=== PATIENT | male | born 1945 | race Caucasian/White ===

== ENCOUNTER 2018-06-19 08:24 | Day surgery (SDC) | payer OTHER ==
[2018-06-18 12:36] VITALS: BMI 27.3
[2018-06-19] MEDS ORDERED: PROPOFOL 200 MG/20 ML VIAL ONE (11:25)
--- NOTE | 2018-06-19 12:00 | OP ---
DATE OF PROCEDURE: 06/19/2018 SURGEON: Maxim Treadwell M.D. PROCEDURE: Esophagogastroduodenoscopy with biopsy and colonoscopy diagnostic. PREPROCEDURE DIAGNOSES: 1. Mild anemia, hemoglobin of 13.2 on 05/17/2018. Baseline hemoglobin between 15 and 16 last year. MCV normal at 93. Iron 99, TIBC 324, saturation 31%, ferritin 51. Comprehensive metabolic profile was normal except for sodium 134. In the office, he had Hemoccult positive stool, but no overt blood . 2. Prior history of reflux for which he is on omeprazole. 3. B12 549. Folate 12. POSTOPERATIVE DIAGNOSES: 1. Esophagogastroduodenoscopy notable for slightly irregular squamocolumnar junction, biopsy taken t o rule out Urrutia's, otherwise, normal esophagogastroduodenoscopy. 2. Diverticulosis coli with no stigmata of bleeding. 3. Small internal hemorrhoids. 4. No polyps. RECOMMENDATIONS: 1. Repeat colonoscopy in 10 years. 2. Follow up in the office in 1 month for repeat hemoglobin. If hemoglobin drops further, we need t o evaluate his small bowel. ANESTHESIA: TIVA. PROCEDURE IN DETAIL: After the patient was informed of the risks, benefits, possible complications o f endoscopy including perforation, bleeding, reactions to medication, aspiration, informed consent wa s obtained. The patient was brought to the endoscopy suite where he was sedated in a gradual fashion . Once he was comfortable, a bite block was placed in incisural orifice. The endoscope was advanced through the esophagus, stomach and the second and third portion of duodenum and slowly removed. The re was good visualization of the mucosa. There were no masses, lesions or arteriovenous malformation s identified in the stomach. There was mild irregular squamocolumnar junction with no overt abnormal mucosa, ulcers or erosions. Biopsies taken to rule out short segment Urrutia's. The duodenum was n ormal to the third portion. There was no stigmata of bleeding. There was no scalloping of duodenal folds. Retroflexed views in the stomach were normal. The scope was removed. The patient tolerated the procedure well with no complications.. The patient was turned in the room. A rectal exam was performed which was normal. The endoscope was advanced through the anal canal, through the colon to the ileum. The ileum was normal. The scope w as slowly brought back through the colon. There was good visualization of the mucosa. Withdrawal ti me was about 10 minutes. There was diverticulosis coli scattered throughout the colon. No stigmata of bleeding. There were no AVMs, polyps, or masses seen. Retroflexed view showed small internal hem orrhoids which were nonbleeding. The scope was removed. The patient tolerated the procedure well wi th no complications.
== END 2018-06-19 11:38 | disposition home or self-care (01) ==
LOC: SDC 08:24
PROVIDERS: ATTEND Internal Medicine Gastroenterology
PROC: 0DJD8ZZ Inspection of Lower Intestinal Tract, Via Natural or Artificial Opening Endoscopic (ICD-10-PCS; principal; 2018-06-19)
PROC: 0DB48ZX Excision of Esophagogastric Junction, Via Natural or Artificial Opening Endoscopic, Diagnostic (ICD-10-PCS; principal; 2018-06-19)
DX: D64.9 Anemia, unspecified (principal); K57.30 Diverticulosis of large intestine without perforation or abscess without bleeding; K64.8 Other hemorrhoids; K22.8 Other specified diseases of esophagus; I25.10 Atherosclerotic heart disease of native coronary artery without angina pectoris; I10 Essential (primary) hypertension; E78.00 Pure hypercholesterolemia, unspecified; F17.210 Nicotine dependence, cigarettes, uncomplicated; Z79.82 Long term (current) use of aspirin; Z79.899 Other long term (current) drug therapy; Z95.5 Presence of coronary angioplasty implant and graft
CPT/HCPCS: 88305; 88312; 88313; J2704

== ENCOUNTER 2018-06-28 08:49 | Inpatient (IN) | payer OTHER, MEDICARE ==
[2018-06-28 09:26] LABS: #Basophils 0.1 thou/uL (0.0-0.2); #Eosinphils 0.4 thou/uL (0.0-0.7); #Lymphocytes 2.3 thou/uL (1.20-3.40); #Monocytes 0.7 thou/uL (0.11-0.59); %Basophils 0.9 % (0.0-1.0); %Eosinophils 3.6 % (0.0-10.0); %Lymphocytes 22.2 % (21.0-51.0); %Monocytes 6.6 % (0.0-10.0); %Neutrophils 66.6 % (42.0-75.0); Hemoglobin 8.5 g/dL (14.0-18.0); Mean Corpuscular Hemoglobin 31.1 pg (27.0-31.0); Mean Corpuscular Volume 94.3 fL (78.0-98.0); Mean Platelet Volume 5.9 fL (7.4-10.4); Platelet Count 418 thou/uL (130-400); RBC Distribution Width 12.4 % (11.5-14.5); Red Blood Cell (RBC) Count 2.74 mill/uL (4.70-6.10); White Blood Cell (WBC) Count 10.5 thou/uL (4.8-10.8)
[2018-06-28 09:49] LABS: ALT (SGPT) 10 U/L (8-55); AST (SGOT) 21 U/L (5-34); Albumin 4.1 g/dL (3.4-4.8); Alkaline Phosphatase 52 U/L (40-150); Anion Gap 14 mmol/L (10-20); BUN (Urea Nitrogen) 12 mg/dL (8.4-25.7); Bilirubin, Total 0.4 mg/dL (0.2-1.2); Calc. Creatinine Clearance 0 mL/min (70-130); Calcium 9.4 mg/dL (7.8-10.44); Carbon Dioxide 22 mmol/L (23-31); Chloride 104 mmol/L (98-107); Estimated GFR-MDRD Greater than 90; Glucose 93 mg/dL (83-110); Potassium 4.2 mmol/L (3.5-5.1); Protein, Total 7.1 g/dL (5.8-8.1); Sodium 136 mmol/L (136-145)
[2018-06-28 09:50] LABS: CKMB 1.6 ng/mL (0-6.6); Troponin I 0.226 ng/mL (< 0.028)
[2018-06-28 09:57] LABS: PTT 29.7 SEC (22.9-36.1)
[2018-06-28 09:58] LABS: INR-International Normal Ratio 0.9; Prothrombin Time 12.1 SEC (12.0-14.7)
[2018-06-28 10:09] LABS: Iron 69 ug/dL (65-175); Iron Binding Capacity, Total 369 mcg/dL (261-462)
[2018-06-28] MEDS ORDERED: Pantoprazole 40 MG VIAL ONE (10:19)
--- NOTE | 2018-06-28 10:57 | CT ---
CT ABDOMEN AND PELVIS WITH IV CONTRAST: Date: 06/28/18 HISTORY: Abdominal pain. FINDINGS: Comparison made with exam of 01/01/04. There is a 5.0 mm peripheral nodule in the right lower lobe. No calcified gallstones are seen. The li tina, spleen, pancreas, right adrenal gland, and left kidney are normal. There is an 8.0 mm low densit y in the right renal cortex, likely cyst. There is an indeterminate 15.0 mm left adrenal nodule. This is new since the last exam. There is a 5.5 cm mass associated with a loop of small bowel in the lower mid abdomen at L3 and L4 le victor m. No associated abnormal bowel dilatation is seen. This is not amenable to percutaneous biopsy. A normal appearing appendix is seen. There is colonic diverticulosis without evidence of diverticulitis . Fecal material is present in the colon and rectum. There are vascular calcifications without evidence of aneurysmal dilatation of the abdominal aorta. N o free air, free fluid, or retroperitoneal lymphadenopathy is seen. There is mild prostatic enlargeme nt. Degenerative changes are present in the spine. The right lower lobe lung node, left adrenal nodule, and the abdominal mass are new since the previou s study. IMPRESSION: 1. 5.0 mm right lower lobe lung nodule. 2. 15.0 mm indeterminate left adrenal nodule. 3. 5.5 cm abdominal mass associated with small bowel loops. No evidence of high grade small bowel ob struction. Surgical consultation is recommended. 4. Colonic diverticulosis. POS: [facility]
[2018-06-28] MEDS ORDERED: Aspirin 81 mg Enteric Coated Tablet ONE (11:17)
--- NOTE | 2018-06-28 12:28 | PDOC.FPRHP ---
- History of Present Illness Chief Complaint: dizziness History of Present Illness: This is a 73yo M with pmh of CAD s/p 2stents 10 years ago presenting for 3 week history of lightheadedness and generalized weakness that have been worsening. Pt saw Dr. Graham weeks ago and was informed he was anemic. He then had upper and lower GI scope done by Dr. Zurita which was reportedly normal. Pt also complains of mild intermittent substernal chest pain that is achy in quality with no radiation. Pain is not exertional. Pt reports he has noticed resolution of pain if he stretches his back and chest out. Also complains of worsening mild exertional SOB. Of note pt reports he sees Dr. Chris for his CAD. Reports that most recent stress test was about 12months ago and normal, most recent echo 6 months ago with EF 65%. ED Course: ASA, protonix, 1L NS - Allergies/Adverse Reactions Allergies Allergy/AdvReac Type Severity Reaction Status Date / Time No Known Allergies Allergy Unverified 06/18/18 12:32 - Home Medications Medication Instructions Recorded Confirmed Type Amlodipine Besylate [amLODIPine 10 mg PO DAILY 06/18/18 06/28/18 History Besylate] Aspirin [Adult Aspirin] 81 mg PO DAILY 06/18/18 06/28/18 History Atorvastatin Calcium [Lipitor] 20 mg PO HS 06/18/18 06/28/18 History Doxazosin Mesylate [Cardura] 4 mg PO HS 06/18/18 06/28/18 History Losartan Potassium [Cozaar] 100 mg PO QPM 06/18/18 06/28/18 History Metoprolol Tartrate 50 mg PO HS 06/18/18 06/28/18 History Omeprazole Magnesium [Prilosec] 20 mg PO DAILY 06/18/18 06/28/18 History Triamterene/Hydrochlorothiazid 1 tablet PO DAILY 06/18/18 06/28/18 History [Triamterene-Hctz 37.5-25 mg Tb] Vitamin B Complex 1 each PO DAILY 06/18/18 06/28/18 History - History PMHx: CAD ([place] 10 years ago s/p 2 stents), HTN, BPH PSHx: Cardiac stents, jawbone graft surgery FHx: CAD, CVA, no hx of cancer Social: 50 pack year smoking hx, 3-4 standardized EtOH drinks /night, denies drugs - Review of Systems General: reports: fatigue. denies: fever/chills Eyes: denies: eye pain, vision changes ENT: denies: nasal congestion, rhinorrhea Respiratory: reports: exercise intolerance. denies: cough, congestion Cardiovascular: reports: chest pain (per hpi). denies: palpitation Gastrointestinal: reports: other (black stools over last month). denies: nausea , vomiting, constipation Skin: denies: rashes, lesions Musculoskeletal: denies: stiffness, swelling Neurological: denies: syncope, seizure Psychological: denies: anxiety, depression - Vital signs BP: [138/71] HR: [77] RR: [18] Tmax: [98.6] Pox: [99]% on [ra] Wt: [81kg] - Physical Exam Constitutional: NAD, awake, alert and oriented HEENT: EOMI, conjunctiva clear, grossly normal vision, grossly normal hearing, MMM Neck: trachea midline, no JVD Chest: no-tender to palpation Heart: RRR, normal S1/S2, other (grade 2/6 holosystolic murmur loudest at pulmonary valve) Lungs: CTAB, no respiratory distress Abdomen: soft, bowel sounds present, other (mild ttp of bilateral abdominal quadrants) Musculoskeletal: normal structure, normal tone Neurological: no focal deficit, normal sensation Skin: no rash/lesions, good turgor Heme/Lymphatic: no unusual bruising or bleeding, no purpura Psychiatric: normal mood and affect, good judgment and insight FMR H&P: Results - Labs Result Diagrams: 06/28/18 Unknown 06/28/18 Unknown Lab results: WBC 10.5 thou/uL (4.8-10.8) 06/28/18 Unknown Hgb 8.5 g/dL (14.0-18.0) L 06/28/18 Unknown Hct 25.9 % (42.0-52.0) L 06/28/18 Unknown MCV 94.3 fL (78.0-98.0) 06/28/18 Unknown Plt Count 418 thou/uL (130-400) H 06/28/18 Unknown Neutrophils % 66.6 % (42.0-75.0) 06/28/18 Unknown Sodium 136 mmol/L (136-145) 06/28/18 Unknown Potassium 4.2 mmol/L (3.5-5.1) 06/28/18 Unknown Chloride 104 mmol/L (98-107) 06/28/18 Unknown Carbon Dioxide 22 mmol/L (23-31) L 06/28/18 Unknown BUN 12 mg/dL (8.4-25.7) 06/28/18 Unknown Creatinine 0.77 mg/dL (0.6-1.3) 06/28/18 Unknown Glucose 93 mg/dL (83-110) 06/28/18 Unknown Calcium 9.4 mg/dL (7.8-10.44) 06/28/18 Unknown Total Bilirubin 0.4 mg/dL (0.2-1.2) 06/28/18 Unknown AST 21 U/L (5-34) 06/28/18 Unknown ALT 10 U/L (8-55) 06/28/18 Unknown Alkaline Phosphatase 52 U/L (40-150) 06/28/18 Unknown CK-MB (CK-2) 1.6 ng/mL (0-6.6) 06/28/18 Unknown Serum Total Protein 7.1 g/dL (5.8-8.1) 06/28/18 Unknown Albumin 4.1 g/dL (3.4-4.8) 06/28/18 Unknown FMR H&P: A/P - Problem List (1) Symptomatic anemia Current Visit: Yes Status: Acute Code(s): D64.9 - ANEMIA, UNSPECIFIED (2) Abdominal mass Current Visit: Yes Status: Acute Code(s): R19.00 - INTRA-ABD AND PELVIC SWELLING, MASS AND LUMP, UNSP SITE (3) Elevated troponin Current Visit: Yes Status: Acute Code(s): R74.8 - ABNORMAL LEVELS OF OTHER SERUM ENZYMES (4) CAD (coronary artery disease) Current Visit: Yes Status: Acute Code(s): I25.10 - ATHSCL HEART DISEASE OF [place] CORONARY ARTERY W/O ANG PCTRS (5) HTN (hypertension) Current Visit: Yes Status: Acute Code(s): I10 - ESSENTIAL (PRIMARY) HYPERTENSION - Plan Symptomatic Fe Deficiency Anemia 2/2 GI Bleed: A- Hgb went from 13->8.5 from 05/17. Symptomatic of fatigue, dizziness, melena, and intermittent SOB. upper and lower scopes were negative recently. P- will give 1 unit of blood - trend H/H q6h - admit to tele 5.5cm Abdominal Mass associated with small bowel A- likely cause of GI bleed. Pt has had sensation of post meal abdominal fullness but does not complain of constipation. Pt has 50 pack year smoking history and therefore at risk for cancer. P- consult General Surgery, requests Dr. Erickson - consult cardiology for surgical clearance - NPO, meds with sips of water Indeterminate Troponins A- Trop 0.226 likely caused by demand ischemia. Pt does complain of substernal CP over last month but is not symptomatic currently. Pain is not typical. EKG normal. P- trend trops - monitor symptoms CAD s/p stent x2 - consult Dr. John for surgical clearance - continue home ASA and statin HTN - home medications - prn IV Labetalol for SBP >180 Tobacco Abuse - advise cessation - patch nicotine EtOH use A- Pt reports 3-4 standardized drinks nightly. Unlikely to withdraw from EtOH at that amount. P- ASE protocol for precautions VTE Ppx: lovenox Code Status: Full Dispo: Will likely be here for 2-4 days and require surgical intervention on Sunday. FMR H&P: Upper Level - Pertinent history Patient is a 73yo M with PMH CAD s/p stentx2 (2007), HTN, BPH, and recent GI bleed presents to ED with pre-syncopal event while walking into work. He reports increasing dizziness and lightheaded spells over the past 2 weeks. He also endorses a long hx of melenous stools. He is established with Dr. Treadwell and underwent EGD and colonoscopy 1 week ago with negative findings. He was scheduled to get H/H drawn this week. Last H/H, he reports was 13.5 on Sunday. He denies current chest pain but endorses occasional chest pain that is not related to exertion that is described as tightness. He also endorses worsening exertional dyspnea over the last 2 months. No hx of lung disease. Established with Dr. John for cardiology. Last stress test 1 year ago- reportedly normal, last echo 6 months ago- also reportedly normal. ROS: Denies unintentional weight loss, n/v/c/d, hematochezia. Endorses abd pain and bloating as well as those mentioned above. FHx: Unremarkable for malignancy. Remarkable for HTN, CVA, and CAD. Social: tobacco use 1ppd for 4o yrs, daily etoh, 3-4beers and 1 shot of liquor, no hx of withdrawal, last drink yesterday evening - Pertinent findings VS: BP 138/71, P 77, R 18, O2 99%RA, T 98.6, Wt 81kg PE: General: Well-appearing, NAD Heart: RRR, no murmurs, pulses 2+ bilaterally Lungs: CTAB Abd: soft, nondistended, epigastric tenderness, no rebound or guarding LE: no edema Psych: AOx4 Labs: Hgb- 8.5 PT/PTT/INR- 12.1/29.7/0.9 Fe- 69 Ferritin- 21.3 Trop- 0.22 CTabd- 5.5cm obstructing abdominal mass - Plan Date/Time: 06/28/18 1211 I, Vi Foss, have evaluated this patient and agree with findings/plan as outlined by manager internet retails sales resident. Pertinent changes/additions are listed here. Symptomatic Fe Deficiency Anemia 2/2 GI Bleed: - trend H/H q6h - consider 1 unit of blood - admit to tele Obstructing 5.5cm Abdominal Mass - likely cause of GI bleed - consult General Surgery, requests Dr. Erickson - NPO, meds with sips of water Indeterminate Troponins - trend - normal EKG CAD s/p stent x2 - consult Dr. John for surgical clearance - continue home ASA and statin HTN - continue home medications - will have prn IV meds available Tobacco Abuse - advise cessation VTE Ppx: Lovenox Code Status: Full IVF: NS @ 100 Dispo: Will likely be here for 2-4 days and require surgical intervention. Attending Addendum - Attending Addendum Date/Time: 06/28/18 [id number] I personally evaluated the patient and discussed the management with Dr. Mcgregor. I agree with and repeated the History, Examination, Assessment and Plan documented above with any addition or exceptions noted below. CP free currently. Cards recommends TTE and stress. Surgery pending. Transfuse 1 unit PRBCs. Lovenox for dvt ppx.
[2018-06-28 13:22] LABS: Troponin I 0.169 ng/mL (< 0.028)
[2018-06-28] MEDS ORDERED: Acetaminophen 325 MG TAB PO PRN ×2 (15:02→15:22)
[2018-06-28] MEDS ORDERED: Sodium Chloride 0.9% 1,000 ML IV SCH (15:02)
[2018-06-28] MEDS ORDERED: Ondansetron PF 4 MG/2 ML Vial IVP PRN (15:02)
[2018-06-28] MEDS ORDERED: Ondansetron ODT 4 MG TAB SL PRN (15:02)
[2018-06-28] MEDS ORDERED: Labetalol HCl 100 MG/20 ML VIAL SLOW IVP PRN (15:22)
[2018-06-28] MEDS: Nicotine 14 MG PATCH TD SCH (15:59)
[2018-06-28] MEDS ORDERED: Iopamidol 370 76% 100 ML VIAL ONE (16:39)
[2018-06-28 16:46] LABS: Troponin I 0.167 ng/mL (< 0.028)
[2018-06-28] MEDS: Doxazosin Mesylate 4 MG TAB PO SCH (20:13)
[2018-06-28] MEDS: Atorvastatin Calcium 20 MG TAB PO SCH (20:14)
[2018-06-28] MEDS: Metoprolol Tartrate 50 MG TAB PO SCH (20:14)
--- NOTE | 2018-06-28 23:16 | CON ---
DATE OF CONSULT: 06/28/18 HISTORY OF PRESENT ILLNESS: The patient is a very pleasant 73-year-old gentleman who presents for evaluation of near syncope and chest discomfort. The patient has a previous history of coronary artery disease. In 2006, he presented with a myocardial infarction. The patient subsequently underwent an emergent cardiac catheterization. He was found to have normal left ventricular ejection fraction of 65%. The left anterior descending had a 90% mid lesion. There was diffuse disease in the LAD. The left circumflex artery had a 60% mid lesion. The right coronary artery was free of significant disease. The patient subsequently underwent PTCA and stent placement into the mid LAD. The patient subsequently has done very well. He has been free of chest discomfort. He underwent a stress test in 2014 where there was no evidence of ischemia. The patient was in his usual state of health until a few days ago he started feeling weak, lightheaded and dizzy. He noted having dark stool. He subsequently developed midsternal chest discomfort. He states this radiated up into his jaw. This lasted several minutes. He also reports having recurrent midsternal chest that did not radiated. The patient was noted to be severely anemic and admitted for further evaluation. The patient denies any present chest discomfort. PAST MEDICAL HISTORY: 1. Coronary artery disease. 2. Hypertension. 3. Dyslipidemia. 4. History of myocardial infarction. 5. Benign prostatic hypertrophy. PAST SURGICAL HISTORY: None. SOCIAL HISTORY: Long history of tobacco abuse. ALLERGIES: No known drug allergies. FAMILY HISTORY: Strong family history of coronary artery disease. MEDICATION: Triamterene/hydrochlorothiazide 37.5/25 daily, metoprolol 50 daily, losartan 100 daily, Cardura 4 daily, Lipitor 40 at bedtime, aspirin 81 daily, Norvasc 10 daily. REVIEW OF SYSTEMS: Noticeable for his bright red blood per rectum. REASON FOR ADMISSION: Weakness and dizziness. PHYSICAL EXAMINATION: GENERAL: A pale gentleman in no acute distress. VITAL SIGNS: Blood pressure 145/66. NECK: No jugular venous distention. LUNGS: Clear to auscultation. HEART: Regular rate and rhythm, normal S1, S2 with a II/ systolic murmur. ABDOMEN: Nondistended. EXTREMITIES: Showed no edema. VASCULAR: Radial pulses 2+. LABORATORY DATA: White blood count 10.5, hemoglobin 8.5, hematocrit 25.9, platelets 418. Sodium is 136, potassium 4.2, chloride 104, bicarbonate 22, BUN 12, creatinine 0.77, glucose was 102. Troponin was 0.226. EKG revealed normal sinus rhythm with sinus arrhythmia. IMPRESSION: 1. Near syncope secondary to a GI hemorrhage. 2. Chest pain suggestive of angina. 3. History of percutaneous transluminal coronary angioplasty and stent placed to the LAD with diffuse coronary artery disease. 4. Tobacco abuse. 5. Benign prostatic hypertrophy. 6. Abdominal mass. This gentleman presents with a GI hemorrhage. He was found to have an abdominal mass which needs to undergo surgery. The patient had chest discomfort very suggestive of angina associated with severe anemia. Because of his symptoms and his persistent use of tobacco,I would recommend that he undergo stress testing to make sure there is not evidence of severe ischemia prior to undergoing colon resection. Further recommendations will follow. MTDD
[2018-06-29 00:13] LABS: Hemoglobin 7.3 g/dL (14.0-18.0)
--- NOTE | 2018-06-29 06:07 | PDOC.FM ---
- Subjective Subjective: Pt feels well this morning with no changes in fatigue or weakness. reports decent sleep overnight. no acute changes, no complaints at this time No cp no palpitations, no sob no cough, no fevers/chills - Objective MAR Reviewed: Yes Vital Signs & Weight: Vital Signs (12 hours) Temp Pulse Pulse Resp BP Pulse Ox 06/29/18 04:00 98.0 F 68 18 119/58 L 93 L 06/29/18 02:17 98.3 F 68 18 121/54 L 06/29/18 00:09 92 L 06/29/18 00:00 98.4 F 67 16 91/50 L 92 L 06/28/18 19:45 98.3 F 74 68 18 121/58 L 94 L Weight Weight 81.601 kg Most Recent Monitor Data Heart Rate from ECG 70 I&O: 06/27/18 06/28/18 06/29/18 06:59 06:59 06:59 Intake Total 450 Balance 450 Result Diagrams: 06/29/18 00:01 06/28/18 Unknown <Asif Mcgregor - Last Filed: 06/29/18 07:36> - Objective Vital Signs & Weight: Vital Signs (12 hours) Temp Pulse Pulse Resp BP Pulse Ox 06/29/18 11:17 98.1 F 63 14 130/65 97 06/29/18 09:07 80 06/29/18 09:04 97.8 F 76 16 137/63 97 06/29/18 08:00 98.2 F 80 14 144/65 H 97 06/29/18 06:21 98.1 F 70 18 145/62 H 94 L 06/29/18 04:00 98.0 F 68 18 119/58 L 93 L 06/29/18 02:17 98.3 F 68 18 121/54 L 06/29/18 00:09 92 L 06/29/18 00:00 98.4 F 67 16 91/50 L 92 L Weight Weight 81.647 kg Most Recent Monitor Data Heart Rate from ECG 70 I&O: 06/28/18 06/29/18 06/30/18 06:59 06:59 06:59 Intake Total 1540 350 Output Total 925 Balance 615 350 Result Diagrams: 06/29/18 09:38 06/29/18 09:38 <Librado Shultz - Last Filed: 06/29/18 11:54> Phys Exam - Physical Examination Constitutional: NAD HEENT: moist MMs, sclera anicteric Neck: supple, full ROM Respiratory: no wheezing, clear to auscultation bilateral Cardiovascular: RRR grade 2/6 holosystolic murmur over pulm valve Gastrointestinal: soft, non-tender Musculoskeletal: no edema, pulses present Neurological: normal sensation, moves all 4 limbs Psychiatric: normal affect, A&O x 3 Skin: no rash, normal turgor <Asif Mcgregor - Last Filed: 06/29/18 07:36> Dx/Plan (1) Symptomatic anemia Code(s): D64.9 - ANEMIA, UNSPECIFIED Status: Acute (2) Abdominal mass Code(s): R19.00 - INTRA-ABD AND PELVIC SWELLING, MASS AND LUMP, UNSP SITE Status: Acute (3) Elevated troponin Code(s): R74.8 - ABNORMAL LEVELS OF OTHER SERUM ENZYMES Status: Acute (4) CAD (coronary artery disease) Code(s): I25.10 - ATHSCL HEART DISEASE OF [place] CORONARY ARTERY W/O ANG PCTRS Status: Acute (5) HTN (hypertension) Code(s): I10 - ESSENTIAL (PRIMARY) HYPERTENSION Status: Acute - Plan Plan: Symptomatic Fe Deficiency Anemia 2/2 GI Bleed: A- Hgb went from 13->8.5 from 05/17, 7.3 last night after 1 u PRBC. Pt is finishing up last for 2 more units this AM. P- H/H after transfusion of 3rd u PRBC - trend H/H q6h 5.5cm Abdominal Mass associated with small bowel A- likely cause of GI bleed. Pt has had sensation of post meal abdominal fullness but does not complain of constipation. Pt has 50 pack year smoking history and therefore at risk for cancer. consulted General Surgery, requests Dr. Erickson and cardiology for surgical clearance P-NPO after midnight Sunday night, meds with sips of water -planning surgery Sunday Indeterminate Troponins A- Trop 0.226->0.169->0.167 likely caused by demand ischemia. Pt does complain of substernal CP over last month but is not symptomatic currently. Pain is not typical. EKG normal. P- monitor symptoms CAD s/p stent x2 - consulted Dr. John for surgical clearance - continue home ASA and statin HTN - home medications - prn IV Labetalol for SBP >180 Tobacco Abuse - advise cessation - patch nicotine EtOH use A- Pt reports 3-4 standardized drinks nightly. Unlikely to withdraw from EtOH at that amount. P- ASE protocol for precautions VTE Ppx: lovenox Code Status: Full Dispo: 2-4 days and require surgical intervention on Sunday. <Asif Mcgregor - Last Filed: 06/29/18 07:36> (1) Symptomatic anemia Code(s): D64.9 - ANEMIA, UNSPECIFIED Status: Acute (2) Abdominal mass Code(s): R19.00 - INTRA-ABD AND PELVIC SWELLING, MASS AND LUMP, UNSP SITE Status: Acute (3) Elevated troponin Code(s): R74.8 - ABNORMAL LEVELS OF OTHER SERUM ENZYMES Status: Acute (4) CAD (coronary artery disease) Code(s): I25.10 - ATHSCL HEART DISEASE OF [place] CORONARY ARTERY W/O ANG PCTRS Status: Acute (5) HTN (hypertension) Code(s): I10 - ESSENTIAL (PRIMARY) HYPERTENSION Status: Acute <Librado Shultz - Last Filed: 06/29/18 11:54> Attending Addendum - Attending Addendum Date/Time: 06/29/18 1154 I personally evaluated the patient and discussed the management with Dr. Mcgregor and team. I agree with and repeated the History, Examination, Assessment and Plan documented above with any addition or exceptions noted below. Cath vs Stress per cards. Had some cp overnight, which they are aware of. Appropriate rise after transfusion. Pending TTE. <Librado Shultz - Last Filed: 06/29/18 11:54>
[2018-06-29 06:18] VITALS: BMI 26.6
[2018-06-29] MEDS ORDERED: Enoxaparin Sodium 40 MG/0.4 ML SYRINGE SC SCH (09:00)
[2018-06-29] MEDS ORDERED: Aspirin 81 mg Enteric Coated Tablet PO SCH (09:00)
[2018-06-29] MEDS: Triamterene/Hydrochlorothiazide 37.5 mg/25 mg Tablet PO SCH (09:06)
[2018-06-29] MEDS: Stress 600 With Zinc 1 TAB PO SCH (09:06)
[2018-06-29] MEDS: Amlodipine 10 MG TAB PO SCH (09:07)
[2018-06-29 10:14] LABS: #Eosinphils 0.3 thou/uL (0.0-0.7); #Lymphocytes 1.8 thou/uL (1.20-3.40); #Monocytes 0.6 thou/uL (0.11-0.59); #Neutrophils 6.3 thou/uL (1.40-6.50); %Basophils 0.5 % (0.0-1.0); %Eosinophils 3.7 % (0.0-10.0); %Lymphocytes 19.5 % (21.0-51.0); %Neutrophils 69.4 % (42.0-75.0); Hemoglobin 10.1 g/dL (14.0-18.0); Mean Corpuscular HGB CONC 32.3 g/dL (32.0-36.0); Mean Corpuscular Hemoglobin 30.1 pg (27.0-31.0); Mean Corpuscular Volume 93.2 fL (78.0-98.0); Mean Platelet Volume 6.2 fL (7.4-10.4); Platelet Count 311 thou/uL (130-400); Red Blood Cell (RBC) Count 3.34 mill/uL (4.70-6.10); White Blood Cell (WBC) Count 9.1 thou/uL (4.8-10.8)
[2018-06-29 10:32] LABS: Anion Gap 9 mmol/L (10-20); BUN (Urea Nitrogen) 12 mg/dL (8.4-25.7); Calc. Creatinine Clearance 107 mL/min (70-130); Calcium 8.6 mg/dL (7.8-10.44); Carbon Dioxide 24 mmol/L (23-31); Chloride 107 mmol/L (98-107); Estimated GFR-MDRD Greater than 90; Glucose 103 mg/dL (83-110); Potassium 4.2 mmol/L (3.5-5.1); Sodium 136 mmol/L (136-145)
[2018-06-29 14:32] LABS: Hemoglobin 10.1 g/dL (14.0-18.0)
[2018-06-29] MEDS: Nicotine 14 MG PATCH TD SCH (15:35)
[2018-06-29 18:14] LABS: Hemoglobin 10.4 g/dL (14.0-18.0)
[2018-06-29] MEDS: Metoprolol Tartrate 50 MG TAB PO SCH (21:04)
[2018-06-29] MEDS: Doxazosin Mesylate 4 MG TAB PO SCH (21:05)
[2018-06-29] MEDS: Atorvastatin Calcium 20 MG TAB PO SCH (21:05)
[2018-06-29] MEDS: Losartan 25 MG TAB PO SCH (21:05)
[2018-06-30 00:23] LABS: Hemoglobin 9.6 g/dL (14.0-18.0)
[2018-06-30 05:20] LABS: Hemoglobin 9.4 g/dL (14.0-18.0)
--- NOTE | 2018-06-30 06:31 | PDOC.FM ---
- Subjective Subjective: Pt feeling well this AM. Reports continued but stable epigastric discomfort. Only complaint at this time is hunger. Pt feels ready for stress test. no cp no palpitations, no sob no cough, no fever no chills - Objective MAR Reviewed: Yes Vital Signs & Weight: Vital Signs (12 hours) Temp Pulse Resp BP Pulse Ox 06/30/18 03:46 98.1 F 62 17 119/59 L 95 06/29/18 20:00 98.5 F 73 14 114/55 L 98 Weight Weight 81.647 kg Most Recent Monitor Data Heart Rate from ECG 70 I&O: 06/28/18 06/29/18 06/30/18 06:59 06:59 06:59 Intake Total 1540 1070 Output Total 925 600 Balance 615 470 Result Diagrams: 06/30/18 04:29 06/29/18 09:38 <Asif Mcgregor - Last Filed: 06/30/18 07:34> - Objective Vital Signs & Weight: Vital Signs (12 hours) Temp Pulse Resp BP Pulse Ox 06/30/18 11:10 98.4 F 67 16 162/73 H 95 06/30/18 07:10 97.8 F 61 18 139/62 95 06/30/18 03:46 98.1 F 62 17 119/59 L 95 Weight Weight 81.647 kg Most Recent Monitor Data Heart Rate from ECG 70 I&O: 06/29/18 06/30/18 07/01/18 06:59 06:59 06:59 Intake Total 1540 1370 Output Total 925 1600 Balance 615 -230 Result Diagrams: 06/30/18 11:22 06/29/18 09:38 <Librado Shultz - Last Filed: 06/30/18 13:07> Phys Exam - Physical Examination Constitutional: NAD HEENT: moist MMs, sclera anicteric Neck: no JVD, full ROM Respiratory: no wheezing, clear to auscultation bilateral Cardiovascular: RRR, no significant murmur Gastrointestinal: soft mild bilateral UQ ttp Musculoskeletal: no edema, pulses present Neurological: normal sensation, moves all 4 limbs Psychiatric: normal affect, A&O x 3 Skin: no rash, normal turgor <Asif Mcgregor - Last Filed: 06/30/18 07:34> Dx/Plan (1) Symptomatic anemia Code(s): D64.9 - ANEMIA, UNSPECIFIED Status: Acute (2) Abdominal mass Code(s): R19.00 - INTRA-ABD AND PELVIC SWELLING, MASS AND LUMP, UNSP SITE Status: Acute (3) Elevated troponin Code(s): R74.8 - ABNORMAL LEVELS OF OTHER SERUM ENZYMES Status: Acute (4) CAD (coronary artery disease) Code(s): I25.10 - ATHSCL HEART DISEASE OF [place] CORONARY ARTERY W/O ANG PCTRS Status: Acute (5) HTN (hypertension) Code(s): I10 - ESSENTIAL (PRIMARY) HYPERTENSION Status: Acute - Plan Plan: Symptomatic Fe Deficiency Anemia 2/2 GI Bleed: A- Hgb went from 13->8.5 from 05/17, pt is not s/p 3u PRBCs and Hgb is 9.4. down from 10.4 yesterday. P- trend H/H q6h 5.5cm Abdominal Mass associated with small bowel A- likely cause of GI bleed. Pt has had sensation of post meal abdominal fullness but does not complain of constipation. Pt has 50 pack year smoking history and therefore at risk for cancer. consulted General Surgery, requests Dr. Erickson and cardiology for surgical clearance P-NPO after midnight Sunday night, meds with sips of water -planning surgery Sunday Indeterminate Troponins A- Trop 0.226->0.169->0.167 likely caused by demand ischemia. Pt does complain of substernal CP over last month but is not symptomatic currently. Pain is not typical. EKG normal. P- monitor symptoms CAD s/p stent x2 - consulted Dr. John for surgical clearance - continue home ASA and statin - Echo yesterday shows diastolic disfunction and EF 55-60% -possible stress test today HTN - home medications - prn IV Labetalol for SBP >180 Tobacco Abuse - advise cessation - patch nicotine EtOH use A- Pt reports 3-4 standardized drinks nightly. Unlikely to withdraw from EtOH at that amount. P- ASE protocol for precautions VTE Ppx: lovenox Code Status: Full Dispo: Possibly home Sunday pending recovery from surgical intervention on Sunday. <Asif Mcgregor - Last Filed: 06/30/18 07:34> (1) Symptomatic anemia Code(s): D64.9 - ANEMIA, UNSPECIFIED Status: Acute (2) Abdominal mass Code(s): R19.00 - INTRA-ABD AND PELVIC SWELLING, MASS AND LUMP, UNSP SITE Status: Acute (3) Elevated troponin Code(s): R74.8 - ABNORMAL LEVELS OF OTHER SERUM ENZYMES Status: Acute (4) CAD (coronary artery disease) Code(s): I25.10 - ATHSCL HEART DISEASE OF [place] CORONARY ARTERY W/O ANG PCTRS Status: Acute (5) HTN (hypertension) Code(s): I10 - ESSENTIAL (PRIMARY) HYPERTENSION Status: Acute <Librado Shultz - Last Filed: 06/30/18 13:07> Attending Addendum - Attending Addendum Date/Time: 06/30/18 1306 I personally evaluated the patient and discussed the management with Dr. Mcgregor. I agree with and repeated the History, Examination, Assessment and Plan documented above with any addition or exceptions noted below. D/c serial hgb. Repeat labs in AM. Stress test today. Echo results reviewed. <Librado Shultz - Last Filed: 06/30/18 13:07>
[2018-06-30] MEDS ORDERED: ADENOSINE 60 MG/20 ML VIAL ONE (10:26)
[2018-06-30 11:45] LABS: Hemoglobin 10.4 g/dL (14.0-18.0)
[2018-06-30] MEDS: Stress 600 With Zinc 1 TAB PO SCH (15:05)
[2018-06-30] MEDS: Triamterene/Hydrochlorothiazide 37.5 mg/25 mg Tablet PO SCH (15:05)
[2018-06-30] MEDS: Amlodipine 10 MG TAB PO SCH (15:05)
[2018-06-30] MEDS: Nicotine 14 MG PATCH TD SCH (15:05)
--- NOTE | 2018-06-30 15:53 | NM ---
NUCLEAR MEDICINE CARDIAC STRESS TEST WITH EJECTION FRACTION: HISTORY: Angina, [place], cardiac clearance. COMPARISON: None. FINDINGS: Stress and rest performed after the intravenous administration of 28 and 9.1 mCi technetium-99m sesta mibi, respectively. Adequate left ventricular uptake of radiotracer. Normal wall motion. No scar or ischemia. Calculated ejection fraction is 72%. IMPRESSION: Normal exam. POS: [facility]
[2018-06-30] MEDS: Ferrous Sulfate 325 MG TAB PO SCH (17:03)
[2018-06-30] MEDS ORDERED: Metoprolol Tartrate 5 MG/5 ML VIAL ONE (18:48)
[2018-06-30] MEDS ORDERED: Diltiazem HCl 125 MG, Admixture Fee 1 EACH in Sodium Chloride 0.9% 100 ML IVPB PRN (18:48)
[2018-06-30] MEDS ORDERED: Metoprolol Tartrate 5 MG/5 ML VIAL IVP SCH (19:00)
[2018-06-30] MEDS: Losartan 25 MG TAB PO SCH (20:14)
[2018-06-30] MEDS: Metoprolol Tartrate 50 MG TAB PO SCH (20:15)
[2018-06-30] MEDS: Atorvastatin Calcium 20 MG TAB PO SCH (20:15)
[2018-06-30] MEDS: Doxazosin Mesylate 4 MG TAB PO SCH (20:15)
--- NOTE | 2018-06-30 21:35 | PDOC.EVN ---
Event Note - Event Note Event Note: Paged by nurse as patient was in atrial flutter as seen on tele, rate 160s. Caused by patient getting agitated about type of food he was served for dinner. As patient calmed down, his heart rate decreased into 140s. Patient asymptomatic. Cardiology was also paged, given 5mg metoprolol which decreased rate to 110s. Has standing orders for diltiazem if rate >120.
[2018-07-01 05:34] LABS: #Basophils 0.1 thou/uL (0.0-0.2); #Eosinphils 0.4 thou/uL (0.0-0.7); #Lymphocytes 2.2 thou/uL (1.20-3.40); #Monocytes 0.7 thou/uL (0.11-0.59); #Neutrophils 5.9 thou/uL (1.40-6.50); %Basophils 0.7 % (0.0-1.0); %Eosinophils 4.5 % (0.0-10.0); %Lymphocytes 24.1 % (21.0-51.0); %Monocytes 7.2 % (0.0-10.0); %Neutrophils 63.6 % (42.0-75.0); Mean Corpuscular HGB CONC 32.9 g/dL (32.0-36.0); Mean Corpuscular Hemoglobin 30.6 pg (27.0-31.0); Mean Corpuscular Volume 92.8 fL (78.0-98.0); Mean Platelet Volume 6.1 fL (7.4-10.4); Platelet Count 346 thou/uL (130-400); RBC Distribution Width 14.2 % (11.5-14.5); Red Blood Cell (RBC) Count 3.26 mill/uL (4.70-6.10); White Blood Cell (WBC) Count 9.3 thou/uL (4.8-10.8)
[2018-07-01 06:02] LABS: ALT (SGPT) 10 U/L (8-55); AST (SGOT) 15 U/L (5-34); Albumin 3.3 g/dL (3.4-4.8); Alkaline Phosphatase 47 U/L (40-150); Anion Gap 11 mmol/L (10-20); BUN (Urea Nitrogen) 14 mg/dL (8.4-25.7); Bilirubin, Total 0.5 mg/dL (0.2-1.2); Calc. Creatinine Clearance 104 mL/min (70-130); Calcium 8.8 mg/dL (7.8-10.44); Carbon Dioxide 23 mmol/L (23-31); Chloride 105 mmol/L (98-107); Estimated GFR-MDRD Greater than 90; Globulin 2.3 g/dL (2.4-3.5); Glucose 100 mg/dL (83-110); Potassium 4.1 mmol/L (3.5-5.1); Protein, Total 5.6 g/dL (5.8-8.1); Sodium 135 mmol/L (136-145)
--- NOTE | 2018-07-01 06:24 | PDOC.FM ---
- Subjective Subjective: Pt had episode of a-flutter last night (see event note), reports feeling well this AM. Had one black BM last night. Has continued mild intermittent abdominal discomfort. No other complaints at this time. no fever/chills, no cp no palpitations, no sob no cough - Objective MAR Reviewed: Yes Vital Signs & Weight: Vital Signs (12 hours) Temp Pulse Resp BP Pulse Ox 07/01/18 04:00 97.9 F 88 18 117/73 94 L 06/30/18 20:10 98.8 F 105 H 18 105/62 96 06/30/18 18:24 145 H 18 176/89 H Weight Weight 81.647 kg Most Recent Monitor Data Heart Rate from ECG 70 I&O: 06/29/18 06/30/18 07/01/18 06:59 06:59 06:59 Intake Total 1540 1370 480 Output Total 925 1600 1200 Balance 615 -788 -835 Result Diagrams: 07/01/18 04:39 07/01/18 04:39 <Asif Mcgregor - Last Filed: 07/01/18 08:18> - Objective Vital Signs & Weight: Vital Signs (12 hours) Temp Pulse Resp BP Pulse Ox 07/01/18 08:00 98.1 F 106 H 18 101/56 L 99 07/01/18 04:00 97.9 F 88 18 117/73 94 L Weight Weight 77.337 kg Most Recent Monitor Data Heart Rate from ECG 70 I&O: 06/30/18 07/01/18 07/02/18 06:59 06:59 06:59 Intake Total 1370 780 Output Total 1600 1950 Balance -230 -1170 Result Diagrams: 07/01/18 04:39 07/01/18 04:39 <Gracie Gomez - Last Filed: 07/01/18 15:47> Phys Exam - Physical Examination Constitutional: NAD HEENT: moist MMs, sclera anicteric Neck: supple, full ROM Respiratory: no wheezing, clear to auscultation bilateral Cardiovascular: no significant murmur irregular rhythm, regular rate Gastrointestinal: soft, positive bowel sounds mild TTP in bilat UQs Musculoskeletal: no edema, pulses present Neurological: normal sensation, moves all 4 limbs Psychiatric: normal affect, A&O x 3 <Asif Mcgregor - Last Filed: 07/01/18 08:18> Dx/Plan (1) Symptomatic anemia Code(s): D64.9 - ANEMIA, UNSPECIFIED Status: Acute (2) Abdominal mass Code(s): R19.00 - INTRA-ABD AND PELVIC SWELLING, MASS AND LUMP, UNSP SITE Status: Acute (3) Elevated troponin Code(s): R74.8 - ABNORMAL LEVELS OF OTHER SERUM ENZYMES Status: Acute (4) CAD (coronary artery disease) Code(s): I25.10 - ATHSCL HEART DISEASE OF [place] CORONARY ARTERY W/O ANG PCTRS Status: Acute (5) HTN (hypertension) Code(s): I10 - ESSENTIAL (PRIMARY) HYPERTENSION Status: Acute - Plan Plan: Symptomatic Fe Deficiency Anemia 2/2 GI Bleed: A- Hgb went from 13->8.5 from 05/17, pt is not s/p 3u PRBCs and Hgb is 10 today. P- continue iron supplementation - plan for possible resection of mass today. 5.5cm Abdominal Mass associated with small bowel A- likely cause of GI bleed. Pt has had sensation of post meal abdominal fullness but does not complain of constipation. Pt has 50 pack year smoking history and therefore at risk for cancer. consulted General Surgery, requests Dr. Erickson and cardiology for surgical clearance P-NPO after midnight Sunday night, meds with sips of water -planning surgery today pending cardiac clearance -f/u surg recs Atrial fibrillation A- Pt had episode of a-flutter last night with rates in 170's, resolved with 5mg metoprolol. Pt still in a-fib but rate is in 80s and 90s p- continue monitoring on tele -f/u card recs -prn diltiazem for rate control Indeterminate Troponins A- Trop 0.226->0.169->0.167 likely caused by demand ischemia. Pt does complain of substernal CP over last month but is not symptomatic currently. Pain is not typical. EKG normal. P- monitor symptoms CAD s/p stent x2 - consulted Dr. John for surgical clearance - continue home ASA and statin - Echo shows diastolic disfunction and EF 55-60% - stress test was normal showing EF 72% HTN - home medications - prn IV Labetalol for SBP >180 Tobacco Abuse - advise cessation - patch nicotine EtOH use A- Pt reports 3-4 standardized drinks nightly. Unlikely to withdraw from EtOH at that amount. P- ASE protocol for precautions VTE Ppx: SCDs Code Status: Full Dispo: Possibly home Sunday pending recovery from surgical intervention today <Asif Mcgregor - Last Filed: 07/01/18 08:18> Attending Addendum - Attending Addendum Date/Time: 07/01/18 5254 I personally evaluated the patient and discussed the management with Dr. Mcgregor. I agree with the History, Examination, Assessment and Plan documented above with any addition or exceptions noted below. The patient went into atrial flutter overnight. He is currently in a.fib. He was given a beta-fela overnight. Cardiology has now started amiodarone and will be talking with surgery to see if he can still have an operation today. <Gracie Gomez - Last Filed: 07/01/18 15:47>
[2018-07-01] MEDS: Ferrous Sulfate 325 MG TAB PO SCH ×2 (08:48→17:12)
[2018-07-01] MEDS: Triamterene/Hydrochlorothiazide 37.5 mg/25 mg Tablet PO SCH (08:49)
[2018-07-01] MEDS: Amlodipine 10 MG TAB PO SCH (08:49)
[2018-07-01] MEDS: Stress 600 With Zinc 1 TAB PO SCH (08:49)
[2018-07-01] MEDS ORDERED: Amiodarone In Dextrose 200 ML IVPB SCH (09:30)
[2018-07-01] MEDS ORDERED: Amiodarone HCl 150 MG, Admixture Fee 1 EACH in Dextrose 5% in Water 100 ML IVPB SCH (10:15)
[2018-07-01] MEDS ORDERED: Amiodarone HCl 450 MG, Admixture Fee 1 EACH in Dextrose 5% in Water 250 ML IVPB SCH (10:15)
--- NOTE | 2018-07-01 10:28 | CON ---
DATE OF CONSULTATION: 07/01/2018 CHIEF COMPLAINT: Small bowel mass. HISTORY OF PRESENT ILLNESS: This is a 73-year-old male with a history of coronary artery disease who sees Dr. John who presents with a history of weakness, dizziness that has been progressive over the last month and found to be anemic. Dr. Treadwell performed upper and lower endoscopy on him on with no source of bleeding found. He had an outpatient CT scan performed, which shows what l ooks like a small bowel tumor. He was admitted to the hospital for atypical chest pain. He has had normal chemical stress test over the weekend. Yesterday afternoon, he developed some atrial flutter that turned into atrial fibrillation. He is now rate controlled. No chest pain. He denies abdomina l pain, weight loss, anorexia with this. Mostly, his main complaint has been weakness related to his anemia. Never had abdominal surgery before. There is no family history of any GI malignancy. Marcos es nausea or vomiting. PAST MEDICAL HISTORY: Includes hypertension, coronary artery disease, BPH. PAST SURGICAL HISTORY: Cardiac stents. MEDICINES: See list. ALLERGIES: No known drug allergies. SOCIAL HISTORY: Former smoker, daily alcohol, no other drugs. REVIEW OF SYSTEMS: Ten system review of systems otherwise negative unless described above. PHYSICAL EXAMINATION: VITAL SIGNS: Blood pressure is 117/73, pulse 88, respirations 18. He is afebrile. HEENT: Sclerae are anicteric. Oropharynx clear. NECK: No lymphadenopathy. CHEST: Clear. HEART: Regular rate. ABDOMEN: Soft, nontender, nondistended. No masses or hernias. EXTREMITIES: No ischemia or edema to extremities. LABORATORY AND X-RAY FINDINGS: White blood cell count is 9, hemoglobin 10, platelet count is 346,000 . Sodium 135, potassium 4.1, creatinine 0.74. Liver function tests normal. CT scan of the abdomen and pelvis on 06/28/2018 reveals 5 mm right lower lung nodule, 15 mm indeterminate left adrenal nodul e, 5.5 cm abdominal mass, colon diverticulosis. ASSESSMENT: Small bowel tumor. PLAN: Discussed with Dr. John. He thinks he is stable for surgery today. Plan laparoscopic sm all bowel resection. Risks, benefits and alternatives discussed. He gives consent. We will do this today.
[2018-07-01] MEDS: Sodium Chloride 0.9% 1,000 ML IV SCH (10:50)
[2018-07-01 11:49] LABS: ALT (SGPT) 10 U/L (8-55); AST (SGOT) 14 U/L (5-34); Albumin 3.5 g/dL (3.4-4.8); Alkaline Phosphatase 49 U/L (40-150); Bilirubin, Direct 0.3 mg/dL (0.1-0.3); Bilirubin, Total 0.5 mg/dL (0.2-1.2); Protein, Total 5.9 g/dL (5.8-8.1)
[2018-07-01] MEDS ORDERED: Midazolam HCl 2 mg/2 ml Vial ONE (12:27)
[2018-07-01] MEDS ORDERED: Fentanyl 100 MCG/2 ML VIAL ONE ×4 (12:27→16:27)
[2018-07-01] MEDS ORDERED: Dexamethasone 4 mg/ml Vial ONE (12:28)
[2018-07-01] MEDS ORDERED: Lidocaine 1% (PF) 30 ML VIAL ONE (12:32)
--- NOTE | 2018-07-01 13:57 | PDOC.CTH ---
Cardiology Progress Note - Subjective No comaplints. Pt converted to aflutter last PM and now in afib - Objective Vital Signs Temp Pulse Resp BP Pulse Ox 07/01/18 08:00 98.1 F 106 H 18 101/56 L 99 07/01/18 04:00 97.9 F 88 18 117/73 94 L Weight 170 lb 8 oz 06/30/18 07/01/18 07/02/18 06:59 06:59 06:59 Intake Total 1370 780 Output Total 1600 1950 Balance -230 -1170 - Physical Examination General/Neuro: alert & oriented x3, NAD Neck: no JVD present Lungs: unlabored respirations Heart: PMI normal, other: (irr) Abdomen: no HSM, NT/ND, soft Extremities: + femoral B - Labs Result Diagrams: 07/01/18 04:39 07/01/18 04:39 Troponin/CKMB CK-MB (CK-2) 1.6 ng/mL (0-6.6) 06/28/18 Unknown Troponin I 0.226 ng/mL (< 0.028) H 06/28/18 Unknown - Assessment/Plan CAD afib abdominal mass Tob abuse Recommend adding amiodaorne IV and see if pt converts Pt in need of surgery this pm. Bourg to be low risk. Recent stress test neg for ischemia Can add IV CCB if needed in the periop period
[2018-07-01] MEDS ORDERED: cefOXitin 2 GM in Sodium Chloride 0.9% 100 ML IVPB ONE (14:00)
[2018-07-01] MEDS ORDERED: Bupivacaine HCl 0.5%/Epinephrine 1:200,000/PF 30 ml Vial ONE (14:19)
[2018-07-01] MEDS ORDERED: Promethazine HCl 25 MG/ML VIAL SLOW IVP PRN (14:56)
[2018-07-01] MEDS ORDERED: Promethazine HCl 25 MG/ML VIAL IM PRN (14:56)
[2018-07-01] MEDS ORDERED: Ondansetron HCl/PF 4 MG/2 ML Vial IVP PRN (14:56)
[2018-07-01] MEDS ORDERED: PHENYLEPHRINE-NS 100 MCG/ML 10 ML SYRINGE ONE (15:20)
[2018-07-01] MEDS ORDERED: Ondansetron PF 4 MG/2 ML Vial ONE (15:20)
[2018-07-01] MEDS ORDERED: Ketorolac Tromethamine 30 MG/ML VIAL ONE (15:20)
[2018-07-01] MEDS ORDERED: PROPOFOL 200 MG/20 ML VIAL ONE (15:20)
[2018-07-01] MEDS ORDERED: Lidocaine 1% PF 5 ML VIAL ONE (15:20)
[2018-07-01] MEDS ORDERED: ePHEDrine/0.9% NaCl/PF SYRINGE 50 mg/10 ml ONE (15:20)
[2018-07-01] MEDS ORDERED: Glycopyrrolate 0.2 MG/ML 5 ML SYRINGE ONE (15:20)
[2018-07-01] MEDS ORDERED: Promethazine HCl 25 MG/ML VIAL ONE (15:47)
[2018-07-01] MEDS ORDERED: traMADol HCl 50 MG TAB PO PRN (16:31)
[2018-07-01] MEDS ORDERED: Fentanyl 100 MCG/2 ML VIAL SLOW IVP PRN (16:31)
[2018-07-01] MEDS: Nicotine 14 MG PATCH TD SCH (17:12)
[2018-07-01] MEDS: Fentanyl 100 MCG/2 ML VIAL SLOW IVP PRN (18:28)
--- NOTE | 2018-07-01 19:44 | OP ---
DATE OF SERVICE: 07/01/2018 PREOPERATIVE DIAGNOSIS: Small bowel tumor. POSTOPERATIVE DIAGNOSIS: Small bowel tumor. PROCEDURE: Small bowel resection with anastomosis. SURGEON: Cheo Erickson M.D. ANESTHESIA: General. ESTIMATED BLOOD LOSS: Minimal. COMPLICATIONS: None. SPECIMEN: Small bowel. TECHNIQUE: The patient was taken to the operating room and placed supine on the table. After genera l anesthetic was obtained, a Tejada was placed. The abdomen was shaved, prepped, and draped in a ster ile fashion. Curved incision was made below the umbilicus. Cautery was used to dissect down to and score the fascia. Abdominal cavity was entered bluntly using a Sara clamp. A [address] d after pneumoperitoneum was obtained. Suprapubic 5 mm port was placed as well. There was an obviou s small bowel tumor in the mid to proximal small intestine that was stuck to the retroperitoneum, so all ports were removed. Midline incision was made. The Young wound protector was placed. The smal l bowel tumor peeled off the retroperitoneum and the central area. BALWINDER-75 stapler was fired across t he small intestine proximal and distal to the area. The mesentery was taken down low using Sara cla mps and silk ties. Specimen was sent to path for final diagnosis. The enterotomy was made on the an timesenteric surface of each end and a iole-il-omvy anastomosis was performed using BALWINDER-75 stapler. Common enterotomy was closed using two layers of Vicryl suture. Crotch stitch was placed using silk as well as the mesenteric defect was closed using silk. There was no bleeding in the retroperitoneum where it was peeled away. All instrument counts, needle counts, lap counts were correct. The abdom en was irrigated using sterile solution. Midline fascia was closed using #1 PDS. The subcutaneous t issues were irrigated. The skin was closed using 3-0 Vicryl, 4-0 Monocryl, and Dermabond. The patie nt was en route to recovery in stable condition. All instrument counts, needle counts, lap counts ar e correct.
[2018-07-01] MEDS: Doxazosin Mesylate 4 MG TAB PO SCH (20:13)
[2018-07-01] MEDS: Losartan 25 MG TAB PO SCH (20:13)
[2018-07-01] MEDS: Metoprolol Tartrate 50 MG TAB PO SCH (20:14)
[2018-07-01] MEDS: Atorvastatin Calcium 20 MG TAB PO SCH (20:14)
[2018-07-01] MEDS: traMADol HCl 50 MG TAB PO PRN (22:36)
[2018-07-02] MEDS: Sodium Chloride 0.9% 1,000 ML IV SCH ×3 (05:56→18:30)
[2018-07-02] MEDS: traMADol HCl 50 MG TAB PO PRN ×2 (05:57→14:18)
[2018-07-02 06:14] LABS: #Monocytes 0.9 thou/uL (0.11-0.59); #Neutrophils 13.8 thou/uL (1.40-6.50); %Basophils 0.1 % (0.0-1.0); %Eosinophils 0.2 % (0.0-10.0); %Lymphocytes 6.1 % (21.0-51.0); %Monocytes 5.6 % (0.0-10.0); Hemoglobin 9.4 g/dL (14.0-18.0); Mean Corpuscular HGB CONC 32.2 g/dL (32.0-36.0); Mean Corpuscular Hemoglobin 30.4 pg (27.0-31.0); Mean Corpuscular Volume 94.6 fL (78.0-98.0); Platelet Count 354 thou/uL (130-400); RBC Distribution Width 14.7 % (11.5-14.5); Red Blood Cell (RBC) Count 3.07 mill/uL (4.70-6.10); White Blood Cell (WBC) Count 15.7 thou/uL (4.8-10.8)
[2018-07-02 06:41] LABS: Anion Gap 10 mmol/L (10-20); BUN (Urea Nitrogen) 17 mg/dL (8.4-25.7); Calc. Creatinine Clearance 94 mL/min (70-130); Calcium 8.6 mg/dL (7.8-10.44); Carbon Dioxide 23 mmol/L (23-31); Chloride 104 mmol/L (98-107); Estimated GFR-MDRD Greater than 90; Glucose 134 mg/dL (83-110); Potassium 4.4 mmol/L (3.5-5.1); Sodium 133 mmol/L (136-145)
--- NOTE | 2018-07-02 06:47 | PDOC.FM ---
- Subjective Subjective: Pt reports progressive recovery from surgery and that he has had excellent pain control with tramadol and has been ambulating up and down the halls with very little difficulty. Pt has no complaints at this time no fever/chills, no cp no palpitations, no sob no cough, no nausea/vomiting - Objective MAR Reviewed: Yes Vital Signs & Weight: Vital Signs (12 hours) Temp Pulse Resp BP Pulse Ox 07/02/18 04:00 97.8 F 77 18 106/59 L 94 L 07/01/18 20:10 96.1 F L 64 18 103/53 L 100 Weight Weight 77.252 kg Most Recent Monitor Data Heart Rate from ECG 70 I&O: 06/30/18 07/01/18 07/02/18 06:59 06:59 06:59 Intake Total 1576 918 8730 Output Total 1600 1950 1800 Balance -230 -1170 2049 Result Diagrams: 07/02/18 05:22 07/02/18 05:22 <Asif Mcgregor - Last Filed: 07/02/18 08:18> - Objective Vital Signs & Weight: Vital Signs (12 hours) Temp Pulse Resp BP Pulse Ox 07/02/18 15:50 98.2 F 66 18 101/55 L 94 L 07/02/18 12:00 97.8 F 58 L 18 105/55 L 95 07/02/18 08:00 97.7 F 61 18 98/49 L 98 Weight Weight 77.252 kg Most Recent Monitor Data Heart Rate from ECG 70 I&O: 07/01/18 07/02/18 07/03/18 06:59 06:59 06:59 Intake Total 780 3850 Output Total 1950 1800 Balance -[id number] Result Diagrams: 07/02/18 05:22 07/02/18 05:22 <Gracie Gomez - Last Filed: 07/02/18 18:46> Phys Exam - Physical Examination Constitutional: NAD HEENT: moist MMs, sclera anicteric Neck: no JVD, full ROM Respiratory: no wheezing, clear to auscultation bilateral Cardiovascular: RRR, no significant murmur Gastrointestinal: soft, positive bowel sounds incision clean,dry,intact Musculoskeletal: no edema, pulses present Neurological: normal sensation, moves all 4 limbs Psychiatric: normal affect, A&O x 3 Skin: no rash, normal turgor <Asif Mcgregor - Last Filed: 07/02/18 08:18> Dx/Plan (1) Symptomatic anemia Code(s): D64.9 - ANEMIA, UNSPECIFIED Status: Acute (2) Abdominal mass Code(s): R19.00 - INTRA-ABD AND PELVIC SWELLING, MASS AND LUMP, UNSP SITE Status: Acute (3) Elevated troponin Code(s): R74.8 - ABNORMAL LEVELS OF OTHER SERUM ENZYMES Status: Acute (4) CAD (coronary artery disease) Code(s): I25.10 - ATHSCL HEART DISEASE OF [place] CORONARY ARTERY W/O ANG PCTRS Status: Acute (5) HTN (hypertension) Code(s): I10 - ESSENTIAL (PRIMARY) HYPERTENSION Status: Acute - Plan Plan: Symptomatic Fe Deficiency Anemia 2/2 GI Bleed: A- Hgb went from 13->8.5 from 05/17, pt is not s/p 3u PRBCs and pt is now s/p open abdominal surgery day 1. Hgb is 9.4 today. P- continue iron supplementation - continue daily monitoring of h/h 5.5cm Abdominal Mass associated with small bowel A- pt is s/p resection day 1. Pt has 50 pack year smoking history and therefore at risk for cancer. P-f/u with pathology report -f/u surg recs on post op course and diet advancement Atrial fibrillation A- Pt had episode of a-flutter two nights ago with rates in 170's, resolved with 5mg metoprolol. Pt still in a-fib but rate is in 80s and 90s. pt now in Sinus rhythm p- continue monitoring on tele -f/u card recs -prn diltiazem for rate control Indeterminate Troponins A- Trop 0.226->0.169->0.167 likely caused by demand ischemia. Pt does complain of substernal CP over last month but is not symptomatic currently. Pain is not typical. EKG normal. P- monitor symptoms CAD s/p stent x2 - consulted Dr. John for surgical clearance - continue home ASA and statin - Echo shows diastolic disfunction and EF 55-60% - stress test was normal showing EF 72% HTN - home medications - prn IV Labetalol for SBP >180 Tobacco Abuse - advise cessation - patch nicotine EtOH use A- Pt reports 3-4 standardized drinks nightly. Unlikely to withdraw from EtOH at that amount. P- ASE protocol for precautions VTE Ppx: SCDs Code Status: Full <Asif Mcgregor - Last Filed: 07/02/18 08:18> Attending Addendum - Attending Addendum Date/Time: 07/02/18 1841 I personally evaluated the patient and discussed the management with Dr. Mcgregor. I agree with the History, Examination, Assessment and Plan documented above with any addition or exceptions noted below. Pt is pod 1 s/p small bowel resection. Pathology is pending. Pt has been up walking around and notes pain is controlled. He is back in sinus rhythm today. <Gracie Gomez - Last Filed: 07/02/18 18:46>
--- NOTE | 2018-07-02 08:48 | EKG ---
Test Reason : Blood Pressure : / mmHG Vent. Rate : 147 BPM Atrial Rate : 138 BPM P-R Int : 000 ms QRS Dur : 080 ms QT Int : 256 ms P-R-T Axes : 000 011 001 degrees QTc Int : 400 ms Atrial fibrillation with rapid ventricular response Nonspecific ST abnormality Abnormal ECG When compared with ECG of 09-APR-2007 07:25, Atrial fibrillation has replaced Sinus rhythm Vent. rate has increased BY [address] no longer elevated in Inferior leads ST now depressed in Anterior leads Nonspecific T wave abnormality now evident in Inferior leads T wave inversion no longer evident in Anterior leads Confirmed by DR. Chirag LEE ([id number]) on 07/02/2018 8:47:47 AM Referred By: LAURA Confirmed By:DR. Chirag LEE
[2018-07-02] MEDS: HYDROcodone/Acetaminophen 7.5/325 mg Tablet PO PRN ×2 (10:01→16:58)
[2018-07-02] MEDS: Stress 600 With Zinc 1 TAB PO SCH (10:01)
[2018-07-02] MEDS: Triamterene/Hydrochlorothiazide 37.5 mg/25 mg Tablet PO SCH (10:01)
[2018-07-02] MEDS: Ferrous Sulfate 325 MG TAB PO SCH ×2 (10:02→16:56)
[2018-07-02] MEDS: Amlodipine 10 MG TAB PO SCH (10:02)
[2018-07-02] MEDS: Nicotine 14 MG PATCH TD SCH (14:18)
--- NOTE | 2018-07-02 15:23 | PDOC.CTH ---
Cardiology Progress Note - Subjective Doing well post op. In SR - Objective Vital Signs Temp Pulse Resp BP Pulse Ox 07/02/18 12:00 97.8 F 58 L 18 105/55 L 95 07/02/18 08:00 97.7 F 61 18 98/49 L 98 07/02/18 04:00 97.8 F 77 18 106/59 L 94 L Weight 170 lb 5 oz 07/01/18 07/02/18 07/03/18 06:59 06:59 06:59 Intake Total 780 3850 Output Total 1950 1800 Balance -1170 0 - Physical Examination General/Neuro: NAD Neck: no JVD present Lungs: CTA, unlabored respirations Heart: PMI normal, RRR Abdomen: NT/ND, soft Extremities: + femoral B - Labs Result Diagrams: 07/02/18 05:22 07/02/18 05:22 Troponin/CKMB CK-MB (CK-2) 1.6 ng/mL (0-6.6) 06/28/18 Unknown Troponin I 0.226 ng/mL (< 0.028) H 06/28/18 Unknown - Assessment/Plan CAD afib tobacco abuse No current symptoms pt did well after surgery Stop smoking Recommend BB, ASA Will order 3 week event as op
[2018-07-02] MEDS: Fentanyl 100 MCG/2 ML VIAL SLOW IVP PRN (16:58)
[2018-07-02] MEDS: Doxazosin Mesylate 4 MG TAB PO SCH (21:17)
[2018-07-02] MEDS: Metoprolol Tartrate 50 MG TAB PO SCH (21:18)
[2018-07-02] MEDS: Losartan 25 MG TAB PO SCH (21:18)
[2018-07-02] MEDS: Atorvastatin Calcium 20 MG TAB PO SCH (21:18)
[2018-07-03] MEDS: Sodium Chloride 0.9% 1,000 ML IV SCH ×2 (06:26→16:30)
--- NOTE | 2018-07-03 06:42 | PDOC.FM ---
- Subjective Subjective: Pt reports feeling well this AM. Still ambulating well with excellent pain controll on PO meds. No BM or flatus as of now though pt tolerates PO intake well. No fever/chills, no sob no cough, no cp no palpitations - Objective MAR Reviewed: Yes Vital Signs & Weight: Vital Signs (12 hours) Temp Pulse Resp BP BP Pulse Ox 07/03/18 04:00 97.9 F 64 18 100/49 L 94 L 07/02/18 21:15 98.0 F 75 16 125/58 L 98 Weight Weight 77.252 kg Most Recent Monitor Data Heart Rate from ECG 70 I&O: 07/01/18 07/02/18 07/03/18 06:59 06:59 06:59 Intake Total 780 3850 3425 Output Total 1950 1800 Balance -1170 2049 3425 Result Diagrams: 07/03/18 07:04 07/02/18 05:22 <Asif Mcgregor - Last Filed: 07/03/18 08:40> - Objective Vital Signs & Weight: Vital Signs (12 hours) Temp Pulse Resp BP BP Pulse Ox 07/03/18 11:10 97.7 F 71 16 120/56 L 96 07/03/18 08:00 96 07/03/18 07:40 97.8 F 66 17 124/61 96 07/03/18 04:00 97.9 F 64 18 100/49 L 94 L Weight Weight 77.394 kg Most Recent Monitor Data Heart Rate from ECG 70 I&O: 07/02/18 07/03/18 07/04/18 06:59 06:59 06:59 Intake Total 3850 5010 Output Total 1800 1875 Balance 0 3135 Result Diagrams: 07/03/18 07:04 07/02/18 05:22 <Gracie Gomez - Last Filed: 07/03/18 11:50> Phys Exam - Physical Examination Constitutional: NAD HEENT: moist MMs, sclera anicteric Neck: no JVD, full ROM Respiratory: no wheezing, clear to auscultation bilateral Cardiovascular: RRR, no significant murmur Gastrointestinal: soft, positive bowel sounds Musculoskeletal: no edema, pulses present Neurological: normal sensation, moves all 4 limbs Psychiatric: normal affect, A&O x 3 Skin: no rash, normal turgor <Asif Mcgregor - Last Filed: 07/03/18 08:40> Dx/Plan (1) Symptomatic anemia Code(s): D64.9 - ANEMIA, UNSPECIFIED Status: Acute (2) Abdominal mass Code(s): R19.00 - INTRA-ABD AND PELVIC SWELLING, MASS AND LUMP, UNSP SITE Status: Acute (3) Elevated troponin Code(s): R74.8 - ABNORMAL LEVELS OF OTHER SERUM ENZYMES Status: Acute (4) CAD (coronary artery disease) Code(s): I25.10 - ATHSCL HEART DISEASE OF [place] CORONARY ARTERY W/O ANG PCTRS Status: Acute (5) HTN (hypertension) Code(s): I10 - ESSENTIAL (PRIMARY) HYPERTENSION Status: Acute - Plan Plan: Symptomatic Fe Deficiency Anemia 2/2 GI Bleed: A- Hgb went from 13->8.5 from 05/17, pt is not s/p 3u PRBCs and pt is now s/p open abdominal surgery day 1. Hgb is 8.3 today. P- continue iron supplementation - continue daily monitoring of h/h 5.5cm Abdominal Mass associated with small bowel A- pt is s/p resection day 2. Pt has 50 pack year smoking history and therefore at risk for cancer. P-f/u with pathology report -f/u surg recs for dispo Atrial fibrillation A- Pt had episode of a-flutter 3 nights ago with rates in 170's, resolved with 5mg metoprolol. pt now in Sinus rhythm p- continue monitoring on tele -f/u card recs -prn diltiazem for rate control Indeterminate Troponins A- Trop 0.226->0.169->0.167 likely caused by demand ischemia. Pt does complain of substernal CP over last month but is not symptomatic currently. Pain is not typical. EKG normal. P- monitor symptoms CAD s/p stent x2 - consulted Dr. John for surgical clearance - continue home ASA and statin - Echo shows diastolic disfunction and EF 55-60% - stress test was normal showing EF 72% HTN - home medications - prn IV Labetalol for SBP >180 Tobacco Abuse - advise cessation - patch nicotine EtOH use A- Pt reports 3-4 standardized drinks nightly. Unlikely to withdraw from EtOH at that amount. P- ASE protocol for precautions VTE Ppx: SCDs Code Status: Full <Asif Mcgregor - Last Filed: 07/03/18 08:40> Attending Addendum - Attending Addendum Date/Time: 07/03/18 1686 I personally evaluated the patient and discussed the management with Dr. Mcgregor. I agree with the History, Examination, Assessment and Plan documented above with any addition or exceptions noted below. Pt has a little more abdominal pain today stating "I think I overdid it yesterday." Will repeat h/h. Path still pending. <Gracie Gomez - Last Filed: 07/03/18 11:50>
[2018-07-03 07:20] LABS: Hemoglobin 8.3 g/dL (14.0-18.0)
[2018-07-03] MEDS: Ferrous Sulfate 325 MG TAB PO SCH ×2 (08:24→16:30)
[2018-07-03] MEDS: Triamterene/Hydrochlorothiazide 37.5 mg/25 mg Tablet PO SCH (08:24)
[2018-07-03] MEDS: Stress 600 With Zinc 1 TAB PO SCH (08:24)
[2018-07-03] MEDS: Amlodipine 10 MG TAB PO SCH (08:24)
[2018-07-03] MEDS: traMADol HCl 50 MG TAB PO PRN (09:45)
[2018-07-03] MEDS: HYDROcodone/Acetaminophen 7.5/325 mg Tablet PO PRN (11:21)
[2018-07-03 13:19] LABS: Hemoglobin 8.4 g/dL (14.0-18.0)
[2018-07-03 15:38] VITALS: BP 114/56; TEMP 98.1
[2018-07-03] MEDS: Nicotine 14 MG PATCH TD SCH (16:29)
--- NOTE | 2018-07-03 17:21 | PDOC.CTH ---
Cardiology Progress Note - Subjective Doing well. No complaints - Objective Vital Signs Temp Pulse Resp BP BP Pulse Ox 07/03/18 15:10 98.1 F 68 16 114/56 L 97 07/03/18 11:10 97.7 F 71 16 120/56 L 96 07/03/18 08:00 96 07/03/18 07:40 97.8 F 66 17 124/61 96 Weight 170 lb 10 oz 07/02/18 07/03/18 07/04/18 06:59 06:59 06:59 Intake Total 3850 5010 1250 Output Total 1800 1875 1450 Balance 2050 3135 -200 - Physical Examination General/Neuro: alert & oriented x3, NAD Neck: carotid US brisk, no JVD present Lungs: CTA, unlabored respirations Heart: RRR Abdomen: NT/ND, soft Extremities: + femoral B - Telemetry Telemetry Rhythm: SR - Labs Result Diagrams: 07/03/18 13:07 07/02/18 05:22 Troponin/CKMB CK-MB (CK-2) 1.6 ng/mL (0-6.6) 06/28/18 Unknown Troponin I 0.226 ng/mL (< 0.028) H 06/28/18 Unknown - Assessment/Plan afib CAD Doing well. In SR Recommend three week out pt event recorder ok to dc
--- NOTE | 2018-07-04 03:13 | DIS-2 ---
DATE OF ADMISSION: 06/28/2018 DATE OF DISCHARGE: 07/03/2018 RESIDENT: Asif Mcgregor M.D. ADMITTING ATTENDING: Librado Shultz M.D. DISCHARGE ATTENDING: Gracie Gomez M.D. CONSULTATIONS: Surgery, Dr. Erickson. PROCEDURES: 1. On 06/28/2018, abdomen and pelvis CT. Impression: A 5 mm right lower lobe lung nodule, 15 mm in determinate left adrenal nodule, 5.5 cm abdominal mass associated with small bowel loops. No evidenc e of high grade small-bowel obstruction. Surgical consultation is recommended. Colonic diverticulos is. 2. On 06/30/2018, stress test nuclear medicine. Impression: Normal exam, calculated ejection fract ion of 72%. 3. On 06/29/2018, echocardiogram report. Ejection fraction is visually estimated at 55%-60%, mildly dilated left atrium. Left ventricular size is normal. Impaired relaxation compatible with diastoli c dysfunction, mild mitral regurgitation is present. Mild tricuspid regurgitation. 4. On 07/01/2018, small bowel resection with anastomosis. PRIMARY DIAGNOSIS: Symptomatic anemia secondary to small bowel mass. SECONDARY DIAGNOSES: Atrial fibrillation, coronary artery disease, hypertension, tobacco abuse. DISCHARGE MEDICATIONS: 1. Omeprazole magnesium 20 mg p.o. daily. 2. Triamterene and hydrochlorothiazide 37.5-25 mg 1 tablet p.o. daily. 3. Atorvastatin calcium 20 mg p.o. at bedtime. 4. Aspirin 81 mg p.o. daily. 5. Amlodipine 10 mg p.o. daily. 6. Losartan potassium 100 mg p.o. q.p.m. 7. Doxazosin mesylate 4 mg p.o. at bedtime. 8. Vitamin B complex 1 each p.o. daily. 9. Metoprolol succinate 50 mg p.o. daily. DISCONTINUED MEDICATIONS: None. HISTORY OF PRESENT ILLNESS AND HOSPITAL COURSE: This is a 73-year-old male with history of coronary artery disease who presented to the ED with symptoms of weakness and dizziness. The patient was foun d to be anemic on presentation and had abdominal CT done which showed a small bowel mass. The patien t was admitted with surgery consultation for resection of mass and the patient received 1 unit of pac ked red blood cells. The patient's hemoglobin dropped further after 1 unit, so 2 more units were tra nsfused which improved the patient's hemoglobin as well as patient's symptoms of fatigue, exertional shortness of breath and intermittent chest pain. Cardiology was also consulted for surgical melisa e who performed a stress test and echocardiogram which were negative for surgery. The patient had on e episode of atrial flutter which was aborted with metoprolol and the patient stayed in sinus rhythm after that. Cardiology's recommendations on sign off for beta fela use and the patient resumed ho in metoprolol. The patient had small bowel mass resection during hospital stay and recovered well wi th an uncomplicated postop course. The patient was ambulating with good pain toleration the day afte r surgery and tolerated p.o. intake 2 days after surgery when the patient was deemed safe for dischar ge. He was discharged home with plans for followup with PCP and Dr. Erickson. DISPOSITION: Stable. DISCHARGE INSTRUCTIONS: 1. Location: Home. 2. Diet: Soup diet for 2 more days and casserole diet for 3 days, then diet as tolerated. 3. Activity: Activity as tolerated. 4. Followup: Dr. Carroll Graham in [address] Cheo Erickson in 14 days.
--- NOTE | 2018-07-05 15:26 | EKG ---
Test Reason : CHEST PAIN Blood Pressure : / mmHG Vent. Rate : 077 BPM Atrial Rate : 077 BPM P-R Int : 168 ms QRS Dur : 088 ms QT Int : 378 ms P-R-T Axes : 029 -06 013 degrees QTc Int : 427 ms Normal sinus rhythm with sinus arrhythmia Normal ECG Confirmed by VALERIA WRIGHT, ARIEL Cueva ([id number]), news video editor MERCED MICHEL ([id number]) on 07/05/2018 3:25:55 PM Referred By: NKECHI SHAW Confirmed By:ARIEL SHAW MD
== END 2018-07-03 17:06 | disposition home or self-care (01) | DRG 330 ==
LOC: ERS 08:49 → ERHOLD 11:20 → 2NO 15:20
PROVIDERS: ADMIT Emergency Medicine; ATTEND Emergency Medicine
PROC: 30233N1 Transfusion of Nonautologous Red Blood Cells into Peripheral Vein, Percutaneous Approach (ICD-10-PCS; 2018-06-28)
PROC: 0DBB0ZZ Excision of Ileum, Open Approach (ICD-10-PCS; principal; 2018-07-01)
PROC: 0WJG4ZZ Inspection of Peritoneal Cavity, Percutaneous Endoscopic Approach (ICD-10-PCS; 2018-07-01)
DX: D49.0 Neoplasm of unspecified behavior of digestive system (principal); I48.92 Unspecified atrial flutter; D50.0 Iron deficiency anemia secondary to blood loss (chronic); Z53.31 Laparoscopic surgical procedure converted to open procedure; I25.10 Atherosclerotic heart disease of native coronary artery without angina pectoris; K57.30 Diverticulosis of large intestine without perforation or abscess without bleeding; R74.8 Abnormal levels of other serum enzymes; I10 Essential (primary) hypertension; I48.91 Unspecified atrial fibrillation; Z95.5 Presence of coronary angioplasty implant and graft; I25.2 Old myocardial infarction; F17.210 Nicotine dependence, cigarettes, uncomplicated; N40.0 Benign prostatic hyperplasia without lower urinary tract symptoms; Z79.82 Long term (current) use of aspirin
CPT/HCPCS: 36415; 36416; 36430; 74177; 78452; 80048; 80053; 82553; 82728; 83540; 83550; 83735; 84443; 84484; 85014; 85018; 85025; 85610; 85730; 86850; 86900; 86901; 88309; 88313; 88341; 88342; 88360; 93005; 93010; 93017; 93306; 96361; 96374; A9500; C9113; J0153; J0282; J0670; J0694; J1100; J1885; J2001; J2250; J2405; J2550; J2704; J3010; J7050; J7070; P9016

== ENCOUNTER 2018-07-12 14:02 | Inpatient (IN) | payer OTHER, MEDICARE ==
[~2018-07-12 14:02] MED LIST: ISOVUE-370 76%-LOCM 1 ML ONE
[2018-07-12] MEDS ORDERED: Morphine 2 MG/ML SYRINGE ONE ×2 (14:34→17:12)
[2018-07-12 14:50] LABS: Hemoglobin 11.3 g/dL (14.0-18.0); Mean Corpuscular HGB CONC 33.1 g/dL (32.0-36.0); Mean Corpuscular Hemoglobin 29.4 pg (27.0-31.0); Mean Corpuscular Volume 88.8 fL (78.0-98.0); Mean Platelet Volume 6.2 fL (7.4-10.4); Platelet Count 551 thou/uL (130-400); RBC Distribution Width 14.8 % (11.5-14.5); Red Blood Cell (RBC) Count 3.83 mill/uL (4.70-6.10); White Blood Cell (WBC) Count 20.1 thou/uL (4.8-10.8)
[2018-07-12 15:09] LABS: ALT (SGPT) 16 U/L (8-55); AST (SGOT) 18 U/L (5-34); Albumin 4.1 g/dL (3.4-4.8); Alkaline Phosphatase 81 U/L (40-150); Anion Gap 15 mmol/L (10-20); BUN (Urea Nitrogen) 11 mg/dL (8.4-25.7); Bilirubin, Total 0.5 mg/dL (0.2-1.2); Calc. Creatinine Clearance 0 mL/min (70-130); Carbon Dioxide 24 mmol/L (23-31); Chloride 98 mmol/L (98-107); Estimated GFR-MDRD 83; Globulin 3.3 g/dL (2.4-3.5); Glucose 123 mg/dL (83-110); Potassium 3.9 mmol/L (3.5-5.1); Protein, Total 7.4 g/dL (5.8-8.1); Sodium 133 mmol/L (136-145)
[2018-07-12 15:10] LABS: Anisocytosis SLIGHT = 6-15 cells (100X) (0-5/hpf); Band 2 % (5-11); Lymphocytes 5 % (21-51); MDiff Complete? YES; Monocytes 2 % (0-10); Neutrophil 91 % (42-75); PLT Morphology Comment Appears Increased
[2018-07-12] MEDS ORDERED: Sodium Chloride 0.9% 100 ML ONE (15:54)
[2018-07-12] MEDS ORDERED: Piperacillin/Tazobactam 4.5 GM VIAL ONE (15:54)
[2018-07-12 16:04] LABS: CK (CPK) 16 U/L (30-200); Lipase 47 U/L (8-78)
[2018-07-12 16:18] LABS: Bilirubin Negative (Negative); Blood, Urine Negative (Negative); Clarity CLEAR (Clear); Glucose, Urine (Dipstick) Negative (Negative); Leukocyte Negative (Negative); Nitrite Negative (Negative); Protein, Urine (Dipstick) Negative (Neg-Trace); Specific Gravity, Urine 1.009 (1.002-1.036); Urobilinogen 0.2 mg/dL (0.2-1.0)
[2018-07-12] MEDS ORDERED: metroNIDAZOLE 500 MG in Premix Bag 1 BAG IVPB SCH (16:30)
[2018-07-12] MEDS ORDERED: Lidocaine 1% w/Epinephrine 1:100K 20 ML VIAL ONE (16:44)
--- NOTE | 2018-07-12 16:46 | CT ---
CT ABDOMEN AND PELVIS WITH IV CONTRAST: HISTORY: A 73-year-old male with a history of pain and swelling of the abdomen for two days, status post tumor removed from small intestine 1-1/2 weeks ago, by Dr. Erickson. COMPARISON: 06/28/2018 FINDINGS: Small, stable, 0.5 cm in diameter pleural-based nodule in the right lower lobe, probable small hiatal hernia. Small, stable left adrenal nodule. The liver, gallbladder, pancreas, and spleen are unrema rkable. No renal hydronephrosis, renal calculi, or obstruction. Small, circumscribed, low attenu ation density in the right kidney, statistically a small cyst. Evidence for postop changes involving the left mid small bowel, without evidence for obstruction. There is some focal thickening involvin g the anterior abdominal wall, along the midline, several centimeters above the level of the umbilicu s, with some surrounding more diffuse anterior abdominal wall fat stranding. This more focal area in volves the junction of the right and left rectus muscles, in the midline, and measures approximately 4 cm in diameter and certainly could represent a small hematoma or seroma or other postoperative proc ess. There is no evidence of air within it, to suggest an abscess. Normal appearing appendix. Ther e is some minimal free fluid in the right colonic gutter. Scattered diverticulosis without acute div erticulitis. IMPRESSION: 1. Approximately 4 cm diameter probable post surgical hematoma involving the anterior abdominal wall , above the level of the umbilicus, with some scattered more diffuse bilateral subcutaneous fat stran ding. 2. No evidence for gas within this area of abnormal soft tissue density. 3. Postoperative changes involving the small bowel, consistent with anastomotic. 4. Trace free fluid in the right colonic gutter and adjacent to the appendix, with an otherwise norm al appearing appendix. 5. Other findings as above. POS: [facility]
--- NOTE | 2018-07-12 17:32 | HP ---
CHIEF COMPLAINT: Wound infection. HISTORY OF PRESENT ILLNESS: This is a 73-year-old male who is almost 2 weeks status post small bowel resection for tumor. 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 He is set to see Dr. Bryant, the oncologist, soon. He presents with increasing abdominal pain, swelling, redness just above his umbilicus. He had fevers and chills. PAST MEDICAL HISTORY: See previous H&P. PAST SURGICAL HISTORY: As above. MEDICINES TAKEN DAILY: Statin, Cardura, Cozaar, Toprol, Prilosec, triamterene. ALLERGIES: No known drug allergies. SOCIAL HISTORY: No smoking, alcohol. He is . REVIEW OF SYSTEMS: Otherwise negative. PHYSICAL EXAMINATION: VITAL SIGNS: Blood pressure 114/80. His pulse is 105. He is afebrile now. CHEST: Clear. HEART: Regular rate and rhythm. ABDOMEN: Soft. There is redness and swelling above his umbilicus and the previous incision. EXTREMITIES: No ischemia or edema to extremities. LABORATORY AND X-RAY FINDINGS: White blood cell count is 20, creatinine 0.9. CT scan shows fluid co llection in the wound. ASSESSMENT: Wound infection. PLAN: We will open up the wound and drain it at the bedside. Risks, benefits, alternatives discusse d. PROCEDURE: The midline incision is prepped and draped in a sterile fashion. Local anesthetic infilt rated into the upper half. The wound was opened to reveal gross purulence. The wound was irrigated and packed using wet-to-dry saline-soaked gauze. Sterile dressings were placed. The patient tolerat ed the procedure well. The patient will be admitted for observation for antibiotics.
[2018-07-12] MEDS ORDERED: Acetaminophen 325 MG TAB PO PRN (18:27)
[2018-07-12] MEDS ORDERED: HYDROcodone/Acetaminophen 10/325 mg Tablet PO PRN (18:27)
[2018-07-12] MEDS ORDERED: Ondansetron PF 4 MG/2 ML Vial IVP PRN (18:27)
[2018-07-12] MEDS ORDERED: Morphine 4 MG/ML VIAL SLOW IVP PRN (18:27)
[2018-07-12] MEDS ORDERED: Morphine 2 MG/ML SYRINGE SLOW IVP PRN (18:27)
[2018-07-12] MEDS ORDERED: hydrALAZINE 20 MG/ML VIAL SLOW IVP PRN (18:27)
[2018-07-12] MEDS ORDERED: Dextrose 50% Abboject 50 ML SYRINGE SLOW IVP PRN (18:27)
[2018-07-12] MEDS ORDERED: Dextrose 5% in Water 1,000 ML IV PRN (18:27)
[2018-07-12] MEDS ORDERED: Promethazine HCl 25 MG/ML VIAL IM PRN (18:27)
[2018-07-12] MEDS: Sodium Chloride 0.9% 1,000 ML IV SCH (18:39)
[2018-07-12] MEDS: Famotidine 20 MG TAB PO SCH (20:42)
[2018-07-12] MEDS: Losartan 25 MG TAB PO SCH (20:42)
[2018-07-12] MEDS: traMADol HCl 50 MG TAB PO PRN (20:49)
[2018-07-12] MEDS: Famotidine/PF 20 mg/2ml Vial SLOW IVP SCH (21:45)
[2018-07-12] MEDS: Piperacillin/Tazobactam 3.375 GM in Sodium Chloride 0.9% 100 ML IVPB SCH (22:15)
[2018-07-13 00:14] VITALS: BMI 25.0
[2018-07-13] MEDS: Sodium Chloride 0.9% 1,000 ML IV SCH ×2 (04:17→15:44)
[2018-07-13] MEDS: Piperacillin/Tazobactam 3.375 GM in Sodium Chloride 0.9% 100 ML IVPB SCH ×4 (04:17→22:01)
[2018-07-13 06:20] LABS: Anion Gap 10 mmol/L (10-20); BUN (Urea Nitrogen) 7 mg/dL (8.4-25.7); Calc. Creatinine Clearance 97 mL/min (70-130); Calcium 8.5 mg/dL (7.8-10.44); Carbon Dioxide 24 mmol/L (23-31); Chloride 106 mmol/L (98-107); Estimated GFR-MDRD Greater than 90; Glucose 94 mg/dL (83-110); Potassium 3.7 mmol/L (3.5-5.1); Sodium 136 mmol/L (136-145)
[2018-07-13 06:26] LABS: #Basophils 0.1 thou/uL (0.0-0.2); #Eosinphils 0.3 thou/uL (0.0-0.7); #Lymphocytes 2.1 thou/uL (1.20-3.40); %Basophils 0.5 % (0.0-1.0); %Eosinophils 2.3 % (0.0-10.0); %Lymphocytes 15.4 % (21.0-51.0); %Monocytes 7.7 % (0.0-10.0); %Neutrophils 74.1 % (42.0-75.0); Hemoglobin 8.3 g/dL (14.0-18.0); Mean Corpuscular HGB CONC 32.9 g/dL (32.0-36.0); Mean Corpuscular Hemoglobin 29.3 pg (27.0-31.0); Mean Platelet Volume 6.3 fL (7.4-10.4); Platelet Count 436 thou/uL (130-400); RBC Distribution Width 14.6 % (11.5-14.5); Red Blood Cell (RBC) Count 2.83 mill/uL (4.70-6.10); White Blood Cell (WBC) Count 13.5 thou/uL (4.8-10.8)
[2018-07-13] MEDS: Triamterene/Hydrochlorothiazide 37.5 mg/25 mg Tablet PO SCH (08:21)
[2018-07-13] MEDS: Famotidine 20 MG TAB PO SCH ×2 (08:21→20:07)
[2018-07-13] MEDS: Famotidine/PF 20 mg/2ml Vial SLOW IVP SCH ×2 (08:28→20:08)
--- NOTE | 2018-07-13 09:35 | PRG ---
DATE OF SERVICE: 07/13/2018 SUBJECTIVE: Mr. Melgar is doing better this morning. No more chills. Pain is controlled. His abdom en is soft. He has tenderness around the open wound. LABORATORY DATA: White cell count is down to 13, creatinine 0.75. ASSESSMENT: Admission for wound infection. PLAN: Continue antibiotics. Continue wound care.
[2018-07-13] MEDS: Losartan 25 MG TAB PO SCH (20:07)
[2018-07-13] MEDS: traMADol HCl 50 MG TAB PO PRN (22:01)
[2018-07-14] MEDS: Piperacillin/Tazobactam 3.375 GM in Sodium Chloride 0.9% 100 ML IVPB SCH ×2 (03:14→09:36)
[2018-07-14] MEDS: Sodium Chloride 0.9% 1,000 ML IV SCH ×2 (03:14→11:48)
[2018-07-14 07:29] VITALS: BP 135/74; TEMP 98
[2018-07-14] MEDS: Famotidine 20 MG TAB PO SCH (08:41)
[2018-07-14] MEDS: Triamterene/Hydrochlorothiazide 37.5 mg/25 mg Tablet PO SCH (08:41)
[2018-07-14] MEDS: Famotidine/PF 20 mg/2ml Vial SLOW IVP SCH (08:42)
--- NOTE | 2018-07-14 10:49 | DIS ---
DATE OF ADMISSION: 07/12/2018 DATE OF DISCHARGE: 07/14/2018 ADMITTING DIAGNOSIS: Wound infection. DISCHARGE DIAGNOSIS: Wound infection. PROCEDURES: Wound exploration, drainage at the bedside by Dr. Erickson without complication. HOSPITAL COURSE: On hospital day number 2, the patient is doing well. He is afebrile. His dressing s are changed and less painful. There is no ongoing purulence. He is afebrile. Vital signs are sta ble. The erythema around the wound is improved. ASSESSMENT: Wound infection, status post small bowel resection for tumor. PLAN: Wet-to-dry dressing changes. Follow up with me on .
== END 2018-07-14 11:45 | disposition home or self-care (01) | DRG 857 ==
LOC: ERS 14:02 → SURG A 17:13 → OBSVTOIN 17:13
PROVIDERS: ADMIT Surgery; ATTEND Surgery
PROC: 0WJF0ZZ Inspection of Abdominal Wall, Open Approach (ICD-10-PCS; principal; 2018-07-12)
DX: T81.49XA Infection following a procedure, other surgical site, initial encounter (principal); C17.9 Malignant neoplasm of small intestine, unspecified
CPT/HCPCS: 36415; 74177; 80048; 80053; 81003; 82550; 83605; 83690; 85025; 87040; J2001; J2270; J2543; J3370; J7050

== ENCOUNTER 2018-07-19 09:48 | Outpatient (CLI) | payer OTHER ==
--- NOTE | 2018-07-19 14:44 | CT ---
CT CHEST WITH CONTRAST: INDICATIONS: Small bowel adenocarcinoma. Exam performed for staging. TECHNIQUE: Multiple axial tomograms obtained through the chest with IV enhancement. FINDINGS: There are chronic lung parenchymal changes. There is mild stranding and some scattered areas of grou nd glass opacity, which suggest chronic change. Ground glass opacity along the pleural surface of th e posterior lungs appears chronic. Mild interstitial prominence peripherally appears chronic. There is a 6 mm nodule along the minor fissure, right mid lung. There is a 6 mm pleural-based nodule, peripheral right lower lobe. There is a 4 mm nodule, mid left upper lobe. The mediastinum shows nonspecific lymph nodes. There are paratracheal and carinal lymph nodes measur ing up to 1 cm. AP window and hilar lymph nodes measure up to 1 cm. The thoracic aorta shows mild atherosclerotic change without aneurysmal dilatation or dissection. Th e pulmonary arteries are opacified with no evidence of proximal pulmonary embolus. The thyroid is mildly enlarged, and there are numerous low density nodules seen throughout both lobes of the thyroid. The largest is located in the right lobe, measuring up to 1.6 cm. Nonspecific axillary lymph nodes. The liver, spleen, and pancreas appear unremarkable on images through the upper abdomen. The osseous structures are unremarkable. The thoracic vertebrae maintain height and alignment with m oderate degenerative changes. IMPRESSION: 1. There are chronic lung parenchymal changes, as described. There are a few scattered small nodule s described above, which are nonspecific and are probably related to chronic parenchymal change. Sug gest follow-up noncontrast chest CT in six months to confirm stability. 2. Enlarged multinodular thyroid gland. 3. Nonspecific mediastinal and hilar lymph nodes. POS: [facility]
[2018-07-19] MEDS ORDERED: ISOVUE-370 76%-LOCM 1 ML ONE (16:15)
== END 2018-07-19 09:49 | disposition home or self-care (01) ==
LOC: BICCT 09:48
PROVIDERS: ATTEND Internal Medicine Hematology & Oncology
DX: C17.9 Malignant neoplasm of small intestine, unspecified (principal); E78.5 Hyperlipidemia, unspecified; E04.2 Nontoxic multinodular goiter
CPT/HCPCS: 71260

== ENCOUNTER 2018-07-26 09:29 | Outpatient (CLI) | payer OTHER ==
--- NOTE | 2018-07-26 14:00 | PET ---
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 Pulmonary nodules. Evaluate for metastasis. Evalua te primary lesion. COMPARISON: None. CORRELATION: Chest CT dated 07/19/18, abdomen/pelvis CT dated 07/12/18. TECHNIQUE: PET scanning with CT attenuation correction is performed from the base of the brain to the proximal t highs following the intravenous administration of 10.3 mCi F18-FDG. FINDINGS: HEAD/NECK: No abnormal FDG localization. CHEST: No abnormal FDG avidity involving the previously described nonspecific mediastinal and hilar lymph no eunice. There is no FDG avidity involving the nodules described in the chest CT from 07/19/18. ABDOMEN/PELVIS: Increased FDG avidity involving a retroperitoneal lymph node just beyond the aortic bifurcation, at t he level of the left common iliac artery with a maximum SUV of 3.9. There is a second hypermetabolic lymph node, retroperitoneal location, adjacent to the left common iliac artery with a maximum SUV of 2.7. FDG avidity involving two separate diverticula in the sigmoid colon may represent focal area of diver ticulitis. Maximum SUV is between 4.6 and 9.6. There is FDG avidity involving the previously noted postoperative seroma. When compared to the previo us CT, the seroma has decreased in size. Currently, the FDG avidity is 5.8 and is felt to represent p ostoperative change. There is no abnormal FDG avidity at the level of the small bowel anastomosis. OSSEOUS STRUCTURES: No abnormal FDG avidity. IMPRESSION: 1. No abnormal FDG avidity involving the mediastinal lymph nodes or lung parenchymal nodules. 2. There is retroperitoneal FDG avidity associated with nonenlarged left lymph nodes at the level of the left common iliac artery. 3. Hypermetabolic sigmoid colon diverticuli without obvious inflammation. POS: [facility]
== END 2018-07-26 09:30 | disposition home or self-care (01) ==
LOC: PET 09:29
PROVIDERS: ATTEND Internal Medicine Hematology & Oncology
DX: C17.1 Malignant neoplasm of jejunum (principal); R91.8 Other nonspecific abnormal finding of lung field; K57.30 Diverticulosis of large intestine without perforation or abscess without bleeding
CPT/HCPCS: 78815; A9552

== ENCOUNTER 2018-07-29 12:45 | Day surgery (SDC) | payer OTHER ==
[2018-07-26 12:53] VITALS: BMI 24.9
[2018-07-29] MEDS ORDERED: CEFAZOLIN 2 GM/50 ML BAG ONE (13:58)
[2018-07-29] MEDS ORDERED: Lidocaine 2% PF 5 ML VIAL ONE (15:01)
[2018-07-29] MEDS ORDERED: Bupivacaine/Epinephrine 0.25% 30 ML VIAL ONE (15:01)
[2018-07-29] MEDS ORDERED: Propofol 1,000 MG/100 ML VIAL IV ONE (15:07)
[2018-07-29] MEDS ORDERED: Fentanyl 100 MCG/2 ML VIAL ONE (15:07)
--- NOTE | 2018-07-29 17:51 | RAD ---
FRONTAL RADIOGRAPH CHEST: Date: 07-29-18 Comparison: None. History: Mediport placement. FINDINGS: There is a CT injectable right sided port-a-cath, distal tip overlying the region of the expected loc ation of the cavoatrial junction. There is mild interstitial prominence. There is no pneumothorax, pl eural fluid, lobar consolidation, or alveolar edema. Coronary arterial calcification and/or stent mat erial noted. IMPRESSION: Right sided CT injectable port-a-cath with no evidence for pneumothorax. POS: [facility]
[2018-07-29] MEDS ORDERED: Lidocaine 1% PF 5 ML VIAL ONE (22:07)
[2018-07-29] MEDS ORDERED: PROPOFOL 200 MG/20 ML VIAL ONE (22:07)
[2018-07-29] MEDS ORDERED: PHENYLEPHRINE-NS 100 MCG/ML 10 ML SYRINGE ONE (22:07)
--- NOTE | 2018-07-31 08:19 | OP ---
DATE OF PROCEDURE: 07/29/2018 PREOPERATIVE DIAGNOSIS: Small-bowel adenocarcinoma. POSTOPERATIVE DIAGNOSIS: Small-bowel adenocarcinoma. PROCEDURE PERFORMED: Tunneled sphincterotomy with subcutaneous port (MediPort). ANESTHESIA: General. ESTIMATED BLOOD LOSS: Minimal. COMPLICATIONS: None. SPECIMEN: None. FINDINGS: Tip of the catheter is at the atriocaval junction. DESCRIPTION OF PROCEDURE: The patient was taken to the operating room and laid supine on the operating room table. After sedation was obtained, bilateral neck and chest were shaved, prepped and draped in a sterile fashion. Local anesthetic was infiltrated over the right internal jugular vein. Internal jugular vein was cannulated using a 22-gauge finder needle followed by a Seldinger needle. Wire was passed into the superior vena cava under fluoro guidance. A small luis was made at the wire entrance site. A separate 4-cm incision was made in the right upper chest. Subcutaneous pocket was made below the lower incision. Tubing for the MediPort tunnel from the inferior to the superior incision. sheath was placed over the wire into the superior vena cava under fluoro guidance. The dilator and wire were removed. The end of the catheter sewed into the sheath and the sheath was peeled away. The tip of the catheters at the atriocaval junction MediPort tubing was cut to fit the MediPort at the lower incision connected to the MediPort. The MediPort was sewn to the chest wall in the subcutaneous pocket using Prolene. The MediPort flushes and draws blood without difficulty, it was flushed with a heparin flush. The wounds were all irrigated and closed in 3-0 Vicryl, 4-0 Monocryl and Dermabond. The patient was then returned to Recovery in stable condition. All instrument counts, needle counts and lap counts were correct. Job ID: [id number]
== END 2018-07-29 17:50 | disposition home or self-care (01) ==
LOC: SDC 12:45
PROVIDERS: ATTEND Surgery
PROC: 0JH63WZ Insertion of Totally Implantable Vascular Access Device into Chest Subcutaneous Tissue and Fascia, Percutaneous Approach (ICD-10-PCS; principal; 2018-07-29)
DX: C17.9 Malignant neoplasm of small intestine, unspecified (principal); I25.10 Atherosclerotic heart disease of native coronary artery without angina pectoris; I10 Essential (primary) hypertension; Z79.82 Long term (current) use of aspirin; Z79.899 Other long term (current) drug therapy; Z95.5 Presence of coronary angioplasty implant and graft
CPT/HCPCS: 71045; C1788; J1642; J2001; J2704; J3010

== ENCOUNTER 2019-02-05 19:34 | Inpatient (IN) | payer OTHER ==
[2019-02-05] MEDS ORDERED: Ondansetron PF 4 MG/2 ML Vial ONE (21:39)
[2019-02-05] MEDS ORDERED: Morphine 4 MG/ML VIAL ONE (21:39)
[2019-02-06 09:37] LABS: Bacteria/HPF None Seen HPF (None Seen); Bilirubin Negative (Negative); Blood, Urine Negative (Negative); Clarity TURBID (Clear); Glucose, Urine (Dipstick) Negative (Negative); Hyaline Casts/LPF 0-3 HYALINE CAST LPF (0-3 Hyaline); Leukocyte Trace (Negative); Nitrite Negative (Negative); Pathc Cast-AUWi Flag 0.54 (0-2.49); Protein, Urine (Dipstick) Negative (Neg-Trace); RBC/HPF 0-3 HPF (0-3); Specific Gravity, Urine 1.019 (1.002-1.036); Squamous Epithelial 0-3 HPF (0-3); WBC/HPF 0-3 HPF (0-3)
[2019-02-06] MEDS ORDERED: Ondansetron PF 4 MG/2 ML Vial IVP PRN (09:53)
[2019-02-06] MEDS ORDERED: Morphine 4 MG/ML VIAL IV PRN (09:54)
[2019-02-06] MEDS ORDERED: Enoxaparin Sodium 40 MG/0.4 ML SYRINGE SC SCH (10:00)
[2019-02-06 10:20] LABS: RBC Distribution Width 15.7 % (11.5-14.5)
--- NOTE | 2019-02-06 10:35 | HP ---
CHIEF COMPLAINT: Abdominal pain, nausea, vomiting, diarrhea. HISTORY OF PRESENT ILLNESS: Mr. Melgar is a 73-year-old male with history of colonic adenocarcinoma status post resection several months ago, who came in for abdominal pain, nausea, vomiting, diarrhea and decreased p.o. intake. This happened about 2 days ago and has progressively worsened. He has also thrown up multiple times as well. Denies hematemesis or hematochezia. Thinks he may have eaten bad leftovers. Denies any fevers, however. The patient is also on chemotherapy. He follows with Dr. Bryant to receive chemotherapy every 2 weeks with the next one due this week. He has a history pertinent for colonic adenocarcinoma last fall which he had a resection with Dr. Erickson. A week after, he experienced an abscess which he had drained. Since then, he has not had any further surgical complications. He endorses multiple bouts of diarrhea, loose watery. The abdominal pain is epigastric. Denies a history of excessive alcohol use. ED HOSPITAL COURSE: He was found to have a white count and underwent CT scanning which did show small bowel obstruction versus ileus. There was possible concern for ischemia. Dr. Velazquez was consulted and he recommended NG tube with low intermittent suction, starting fluids. PAST SURGICAL HISTORY: Jejunal loop small bowel obstruction of colonic adenocarcinoma in June 2018, with complication, development of abscess. PAST MEDICAL HISTORY: Chronic hypertension, coronary artery disease, history of colonic adenocarcinoma, on chemotherapy. FAMILY HISTORY: No family history of colon cancer, otherwise unremarkable. SOCIAL HISTORY: Five cigarettes a day for several years, half a glass of wine every day, denies drug use. ALLERGIES: NO KNOWN FOOD OR DRUG ALLERGIES. REVIEW OF SYSTEMS: Pertinent for abdominal pain, nausea, vomiting, diarrhea, decreased p.o. intake. Denies fevers. Endorses fatigue, weakness. Denies chest pain, no short of breath. Review of systems otherwise negative. PHYSICAL EXAMINATION: VITAL SIGNS: Stable, otherwise within normal limits. GENERAL: Not in acute distress. HEENT: Dry mucosal membranes. Head, normocephalic, atraumatic. Pupils are equal, round, and reactive to light and accommodation. Extraocular movements intact. NECK: Full range of motion. Trachea midline. CHEST: Regular rate and rhythm. No murmurs. RESPIRATORY: Clear to auscultation in breathing. ABDOMEN: Mildly distended, epigastric tenderness to palpation. No guarding, no rebound. Normoactive bowel sounds. LOWER EXTREMITIES: Pulses are present, unremarkable otherwise. SKIN: Decreased skin turgor, increased capillary refill of greater than 2 seconds. LABORATORY DATA: Show WBC 17, bicarb 33, lactic acid 2.13. EKG, normal sinus rhythm, possible LVH. CT abdomen and pelvis: Computer system is down still, report is pending, but per ER MD, the patient showed small bowel obstruction versus possible ileus with some potential ischemia of the colon. ASSESSMENT AND PLAN: 1. Small bowel obstruction versus possible ileus: Dr. Erickson consulted from ED , recommended conservative management. Continue NG tube with low intermittent suction. Management of pain with morphine and Zofran for nausea. Strict n.p.o. until reassessed in the morning. We will continue maintenance IV fluids. Consider possible viral gastroenteritis in light of diarrhea. No acute abdomen. The patient is stable at this time. Awaiting general surgery consult further recs much appreciated. 2. Chronic hypertension. Hold p.o. medications for now. We will add IV antihypertensives to cover. After that, can resume home medications of amlodipine and metoprolol. 3. Hyperlipidemia. To resume home statin once n.p.o. 4. Coronary artery disease. Can resume home statin and aspirin once no longer n.p.o. 5. PCP, Dr. Graham. 6. Deep venous thrombosis prophylaxis, Lovenox. 7. Gastrointestinal prophylaxis, pantoprazole. 8. Disposition, greater than 2 midnights. Job ID: [id number] [facility]
--- NOTE | 2019-02-06 11:18 | CON ---
DATE OF CONSULTATION: REASON FOR CONSULTATION: Small-bowel adenocarcinoma. HISTORY OF PRESENT ILLNESS: Mr. Melgar is a pleasant 73-year-old gentleman, who is undergoing treatment with FOLFOX chemotherapy for small-bowel adenocarcinoma of the jejunum. He was due for his last cycle #12 this week that came in on Sunday with complaints of nausea, vomiting, and diarrhea. He had emesis x10 and diarrhea. He took Imodium and the diarrhea stopped. He was given IV hydration, Zofran, and steroids. His chemo was postponed. Last night, his abdominal pain became significantly worse, so he presented to the emergency room for evaluation. CT scan showed small bowel thickening and free fluid in the abdomen is concerning for ileus versus bowel ischemia. NG tube was placed. The patient was given morphine, Zofran, and IV fluids and has felt better. He states that he has had a bowel movement this morning. Pain is controlled with medication. PAST MEDICAL HISTORY: 1. 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 2. Hypertension. 3. History of [place]. 4. Atrial fibrillation and flutter. 5. Coronary artery disease. 6. Dyslipidemia. 7. DJD. 8. BPH. PAST SURGICAL HISTORY: 1. EGD with biopsy. 2. Segmental resection. ALLERGIES: NO KNOWN DRUG ALLERGIES. HOME MEDICATIONS: 1. Amlodipine 10 mg daily. 2. Aspirin 81 mg daily. 3. Atorvastatin 20 mg daily. 4. Doxazosin daily. 5. Metoprolol 50 daily. 6. Triamterene/hydrochlorothiazide daily. FAMILY HISTORY: Noncontributory. SOCIAL HISTORY: , lives with his spouse. Current everyday smoker with a [id number] history of smoking. No alcohol or illicit drug use. REVIEW OF SYSTEMS: Positive for nausea, vomiting, constipation, and abdominal pain. Otherwise, 10-point review of systems is negative. PHYSICAL EXAMINATION: VITAL SIGNS: Temperature 98.1, pulse 67, respiratory rate 16, blood pressure is 140/80, and he is 98% on room air. GENERAL: Well-developed, well-nourished male, in no acute distress. HEENT: Normocephalic and atraumatic. Pupils are equal and reactive to light. He has an NG tube in his naris. NECK: Supple. CV: Regular rate and rhythm. LUNGS: Clear anterior. ABDOMEN: Mildly tender to palpation and soft. EXTREMITIES: No clubbing, cyanosis, or edema. SKIN: No rash. HEMATOLOGIC: No petechiae or purpura. NEUROLOGIC: Nonfocal. PSYCHIATRIC: He is alert and oriented. PERTINENT LABORATORY DATA AND X-RAYS: Current WBCs are 17.7, hemoglobin 12.2, hematocrit 36.1, platelet count is 105, 86% neutrophils, 6% lymphocytes. Sodium is 135, potassium 3.6, chloride 94, CO2 is 33, BUN is 16, creatinine 0.82, and lactic acid is 2.13. ASSESSMENT: 1. Ileus versus obstruction. 2. Small-bowel adenocarcinoma of the jejunum. DISCUSSION: The patient's chemo has been held until he recovers from his current illness. His NG tube output is small and he is feeling better. He states he has been passing gas and had a bowel movement this morning. General Surgery has been consulted for further recommendations. His pain is controlled. We will follow along with his hospital course. Job ID: [id number]
[2019-02-06] MEDS: Piperacillin/Tazobactam 3.375 GM in Sodium Chloride 0.9% 100 ML IVPB SCH ×3 (11:35→22:34)
[2019-02-06 11:43] LABS: Hemoglobin 12.3 g/dL (14.0-18.0); Red Blood Cell (RBC) Count 3.23 mill/uL (4.70-6.10); White Blood Cell (WBC) Count 17.5 thou/uL (4.8-10.8)
[2019-02-06 11:44] LABS: Mean Corpuscular HGB CONC 33.1 g/dL (32.0-36.0); Platelet Count 107 thou/uL (130-400)
[2019-02-06] MEDS: Sodium Chloride 0.9% 1,000 ML IV SCH ×3 (11:44→20:57)
[2019-02-06 11:45] LABS: Mean Platelet Volume 8.1 fL (7.4-10.4)
[2019-02-06 11:54] LABS: #Lymphocytes 1.4 thou/uL (1.20-3.40); #Monocytes 1.1 thou/uL (0.11-0.59); #Neutrophils 10.1 thou/uL (1.40-6.50); %Basophils 0.2 % (0.0-1.0); %Eosinophils 0.4 % (0.0-10.0); %Lymphocytes 11.4 % (21.0-51.0); %Monocytes 8.5 % (0.0-10.0); %Neutrophils 79.6 % (42.0-75.0); Hemoglobin 11.2 g/dL (14.0-18.0); Mean Corpuscular HGB CONC 33.8 g/dL (32.0-36.0); Mean Corpuscular Hemoglobin 38.3 pg (27.0-31.0); Mean Platelet Volume 7.3 fL (7.4-10.4); Platelet Count 101 thou/uL (130-400); RBC Distribution Width 15.7 % (11.5-14.5); Red Blood Cell (RBC) Count 2.91 mill/uL (4.70-6.10); White Blood Cell (WBC) Count 12.7 thou/uL (4.8-10.8)
[2019-02-06 11:59] VITALS: BMI 22.9
[2019-02-06 12:05] LABS: ALT (SGPT) 31 U/L (8-55); AST (SGOT) 20 U/L (5-34); Alkaline Phosphatase 117 U/L (40-150); Anion Gap 11 mmol/L (10-20); BUN (Urea Nitrogen) 15 mg/dL (8.4-25.7); Bilirubin, Total 0.7 mg/dL (0.2-1.2); Calc. Creatinine Clearance 100 mL/min (70-130); Calcium 8.5 mg/dL (7.8-10.44); Carbon Dioxide 29 mmol/L (23-31); Chloride 101 mmol/L (98-107); Estimated GFR-MDRD Greater than 90; Globulin 2.7 g/dL (2.4-3.5); Glucose 94 mg/dL (83-110); Potassium 3.6 mmol/L (3.5-5.1); Protein, Total 5.7 g/dL (5.8-8.1); Sodium 137 mmol/L (136-145)
[2019-02-06 12:29] LABS: Band 29 % (5-11); Lymphocytes 12 % (21-51); Monocytes 6 % (0-10); Neutrophil 53 % (42-75)
[2019-02-06 12:30] LABS: Bite Cells SLIGHT = 2-5 cells (100X) (0-1/hpf); Macrocytosis MODERATE=16-30 cells (100X) (0-5/hpf); Platelet Morphology Comment Appears Decreased; Polychromasia SLIGHT = 2-3 cells (100X) (0-2/hpf)
[2019-02-06 12:31] LABS: MDiff Complete? YES
--- NOTE | 2019-02-06 13:00 | CT ---
CT ABDOMEN AND PELVIS WITH CONTRAST: HISTORY: Nausea, vomiting, diarrhea, and abdominal pain. COMPARISON: CT abdomen and pelvis from 07/12/2018. FINDINGS: There is some scarring in the lung bases. There is a 5 mm right perifissural nodule in the right min or fissure. Heart size is enlarged. The peritoneum along the right suprahepatic space. There is abnormal small bowel dilatation, to the level of the distal ileum, for which were are multip le strictures, which have some hyperenhancement. There is a suture in the proximal small bowel. Abnormal free fluid in the pelvis. No free intraperitoneal gas. Multiple loops of abnormally thickened and enhancing loops of distal small bowel. No dilated loops of colon. The liver and spleen are unremarkable. The celiac trunk and superior mes enteric arteries are patent. The aortic contour is nonaneurysmal. No hydronephrosis. No acute osseous abnormality. IMPRESSION: 1. Mechanical small bowel obstruction, which may be sequela of strictures in the distal ileum and mi d ileum with abnormal mucosal and submucosal hyperenhancement. Findings can be seen with inflammator y bowel disease, such as Crohn's. 2. Abnormal perihepatic edema with parietal peritoneal hyperenhancement, suggesting peritonitis, whi ch may be sequela of vascular compromise from small bowel obstruction. Urgent surgical consultation is advised. POS: CET
[2019-02-06 13:15] LABS: Band 16 % (5-11); Lymphocytes 13 % (21-51); MDiff Complete? YES; Macrocytosis MODERATE=16-30 cells (100X) (0-5/hpf); Monocytes 5 % (0-10); Neutrophil 65 % (42-75); Platelet Morphology Comment Appears Decreased; Reactive Lymphocytes 1 % (0-10)
--- NOTE | 2019-02-06 13:33 | RAD ---
ABDOMEN ONE VIEW: 02/06/19 HISTORY: Ileus. COMPARISON: CT abdomen and pelvis prior day. FINDINGS: Continue to be mildly distended loops of small bowel in the abdomen. Loops measure up to 4.4 cm in si ze. Evaluation for free air is limited. Enteric tube tip projects over the gastric fundus. There is c ontrast within the urinary bladder. IMPRESSION: Continued small bowel dilatation suggesting small bowel obstruction versus ileus. POS: CET
[2019-02-06 14:49] LABS: ALT (SGPT) 44 U/L (8-55); AST (SGOT) 31 U/L (5-34); Albumin 4.1 g/dL (3.4-4.8); Alkaline Phosphatase 177 U/L (40-150); Anion Gap 19 mmol/L (10-20); BUN (Urea Nitrogen) 17 mg/dL (8.4-25.7); Bilirubin, Total 0.9 mg/dL (0.2-1.2); Calc. Creatinine Clearance 76 mL/min (70-130); Carbon Dioxide 28 mmol/L (23-31); Chloride 93 mmol/L (98-107); Estimated GFR-MDRD 89; Globulin 3.4 g/dL (2.4-3.5); Glucose 140 mg/dL (83-110); Potassium 3.8 mmol/L (3.5-5.1); Sodium 136 mmol/L (136-145)
[2019-02-06 14:52] LABS: Calcium 10.2 mg/dL (7.8-10.44); Protein, Total 7.5 g/dL (5.8-8.1)
[2019-02-06 15:20] LABS: Lactic Acid 1.8 mmol/L (0.5-2.2)
--- NOTE | 2019-02-06 16:15 | PDOC.EVN ---
Addendum - Attending - Attending Attestation Date/Time: 02/06/19 [id number] I personally evaluated the patient and discussed the management with Dr. Otero see specific resident Hx And PE under separate document I agree with the History, Examination, Assessment and Plan documented with additions or exceptions noted below. Pleasant 73 yo gentlemen with history of small bowel jejunum adenocarcinoma s/p resection on chemotherapy per Brisa et al. Patient to presenting to ER with N/ V/D progressive last several days and abdominal CT finding concerning for SBO verse ileus verse IBD. Patient with NGT and improved symptoms General Surgery consulted as well as Oncology. Will continue bowel rest and rehydration monitor electrolyes and expectatant management. Patient c/o loose stool no fever, chills , or blood per rectum endorsed by patient. Appreciate recommendation of General surgery and Oncology
--- NOTE | 2019-02-06 17:27 | CON ---
DATE OF CONSULTATION: 02/06/2019 REASON FOR CONSULTATION: Possible bowel obstruction. HISTORY OF PRESENT ILLNESS: The patient is a 73-year-old male, who is known to myself socially from work contact. Leonides has a history of invasive adenocarcinoma of his small bowel that was resected by Dr. Erickson through a laparotomy in June 2018. He apparently had T1 N0 disease, but only one lymph node was harvested. He has a MediPort in place and has been receiving chemotherapy for this. He has been feeling bad for the past couple of days. Yesterday, he felt particularly bad with progressive problems with vomiting, nausea, and abdominal pain. He had been treated the day before with antinausea medication and IV fluid without significant improvement. He presented to the emergency room last night. CT scan was obtained, which was felt to potentially be consistent with either the small bowel obstruction or ileus. A nasogastric tube was placed, and the patient tells me that he felt better immediately after placing the NG tube. I am uncertain how much output there was from this after it was placed. He tells me that he had a large explosive bowel movement last night and had another large bowel movement earlier today. He notes that his abdomen is entirely without discomfort currently. It is also noted by his nurse that his nasogastric output for the past 6 to 8 hours has been negligible. My examination of his CT scan reveals a significant amount of air and stool within the colon that is clearly not typical of a small bowel obstruction, and I was therefore concerned that this represented some form of ileus, potentially related to his chemotherapy. PAST MEDICAL HISTORY: 1. Hypertension. 2. Coronary artery disease. 3. Adenocarcinoma of the small bowel, currently on chemotherapy. PAST SURGICAL HISTORY: 1. Laparotomy with segmental small bowel resection in June 2018. 2. MediPort placement. CURRENT MEDICATIONS: 1. Metoprolol. 2. Amlodipine. 3. Doxazosin. 4. Triamterene/hydrochlorothiazide. ALLERGIES: NO KNOWN DRUG ALLERGIES. PERSONAL AND SOCIAL HISTORY: He is . His is present at bedside, and she is a nurse here at [employer]. He smokes about 5 cigarettes per day and has a long smoking history. He drinks alcohol occasionally. 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 REVIEW OF SYSTEMS: Otherwise unremarkable. FAMILY HISTORY: Noncontributory. PHYSICAL EXAMINATION: VITAL SIGNS: Current temperature is 97.8. Pulse is 60. His blood pressure is 106/58. GENERAL: He is a well-developed, well-nourished, pleasant white male, resting in bed, in no acute distress. He is alert and oriented x3 and pleasant. He appears fatigued. HEAD, EYES, EARS, NOSE, AND THROAT: Unremarkable. Nasogastric tube is in place. NECK: Supple without mass or tenderness. LUNGS: Clear to auscultation anteriorly bilaterally. CARDIAC: Regular rate and rhythm without murmur. ABDOMEN: Soft, nontender, and nondistended. There is no dominant palpable mass or abnormality. Bowel sounds are present and normoactive throughout. RECTAL: Deferred. EXTREMITIES: Unremarkable. LABORATORY DATA: His white blood cell count at the time of admission last night was 17.5. Today, it is 12.7. Hemoglobin today is 11.2, platelet count is 101. Chemistry profile reveals normal electrolytes, BUN and creatinine, glucose, and liver function tests. His albumin was 4.1 when he presented last night, and after hydration, it has dropped down to 3.0. His lactate level is normal. ASSESSMENT: The patient had nausea, vomiting, abnormal CT scan, who is currently on chemotherapy for small-bowel adenocarcinoma. His symptoms have improved/resolved with nasogastric tube placement. I suspect that this was an ileus or perhaps an enteritis related to his chemotherapy. He is doing well with IV fluids and gastric decompression. I would recommend continuation of nasogastric tube, although he may begin with ice chips and sips of water at this time. I encourage ambulation. I will obtain a Gastrografin small-bowel follow-through in the morning. If this passes through and reveals no evidence of obstruction, then I would likely plan on removal of the nasogastric tube and advancing his diet. The patient understands that there is a chance that there is some obstructive phenomena and he could still require surgery. Job ID: [id number]
[2019-02-06] MEDS ORDERED: Morphine 4 MG/ML VIAL SLOW IVP PRN (19:32)
[2019-02-06] MEDS ORDERED: Famotidine/PF 20 mg/2ml Vial SLOW IVP SCH (21:00)
[2019-02-07] MEDS: Sodium Chloride 0.9% 1,000 ML IV SCH (05:42)
[2019-02-07] MEDS: Piperacillin/Tazobactam 3.375 GM in Sodium Chloride 0.9% 100 ML IVPB SCH (05:42)
--- NOTE | 2019-02-07 06:50 | PDOC.FM ---
- Subjective Subjective: NAEO. Patient resting in bed. Patient states his BM have slowed down since yesterday. He feels better overall. Patient states Dr. Velazquez discussed with him the plan for the small bowel follow through today. - Objective MAR Reviewed: Yes Vital Signs & Weight: Vital Signs (12 hours) Temp Pulse Resp BP Pulse Ox 02/07/19 04:18 98.2 F 80 18 119/63 96 02/07/19 00:02 98.2 F 88 18 112/62 97 02/06/19 20:22 98.0 F 74 18 102/53 L 98 Weight Weight 68.492 kg Result Diagrams: 02/07/19 07:06 02/07/19 07:06 Phys Exam - Physical Examination Constitutional: NAD HEENT: PERRLA, moist MMs NG tube in place Neck: supple, full ROM Respiratory: clear to auscultation bilateral Cardiovascular: RRR Gastrointestinal: soft, non-tender, no distention, positive bowel sounds Musculoskeletal: pulses present Neurological: non-focal, moves all 4 limbs Psychiatric: normal affect, A&O x 3 Skin: no rash Dx/Plan (1) Adenocarcinoma of small bowel Code(s): C17.9 - MALIGNANT NEOPLASM OF SMALL INTESTINE, UNSPECIFIED Status: Acute (2) Ileus Code(s): K56.7 - ILEUS, UNSPECIFIED Status: Acute (3) Hyperlipidemia Code(s): E78.5 - HYPERLIPIDEMIA, UNSPECIFIED Status: Acute (4) CAD (coronary artery disease) Code(s): I25.10 - ATHSCL HEART DISEASE OF [place] CORONARY ARTERY W/O ANG PCTRS Status: Acute (5) HTN (hypertension) Code(s): I10 - ESSENTIAL (PRIMARY) HYPERTENSION Status: Acute - Plan Plan: Abdominal pain 2/2 Ileus vs SBO Patient w/ NVD, decrease PO intake. CT an Xray showing possible SOB vs ileus. - Dr. Velazquez consulted from the ED. NG tube placed. Patient's symptoms have resolved for the most part. Could be ileus vs enteritis due to chemo. Plan is to do a small bowel follow through this AM. Will f/u after. Appreciate Dr. Lentz's recs. - morphine for pain; zofran for nausea - Continue mIVF - procal 0.32 -> 0.19. WBC downtrending and afebrile. Can dc zosyn. HTN - continue home meds - IV PRN HLD - home meds CAD - home meds DVT ppx: lovenox GI ppx: pantoprazole Dispo: pending small bowel follow through/clinical course Addendum - Attending - Attending Attestation Date/Time: 02/08/19 1342 I personally evaluated the patient and discussed the management with I agree with the History, Examination, Assessment and Plan documented above with any addition or exceptions noted below.
[2019-02-07 07:31] LABS: #Eosinphils 0.1 thou/uL (0.0-0.7); #Lymphocytes 2.1 thou/uL (1.20-3.40); #Monocytes 0.9 thou/uL (0.11-0.59); %Basophils 0.1 % (0.0-1.0); %Lymphocytes 17.2 % (21.0-51.0); %Monocytes 7.4 % (0.0-10.0); %Neutrophils 74.4 % (42.0-75.0); Hemoglobin 10.1 g/dL (14.0-18.0); Mean Corpuscular Hemoglobin 37.7 pg (27.0-31.0); Mean Platelet Volume 7.5 fL (7.4-10.4); Platelet Count 111 thou/uL (130-400); RBC Distribution Width 15.5 % (11.5-14.5); Red Blood Cell (RBC) Count 2.68 mill/uL (4.70-6.10); White Blood Cell (WBC) Count 12.1 thou/uL (4.8-10.8)
[2019-02-07 07:53] LABS: Anion Gap 9 mmol/L (10-20); BUN (Urea Nitrogen) 13 mg/dL (8.4-25.7); Calc. Creatinine Clearance 103 mL/min (70-130); Calcium 8.3 mg/dL (7.8-10.44); Carbon Dioxide 25 mmol/L (23-31); Chloride 108 mmol/L (98-107); Estimated GFR-MDRD Greater than 90; Glucose 84 mg/dL (83-110); Potassium 3.3 mmol/L (3.5-5.1); Sodium 139 mmol/L (136-145)
[2019-02-07] MEDS ORDERED: Enoxaparin Sodium 40 MG/0.4 ML SYRINGE SC SCH (09:00)
[2019-02-07] MEDS ORDERED: Potassium Chloride 20 MEQ TAB PO SCH (09:15)
--- NOTE | 2019-02-07 11:57 | RAD ---
Exam: Gastrografin small bowel. HISTORY: Small bowel dilatation. Previous intra-abdominal surgery. Eval for obstruction. COMPARISON: 1. View abdomen 02/06/2019 FINDINGS: Initial beef specialist radiograph demonstrates a prominent air-filled loops of small bowel. There is still air in the colon. Suture material is noted in the left upper quadrant. Gastrografin opacifies multiple normal caliber small bowel loops. Contrast is noted in the colon on t he one hour 30 minute image. IMPRESSION: No evidence of high grade obstruction.
[2019-02-07 16:03] VITALS: BP 158/72; TEMP 97.6
--- NOTE | 2019-02-08 17:11 | EKG ---
Test Reason : Blood Pressure : / mmHG Vent. Rate : 092 BPM Atrial Rate : 092 BPM P-R Int : 148 ms QRS Dur : 076 ms QT Int : 360 ms P-R-T Axes : 035 -17 030 degrees QTc Int : 445 ms Normal sinus rhythm Minimal voltage criteria for LVH, may be normal variant Leftward axis Abnormal ECG Confirmed by BLADE GUADALUPE DO ([id number]), fashion editor HARJEET WEEKS ([id number]) on 02/08/2019 5:10:59 PM Referred By: Confirmed By:BLADE GUADALUPE DO
== END 2019-02-07 17:03 | disposition home or self-care (01) | DRG 375 ==
LOC: ERS 19:34 → SURG A 02-06 02:52
PROVIDERS: ADMIT Family Medicine; ATTEND Family Medicine
DX: C17.1 Malignant neoplasm of jejunum (principal); K56.7 Ileus, unspecified; K56.609 Unspecified intestinal obstruction, unspecified as to partial versus complete obstruction; I10 Essential (primary) hypertension; I25.10 Atherosclerotic heart disease of native coronary artery without angina pectoris; F17.210 Nicotine dependence, cigarettes, uncomplicated; E78.5 Hyperlipidemia, unspecified; I48.91 Unspecified atrial fibrillation; N40.0 Benign prostatic hyperplasia without lower urinary tract symptoms; Z85.038 Personal history of other malignant neoplasm of large intestine; Z92.21 Personal history of antineoplastic chemotherapy; I25.2 Old myocardial infarction; Z79.82 Long term (current) use of aspirin
CPT/HCPCS: 36415; 74018; 74177; 74250; 80048; 80053; 81003; 81015; 83605; 84145; 85025; 93005; J1642; J1650; J2270; J2405; J2543; J3490; S0028

== ENCOUNTER 2019-02-13 16:00 | Inpatient (IN) | payer OTHER, MEDICARE ==
[~2019-02-13 16:00] MED LIST changes: +Lidocaine 1% PF 5 ML VIAL ONE; +PHENYLEPHRINE-NS 100 MCG/ML 10 ML SYRINGE ONE; +PROPOFOL 200 MG/20 ML VIAL ONE; +Piperacillin/Tazobactam 3.375 GM VIAL ONE; +Rocuronium Bromide 10 MG/ML (10ML VIAL) ONE; +Succinylcholine Chloride 20 MG/ML 10 ml SYRINGE FS ONE; +ePHEDrine 50 MG/ML VIAL ONE
[2019-02-13] MEDS ORDERED: Morphine 4 MG/ML VIAL ONE ×3 (16:36→20:07)
[2019-02-13] MEDS ORDERED: Ondansetron PF 4 MG/2 ML Vial ONE ×2 (16:36→16:40)
[2019-02-13 17:06] LABS: #Lymphocytes 0.7 thou/uL (1.20-3.40); #Monocytes 0.4 thou/uL (0.11-0.59); #Neutrophils 14.6 thou/uL (1.40-6.50); %Basophils 0.2 % (0.0-1.0); %Eosinophils 0.2 % (0.0-10.0); %Lymphocytes 4.6 % (21.0-51.0); %Monocytes 2.5 % (0.0-10.0); %Neutrophils 92.5 % (42.0-75.0); Hemoglobin 10.9 g/dL (14.0-18.0); Mean Platelet Volume 6.6 fL (7.4-10.4); Platelet Count 154 thou/uL (130-400); RBC Distribution Width 14.7 % (11.5-14.5); Red Blood Cell (RBC) Count 2.87 mill/uL (4.70-6.10); White Blood Cell (WBC) Count 15.8 thou/uL (4.8-10.8)
[2019-02-13 17:30] LABS: ALT (SGPT) 30 U/L (8-55); AST (SGOT) 25 U/L (5-34); Albumin 3.1 g/dL (3.4-4.8); Alkaline Phosphatase 119 U/L (40-150); Anion Gap 12 mmol/L (10-20); BUN (Urea Nitrogen) 14 mg/dL (8.4-25.7); Bilirubin, Total 0.9 mg/dL (0.2-1.2); Calc. Creatinine Clearance 0 mL/min (70-130); Calcium 8.8 mg/dL (7.8-10.44); Carbon Dioxide 24 mmol/L (23-31); Chloride 99 mmol/L (98-107); Estimated GFR-MDRD Greater than 90; Globulin 2.8 g/dL (2.4-3.5); Glucose 142 mg/dL (83-110); Lipase 78 U/L (8-78); Potassium 4.1 mmol/L (3.5-5.1); Protein, Total 5.9 g/dL (5.8-8.1); Sodium 131 mmol/L (136-145)
--- NOTE | 2019-02-13 19:25 | CT ---
CT abdomen and pelvis with IV contrast HISTORY: Abdominal pain. Nausea, vomiting. Prior surgery. COMPARISON: 02/05/2019. FINDINGS: Mild atelectasis at the lung bases. Free fluid within the upper abdomen has increased sligh tly since the prior study. Subtle enhancement of the peritoneum is again demonstrated. Within the central abdomen just anterior to the aortic bifurcation, a lobulated collection of fluid w ith partial peripheral enhancement but no internal gas now measures 4.3 cm length x 6.6 cm width x 3.4 cm depth. Internal Hounsfield units of 47. Small amount of adjacent stranding. In retrospect, a s maller similar pocket was present on the previous study, although there has definitely been enlargement. In the right lower quadrant, anterior to the right iliac vessels, a lobular, predominantly oval and s lightly irregular hyperdense collection now measures up to 9.3 cm length x 8.9 cm depth x 3.6 cm width, again larger than on the previous study. Internal Hounsfield unit measurements of 57. An oval heterogeneous mass-like density that likely represents complex fluid immediately right of the upper rectum is 4.6 cm greatest diameter. Prominent calcification throughout the arterial structures. Degenerative changes lumbar spine. IMPRESSION: Multiple hyperdense fluid collections within the lower abdomen and pelvis as detailed above, concerni ng for accumulation of blood or contrast material from prior small bowel exam. No internal gas is present, although these could easily represent developing abscesses. Also slight interval increase in free fluid within the abdomen. Findings were called to Dr. Burk in the emergency department at 1917 hours. Code CR. Transcribed Date/Time: 02/13/2019 7:32 PM
[2019-02-13] MEDS ORDERED: Piperacillin/Tazobactam 4.5 GM VIAL ONE (19:41)
[2019-02-13] MEDS ORDERED: Fentanyl 250 MCG/5 ML VIAL ONE (20:19)
[2019-02-13] MEDS ORDERED: Midazolam HCl 2 mg/2 ml Vial ONE ×2 (20:19→22:12)
[2019-02-13 21:22] LABS: Lactic Acid 1.5 mmol/L (0.5-2.2)
[2019-02-13 21:54] LABS: Hemoglobin 8.3 g/dL (14.0-18.0); Mean Corpuscular HGB CONC 34.6 g/dL (32.0-36.0); Mean Corpuscular Hemoglobin 38.7 pg (27.0-31.0); Mean Platelet Volume 6.9 fL (7.4-10.4); Platelet Count 138 thou/uL (130-400); RBC Distribution Width 14.9 % (11.5-14.5); Red Blood Cell (RBC) Count 2.14 mill/uL (4.70-6.10); White Blood Cell (WBC) Count 12.1 thou/uL (4.8-10.8)
[2019-02-13] MEDS ORDERED: Sodium Chloride 0.9% 10 ML ONE (22:10)
[2019-02-13] MEDS ORDERED: Ventilator Sedation Protocol 1 EACH FS SCH (22:49)
[2019-02-13] MEDS ORDERED: Promethazine HCl 25 MG/ML VIAL IM PRN (22:49)
[2019-02-13] MEDS ORDERED: Dextrose 50% Abboject 50 ML SYRINGE SLOW IVP PRN (22:49)
[2019-02-13] MEDS ORDERED: hydrALAZINE 20 MG/ML VIAL SLOW IVP PRN (22:49)
[2019-02-13] MEDS ORDERED: Ondansetron PF 4 MG/2 ML Vial IVP PRN (22:49)
[2019-02-13] MEDS ORDERED: Dextrose 5% in Water 1,000 ML IV PRN (22:49)
[2019-02-13] MEDS ORDERED: DISCONTINUE PREVIOUS NARCOTIC PAIN MEDICATIONS AND BENZODIAZEPINES FS SCH (22:51)
[2019-02-13] MEDS ORDERED: Propofol 1,000 MG/100 ML VIAL IV PRN (22:51)
[2019-02-13] MEDS ORDERED: fentaNYL Citrate/PF 2,000 MCG in Sodium Chloride 0.9% 60 ML IV SCH (22:51)
[2019-02-13] MEDS ORDERED: Propofol BOLUS 1,000 MG/100 ML VIAL IV PRN (22:51)
[2019-02-13] MEDS ORDERED: Fentanyl BOLUS 250 ML IVPB PRN (22:51)
[2019-02-13] MEDS ORDERED: Lorazepam 2 MG/ML VIAL SLOW IVP PRN (22:51)
[2019-02-13] MEDS ORDERED: Morphine 2 MG/ML SYRINGE SLOW IVP PRN (22:51)
[2019-02-13 22:56] LABS: Actual Bicarbonate (HCO3a) 21.3 mEq/L (22-28); Base Excess (BEa) -3.8 mEq/L (-2.0 to +3.0); CO2 Tension 38.6 mmHg (35.0-45.0); Calcium, Ionized 1.17 mmol/L (1.12-1.30); Carboxyhemoglobin (COHb) 2.1 gm% (0.0-3.0); Hemoglobin (Hb) 8.3 g/dL (14.0-18.0); O2 Tension (PaO2) 116.6 mmHg (> 70.0); Potassium - ABG Lab 3.81 mmol/L (3.70-5.30); pH, Arterial 7.36 (7.35-7.45)
[2019-02-13 23:00] LABS: Puncture Site RBA
--- NOTE | 2019-02-13 23:07 | RAD ---
Chest one view HISTORY: Central line placement. Chest pain. COMPARISON: 07/29/2018. FINDINGS: Cardiac silhouette is magnified by projection. Pulmonary vasculature is upper limits of nor mal and accentuated by shallow inspiration. Mediastinum is midline. Nasogastric tube descends to the stomach. Tip of an endotracheal catheter overlies the thoracic inlet. Tip of a left internal jugu lar central venous catheter overlies the superior vena cava. Right internal jugular Mediport is in place. Opacity at the left base has the appearance of atelectasis and a small amount of left pleural fluid. No evidence of pneumothorax IMPRESSION: Internal jugular catheter and other lines and tubes are in good radiographic position. Mild pulmonary vascular congestion. Left basilar atelectasis and small amount left pleural fluid.
[2019-02-13] MEDS: Sodium Chloride 0.9% 1,000 ML IV SCH (23:15)
--- NOTE | 2019-02-14 02:07 | HP ---
CHIEF COMPLAINT: Peritonitis. HISTORY OF PRESENT ILLNESS: This is a 73-year-old male with a history of small bowel adenocarcinoma who is status post resection with negative margins by me. He had a positive radial margin because it was a perforated tumor. He has been undergoing chemotherapy and had quite a lot of difficulty with chronic pain, weight loss, nausea, vomiting, and diarrhea. He now presents after being here last week for partial small bowel obstruction that resolved without surgery. At that time, he had CT scan which showed evidence of mesenteric edema and ischemia in the right lower quadrant. However, his pain resolved as his infectious count normalized and he had a normal small-bowel follow-through and went home. He says immediately once he got home, know he started having more pain. The pain is described as diffuse, 8/10, dull to sharp at times. It is colicky, not associated with fevers. He has had some chills. He took his last chemotherapy today. PAST MEDICAL HISTORY: Includes hypertension, coronary artery disease, small bowel jejunal adenocarcinoma. PAST SURGICAL HISTORY: Small bowel resection and postoperative wound infection. Medicines taken daily ALLERGIES: NO KNOWN DRUG ALLERGIES. MEDICATIONS: See list. SOCIAL HISTORY: He does smoke a little. Occasional alcohol. No other drugs. REVIEW OF SYSTEMS: Otherwise negative except as described above. PHYSICAL EXAMINATION: VITAL SIGNS: Pulse is 100, blood pressure is 90/65. He is afebrile. HEENT: Sclerae anicteric. Oropharynx clear. NECK: No lymphadenopathy. CHEST: Clear. HEART: Increased rate, regular rhythm without murmur. ABDOMEN: Soft with diffuse peritoneal signs and he is rigid. Well-healed midline incision. LABORATORY DATA: White blood cell count is 15, hemoglobin 10, platelet count is 154. He has a normal differential. Sodium 131, potassium 4.1 creatinine 0.71. Urine is clear. ASSESSMENT: Peritonitis. I suspect ischemic small intestine with perforation. PLAN: Exploratory laparotomy, abdominal washout. Risks, benefits, and alternatives were discussed. He gives consent. We will do this tonight. Job ID: [id number]
--- NOTE | 2019-02-14 02:36 | OP ---
DATE OF PROCEDURE: 02/13/2019 PREOPERATIVE DIAGNOSIS: Peritonitis. POSTOPERATIVE DIAGNOSES: Hemoperitoneum, metastatic small bowel adenocarcinoma bleeding. PROCEDURES PERFORMED: Exploratory laparotomy with abdominal washout, biopsy of retroperitoneal recurrent mass, control of tumor bleeding. ANESTHESIA: General. ESTIMATED BLOOD LOSS: There was approximately 700 to 1000 mL of old blood in the abdomen from bleeding. No significant new bleeding. No evidence of perforation or injury, or perforation of the small bowel or colon. BRIEF HISTORY: The patient is a 73-year-old male, who I previously performed a small bowel resection for a perforated small bowel adenocarcinoma. He has been undergoing chemotherapy. He was admitted last week with a small-bowel obstruction and had some free fluid in his belly then, but he resolved and his labs were normal when he was discharged with normal small-bowel follow-through, presents today after his last chemotherapy with significant abdominal pain, hypotension, and tachycardia. DESCRIPTION OF PROCEDURE: The patient was taken to the operating room and laid supine on the operating room table. After general anesthetic was obtained, a Tejada was placed. The abdomen was shaved, prepped, and draped in a sterile fashion. A midline incision was made and the abdominal cavity was entered carefully without injury. The patient had significant gross hemoperitoneum. All four quadrants of the abdomen were packed with laps. Bookwalter retractor was placed. The packs were removed in the left abdomen 1st revealing no bleeding in the left abdomen, splenic area, removed in the right upper quadrant to reveal no evidence of liver injury or tumor. In the right lower quadrant, the small intestine was very stuck to a tumor in the retroperitoneum, peeling this pack, there was some old blood seen approximately 750 mL to a L of old blood was removed from the abdomen. A small amount of persistent bleeding at the tumor was controlled just with gentle direct pressure with a lap. The small bowel was run from ligament of Treitz to ileocecal valve without obvious perforation or obstruction. A few intraabdominal adhesions were taken down. There was also a retroperitoneal tumor mass in the mesentery of the rectosigmoid junction. However, there was no obvious involvement of the rectosigmoid colon wall. There was no foul smell or purulence in the abdomen. No stool in the abdomen either. Some of this perforated tumor burden was sent to [facility] for final diagnosis to confirm that it is in fact recurrent metastatic disease. This tumor was unresectable. Princess and a bleeding starch were placed in the area where the tumor had ruptured and was bleeding. There was no ongoing bleeding. All instrument counts, needle counts, and lap counts were correct. PDS was used to close the fascial defect from the top and the bottom and tied in the middle. Subcutaneous tissues were irrigated using sterile solution and closed using skin karmen. The patient was sent to the ICU. He is going to remain intubated tonight, but he is hemodynamically stable. Job ID: [id number]
--- NOTE | 2019-02-14 04:31 | OP ---
DATE OF PROCEDURE: 02/13/2019 PREOPERATIVE DIAGNOSES: Hemodynamic instability and hypovolemic shock and small intestine adenocarcinoma. POSTOPERATIVE DIAGNOSES: Hemodynamic instability and hypovolemic shock and small intestine adenocarcinoma. PROCEDURE PERFORMED: Central line. ANESTHESIA: General. ESTIMATED BLOOD LOSS: Minimal. COMPLICATIONS: None. TECHNIQUE: The left neck was prepped and draped in a sterile fashion. Local anesthetic was infiltrated over the left internal jugular vein. Internal jugular vein was cannulated using a 22-gauge finder needle, followed by a Seldinger needle. Wire was passed without any tension. A small luis was made at the wire entrance site. The wire was used as a guide to dilate the internal jugular vein. Triple-lumen catheter was threaded at 16 cm, sewn to the neck with the enclosed soak and adaptor. All ports were flushed and willa blood without difficulties. Each was flushed with a saline solution. Antimicrobial disc and sterile dressings were placed. The patient was sent to Recovery in stable condition. All instrument counts, needle counts, and lap counts were correct. Job ID: [id number]
[2019-02-14 05:36] LABS: Hemoglobin 11.1 g/dL (14.0-18.0); Mean Corpuscular HGB CONC 33.5 g/dL (32.0-36.0); Mean Corpuscular Hemoglobin 34.8 pg (27.0-31.0); Mean Platelet Volume 7.1 fL (7.4-10.4); Platelet Count 139 thou/uL (130-400); RBC Distribution Width 18.3 % (11.5-14.5); Red Blood Cell (RBC) Count 3.18 mill/uL (4.70-6.10); White Blood Cell (WBC) Count 17.3 thou/uL (4.8-10.8)
[2019-02-14 05:41] LABS: #Lymphocytes 0.8 thou/uL (1.20-3.40); #Monocytes 0.3 thou/uL (0.11-0.59); #Neutrophils 16.3 thou/uL (1.40-6.50); %Basophils 0.1 % (0.0-1.0); %Eosinophils 0.2 % (0.0-10.0); %Lymphocytes 4.4 % (21.0-51.0); %Monocytes 1.7 % (0.0-10.0); %Neutrophils 93.8 % (42.0-75.0)
[2019-02-14 05:49] LABS: ALT (SGPT) 24 U/L (8-55); AST (SGOT) 22 U/L (5-34); Albumin 2.4 g/dL (3.4-4.8); Alkaline Phosphatase 86 U/L (40-150); Anion Gap 11 mmol/L (10-20); BUN (Urea Nitrogen) 15 mg/dL (8.4-25.7); Bilirubin, Total 0.8 mg/dL (0.2-1.2); Calc. Creatinine Clearance 86 mL/min (70-130); Carbon Dioxide 22 mmol/L (23-31); Chloride 106 mmol/L (98-107); Estimated GFR-MDRD Greater than 90; Globulin 2.2 g/dL (2.4-3.5); Glucose 148 mg/dL (83-110); Potassium 4.6 mmol/L (3.5-5.1); Protein, Total 4.6 g/dL (5.8-8.1); Sodium 134 mmol/L (136-145)
[2019-02-14] MEDS: Sodium Chloride 0.9% 1,000 ML IV SCH ×3 (06:36→18:04)
[2019-02-14 06:53] LABS: Base Excess (BEa) -5.3 mEq/L (-2.0 to +3.0); Calcium, Ionized 1.15 mmol/L (1.12-1.30); Carboxyhemoglobin (COHb) 1.5 gm% (0.0-3.0); Hemoglobin (Hb) 11.7 g/dL (14.0-18.0); O2 Tension (PaO2) 75.8 mmHg (> 70.0); Potassium - ABG Lab 4.21 mmol/L (3.70-5.30); pH, Arterial 7.38 (7.35-7.45)
[2019-02-14 07:03] LABS: Puncture Site LRA
[2019-02-14] MEDS: Famotidine/PF 20 mg/2ml Vial SLOW IVP SCH ×2 (08:55→21:48)
[2019-02-14] MEDS ORDERED: Prevnar 13-Val Conj/PF 0.5 ML SYRINGE IM ONE (09:00)
[2019-02-14 20:10] LABS: Base Excess (BEa) -4.6 mEq/L (-2.0 to +3.0); CO2 Tension 35.1 mmHg (35.0-45.0); Calcium, Ionized 1.15 mmol/L (1.12-1.30); Carboxyhemoglobin (COHb) 0.8 gm% (0.0-3.0); Hemoglobin (Hb) 10.9 g/dL (14.0-18.0); O2 Tension (PaO2) 64.6 mmHg (> 70.0); Potassium - ABG Lab 4.57 mmol/L (3.70-5.30); pH, Arterial 7.37 (7.35-7.45)
[2019-02-14 20:11] LABS: ALV-art Gradient 105.425 (0-20); Puncture Site RBR
[2019-02-14] MEDS: Morphine 2 MG/ML SYRINGE SLOW IVP PRN (21:48)
[2019-02-15] MEDS: Acetaminophen 1,000 MG in Premix Bag 1 BAG IVPB SCH ×4 (00:12→17:12)
[2019-02-15] MEDS: Sodium Chloride 0.9% 1,000 ML IV SCH ×4 (00:31→22:15)
[2019-02-15] MEDS: Morphine 2 MG/ML SYRINGE SLOW IVP PRN ×3 (02:52→22:07)
[2019-02-15] MEDS: Famotidine/PF 20 mg/2ml Vial SLOW IVP SCH ×2 (08:50→21:01)
[2019-02-15 08:52] LABS: #Monocytes 0.1 thou/uL (0.11-0.59); %Eosinophils 0.1 % (0.0-10.0); %Monocytes 1.1 % (0.0-10.0); %Neutrophils 90.7 % (42.0-75.0); Hemoglobin 9.4 g/dL (14.0-18.0); Mean Corpuscular HGB CONC 33.9 g/dL (32.0-36.0); Mean Corpuscular Hemoglobin 35.1 pg (27.0-31.0); Mean Platelet Volume 7.2 fL (7.4-10.4); Platelet Count 122 thou/uL (130-400); RBC Distribution Width 17.8 % (11.5-14.5); Red Blood Cell (RBC) Count 2.67 mill/uL (4.70-6.10); White Blood Cell (WBC) Count 12.2 thou/uL (4.8-10.8)
[2019-02-15 09:12] LABS: Anion Gap 9 mmol/L (10-20); BUN (Urea Nitrogen) 21 mg/dL (8.4-25.7); Calc. Creatinine Clearance 87 mL/min (70-130); Calcium 8.1 mg/dL (7.8-10.44); Carbon Dioxide 20 mmol/L (23-31); Chloride 111 mmol/L (98-107); Estimated GFR-MDRD Greater than 90; Glucose 131 mg/dL (83-110); Magnesium 1.3 mg/dL (1.6-2.6); Phosphorus 3.1 mg/dL (2.3-4.7); Potassium 4.2 mmol/L (3.5-5.1); Sodium 136 mmol/L (136-145)
[2019-02-15] MEDS ORDERED: Digoxin 0.5 MG/2 ML AMP ONE (09:24)
[2019-02-15] MEDS ORDERED: Digoxin 0.5 MG/2 ML AMP SLOW IVP SCH (09:30)
[2019-02-15] MEDS ORDERED: Magnesium Sulfate 4 GM in Sodium Chloride 0.9% 250 ML 250 ML IVPB SCH (10:30)
[2019-02-15] MEDS ORDERED: Amiodarone 150 MG in Dextrose 5% in Water 100 ML IVPB SCH (12:30)
[2019-02-15] MEDS ORDERED: Sodium Chloride 0.9% 500 ML IV SCH ×2 (12:30→13:45)
[2019-02-15] MEDS ORDERED: Amiodarone 450 MG in Dextrose 5% in Water 250 ML IVPB SCH (12:30)
[2019-02-15] MEDS ORDERED: Amiodarone 150 MG, Admixture Fee 1 EACH in Dextrose 5% in Water 100 ML IVPB SCH (13:45)
[2019-02-15] MEDS ORDERED: Metoprolol Tartrate 25 MG TAB PO SCH (14:00)
[2019-02-15] MEDS: Levalbuterol HCl 0.63 MG/3 ML NEB NEB SCH ×2 (14:23→21:51)
--- NOTE | 2019-02-15 14:37 | RAD ---
CHEST 1 VIEW: Date: 02/15/19 COMPARISON: 02/13/19. HISTORY: Congestive heart failure. FINDINGS: Stable right-sided MediPort catheter and left-sided central venous catheter. Interval removal of endo tracheal and nasogastric tube. There is cardiomegaly and pulmonary vascular prominence. Patchy inters titial opacities may represent a component of edema or infiltrate. There is no pneumothorax or osseou s abnormalities. There is air underneath the left and right hemidiaphragm, compatible with pneumoperitoneum. IMPRESSION: 1. Cardiomegaly. Pulmonary vascular prominence. Interstitial opacities which may be due to edema sup erimposed upon chronic change. 2. Pneumoperitoneum. Results of study discussed with Truong Lawson on 02/15/19 at 1409 hours. CODE CR. POS: FERNANDO
[2019-02-15 14:51] LABS: CKMB 0.4 ng/mL (0-6.6); Troponin I Less than 0.010 ng/mL (< 0.028)
--- NOTE | 2019-02-15 16:16 | CON ---
DATE OF CONSULTATION: 02/15/2019 REASON FOR CONSULTATION: Atrial fibrillation with RVR. PRIMARY COMMUTER TRAIN OPERATOR: Cosme John MD HISTORY OF PRESENT ILLNESS: Mr. Melgar is a very pleasant 73-year-old white gentleman, who comes to the hospital for abdominal pain. He has a history of colon adenocarcinoma, status post resection several months ago and started having abdominal pain, nausea, vomiting, diarrhea, decreased p.o. intake. He was found to have bowel obstruction, so he underwent an exploratory laparotomy with abdominal washout, biopsy of the retroperitoneum and control of the bleeding of the tumor. He is postoperative day two and he went into atrial fibrillation with RVR. He does have a history of paroxysmal atrial fibrillation, sees Dr. John for this. He is only on aspirin for stroke prophylaxis. He also has a history of coronary artery disease with diffuse LAD disease. Left circumflex has 90% mid lesion. Left circumflex had a 60% mid lesion. This is on 2006, had stent placed to the mid LAD. He has done very well since. Currently, he is chest pain free. PAST MEDICAL HISTORY: 1. Coronary artery disease, status post stent to the LAD in 2006. 2. Hypertension. 3. Hyperlipidemia. 4. BPH. 5. Colon adenocarcinoma. SURGICAL HISTORY: 1. Colon adenocarcinoma resection. 2. Exploratory laparotomy as above. SOCIAL HISTORY: Positive for tobacco use. No alcohol or drugs. OUTPATIENT MEDICATIONS: 1. Atorvastatin 10 mg at bedtime. 2. Aspirin 81. 3. Amlodipine 10. 4. [place]-3 fish oil. 5. Doxazosin. 6. Prochlorperazine. 7. Zofran p.r.n. 8. Omeprazole. 9. Metoprolol succinate 50 mg q.p.m. 10. Vitamin B. 11. CoQ-10. 12. Triamterene/hydrochlorothiazide 37.5/25 a day. ALLERGIES: NO KNOWN DRUG ALLERGIES. SOCIAL HISTORY: Noncontributory. REVIEW OF SYSTEMS: A 12-point review of systems was done and was all negative unless stated in the history of present illness. PHYSICAL EXAMINATION: VITAL SIGNS: Temperature 98.4, pulse 73, respiratory rate 14, saturating 98% on room air, and blood pressure 97/49, heart rate went up to 148 while in atrial fibrillation with RVR. GENERAL: Awake, alert, and oriented x3. No distress. HEENT: Normocephalic, atraumatic. NECK: Supple. LUNGS: Clear. CARDIOVASCULAR: S1 and S2. No S3 or S4. No murmurs. ABDOMEN: Little bit bloated but tender to palpation. No rebound or guarding with positive bowel sounds. EXTREMITIES: Trace edema. SKIN: Warm and dry. LABORATORY DATA: Laboratory work was reviewed. CBC was reviewed. Chemistry was reviewed. Potassium is normal. BUN of 21, creatinine 0.69. Troponin is negative x1. BNP was 98. Albumin of 2.4. ASSESSMENT AND PLAN: 1. Atrial fibrillation with rapid ventricular response, paroxysmal in nature. Agree with amiodarone drip. Currently, he is going in and out of atrial fibrillation and back into sinus. When he goes into atrial fibrillation, he is actually rate controlled in the 70s to 80s. Continue current regimen for now. 2. No anticoagulation or antiplatelets given his recent abdominal bleeding and tumor bleeding, which was very difficult to do. Thank you for letting me to participate in the care of your patient. We will follow. Job ID: [id number]
--- NOTE | 2019-02-15 19:54 | PRG ---
DATE OF SERVICE: 02/15/2019 SUBJECTIVE: Mr. Melgar is a 73-year-old man, who is postoperative day #2 status post exploratory laparotomy, evacuation of hemoperitoneum, and biopsy of retroperitoneal soft tissue mass. The patient was successfully extubated yesterday, postoperative day #1. Today, he is awake and alert, reporting adequate pain control. Previous nasogastric tube was removed after it was found with scant output. Shortly after removal of the nasogastric tube, the patient went into acute atrial fibrillation with rapid ventricular response. He denies any chest pain, dyspnea, or syncope. OBJECTIVE: VITAL SIGNS: This morning included blood pressure 120/68. Pulse, which was initially 105 was in the 160s and irregular. Respiratory rate is 19. Temperature 98.1 degrees Fahrenheit. Oxygen saturation 96% on 2 L by nasal cannula oxygen. HEENT: Reveals normocephalic and atraumatic. Pupils are equal, round, and reactive to light and accommodation. NECK: He has no jugular venous distention noted. HEART: Reveals irregular rate and irregular rhythm. LUNGS: Clear to auscultation bilaterally. Breathing, regular and nonlabored. ABDOMEN: Soft and nondistended. Incision is intact, clean, and dry. EXTREMITIES: Reveal 2+ radial and pedal pulses bilaterally. No ankle edema is present. NEUROLOGIC: Reveals no focal deficits present. GENITOURINARY: Urinary output has been adequate for this patient's weight and age. LABORATORY FINDINGS: Today include a CBC with 12,200 white blood cells, hemoglobin and hematocrit 9.4 and 27.6 respectively, platelet count 122,000. Metabolic profile; sodium is 136, potassium is 4.2, chloride is 111, bicarb is 20, BUN is 21, creatinine is 0.69, glucose 131, magnesium 1.3, and phosphorus is 3.1. Troponin I was less than 0.01. I have personally reviewed a chest x-ray today, which reveals a slight cardiomegaly with increasing perihilar vascular marking. No pneumothorax or pleural effusion is present. IMPRESSIONS: 1. Postoperative day #2 status post exploratory laparotomy. 2. Stable acute blood loss anemia. 3. Acute onset atrial fibrillation with rapid ventricular response. 4. Acute hypomagnesemia. PLAN: 1. Correct abnormal electrolytes. 2. We will resume home medications including the beta-fela. 3. Initiate amiodarone by continuous infusion per protocol and anticipate conversion to sinus rhythm. 4. Once hemodynamically stable, we will initiate physical and occupational therapy. Above findings and plan were discussed with the patient, who indicates understanding of the information given. I have answered his questions. Job ID: [id number]
[2019-02-15] MEDS: Amiodarone 450 MG, Admixture Fee 1 EACH in Dextrose 5% in Water 250 ML IVPB SCH (21:01)
[2019-02-16] MEDS: Morphine 2 MG/ML SYRINGE SLOW IVP PRN ×2 (01:58→07:42)
[2019-02-16 05:22] LABS: #Eosinphils 0.1 thou/uL (0.0-0.7); #Lymphocytes 1.4 thou/uL (1.20-3.40); #Monocytes 0.1 thou/uL (0.11-0.59); #Neutrophils 7.5 thou/uL (1.40-6.50); %Lymphocytes 15.4 % (21.0-51.0); %Monocytes 0.8 % (0.0-10.0); %Neutrophils 82.7 % (42.0-75.0); Hemoglobin 7.5 g/dL (14.0-18.0); Mean Corpuscular HGB CONC 34.5 g/dL (32.0-36.0); Mean Corpuscular Hemoglobin 35.9 pg (27.0-31.0); Mean Platelet Volume 7.1 fL (7.4-10.4); Platelet Count 77 thou/uL (130-400); RBC Distribution Width 17.5 % (11.5-14.5); Red Blood Cell (RBC) Count 2.09 mill/uL (4.70-6.10)
[2019-02-16 05:46] LABS: Anion Gap 8 mmol/L (10-20); BUN (Urea Nitrogen) 13 mg/dL (8.4-25.7); Calc. Creatinine Clearance 119 mL/min (70-130); Calcium 7.7 mg/dL (7.8-10.44); Carbon Dioxide 22 mmol/L (23-31); Chloride 110 mmol/L (98-107); Estimated GFR-MDRD Greater than 90; Glucose 96 mg/dL (83-110); Magnesium 1.8 mg/dL (1.6-2.6); Phosphorus 1.7 mg/dL (2.3-4.7); Potassium 3.4 mmol/L (3.5-5.1); Sodium 137 mmol/L (136-145)
[2019-02-16] MEDS: Levalbuterol HCl 0.63 MG/3 ML NEB NEB SCH ×3 (07:03→21:43)
[2019-02-16] MEDS ORDERED: diphenhydrAMINE 50 MG/ML VIAL IVP PRN (09:23)
[2019-02-16] MEDS ORDERED: HYDROmorphone 10 mg/100 ml CADD IVPB PRN (09:23)
[2019-02-16] MEDS ORDERED: Promethazine HCl 25 MG/ML VIAL IM PRN (09:23)
[2019-02-16] MEDS ORDERED: diphenhydrAMINE 25 MG CAP PO PRN (09:23)
[2019-02-16] MEDS ORDERED: diphenhydrAMINE 50 MG/ML VIAL IM PRN (09:23)
[2019-02-16] MEDS ORDERED: Naloxone HCl 0.4 mg/ml Vial IV PRN (09:23)
[2019-02-16] MEDS ORDERED: Communication Order-Pharmacy FS SCH (09:30)
[2019-02-16] MEDS ORDERED: Furosemide 40 MG/4 ML VIAL SLOW IVP SCH (09:30)
[2019-02-16] MEDS ORDERED: Magnesium Sulfate 2 GM in Sodium Chloride 0.9% 250 ML 250 ML IVPB SCH (09:30)
[2019-02-16] MEDS ORDERED: Potassium Phosphate 30 MMOL in Sodium Chloride 0.9% 250 ML 250 ML IVPB SCH (09:30)
[2019-02-16 09:35] LABS: #Eosinphils 0.1 thou/uL (0.0-0.7); #Lymphocytes 1.3 thou/uL (1.20-3.40); #Monocytes 0.1 thou/uL (0.11-0.59); #Neutrophils 7.6 thou/uL (1.40-6.50); %Basophils 0.2 % (0.0-1.0); %Eosinophils 1.1 % (0.0-10.0); %Lymphocytes 13.9 % (21.0-51.0); %Monocytes 0.8 % (0.0-10.0); Hemoglobin 8.1 g/dL (14.0-18.0); Mean Corpuscular HGB CONC 34.2 g/dL (32.0-36.0); Mean Corpuscular Hemoglobin 35.4 pg (27.0-31.0); Mean Platelet Volume 6.9 fL (7.4-10.4); Platelet Count 75 thou/uL (130-400); RBC Distribution Width 17.3 % (11.5-14.5); Red Blood Cell (RBC) Count 2.29 mill/uL (4.70-6.10)
[2019-02-16] MEDS: Enoxaparin Sodium 40 MG/0.4 ML SYRINGE SC SCH (09:41)
[2019-02-16] MEDS: Famotidine/PF 20 mg/2ml Vial SLOW IVP SCH ×2 (09:46→21:00)
[2019-02-16] MEDS: Sodium Chloride 0.9% 1,000 ML IV SCH ×2 (09:47→17:12)
[2019-02-16] MEDS: Amiodarone 450 MG, Admixture Fee 1 EACH in Dextrose 5% in Water 250 ML IVPB SCH (11:29)
--- NOTE | 2019-02-16 12:17 | PDOC.CTH ---
Cardiology Progress Note - Subjective Doing better. Holding sinus on amiodarone drip. - Objective Vital Signs Temp Pulse Pulse Resp BP Pulse Ox 02/16/19 11:00 97.8 F 02/16/19 10:48 97.6 F 83 20 127/62 97 02/16/19 10:15 97.8 F 82 24 H 115/54 L 96 02/16/19 07:05 100 02/16/19 07:03 82 19 99 02/16/19 06:56 97.9 F 02/16/19 03:00 98 F Admit Weight 137 lb Weight 139 lb 6 oz 02/15/19 02/16/19 02/17/19 06:59 06:59 06:59 Intake Total 3169.3 4072 0 Output Total 857 1345 275 Balance 2312.3 2727 -275 - Physical Examination General/Neuro: alert & oriented x3, NAD Neck: no JVD present Lungs: CTA, unlabored respirations Heart: RRR Abdomen: NT/ND Extremities: other: (no edema) - Telemetry Telemetry Rhythm: NSR - Labs Result Diagrams: 02/16/19 09:14 02/16/19 05:00 Troponin/CKMB CK-MB (CK-2) 0.4 ng/mL (0-6.6) 02/15/19 14:02 Troponin I Less than 0.010 ng/mL (< 0.028) 02/15/19 14:02 - Assessment/Plan 1. Paroxysmal afib. 2. Acute blood loss anemia. 3. s/p surgical hemostasis of bleeding tumor. 4. Adenocarcinoma of the colon. PLAN: - Continue IV amiodarone - No anticoagulation due to anemia and recent tumor bleeding. - Getting blood transfusion today. - Replace K.
[2019-02-16] MEDS: Furosemide 20 MG/2 ML VIAL SLOW IVP SCH (17:13)
--- NOTE | 2019-02-16 20:23 | PRG ---
DATE OF SERVICE: 02/16/2019 SUBJECTIVE: Mr. Melgar is a 73-year-old man, who is postoperative day #3 status post exploratory laparotomy, abdominal washout, biopsy of retroperitoneum, and controlling of intraabdominal hemorrhage. When I saw the patient this morning, he was complaining of more abdominal pain and abdominal distention. Urinary output was quite low overnight. The patient was bladder scanned this morning for no urine. Tejada catheter was inserted at the time and there was less than 5 mL of urine in the bladder. OBJECTIVE: VITAL SIGNS: Blood pressure, however, was 1134/64, pulse 90, respiratory rate 26, temperature was 97.9 degrees Fahrenheit, and oxygen saturation was 95% on 2 L by nasal cannula oxygen. HEENT: Reveals bilateral scleral edema present. NECK: He had no jugular venous distention noted. HEART: Reveals regular rate and rhythm. No murmurs or gallops auscultated. LUNGS: However, revealed bibasilar rhonchi, though breathing was tachypneic, but unlabored. ABDOMEN: Soft and distended. Bowel sounds were hypoactive. EXTREMITIES: Reveal 2+ radial and pedal pulses bilaterally. NEUROLOGIC: Reveals no focal deficits present. LABORATORY FINDINGS: This morning included a CBC with 9000 white blood cells, hemoglobin and hematocrit were 7.5 and 21.7 respectively. Platelet count was 77,000. Metabolic profile; sodium 137, potassium 3.4, chloride is 110, bicarb is 22, BUN 13, creatinine 0.50, glucose 96, magnesium 1.8, and phosphorus is 1.7. IMPRESSION: 1. Postoperative day #3 status post exploratory laparotomy, abdominal washout, biopsy of retroperitoneal soft tissue mass. 2. Acute blood loss anemia. 3. Acute congestive heart failure. 4. Acute hypokalemia. 5. Acute hypomagnesemia. 6. Acute hypophosphatemia. PLAN: 1. We will optimize the patient's pain control using GLOBAL CLIMATE CHANGE RESEARCHER. 2. Correct abnormal electrolytes. 3. The patient will be transfused with 1 unit of packed red blood cells, following which we will initiate gentle diuresis to treat the acute CHF exacerbation. 4. Once hemodynamically stable, we will initiate physical and occupational therapy. Above findings and plan discussed with the patient who indicates understanding of the information given. I have answered his questions. Job ID: [id number]
[2019-02-16] MEDS: Tamsulosin HCl 0.4 MG CAP PO SCH (21:00)
[2019-02-16] MEDS: Doxazosin Mesylate 4 MG TAB PO SCH (21:00)
[2019-02-17] MEDS: Furosemide 20 MG/2 ML VIAL SLOW IVP SCH ×4 (00:58→15:30)
[2019-02-17] MEDS: Amiodarone 450 MG, Admixture Fee 1 EACH in Dextrose 5% in Water 250 ML IVPB SCH ×2 (01:47→15:39)
[2019-02-17 06:00] LABS: #Eosinphils 0.1 thou/uL (0.0-0.7); #Lymphocytes 1.4 thou/uL (1.20-3.40); #Monocytes 0.1 thou/uL (0.11-0.59); #Neutrophils 5.2 thou/uL (1.40-6.50); %Basophils 0.7 % (0.0-1.0); %Eosinophils 1.2 % (0.0-10.0); %Lymphocytes 20.2 % (21.0-51.0); %Monocytes 1.6 % (0.0-10.0); %Neutrophils 76.4 % (42.0-75.0); Hemoglobin 9.5 g/dL (14.0-18.0); Mean Corpuscular HGB CONC 34.2 g/dL (32.0-36.0); Mean Corpuscular Hemoglobin 34.1 pg (27.0-31.0); Mean Corpuscular Volume 99.6 fL (78.0-98.0); Mean Platelet Volume 7.4 fL (7.4-10.4); Platelet Count 71 thou/uL (130-400); RBC Distribution Width 17.7 % (11.5-14.5); Red Blood Cell (RBC) Count 2.79 mill/uL (4.70-6.10); White Blood Cell (WBC) Count 6.9 thou/uL (4.8-10.8)
[2019-02-17 06:19] LABS: Anion Gap 8 mmol/L (10-20); BUN (Urea Nitrogen) 11 mg/dL (8.4-25.7); Calc. Creatinine Clearance 103 mL/min (70-130); Calcium 8.2 mg/dL (7.8-10.44); Carbon Dioxide 28 mmol/L (23-31); Chloride 106 mmol/L (98-107); Estimated GFR-MDRD Greater than 90; Glucose 103 mg/dL (83-110); Magnesium 1.5 mg/dL (1.6-2.6); Phosphorus 2.5 mg/dL (2.3-4.7); Potassium 3.1 mmol/L (3.5-5.1); Sodium 139 mmol/L (136-145)
[2019-02-17] MEDS ORDERED: Magnesium 2 GM/50 ML 3 GM in Premix Bag 1 BAG IVPB SCH (07:30)
[2019-02-17] MEDS ORDERED: Potassium Phosphate 30 MMOL in Sodium Chloride 0.9% 500 ML IVPB SCH (07:30)
[2019-02-17] MEDS ORDERED: Potassium Phosphate 30 MMOL, Magnesium Sulfate 3 GM in Sodium Chloride 0.9% 500 ML IVPB SCH (07:45)
[2019-02-17] MEDS: Levalbuterol HCl 0.63 MG/3 ML NEB NEB SCH ×2 (07:56→15:19)
[2019-02-17] MEDS: Famotidine/PF 20 mg/2ml Vial SLOW IVP SCH ×2 (08:39→20:58)
[2019-02-17] MEDS: Enoxaparin Sodium 40 MG/0.4 ML SYRINGE SC SCH (08:40)
[2019-02-17 11:08] LABS: Cardiac Risk 2.2 (Less than 4.5)
--- NOTE | 2019-02-17 12:23 | RAD ---
KUB: Date: 02/17/19 INDICATION: History of laparotomy and abdominal pain. COMPARISON: CT abdomen and pelvis dated 02/13/19. FINDINGS: There has been interval placement of a gastric catheter with a tip coiled in the region of the fundus . There are laparotomy surgical skin karmen overlying the midline. Bowel gas pattern is nonspecific. No acute osseous abnormality is evident. There is suspicion for small right pleural effusion. IMPRESSION: 1. NG tube tip seen within the region of the gastric fundus. 2. Suspicion for small right pleural effusion, which may have developed since the comparison chest r adiograph dated 02/15/19. POS: CET
[2019-02-17] MEDS: Sodium Chloride 0.9% 1,000 ML IV SCH (13:21)
[2019-02-17] MEDS: Multivitamins, Adult 10 ML, Multitrace-5 5 ML, Fat Emulsion 250 ML in D15W-AA 5% with L... IV SCH (14:16)
[2019-02-17] MEDS ORDERED: Sodium Chloride 0.9% 1,000 ML IV SCH (15:00)
[2019-02-17] MEDS ORDERED: Levalbuterol HCl 0.63 MG/3 ML NEB NEB PRN (15:25)
--- NOTE | 2019-02-17 18:03 | PDOC.CTH ---
Cardiology Progress Note - Subjective No current complaints. CV status stable. In SR - Objective Vital Signs Temp Pulse Pulse Pulse Resp BP BP 02/17/19 15:00 97.9 F 81 77 115/62 120/81 02/17/19 11:00 97.7 F 02/17/19 10:04 95 103 H 122/70 147/77 H 02/17/19 08:00 02/17/19 07:56 78 19 02/17/19 07:53 Pulse Ox Pulse Ox Pulse Ox 02/17/19 15:00 02/17/19 11:00 02/17/19 10:04 94 L 96 02/17/19 08:00 99 02/17/19 07:56 99 02/17/19 07:53 93 L Admit Weight 137 lb Weight 139 lb 3.2 oz 02/16/19 02/17/19 02/18/19 06:59 06:59 06:59 Intake Total 4072 2062 1699 Output Total 1345 4910 2605 Balance 1891 -0087 -966 - Physical Examination General/Neuro: NAD Neck: carotid US brisk, no JVD present Lungs: unlabored respirations Heart: RRR Abdomen: other: (decrease BS) Extremities: + femoral B - Labs Result Diagrams: 02/17/19 04:56 02/17/19 04:56 Troponin/CKMB CK-MB (CK-2) 0.4 ng/mL (0-6.6) 02/15/19 14:02 Troponin I Less than 0.010 ng/mL (< 0.028) 02/15/19 14:02 - Assessment/Plan PAF Anemia Recent perforated tumor s/p resection CAD s/p stent Maintaining SR Continue IV amiodarone for now Not taking po Anticipating TPN CV status o/w stable
[2019-02-17] MEDS: HYDROmorphone 10 mg/100 ml CADD IVPB PRN (20:57)
[2019-02-17] MEDS: Tamsulosin HCl 0.4 MG CAP PO SCH (20:58)
[2019-02-17] MEDS: Doxazosin Mesylate 4 MG TAB PO SCH (20:58)
[2019-02-18] MEDS: Piperacillin/Tazobactam 3.375 GM in Sodium Chloride 0.9% 100 ML IVPB SCH ×4 (00:24→16:54)
[2019-02-18] MEDS: Furosemide 20 MG/2 ML VIAL SLOW IVP SCH (00:24)
--- NOTE | 2019-02-18 02:43 | PRG ---
DATE OF SERVICE: 02/17/2019 This is Truong Lawson PA-C dictating a report for Derek Munson DO. SUBJECTIVE: The patient is a 73-year-old man who remains in the critical care unit. He is postop day 4 status post exploratory laparotomy, abdominal washout, biopsy of retroperitoneal nodes and controlling of intraabdominal hemorrhage. The patient overnight states that he started feeling more bloated and nauseated and did not feel that he was passing gas. States his pain is approximately anywhere between 4 and 7. OBJECTIVE: VITAL SIGNS: Temperature 97.8, heart rate 78, blood pressure 122/63, respirations 19, oxygen saturation 99% on room air. GENERAL: The patient is resting in a chair beside the bed. He does not appear to be in any distress, but does appear to be uncomfortable. Again questioning, he states that he feels bloated and distended in his abdomen. Otherwise, the patient is awake, alert. HEENT: Unremarkable. LUNGS: Some scattered rhonchi. HEART: Regular rate and rhythm. ABDOMEN: Soft, minimally tender primarily along his incision site, but does appear to be somewhat distended this morning. EXTREMITIES: Neurovascularly intact x4. LABORATORY FINDINGS: White blood cell count 6.9, hemoglobin 9.5, hematocrit 27.8, platelets 71. Sodium 139, potassium 3.1, chloride 106, CO2 of 28, BUN 11, creatinine 0.58, glucose 103, phosphorus 2.5, magnesium 1.5. ASSESSMENT AND PLAN: 1. Status post exploratory laparotomy, abdominal washout, biopsy of retroperitoneal nodes. This is postop day #4. 2. Acute blood loss anemia, improved. 3. Acute congestive heart failure, improved. 4. Atrial fibrillation with rapid ventricular response, resolved. 5. Hypomagnesemia. 6. Hypokalemia. PLAN: Plan will be to continue supportive care. The patient will continue pain control with the HOT DIP PLATING SUPERVISOR. We will adjust his electrolytes and also start the patient on TPN. The patient will also have a nasogastric tube placed to low intermittent wall suction and we will continue to follow him closely. The evaluation and examination were done with Dr. Munson this morning during rounds. Job ID: [id number]
[2019-02-18 04:31] LABS: #Eosinphils 0.1 thou/uL (0.0-0.7); #Lymphocytes 1.6 thou/uL (1.20-3.40); #Monocytes 0.1 thou/uL (0.11-0.59); %Basophils 0.2 % (0.0-1.0); %Eosinophils 1.4 % (0.0-10.0); %Lymphocytes 23.3 % (21.0-51.0); %Monocytes 1.4 % (0.0-10.0); %Neutrophils 73.8 % (42.0-75.0); Hemoglobin 8.5 g/dL (14.0-18.0); Mean Corpuscular HGB CONC 34.8 g/dL (32.0-36.0); Mean Corpuscular Hemoglobin 34.8 pg (27.0-31.0); Mean Platelet Volume 7.8 fL (7.4-10.4); Platelet Count 61 thou/uL (130-400); RBC Distribution Width 17.5 % (11.5-14.5); Red Blood Cell (RBC) Count 2.44 mill/uL (4.70-6.10); White Blood Cell (WBC) Count 6.8 thou/uL (4.8-10.8)
[2019-02-18 04:47] LABS: Anion Gap 9 mmol/L (10-20); BUN (Urea Nitrogen) 16 mg/dL (8.4-25.7); Calc. Creatinine Clearance 99 mL/min (70-130); Calcium 7.6 mg/dL (7.8-10.44); Carbon Dioxide 30 mmol/L (23-31); Chloride 103 mmol/L (98-107); Estimated GFR-MDRD Greater than 90; Glucose 127 mg/dL (83-110); Magnesium 1.7 mg/dL (1.6-2.6); Phosphorus 2.6 mg/dL (2.3-4.7); Sodium 139 mmol/L (136-145)
[2019-02-18 04:53] LABS: Potassium 2.9 mmol/L (3.5-5.1)
[2019-02-18] MEDS ORDERED: Potassium Chloride 40 MEQ in Premix Bag 1 BAG IVPB SCH (05:45)
[2019-02-18] MEDS: Famotidine/PF 20 mg/2ml Vial SLOW IVP SCH ×2 (07:58→21:20)
[2019-02-18] MEDS: Enoxaparin Sodium 40 MG/0.4 ML SYRINGE SC SCH (07:58)
[2019-02-18] MEDS: Amiodarone 450 MG, Admixture Fee 1 EACH in Dextrose 5% in Water 250 ML IVPB SCH ×2 (08:18→21:10)
--- NOTE | 2019-02-18 08:39 | PDOC.CTH ---
Cardiology Progress Note - Subjective No new changes. Still not taking po - Objective Vital Signs Temp 02/18/19 07:00 97.8 F 02/18/19 04:00 98.0 F 02/18/19 00:00 98.0 F Admit Weight 137 lb Weight 154 lb 5.177 oz 02/17/19 02/18/19 02/19/19 06:59 06:59 06:59 Intake Total 1832 3619.3 52 Output Total 4910 4617 35 Balance -2848 -997.7 17 - Physical Examination General/Neuro: NAD Neck: carotid US brisk, no JVD present Lungs: CTA, unlabored respirations Heart: PMI normal, RRR Abdomen: NT/ND, soft Extremities: + femoral B - Labs Result Diagrams: 02/18/19 08:51 02/18/19 03:40 Troponin/CKMB CK-MB (CK-2) 0.4 ng/mL (0-6.6) 02/15/19 14:02 Troponin I Less than 0.010 ng/mL (< 0.028) 02/15/19 14:02 - Assessment/Plan PAF Anemia Recent perforated tumor s/p resection CAD s/p stent Rate controlled on IV amiodarone Low dose lovenox for now No po intake, TPN started Supplement KCL
[2019-02-18 09:04] LABS: #Eosinphils 0.2 thou/uL (0.0-0.7); #Lymphocytes 1.8 thou/uL (1.20-3.40); #Monocytes 0.2 thou/uL (0.11-0.59); #Neutrophils 5.8 thou/uL (1.40-6.50); %Basophils 0.2 % (0.0-1.0); %Eosinophils 2.4 % (0.0-10.0); %Lymphocytes 22.3 % (21.0-51.0); %Monocytes 2.2 % (0.0-10.0); %Neutrophils 72.9 % (42.0-75.0); Hemoglobin 8.9 g/dL (14.0-18.0); Mean Corpuscular HGB CONC 33.6 g/dL (32.0-36.0); Mean Corpuscular Hemoglobin 33.4 pg (27.0-31.0); Mean Corpuscular Volume 99.4 fL (78.0-98.0); Mean Platelet Volume 7.2 fL (7.4-10.4); Platelet Count 53 thou/uL (130-400); RBC Distribution Width 17.2 % (11.5-14.5); Red Blood Cell (RBC) Count 2.65 mill/uL (4.70-6.10)
[2019-02-18] MEDS: Multivitamins, Adult 10 ML, Multitrace-5 5 ML, Fat Emulsion 250 ML in D15W-AA 5% with L... IV SCH (14:45)
--- NOTE | 2019-02-18 18:10 | PRG ---
DATE OF SERVICE: 02/18/2019 SUBJECTIVE: Mr. Melgar is a 73-year-old man, who is postoperative day #2, status post exploratory laparotomy and evacuation of intraabdominal hematoma and control of hemorrhage. He had developed postoperative acute CHF exacerbation, which is now improving. Urinary output is adequate. The nasogastric tube was replaced yesterday due to adynamic ileus. Over 1.3 L of bilious effluent was returned over the last 24 hours. Today, the patient feels better. He is still not passing any flatus or having any bowel movement. OBJECTIVE: VITAL SIGNS: This morning include blood pressure 115/58, pulse 74 and regular, respiratory rate is 25, temperature 97.7 degrees Fahrenheit, and oxygen saturation 96% on 3 L by nasal cannula oxygen. HEENT: Reveals pupils are equal, round, reactive to light and accommodation. He has no jugular venous distention noted. HEART: Reveals regular rate and rhythm. No murmurs or gallops auscultated. LUNGS: Clear to auscultation bilaterally. Breathing, regular and nonlabored. ABDOMEN: Soft. Less distended compared to yesterday. Incision is intact, clean, and dry. He has no peritoneal signs on examination. Bowel sounds are hypoactive. EXTREMITIES: Reveal 2+ radial and pedal pulses bilaterally. No ankle edema is present. NEUROLOGIC: Reveals no focal deficits present. LABORATORY FINDINGS: Today include a CBC with 8000 white blood cells, hemoglobin and hematocrit are 8.9 and 26.4 respectively. Platelet count is 53,000. Metabolic profile; sodium 139, potassium is 2.9, chloride is 103, bicarb is 30, BUN 16, creatinine 0.60, glucose 127, magnesium 1.7 phosphorus 2.6. IMPRESSIONS: 1. Postop day #5, status post exploratory laparotomy. 2. Resolving acute congestive heart failure exacerbation. 3. Stable adynamic ileus. 4. Acute hypokalemia. 5. Acute hypomagnesemia. 6. Acute hypophosphatemia. PLAN: 1. Correct abnormal electrolytes. 2. Continue with total parenteral nutrition until return of bowel function. 3. Increase activity per Physical and Occupational Therapy. The patient is certainly stable for transfer to step-down unit. Job ID: [id number]
[2019-02-18] MEDS: Doxazosin Mesylate 4 MG TAB PO SCH (21:21)
[2019-02-18] MEDS: Tamsulosin HCl 0.4 MG CAP PO SCH (21:21)
[2019-02-18] MEDS: HYDROmorphone 10 mg/100 ml CADD IVPB PRN (21:47)
[2019-02-19] MEDS: Piperacillin/Tazobactam 3.375 GM in Sodium Chloride 0.9% 100 ML IVPB SCH ×4 (00:57→18:33)
[2019-02-19 06:08] LABS: Anion Gap 7 mmol/L (10-20); BUN (Urea Nitrogen) 20 mg/dL (8.4-25.7); Calc. Creatinine Clearance 110 mL/min (70-130); Carbon Dioxide 30 mmol/L (23-31); Chloride 105 mmol/L (98-107); Estimated GFR-MDRD Greater than 90; Glucose 119 mg/dL (83-110); Magnesium 1.6 mg/dL (1.6-2.6); Phosphorus 2.4 mg/dL (2.3-4.7); Potassium 3.3 mmol/L (3.5-5.1); Sodium 139 mmol/L (136-145)
--- NOTE | 2019-02-19 07:36 | PDOC.CTH ---
Cardiology Progress Note - Subjective States he is taking po over last 12 hours. No other complaints - Objective Vital Signs Temp Pulse Ox 02/19/19 04:00 98.0 F 02/19/19 00:00 98.2 F 02/18/19 20:00 97.9 F 95 Admit Weight 137 lb Weight 146 lb 2.664 oz 02/18/19 02/19/19 02/20/19 06:59 06:59 06:59 Intake Total 3619.3 4242 47.7 Output Total 4617 1900 Balance -997.7 2342 47.7 - Physical Examination General/Neuro: alert & oriented x3, NAD Neck: no JVD present Lungs: unlabored respirations Heart: RRR Abdomen: soft - Telemetry Telemetry Rhythm: sr - Labs Result Diagrams: 02/18/19 08:51 02/19/19 04:55 Troponin/CKMB CK-MB (CK-2) 0.4 ng/mL (0-6.6) 02/15/19 14:02 Troponin I Less than 0.010 ng/mL (< 0.028) 02/15/19 14:02 - Assessment/Plan PAF Anemia Recent perforated tumor s/p resection CAD s/p stent No new changes pt now taking po. On metoprolol DC amiodaorne when bag complete and continue BB Afib may be secondary to recent illness Will needs to discuss director long term care ACT with pt vs close observation. R/B to either otpion
[2019-02-19] MEDS ORDERED: Amiodarone 450 MG, Admixture Fee 1 EACH in Dextrose 5% in Water 250 ML IVPB SCH (09:12)
[2019-02-19] MEDS: Enoxaparin Sodium 40 MG/0.4 ML SYRINGE SC SCH (10:23)
[2019-02-19] MEDS: Famotidine/PF 20 mg/2ml Vial SLOW IVP SCH ×2 (10:23→20:05)
[2019-02-19] MEDS ORDERED: Potassium Chloride 40 MEQ in Premix Bag 1 BAG IVPB SCH (11:00)
[2019-02-19] MEDS: Furosemide 20 MG/2 ML VIAL SLOW IVP SCH ×2 (13:08→22:43)
[2019-02-19] MEDS ORDERED: [UNRECOGNIZED DRUG - OTHER] IV SCH (14:00)
[2019-02-19] MEDS ORDERED: Sodium Acetate 2 mEq/ml 40 MEQ, Sodium Chloride 30 MEQ, Potassium Chloride 20 MEQ, Pota... IV SCH (14:00)
[2019-02-19] MEDS ORDERED: FAT EMULSION IV SCH (14:00)
[2019-02-19] MEDS ORDERED: MULTIVITAMINS IV SCH (14:00)
[2019-02-19] MEDS ORDERED: MULTITRACE IV SCH (14:00)
[2019-02-19] MEDS ORDERED: traMADol HCl 50 MG TAB PO PRN (14:46)
[2019-02-19] MEDS: traMADol HCl 50 MG TAB PO SCH ×2 (16:50→20:04)
[2019-02-19] MEDS: Acetaminophen 500 MG TAB PO SCH ×2 (16:51→20:04)
[2019-02-19] MEDS: Tamsulosin HCl 0.4 MG CAP PO SCH (20:05)
[2019-02-19] MEDS: Doxazosin Mesylate 4 MG TAB PO SCH (20:05)
--- NOTE | 2019-02-19 20:50 | PRG ---
DATE OF SERVICE: 02/19/2019 SUBJECTIVE: Mr. Melgar is 73-year-old man, who is postop day #6, status post exploratory laparotomy. The patient suffered postoperative acute congestive heart failure exacerbation, which is now resolving. He also had acute atrial fibrillation, which was transient. Currently, the patient is in normal sinus rhythm. He denies any chest pain, dyspnea, or syncope. Nasogastric tube was clamped this morning and over 4 hours, had no residuals. The patient is now passing flatus. OBJECTIVE: VITAL SIGNS: Blood pressure 127/47, pulse 67, respiratory rate is 19, temperature 98.3 degrees Fahrenheit, oxygen saturation 95% on 2 L by nasal cannula oxygen. HEART: Regular rate and rhythm. No murmurs or gallops auscultated. LUNGS: Clear to auscultation bilaterally. Breathing, regular and nonlabored. ABDOMEN: Soft with mild incisional tenderness to palpation. He has no peritoneal signs on examination. EXTREMITIES: 2+ radial and pedal pulses bilaterally. No ankle edema is present. NEUROLOGIC: No focal deficits present. LABORATORY FINDINGS: Today include metabolic profile; sodium 139, potassium 3.3, chloride is 105, bicarb is 30, BUN 20, creatinine 0.57, glucose 119. Magnesium 1.6 and phosphorus is 2.4. IMPRESSION: 1. Postop day #6, status post exploratory laparotomy. 2. Resolved acute congestive heart failure. 3. Resolved adynamic ileus. PLAN: 1. Nasogastric tube was discontinued, and the patient will be started on a clear liquid diet. 2. We will increase activity as tolerated. 3. We will correct abnormal electrolytes. 4. The patient will be transferred to general surgical floor, where we will continue the rest of his care. 5. Above findings and plan discussed with the patient who indicates understanding of information given. I have answered his questions. Job ID: [id number]
[2019-02-20] MEDS: Piperacillin/Tazobactam 3.375 GM in Sodium Chloride 0.9% 100 ML IVPB SCH ×4 (00:39→17:53)
[2019-02-20] MEDS: Acetaminophen 500 MG TAB PO SCH ×4 (03:09→20:47)
[2019-02-20] MEDS: traMADol HCl 50 MG TAB PO SCH ×4 (03:09→20:48)
[2019-02-20 05:38] LABS: #Eosinphils 0.2 thou/uL (0.0-0.7); #Lymphocytes 1.3 thou/uL (1.20-3.40); #Monocytes 0.6 thou/uL (0.11-0.59); #Neutrophils 4.7 thou/uL (1.40-6.50); %Basophils 0.7 % (0.0-1.0); %Eosinophils 2.3 % (0.0-10.0); %Lymphocytes 19.6 % (21.0-51.0); %Monocytes 8.1 % (0.0-10.0); %Neutrophils 69.3 % (42.0-75.0); Hemoglobin 8.5 g/dL (14.0-18.0); Mean Corpuscular HGB CONC 34.3 g/dL (32.0-36.0); Mean Corpuscular Hemoglobin 34.5 pg (27.0-31.0); Mean Platelet Volume 8.5 fL (7.4-10.4); Platelet Count 49 thou/uL (130-400); RBC Distribution Width 16.6 % (11.5-14.5); Red Blood Cell (RBC) Count 2.45 mill/uL (4.70-6.10); White Blood Cell (WBC) Count 6.8 thou/uL (4.8-10.8)
[2019-02-20 05:39] LABS: Anion Gap 8 mmol/L (10-20); BUN (Urea Nitrogen) 18 mg/dL (8.4-25.7); Calc. Creatinine Clearance 114 mL/min (70-130); Calcium 7.9 mg/dL (7.8-10.44); Carbon Dioxide 29 mmol/L (23-31); Chloride 104 mmol/L (98-107); Estimated GFR-MDRD Greater than 90; Glucose 94 mg/dL (83-110); Magnesium 1.5 mg/dL (1.6-2.6); Phosphorus 2.4 mg/dL (2.3-4.7); Potassium 3.1 mmol/L (3.5-5.1); Sodium 138 mmol/L (136-145)
[2019-02-20] MEDS: Furosemide 20 MG/2 ML VIAL SLOW IVP SCH (06:18)
[2019-02-20] MEDS: Famotidine/PF 20 mg/2ml Vial SLOW IVP SCH (08:48)
[2019-02-20] MEDS: Enoxaparin Sodium 40 MG/0.4 ML SYRINGE SC SCH (08:48)
[2019-02-20] MEDS ORDERED: Polyethylene Glycol 3350 17 GM Packet PO SCH (09:00)
[2019-02-20] MEDS ORDERED: DC PCA Order Set 1 EACH FS ONE (11:09)
[2019-02-20] MEDS ORDERED: Ondansetron ODT 8 MG TAB PO PRN (14:06)
[2019-02-20] MEDS ORDERED: Prochlorperazine Maleate 5 MG TAB PO PRN (14:12)
[2019-02-20] MEDS: Potassium Phosphate 30 MMOL in Sodium Chloride 0.9% 500 ML IVPB SCH ×2 (14:52→16:38)
[2019-02-20] MEDS: Magnesium Sulfate 4 GM in Sodium Chloride 0.9% 250 ML 250 ML IVPB SCH ×2 (14:52→16:38)
[2019-02-20] MEDS ORDERED: Magnesium Sulfate 4 GM, Potassium Phosphate 30 MMOL in Sodium Chloride 0.9% 250 ML 250 ML IVPB SCH (16:30)
--- NOTE | 2019-02-20 16:56 | PDOC.CTH ---
Cardiology Progress Note - Subjective The pt seen and examined. No overnight events. No cardiac complaints. He feels very weak with mild exertion. - Objective Vital Signs Temp Pulse Resp BP BP Pulse Ox 02/20/19 15:35 97.4 F L 68 16 117/56 L 97 02/20/19 12:20 97.6 F 53 L 18 107/52 L 96 02/20/19 08:20 97.5 F L 53 L 16 122/77 94 L 02/20/19 08:00 94 L 02/20/19 06:19 62 115/55 L Admit Weight 137 lb Weight 147 lb 02/19/19 02/20/19 02/21/19 06:59 06:59 06:59 Intake Total 4242 3983.4 Output Total 1900 3480 1200 Balance 2342 503.4 -1200 - Physical Examination General/Neuro: alert & oriented x3 Neck: no JVD present Lungs: other: (diminished at bases and crakle to RLL) Heart: RRR Abdomen: soft Extremities: other: (1-2+ pitting BLE ankle edema) - Labs Result Diagrams: 02/20/19 05:07 02/20/19 05:07 Troponin/CKMB CK-MB (CK-2) 0.4 ng/mL (0-6.6) 02/15/19 14:02 Troponin I Less than 0.010 ng/mL (< 0.028) 02/15/19 14:02 - Assessment/Plan 1. Post of AFib with RVR - remains in regular rhythms with well controlled HR; On Metoprolol which was decreased from 50mg to 25mg BID for hypotension; Not on ASA or OAC due to Blood loss Anemia and low platelet level 2. Acute on Chronic diastolic HF - cont ARAGON with mild exertion; Lasix 20mg IV push x1 now; on BBlocker; will resume Lasix 20mg PO BID; May start PASQUALE/ARB with stable BP. 3. Acute blood loss Anemia 4. S/p surgical hemostasis of Recent perforated tumor s/p resection 5. CAD with hx of stent - on BBlocker; not on PASQUALE/ARB due to hypotension; Not on ASA due to anemia; may resume statin when the pt can tolerate PO well MAR reviewed * Echo in 06/2018 with EF 55-60%, diastolic dysfunction, mild dilated LA, mild TR and MR * Will needs to discuss [facility] ACT with pt vs close observation. R/B to either otpion * Bedside commode in his room Review of Systems - Review of Systems Constitutional: reports: weakness EENTM: reports: no symptoms reported Respiratory: reports: shortness of breath, SOB with excertion, wheezing Cardiac (ROS): reports: no symptoms reported ABD/GI: reports: no symptoms reported : reports: no symptoms reported
[2019-02-20] MEDS ORDERED: Furosemide 20 MG/2 ML VIAL SLOW IVP SCH (17:15)
--- NOTE | 2019-02-20 18:21 | PRG ---
DATE OF SERVICE: 02/20/2019 SUBJECTIVE: Mr. Melgar is a 73-year-old man. The patient came in to evaluation of abdominal pain. The patient was diagnosed with small-bowel perforation and got exploratory laparotomy surgery. The patient is doing better. He is able to tolerate a regular diet. He reports no overnight events. Pain is well controlled. No fever. No shortness of breath even though his heart rate is in low in mid 60 , He is able to work with PT/OT . He is on gastritis and DVT prophylaxis regiment. His placement to rehab facility is in progress. Rehab screening is in place. OBJECTIVE: VITAL SIGNS: Temperature 97, pulse 58, respiratory rate 16, O2 sat 97 on room air, and blood pressure 117/56. GENERAL: The patient is alert and awake, in no apparent acute distress. LUNGS: Clear bilaterally. HEART: Regular rate and rhythm. No murmur ABDOMEN: Soft with mild incisional tenderness to palpation. He has no peritoneal sign on examination. EXTREMITIES: Normal. NEUROLOGIC: No focal deficits. LABORATORY FINDINGS: Hemoglobin stable at 8.5. Electrolytes; potassium 3.1, sodium 138, magnesium 1.5, phosphorus 2.4. Kidney function is normal at 0.55. DIAGNOSTIC IMAGING: No new diagnostic imaging to be reviewed. ASSESSMENT: 1. Postop day #7, status post exploratory laparotomy. 2. Adynamic ileus, resolved. PLAN: Continue with regular diet. Continue prophylaxis gastritis and DVT. Correct electrolyte. The patient will continue to work with PT/OT, rehab screening, and ready for discharge. Job ID: [id number] [facility]
[2019-02-20] MEDS: Doxazosin Mesylate 4 MG TAB PO SCH (20:39)
[2019-02-20] MEDS: Atorvastatin Calcium 20 MG TAB PO SCH (20:49)
[2019-02-20] MEDS: Tamsulosin HCl 0.4 MG CAP PO SCH (20:49)
[2019-02-20] MEDS ORDERED: Metoprolol Tartrate 25 MG TAB PO SCH (21:00)
[2019-02-21] MEDS: Piperacillin/Tazobactam 3.375 GM in Sodium Chloride 0.9% 100 ML IVPB SCH ×2 (00:43→06:23)
[2019-02-21] MEDS: Acetaminophen 500 MG TAB PO SCH ×4 (03:41→20:43)
[2019-02-21] MEDS: traMADol HCl 50 MG TAB PO SCH ×4 (03:42→20:44)
[2019-02-21 04:27] LABS: Anion Gap 10 mmol/L (10-20); BUN (Urea Nitrogen) 15 mg/dL (8.4-25.7); Calc. Creatinine Clearance 100 mL/min (70-130); Calcium 7.9 mg/dL (7.8-10.44); Carbon Dioxide 27 mmol/L (23-31); Chloride 104 mmol/L (98-107); Estimated GFR-MDRD Greater than 90; Glucose 98 mg/dL (83-110); Magnesium 2.2 mg/dL (1.6-2.6); Phosphorus 3.6 mg/dL (2.3-4.7); Potassium 3.2 mmol/L (3.5-5.1); Sodium 138 mmol/L (136-145)
[2019-02-21] MEDS ORDERED: Potassium Phosphate 30 MMOL in Sodium Chloride 0.9% 500 ML IVPB SCH (07:00)
[2019-02-21] MEDS ORDERED: Amlodipine 10 MG TAB PO SCH ×2 (09:00)
[2019-02-21] MEDS ORDERED: Losartan 25 MG TAB PO SCH (09:00)
[2019-02-21] MEDS ORDERED: Triamterene/Hydrochlorothiazide 37.5 mg/25 mg Tablet PO SCH ×2 (09:00)
[2019-02-21] MEDS ORDERED: Metoprolol Tartrate 25 MG TAB PO SCH ×2 (09:00→10:00)
[2019-02-21] MEDS ORDERED: Aspirin 81 mg Enteric Coated Tablet PO SCH (09:00)
[2019-02-21] MEDS ORDERED: Furosemide 20 MG TAB PO SCH ×2 (09:00→09:26)
[2019-02-21] MEDS: Saccharomyces boulardii 250 MG CAP PO SCH ×2 (10:10→20:43)
[2019-02-21] MEDS: Stress 600 With Zinc 1 TAB PO SCH (10:10)
[2019-02-21] MEDS: Metoprolol Tartrate 25 MG TAB PO SCH ×2 (10:10→20:44)
[2019-02-21] MEDS: Fish Oil 1,000 MG CAP PO SCH (10:12)
[2019-02-21] MEDS: Ubidecarenone 50 MG CAP PO SCH (10:12)
[2019-02-21] MEDS: Furosemide 20 MG TAB PO SCH ×2 (10:12→15:15)
[2019-02-21] MEDS: Enoxaparin Sodium 40 MG/0.4 ML SYRINGE SC SCH (10:13)
[2019-02-21] MEDS: Potassium Chloride 20 MEQ/100 ML PREMIX BAG IVPB SCH ×2 (10:13→13:09)
[2019-02-21 12:03] VITALS: BMI 21.1
--- NOTE | 2019-02-21 16:00 | PRG ---
DATE OF SERVICE: 02/21/2019 SUBJECTIVE: The patient was seen this morning, sitting up in bed with no signs of acute distress. He reported he slept well overnight and had multiple bowel movements since yesterday. Initially, they were loose, but now they are starting to become a little bit firmer. Pain is well controlled. Abdomen is appropriately tender to palpation. Denies nausea, vomiting, and diarrhea, and he is tolerating his regular diet. OBJECTIVE: VITAL SIGNS: Temperature 97.6, pulse 63, respirations 16, oxygen saturation 96% on room air, and blood pressure 92/55. GENERAL: Well-appearing elderly male, sitting up in bed with no signs of acute distress. CARDIAC: Regular rate and rhythm. No murmurs, gallops, or rubs. PULMONARY: Equal chest rise and fall. Clear breath sounds bilaterally. No signs of acute respiratory distress. ABDOMEN: Soft, appropriately tender to palpation and nondistended. Midline abdominal wound without signs of infection is clean and dry and intact. EXTREMITIES: 2+ pulses in all extremities. No significant swelling noted. NEUROLOGIC: Gross motor sensation is intact. GCS is 15. Pupils equal, round, reactive to light bilaterally. LABORATORY FINDINGS: White count 6.8. Sodium 138, potassium 3.2, chloride 104, carbon dioxide 27, BUN 15, creatinine 0.65, glucose 98, phos 3.6, and magnesium 2.2. DIAGNOSTIC FINDINGS: There are no new diagnostic findings to report. ASSESSMENT: 1. Status post exploratory laparotomy, abdominal washout, and biopsy of retroperitoneal recurrent mass due to bleeding. 2. Mesenteric small bowel adenocarcinoma. 3. Acute onset atrial fibrillation, stable. 4. Congestive heart failure exacerbation, stable. 5. Ileus, resolved. 6. History of recent partial small-bowel obstruction, small-bowel adenocarcinoma , on chemotherapy. 7. Hypertension. 8. Coronary artery disease with stents. 9. Benign prostatic hypertrophy. 10. Hypertension. 11. Acute hypokalemia. PLAN: We will start the patient on Florastor as well as Ensure today. Continue with regular diet. Cardiology recommended decreasing metoprolol to 12.5 b.i.d. from 25, as well as giving the patient Lasix 20 b.i.d. We will hold other home antihypertensive medications at this time. We will hold home aspirin as well as the patient is currently on Lovenox, and his platelets are on the lower side. We have discussed with Case Management about sending the patient to acute rehab and the patient agrees with this plan. He will continue to work with Physical and Occupational Therapy at this time. The patient was seen and examined by Dr. Munson and myself this morning during rounds. Job ID: [id number] MTDD
[2019-02-21] MEDS: Doxazosin Mesylate 4 MG TAB PO SCH (20:44)
[2019-02-21] MEDS: Atorvastatin Calcium 20 MG TAB PO SCH (20:44)
[2019-02-21] MEDS: Tamsulosin HCl 0.4 MG CAP PO SCH (20:44)
[2019-02-22] MEDS: Acetaminophen 500 MG TAB PO SCH ×4 (02:58→20:15)
[2019-02-22] MEDS: traMADol HCl 50 MG TAB PO SCH ×4 (02:58→20:17)
[2019-02-22 03:30] LABS: #Basophils 0.1 thou/uL (0.0-0.2); #Eosinphils 0.2 thou/uL (0.0-0.7); #Lymphocytes 1.6 thou/uL (1.20-3.40); #Monocytes 0.6 thou/uL (0.11-0.59); #Neutrophils 2.6 thou/uL (1.40-6.50); %Basophils 1.1 % (0.0-1.0); %Eosinophils 3.6 % (0.0-10.0); %Lymphocytes 31.8 % (21.0-51.0); %Monocytes 11.8 % (0.0-10.0); %Neutrophils 51.7 % (42.0-75.0); Hemoglobin 9.2 g/dL (14.0-18.0); Mean Corpuscular HGB CONC 33.2 g/dL (32.0-36.0); Mean Corpuscular Hemoglobin 33.8 pg (27.0-31.0); Mean Platelet Volume 8.5 fL (7.4-10.4); Platelet Count 56 thou/uL (130-400); RBC Distribution Width 16.9 % (11.5-14.5); Red Blood Cell (RBC) Count 2.72 mill/uL (4.70-6.10)
[2019-02-22 03:55] LABS: Anion Gap 7 mmol/L (10-20); BUN (Urea Nitrogen) 15 mg/dL (8.4-25.7); Calc. Creatinine Clearance 103 mL/min (70-130); Calcium 8.1 mg/dL (7.8-10.44); Carbon Dioxide 30 mmol/L (23-31); Chloride 103 mmol/L (98-107); Estimated GFR-MDRD Greater than 90; Glucose 85 mg/dL (83-110); Magnesium 1.8 mg/dL (1.6-2.6); Phosphorus 3.1 mg/dL (2.3-4.7); Potassium 3.6 mmol/L (3.5-5.1); Sodium 136 mmol/L (136-145)
[2019-02-22] MEDS ORDERED: Magnesium 2 GM/50 ML 2 GM in Premix Bag 1 BAG IVPB SCH (08:00)
[2019-02-22] MEDS: Potassium Chloride 20 MEQ TAB PO SCH (08:56)
[2019-02-22] MEDS: Ubidecarenone 50 MG CAP PO SCH (08:58)
[2019-02-22] MEDS: Furosemide 20 MG TAB PO SCH ×2 (08:59→14:51)
[2019-02-22] MEDS: Metoprolol Tartrate 25 MG TAB PO SCH ×2 (08:59→20:15)
[2019-02-22] MEDS: Saccharomyces boulardii 250 MG CAP PO SCH ×2 (08:59→20:15)
[2019-02-22] MEDS: Fish Oil 1,000 MG CAP PO SCH (09:00)
[2019-02-22] MEDS: Stress 600 With Zinc 1 TAB PO SCH (09:00)
[2019-02-22] MEDS: Enoxaparin Sodium 40 MG/0.4 ML SYRINGE SC SCH ×2 (09:00→11:42)
--- NOTE | 2019-02-22 12:56 | PRG ---
DATE OF SERVICE: 02/22/2019 SUBJECTIVE: The patient was seen this morning, sitting up in bed with no signs of acute distress. He reported he is feeling better and stronger every day. He has not had a bowel movement since yesterday, but reports passing a lot of gas. His pain is well controlled and he has been ambulating with Physical and Occupational Therapy and he is tolerating his regular diet. PHYSICAL EXAMINATION: VITAL SIGNS: Temperature 97.5, pulse 56, respirations 16, oxygen saturation 95% on room air, blood pressure 120/59. GENERAL: Well-appearing elderly male, sitting up in bed with no signs of acute distress. CARDIAC: Regular rate and rhythm. No murmurs, gallops, or rubs. PULMONARY: Equal chest rise and fall. Clear breath sounds bilaterally. No signs of acute respiratory distress. ABDOMEN: Soft, appropriately tender to palpation and nondistended. Midline abdominal wound without signs of infection and is clean, dry, and intact. EXTREMITIES: 2+ pulses in all extremities. No significant swelling noted. Gross motor and sensation are intact. NEUROLOGIC: GCS is 15. Gross motor and sensation are intact. Pupils equal, round, reactive to light bilaterally. LABORATORY FINDINGS: White count 5.0, hemoglobin 9.2, hematocrit 27.7, platelets 56. Sodium 136, potassium 3.6, chloride 103, carbon dioxide 30, BUN 15, creatinine 0.61, phos 3.1, magnesium 1.8. DIAGNOSTIC FINDINGS: There are no new diagnostic findings to report. ASSESSMENT: 1. Status post exploratomy laparotomy, abdominal washout, and biopsy of retroperitoneal recurrent mass due to bleeding. 2. Mesenteric small-bowel adenocarcinoma. 3. Acute onset atrial fibrillation, rate controlled. 4. Congestive heart failure exacerbation, improved. 5. Ileus, resolved. 6. History of recent partial small-bowel obstruction, small-bowel adenocarcinoma on chemotherapy, hypertension, coronary artery disease with stents, benign prostatic hypertrophy, hypertension. 7. Acute hypokalemia and hypophosphatemia. PLAN: Continue current pain regimen and diet. Cardiology did stop the patient's other home antihypertensive medications and have continued Lasix 20 mg b.i.d. We will replace potassium and magnesium today. He is to continue working with Physical and Occupational Therapy at this time. He is pending placement at a rehab facility. The patient was seen and examined by Dr. Munson and myself this morning during rounds. Job ID: [id number]
[2019-02-22] MEDS: Tamsulosin HCl 0.4 MG CAP PO SCH (20:15)
[2019-02-22] MEDS: Atorvastatin Calcium 20 MG TAB PO SCH (20:15)
[2019-02-22] MEDS: Doxazosin Mesylate 4 MG TAB PO SCH (20:16)
[2019-02-23] MEDS: traMADol HCl 50 MG TAB PO SCH ×4 (03:08→21:03)
[2019-02-23] MEDS: Acetaminophen 500 MG TAB PO SCH ×4 (03:09→21:03)
[2019-02-23 05:34] LABS: #Basophils 0.1 thou/uL (0.0-0.2); #Eosinphils 0.2 thou/uL (0.0-0.7); #Lymphocytes 1.6 thou/uL (1.20-3.40); #Monocytes 0.6 thou/uL (0.11-0.59); %Basophils 1.2 % (0.0-1.0); %Eosinophils 3.4 % (0.0-10.0); %Monocytes 13.6 % (0.0-10.0); %Neutrophils 44.9 % (42.0-75.0); Hemoglobin 8.2 g/dL (14.0-18.0); Mean Corpuscular HGB CONC 33.8 g/dL (32.0-36.0); Mean Corpuscular Hemoglobin 34.3 pg (27.0-31.0); Mean Platelet Volume 7.9 fL (7.4-10.4); Platelet Count 78 thou/uL (130-400); RBC Distribution Width 16.7 % (11.5-14.5); Red Blood Cell (RBC) Count 2.39 mill/uL (4.70-6.10); White Blood Cell (WBC) Count 4.4 thou/uL (4.8-10.8)
[2019-02-23 05:49] LABS: Anion Gap 8 mmol/L (10-20); BUN (Urea Nitrogen) 15 mg/dL (8.4-25.7); Calc. Creatinine Clearance 114 mL/min (70-130); Calcium 7.7 mg/dL (7.8-10.44); Carbon Dioxide 28 mmol/L (23-31); Chloride 101 mmol/L (98-107); Estimated GFR-MDRD Greater than 90; Glucose 101 mg/dL (83-110); Magnesium 1.7 mg/dL (1.6-2.6); Potassium 3.7 mmol/L (3.5-5.1); Sodium 133 mmol/L (136-145)
[2019-02-23] MEDS ORDERED: PHOS-NAK 1 PKT PACK PO SCH (07:45)
[2019-02-23] MEDS ORDERED: Potassium Chloride 20 MEQ TAB PO SCH (07:45)
[2019-02-23] MEDS ORDERED: Magnesium 2 GM/50 ML 2 GM in Premix Bag 1 BAG IVPB SCH (07:45)
[2019-02-23] MEDS: Ubidecarenone 50 MG CAP PO SCH (09:09)
[2019-02-23] MEDS: Saccharomyces boulardii 250 MG CAP PO SCH ×2 (09:09→21:02)
[2019-02-23] MEDS: Stress 600 With Zinc 1 TAB PO SCH (09:11)
[2019-02-23] MEDS: Fish Oil 1,000 MG CAP PO SCH (09:11)
[2019-02-23] MEDS: Metoprolol Tartrate 25 MG TAB PO SCH ×2 (09:11→21:04)
[2019-02-23] MEDS: Furosemide 20 MG TAB PO SCH ×2 (09:11→14:37)
[2019-02-23] MEDS: Enoxaparin Sodium 40 MG/0.4 ML SYRINGE SC SCH (09:12)
[2019-02-23] MEDS: Potassium Chloride 20 MEQ TAB PO SCH (09:12)
--- NOTE | 2019-02-23 18:07 | PRG ---
DATE OF SERVICE: 02/23/2019 SUBJECTIVE: The patient was seen this morning, sitting up in bed with no signs of acute distress. He reported his pain is well controlled and he slept well overnight. He is tolerating a regular diet. He has not had a bowel movement since yesterday, but reported that he had initially some loose stools and thinks he is going to take a few days before he can have a bowel movement. Otherwise, the patient appears to be doing well. He is pending placement in acute rehab facility. He denies nausea, vomiting, or diarrhea. OBJECTIVE: VITAL SIGNS: Temperature 97.3, pulse 76, respirations 18, oxygen saturation 98% on room air, and blood pressure 144/63. GENERAL: Well-appearing elderly male, sitting up in bed with no signs of acute distress. CARDIAC: Regular rate and rhythm. No murmurs, gallops, or rubs. PULMONARY: Equal chest rise and fall. Clear breath sounds bilaterally. No signs of acute respiratory distress. ABDOMEN: Soft, nontender to palpation, and nondistended. Midline abdominal wound without signs of infection and is clean, dry, and intact. EXTREMITIES: 2+ pulses in all extremities. No significant swelling noted. Gross motor and sensation are intact. NEUROLOGIC: GCS Is 15. Gross normal sensation in all extremities. Pupils equal, round, reactive to light bilaterally. LABORATORY FINDINGS: White count 4.4, hemoglobin 8.2, hematocrit 24.3, and platelets 78. Sodium 133, potassium 3.7, chloride 101, carbon dioxide 28, BUN 15, creatinine 0.66, phos 3.0, magnesium 1.7. DIAGNOSTIC FINDINGS: There are no new diagnostic findings to report. ASSESSMENT: 1. Status post exploratory laparotomy, abdominal washout, and biopsy of retroperitoneal rectal mass due to bleeding. 2. Mesenteric small bowel adenocarcinoma. 3. Acute onset atrial fibrillation, rate controlled. 4. Congestive heart failure exacerbation, improved. 5. Ileus, improved. 6. History of recent small-bowel obstruction, small-bowel adenocarcinoma on chemotherapy, hypertension, coronary artery disease with stents, benign prostatic hypertrophy, and hypertension. 7. Acute hypokalemia, hypophosphatemia, and hypomagnesemia. PLAN: Continue current pain and diet regimen. Encouraged to continue sitting up in chair and walking. Continue incentive spirometry. The patient to continue working on physical and occupational therapy. He is pending placement to a rehab facility. The patient was seen by myself and I discussed his care with Dr. Munson. Job ID: [id number]
[2019-02-23] MEDS: Tamsulosin HCl 0.4 MG CAP PO SCH (21:02)
[2019-02-23] MEDS: Atorvastatin Calcium 20 MG TAB PO SCH (21:03)
[2019-02-23] MEDS: Doxazosin Mesylate 4 MG TAB PO SCH (21:05)
[2019-02-24] MEDS: Acetaminophen 500 MG TAB PO SCH ×3 (03:54→14:28)
[2019-02-24] MEDS: traMADol HCl 50 MG TAB PO SCH ×3 (03:55→14:28)
[2019-02-24 04:54] LABS: Anion Gap 9 mmol/L (10-20); BUN (Urea Nitrogen) 13 mg/dL (8.4-25.7); Calc. Creatinine Clearance 117 mL/min (70-130); Calcium 7.9 mg/dL (7.8-10.44); Carbon Dioxide 27 mmol/L (23-31); Chloride 101 mmol/L (98-107); Estimated GFR-MDRD Greater than 90; Glucose 94 mg/dL (83-110); Magnesium 1.6 mg/dL (1.6-2.6); Phosphorus 3.1 mg/dL (2.3-4.7); Potassium 3.9 mmol/L (3.5-5.1); Sodium 133 mmol/L (136-145)
[2019-02-24 05:07] LABS: Band 1 % (5-11); Eosinophils 2 % (0-10); Hemoglobin 8.6 g/dL (14.0-18.0); Lymphocytes 38 % (21-51); MDiff Complete? YES; Mean Corpuscular HGB CONC 33.6 g/dL (32.0-36.0); Mean Corpuscular Hemoglobin 34.1 pg (27.0-31.0); Mean Platelet Volume 7.9 fL (7.4-10.4); Monocytes 18 % (0-10); Neutrophil 41 % (42-75); Platelet Count 97 thou/uL (130-400); Platelet Morphology Comment Appears Decreased; RBC Distribution Width 16.8 % (11.5-14.5); Red Blood Cell (RBC) Count 2.52 mill/uL (4.70-6.10); White Blood Cell (WBC) Count 3.7 thou/uL (4.8-10.8)
[2019-02-24] MEDS ORDERED: Magnesium 2 GM/50 ML 2 GM in Premix Bag 1 BAG IVPB SCH (07:30)
[2019-02-24] MEDS: Ubidecarenone 50 MG CAP PO SCH (08:13)
[2019-02-24] MEDS: Saccharomyces boulardii 250 MG CAP PO SCH (08:13)
[2019-02-24] MEDS: Furosemide 20 MG TAB PO SCH ×2 (08:13→14:28)
[2019-02-24] MEDS: Potassium Chloride 20 MEQ TAB PO SCH (08:13)
[2019-02-24] MEDS: Fish Oil 1,000 MG CAP PO SCH (08:13)
[2019-02-24] MEDS: Metoprolol Tartrate 25 MG TAB PO SCH (08:14)
[2019-02-24] MEDS: Stress 600 With Zinc 1 TAB PO SCH (08:14)
[2019-02-24] MEDS: Enoxaparin Sodium 40 MG/0.4 ML SYRINGE SC SCH (08:17)
[2019-02-24 09:11] VITALS: BP 122/56; TEMP 97.7
[2019-02-24] MEDS ORDERED: Ferrous Sulfate 325 MG TAB PO SCH (17:00)
[2019-02-24] MEDS ORDERED: Ascorbic Acid 500 mg Chewable Tablet PO SCH (21:00)
== END 2019-02-24 16:33 | DRG 356 ==
LOC: ERS 16:00 → SDC/OP 21:25 → CCU 22:37 → ONC 02-19 21:31
PROVIDERS: ADMIT Surgery; ATTEND Surgery
PROC: 0WBH0ZX Excision of Retroperitoneum, Open Approach, Diagnostic (ICD-10-PCS; principal; 2019-02-13)
PROC: 05HN33Z Insertion of Infusion Device into Left Internal Jugular Vein, Percutaneous Approach (ICD-10-PCS; 2019-02-13)
DX: C17.1 Malignant neoplasm of jejunum (principal); K65.9 Peritonitis, unspecified; R57.1 Hypovolemic shock; I50.33 Acute on chronic diastolic (congestive) heart failure; I97.191 Other postprocedural cardiac functional disturbances following other surgery; D62 Acute posthemorrhagic anemia; K56.0 Paralytic ileus; E83.42 Hypomagnesemia; E87.6 Hypokalemia; E83.39 Other disorders of phosphorus metabolism; G89.29 Other chronic pain; I25.10 Atherosclerotic heart disease of native coronary artery without angina pectoris; F17.200 Nicotine dependence, unspecified, uncomplicated; E78.5 Hyperlipidemia, unspecified; I11.0 Hypertensive heart disease with heart failure; N40.0 Benign prostatic hyperplasia without lower urinary tract symptoms; Z95.5 Presence of coronary angioplasty implant and graft; Z79.82 Long term (current) use of aspirin
CPT/HCPCS: 36415; 36416; 36430; 71045; 74018; 74177; 80048; 80053; 80061; 82248; 82378; 82553; 82805; 83605; 83615; 83690; 83735; 83880; 84100; 84484; 84550; 85025; 86850; 86900; 86901; 87070; 87205; 88307; 88341; 88342; 93005; 93010; 93798; 94002; 94003; 94150; 94640; 96361; 96365; 96375; 96376; A4217; J0131; J0282; J1160; J1650; J1940; J2001; J2250; J2270; J2405; J2543; J2704; J3010; J3475; J3480; J3490; J7050; J7070; J7614; J7620; P9016; Q9966; S0028

== ENCOUNTER 2019-03-11 16:26 | Inpatient (IN) | payer OTHER, MEDICARE ==
[2019-03-11] MEDS ORDERED: Fentanyl 100 MCG/2 ML VIAL SLOW IVP PRN (16:50)
[2019-03-11] MEDS ORDERED: hydrALAZINE 20 MG/ML VIAL SLOW IVP PRN (16:52)
[2019-03-11] MEDS ORDERED: Sodium Chloride 0.9% 1,000 ML IV SCH (17:00)
[2019-03-11] MEDS: Sodium Chloride 0.9% 1,000 ML IV SCH (17:23)
[2019-03-11] MEDS: Fentanyl 100 MCG/2 ML VIAL SLOW IVP PRN ×2 (17:28→19:41)
[2019-03-11 17:30] LABS: Bacteria/HPF None Seen HPF (None Seen); Bilirubin Negative (Negative); Blood, Urine Negative (Negative); Clarity Clear (Clear); Glucose, Urine (Dipstick) Normal (Negative); Leukocyte Negative Leu/uL (Negative); Nitrite Negative (Negative); Protein, Urine (Dipstick) Negative (Neg-Trace); RBC/HPF 0-3 HPF (0-3); Squamous Epithelial None Seen HPF (0-3); Urobilinogen 3 mg/dL (Less than 2); WBC/HPF 0-3 HPF (0-3)
[2019-03-11 17:32] LABS: #Basophils 0.1 thou/uL (0.0-0.2); #Eosinphils 0.2 thou/uL (0.0-0.7); #Lymphocytes 1.5 thou/uL (1.20-3.40); #Monocytes 1.6 thou/uL (0.11-0.59); #Neutrophils 8.6 thou/uL (1.40-6.50); %Basophils 0.7 % (0.0-1.0); %Eosinophils 1.4 % (0.0-10.0); %Lymphocytes 12.4 % (21.0-51.0); %Monocytes 13.7 % (0.0-10.0); %Neutrophils 71.8 % (42.0-75.0); Mean Corpuscular HGB CONC 32.8 g/dL (32.0-36.0); Mean Corpuscular Hemoglobin 31.3 pg (27.0-31.0); Mean Corpuscular Volume 95.4 fL (78.0-98.0); Mean Platelet Volume 6.2 fL (7.4-10.4); Platelet Count 316 thou/uL (130-400); RBC Distribution Width 17.1 % (11.5-14.5); Red Blood Cell (RBC) Count 2.87 mill/uL (4.70-6.10); White Blood Cell (WBC) Count 11.9 thou/uL (4.8-10.8)
[2019-03-11 17:51] LABS: ALT (SGPT) 35 U/L (8-55); AST (SGOT) 38 U/L (5-34); Albumin 2.3 g/dL (3.4-4.8); Alkaline Phosphatase 236 U/L (40-150); Anion Gap 12 mmol/L (10-20); BUN (Urea Nitrogen) 12 mg/dL (8.4-25.7); Bilirubin, Total 0.7 mg/dL (0.2-1.2); Calc. Creatinine Clearance 112 mL/min (70-130); Calcium 8.7 mg/dL (7.8-10.44); Carbon Dioxide 26 mmol/L (23-31); Chloride 97 mmol/L (98-107); Estimated GFR-MDRD Greater than 90; Globulin 3.6 g/dL (2.4-3.5); Glucose 112 mg/dL (83-110); Potassium 3.4 mmol/L (3.5-5.1); Protein, Total 5.9 g/dL (5.8-8.1); Sodium 132 mmol/L (136-145)
--- NOTE | 2019-03-11 19:21 | RAD ---
EXAM: 2 view chest INDICATIONS: Small bowel cancer. Failure to thrive COMPARISON: 02/15/2019 FINDINGS: Heart size upper normal and stable. Mild vascular engorgement, stable. No infiltrate or sig nificant effusion. Mediport catheter is unchanged. IMPRESSION: Stable chest findings. No acute process.
[2019-03-12] MEDS: Sodium Chloride 0.9% 1,000 ML IV SCH ×3 (05:25→20:28)
[2019-03-12] MEDS: Acetaminophen 1,000 MG in Premix Bag 1 BAG IVPB PRN ×3 (05:25→17:30)
[2019-03-12 08:24] LABS: Iron 13 ug/dL (65-175); Iron Binding Capacity, Total 110 mcg/dL (261-462)
--- NOTE | 2019-03-12 08:48 | PDOC.FPRHP ---
- History of Present Illness Chief Complaint: Medical consult History of Present Illness: Very unfortunate 73 year old male presents as direct admit from Dr. Erickson's office with diagnosis of failure to thrive. Patient reports that he finished chemotherapy on February 09 at which point he also states he developed bowel perforation. Operative reports from that time show recurrent mass. Exploratory laporatomy with abdominal washout, excision of tumor, and control of tumor bleeding was performed. Since that time, patient has not been tolerating PO. He states that he does not have an appetite. He did endorse persistent nausea and several episodes of emesis. Patient very depressed and uncertain of where things will go from here. He has metastatic colon cancer with several surgeries , the first of which he states was done 06/2019. After speaking with Dr. Erickson, he would like our team on board to assist with chronic medical conditions and to help with discussions regarding goals of care going forward. ED Course: Direct admit from Dr. Erickson's office for failure to thrive. - Allergies/Adverse Reactions Allergies Allergy/AdvReac Type Severity Reaction Status Date / Time No Known Allergies Allergy Verified 02/14/19 00:10 - Home Medications Medication Instructions Recorded Confirmed Type Amlodipine Besylate [amLODIPine 10 mg PO QAM 06/18/18 03/11/19 History Besylate] Aspirin [Adult Aspirin] 81 mg PO QAM 06/18/18 03/11/19 History Atorvastatin Calcium [Lipitor] 20 mg PO HS 06/18/18 03/11/19 History Doxazosin Mesylate [Cardura] 4 mg PO HS 06/18/18 03/11/19 History Omeprazole Magnesium [Prilosec] 20 mg PO QAM 06/18/18 03/11/19 History Triamterene/Hydrochlorothiazid 1 tablet PO QAM 06/18/18 03/11/19 History [Triamterene-Hctz 37.5-25 mg Tb] Vitamin B Complex 1 each PO QAM 06/18/18 03/11/19 History Krill/Om-3/DHA/EPA/Phospho/Ast 1 cap PO QAM 07/26/18 03/11/19 History [Megared [place]-3 Krill Oil Sfgl] Ubidecarenone [Co Q-10] 100 mg PO QAM 07/26/18 03/11/19 History Ondansetron [Zofran ODT] 8 mg PO Q6HR PRN 02/06/19 03/11/19 History Prochlorperazine Maleate 10 mg PO Q6HR PRN 02/06/19 03/11/19 History Acetaminophen [Tylenol Extra 1,000 mg PO Q6H tab 02/24/19 03/11/19 Rx Strength] Furosemide [Lasix] 20 mg PO 0900,1400 tab 02/24/19 03/11/19 Rx Ipratropium/Albuterol Sulfate 3 ml NEB Q4H PRN neb 02/24/19 03/11/19 Rx [DuoNeb] Metoprolol Tartrate [Lopressor] 12.5 mg PO BID tab 02/24/19 03/11/19 Rx Potassium Chloride [K-Dur] 20 meq PO QAM-WM tab 02/24/19 03/11/19 Rx Saccharomyces boulardii [Florastor] 250 mg PO BID cap 02/24/19 03/11/19 Rx Tamsulosin HCl [Flomax] 0.4 mg PO HS cap 02/24/19 03/11/19 Rx traMADol HCl [Ultram] 50 mg PO Q6H tab 02/24/19 03/11/19 Rx - History PMHx: HTN, BPH, CAD s/p stent placement, HLD, CHF, Metastatic colon cancer PSHx: Tumor resection 06/2019, Ex lap 01/2019, Stent placement x2 FHx: Insignificant Social: Patient lives at home by himself. He endorses tobacco use. He smoked <1 PPD since his , but he quit during last hospitalization. Patient endorses occasional alcohol use with one glass of wine per night. Patient denies drug use. - Review of Systems General: reports: weight/appetite/sleep changes, fatigue. denies: fever/chills Eyes: denies: vision changes ENT: denies: nasal congestion, rhinorrhea Respiratory: denies: cough, congestion, shortness of breath Cardiovascular: denies: chest pain, edema Gastrointestinal: reports: nausea, vomiting, diarrhea. denies: abdominal pain Genitourinary: denies: dysuria Skin: denies: rashes, jaundice Musculoskeletal: reports: pain Neurological: reports: weakness. denies: syncope Psychological: reports: anxiety, depression - Vital signs BP: 108/63 HR: 69 RR: 18 Tmax: 97.5F Pox: 95% on RA Wt: - Physical Exam Constitutional: NAD -Constitutional: Tearful on exam HEENT: EOMI Heart: RRR, pulses present, no edema Lungs: no respiratory distress Abdomen: soft, non-tender Neurological: no focal deficit Skin: good turgor, capillary refill <2 seconds Heme/Lymphatic: no unusual bruising or bleeding, no purpura Psychiatric: normal mood and affect, good judgment and insight FMR H&P: Results - Labs Result Diagrams: 03/12/19 09:23 03/12/19 07:54 Lab results: WBC 11.9 thou/uL (4.8-10.8) H 03/11/19 17:14 Hgb 9.0 g/dL (14.0-18.0) L 03/11/19 17:14 Hct 27.4 % (42.0-52.0) L 03/11/19 17:14 MCV 95.4 fL (78.0-98.0) 03/11/19 17:14 Plt Count 316 thou/uL (130-400) 03/11/19 17:14 Neutrophils % 71.8 % (42.0-75.0) 03/11/19 17:14 Sodium 132 mmol/L (136-145) L 03/11/19 17:14 Potassium 3.4 mmol/L (3.5-5.1) L 03/11/19 17:14 Chloride 97 mmol/L (98-107) L 03/11/19 17:14 Carbon Dioxide 26 mmol/L (23-31) 03/11/19 17:14 BUN 12 mg/dL (8.4-25.7) 03/11/19 17:14 Creatinine 0.61 mg/dL (0.7-1.3) L 03/11/19 17:14 Glucose 112 mg/dL (83-110) H 03/11/19 17:14 Calcium 8.7 mg/dL (7.8-10.44) 03/11/19 17:14 Total Bilirubin 0.7 mg/dL (0.2-1.2) 03/11/19 17:14 AST 38 U/L (5-34) H 03/11/19 17:14 ALT 35 U/L (8-55) 03/11/19 17:14 Alkaline Phosphatase 236 U/L (40-150) H 03/11/19 17:14 Serum Total Protein 5.9 g/dL (5.8-8.1) 03/11/19 17:14 Albumin 2.3 g/dL (3.4-4.8) L 03/11/19 17:14 Urine Ketones Negative mg/dL (Negative) 03/11/19 17:15 Urine Blood Negative (Negative) 03/11/19 17:15 Urine Nitrite Negative (Negative) 03/11/19 17:15 Ur Leukocyte Esterase Negative Delgado/uL (Negative) 03/11/19 17:15 Urine RBC 0-3 HPF (0-3) 03/11/19 17:15 Urine WBC 0-3 HPF (0-3) 03/11/19 17:15 Ur Squamous Epith Cells None Seen HPF (0-3) 03/11/19 17:15 Urine Bacteria None Seen HPF (None Seen) 03/11/19 17:15 FMR H&P: A/P - Problem List (1) Failure to thrive Current Visit: Yes Status: Acute Code(s): [id number] - (2) Anemia Current Visit: Yes Status: Acute Code(s): D64.9 - ANEMIA, UNSPECIFIED (3) Adenocarcinoma of small bowel Current Visit: No Status: Acute Code(s): C17.9 - MALIGNANT NEOPLASM OF SMALL INTESTINE, UNSPECIFIED (4) CAD (coronary artery disease) Current Visit: No Status: Acute Code(s): I25.10 - ATHSCL HEART DISEASE OF [place] CORONARY ARTERY W/O ANG PCTRS (5) HTN (hypertension) Current Visit: No Status: Acute Code(s): I10 - ESSENTIAL (PRIMARY) HYPERTENSION (6) Hyperlipidemia Current Visit: No Status: Acute Code(s): E78.5 - HYPERLIPIDEMIA, UNSPECIFIED - Plan Failure to thrive - Nutrition consult - Monitor I&O's - Encourage PO intake - Supplementation advised - Palliative and spiritual care consults pending Metastatic colon cancer - Recurrence noted 01/2019 - Patient finished chemo 01/2019 - Patient desires to start back on chemo - Onc, Dr. Bryant, consulted; appreciate recs - Palliative consult pending - Dr. Erickson, gen surgery, consulted; appreciate recs Hypokalemia - Replace as needed HTN - BP in low 100's - Hold BP medications Normocytic anemia - Appears mixed - obtain iron studies - May benefit from iron transfusion HLD - Continue home medications BPH - Hold doxazosin given low BP - Continue other home medications CAD s/p stents - Continue home medications Post-op A-fib - Patient states resolved during hospitalization DVT PPx: SCD's Code status: Full Dispo: Thank you for the consult. We will continue to follow along side during this hospitalization. FMR H&P: Upper Level - Plan Date/Time: 03/12/19 0847 I, [], have evaluated this patient and agree with findings/plan as outlined by paid intern resident. Pertinent changes/additions are listed here. Addendum - Attending - Attending Attestation Date/Time: 03/11/192129 (patient seen and evaluated by myself) I personally evaluated the patient and discussed the management with Dr. Platt I agree with the History, Examination, Assessment and Plan documented above with any addition or exceptions noted below. 73 yo male with metastatic colon cancer now with progression and failure to thrive. Gen surg and Onc have been following this patient closely. We were consulted to help with future care and chronic conditions. Prognosis is poor from review of records. Imaging karine for AM. Will follow alongside for assistance as needed. Genet
[2019-03-12] MEDS: Pantoprazole 40 MG VIAL IVP SCH (08:54)
[2019-03-12] MEDS ORDERED: Heparin 1,000 UNITS/ML VIAL ONE (09:00)
--- NOTE | 2019-03-12 09:02 | PDOC.FM ---
- Subjective Subjective: NAEO. Feeling weak still. Some appetite, up for tryign to eat. Improvement with pain with pain meds - Objective Vital Signs & Weight: Vital Signs (12 hours) Temp Pulse Resp BP Pulse Ox 03/12/19 07:32 97.5 F L 69 18 108/63 95 03/12/19 04:00 97.9 F 76 16 99/57 L 92 L 03/12/19 00:00 98.4 F 70 16 96/55 L 91 L Weight Weight 71.1 kg I&O: 03/11/19 03/12/19 03/13/19 06:59 06:59 06:59 Intake Total 2160 Output Total 425 Balance 1735 Result Diagrams: 03/12/19 09:23 03/12/19 07:54 Phys Exam - Physical Examination Constitutional: NAD HEENT: PERRLA dry mucosal membranes Neck: full ROM Respiratory: no wheezing, clear to auscultation bilateral Cardiovascular: RRR, no significant murmur Gastrointestinal: soft, non-tender Musculoskeletal: no edema Neurological: non-focal, moves all 4 limbs Psychiatric: A&O x 3 Deviation from normal: depressed affect Dx/Plan (1) Anemia Code(s): D64.9 - ANEMIA, UNSPECIFIED Status: Acute (2) Failure to thrive Code(s): [id number] - Status: Acute (3) Adenocarcinoma of small bowel Code(s): C17.9 - MALIGNANT NEOPLASM OF SMALL INTESTINE, UNSPECIFIED Status: Acute (4) CAD (coronary artery disease) Code(s): I25.10 - ATHSCL HEART DISEASE OF [place] CORONARY ARTERY W/O ANG PCTRS Status: Acute (5) HTN (hypertension) Code(s): I10 - ESSENTIAL (PRIMARY) HYPERTENSION Status: Acute (6) Hyperlipidemia Code(s): E78.5 - HYPERLIPIDEMIA, UNSPECIFIED Status: Acute - Plan Plan: #Failure to thrive - Nutrition on board, monitor I/Os - Encourage PO intake - Supplementation advised, Dr. Erickson planning for TPN - Palliative and spiritual care and PT consults pending #Metastatic colon cancer - Recurrence noted 01/2019 - Patient finished chemo 01/2019 - Patient desires to start back on chemo - Onc, Dr. Bryant, consulted; appreciate recs - Palliative consult pending - Dr. 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 Otero and Dr. Erickson. I agree with the History, Examination, Assessment and Plan documented above with any addition or exceptions noted below.
[2019-03-12] MEDS ORDERED: Ferrous Sulfate 325 MG TAB PO SCH (09:10)
[2019-03-12 09:30] LABS: #Eosinphils 0.2 thou/uL (0.0-0.7); #Lymphocytes 1.2 thou/uL (1.20-3.40); #Monocytes 1.2 thou/uL (0.11-0.59); #Neutrophils 7.1 thou/uL (1.40-6.50); %Basophils 0.5 % (0.0-1.0); %Eosinophils 1.6 % (0.0-10.0); %Lymphocytes 12.4 % (21.0-51.0); %Monocytes 12.6 % (0.0-10.0); %Neutrophils 72.9 % (42.0-75.0); Hemoglobin 8.8 g/dL (14.0-18.0); Mean Corpuscular HGB CONC 33.3 g/dL (32.0-36.0); Mean Corpuscular Hemoglobin 31.8 pg (27.0-31.0); Mean Corpuscular Volume 95.3 fL (78.0-98.0); Mean Platelet Volume 5.9 fL (7.4-10.4); Platelet Count 274 thou/uL (130-400); RBC Distribution Width 17.4 % (11.5-14.5); Red Blood Cell (RBC) Count 2.77 mill/uL (4.70-6.10); White Blood Cell (WBC) Count 9.8 thou/uL (4.8-10.8)
[2019-03-12 09:32] LABS: Anion Gap 9 mmol/L (10-20); BUN (Urea Nitrogen) 10 mg/dL (8.4-25.7); Calc. Creatinine Clearance 122 mL/min (70-130); Calcium 8.7 mg/dL (7.8-10.44); Carbon Dioxide 27 mmol/L (23-31); Chloride 102 mmol/L (98-107); Estimated GFR-MDRD Greater than 90; Glucose 97 mg/dL (83-110); Magnesium 1.1 mg/dL (1.6-2.6); Phosphorus 3.3 mg/dL (2.3-4.7); Potassium 3.5 mmol/L (3.5-5.1); Sodium 134 mmol/L (136-145)
[2019-03-12] MEDS ORDERED: Potassium Chloride 40 MEQ in Sodium Chloride 0.9% 250 ML 250 ML IVPB SCH (10:00)
[2019-03-12] MEDS: Fentanyl 100 MCG/2 ML VIAL SLOW IVP PRN ×3 (10:26→20:16)
[2019-03-12] MEDS ORDERED: Iopamidol 370 76% 50 ML VIAL FS ONE (11:04)
[2019-03-12] MEDS ORDERED: ISOVUE-370 76%-LOCM 1 ML ONE (11:04)
--- NOTE | 2019-03-12 14:40 | CT ---
CT CHEST WITH IV CONTRAST CT ABDOMEN WITH IV CONTRAST CT PELVIS WITH IV CONTRAST: HISTORY: Metastatic small intestine cancer. COMPARISON: CT abdomen and pelvis of 02/13/2019. FINDINGS: Interval development of small bilateral pleural effusions has occurred, right larger than left, with adjacent infiltrate/atelectatic changes. A few patchy ground-glass opacities are seen in the upper l adal waters. There are low-density lesions in the thyroid gland. No mediastinal, hilar, or axillary mass or lymph adenopathy is identified. No pericardial effusion is seen. No calcified gallstones are noted. There is interval increase in the amount of free fluid in the abd omen and pelvis. Small 7 mm low-density lesion in the medial aspect of the right lobe of the liver i s stable. The spleen, pancreas, adrenal glands, and left kidney are normal. A low-density lesion in the right renal cortex is stable, likely cyst. No free air is seen. The complex masses noted on the previous exam are larger measuring 5.8 x 4.3 x 6.7 cm in the lower abdomen and 6.3 x 4.5 x 4 cm in the pelvis. No periaortic lymphadenopathy is seen. There are vascular calcifications without evidence of aneurys mal dilatation of the abdominal aorta. There are degenerative changes in the spine. No osteolytic o r osteoblastic lesions are seen. The complex mass in the left mid abdomen is also larger measuring 5 .4 x 3.9 x 3.7 cm with probable involvement of the mesenteric border of a loop of small bowel. There is also a suggestion of a mass in close association with a loop of small bowel in the left upper harrison drant measuring 3.4 x 2 x 2.7 cm. There is an 18 x 16 x 23 mm mass in the mesentery in the anterior left mid abdomen in close association with a loop of small bowel. IMPRESSION: Interval worsening since exam of 02/13/2019. POS: OFF
--- NOTE | 2019-03-12 14:40 | PRG ---
DATE OF SERVICE: 03/12/2019 SUBJECTIVE: Mr. Melgar feels slightly better. He is able to talk more today. OBJECTIVE: VITAL SIGNS: His blood pressure is 102/63, pulse 70, respirations 18. He is afebrile. He had multiple voids for urine output of 425 overnight. ABDOMEN: Remains distended with diffuse mild tenderness. EXTREMITIES: Showed no edema or ischemia. LABORATORY DATA: White blood cell count today is 9, hemoglobin is 8.8, platelet count is 274 with normal differentials. Creatinine 0.55 and his potassium is 3.5. ASSESSMENT: Metastatic small-bowel adenocarcinoma, just finished his chemotherapy, which was complicated by a tumor rupture and bleeding, exploratory laparotomy and washout for that, now readmitted for failure to thrive, ongoing disease process. PLAN: Dr. Bryant has seen him as well. Appreciate the [facility] and their involvement in his care. We will need to come up with a treatment plan, I am not sure he is going to tolerate any further aggressive chemotherapy. We discussed TPN as a potential to increase his nutrition, although that is only a short-term answer. We will obtain CT of the chest, abdomen, and pelvis today to rule out any obvious postop complication or reason for his ongoing anorexia and failure to thrive. If that is negative, we will advance his diet and potentially place PICC line for TPN to start tomorrow, we would prefer not to use the MediPort for TPN if we can prevent it. Job ID: [id number]
[2019-03-12] MEDS: Dronabinol 2.5 MG CAP PO SCH (17:25)
[2019-03-12] MEDS: Ferrous Sulfate 325 MG TAB PO SCH (17:30)
[2019-03-12] MEDS: Atorvastatin Calcium 20 MG TAB PO SCH (20:18)
[2019-03-12] MEDS: Docusate 100 MG CAP PO SCH (20:18)
[2019-03-12] MEDS: Metoprolol Tartrate 25 MG TAB PO SCH (21:30)
[2019-03-13] MEDS: Acetaminophen 1,000 MG in Premix Bag 1 BAG IVPB PRN (01:18)
--- NOTE | 2019-03-13 02:17 | CON ---
DATE OF CONSULTATION: REASON FOR CONSULTATION: Small bowel adenocarcinoma. HISTORY OF PRESENT ILLNESS: A 73-year-old male with small bowel carcinoma, status post perforation and resection in June [address] Erickson, followed by 12 cycles of FOLFOX chemotherapy finishing February 11, 2019, followed by perforation with peritonitis requiring resection on February 14, 2019, which showed recurrent and multiple masses in the abdomen, now presenting with failure to thrive. The patient went to Dr. Erickson's office and appeared very ill and so he was directly admitted to the hospital. The patient states that his pain is reasonably well controlled at the moment, but he feels very weak and fatigued. He has not been eating or drinking very much at all and has persistent emesis and nausea. He denies any fevers, diarrhea, or constipation at this time. I discussed the pathology results from his last surgery and any potential treatment in the future, which would depend on improvement in his performance status. The patient states that he would like to fight his cancer if he is able to in the future. REVIEW OF SYSTEMS: 10-point review of systems negative except as per HPI. PAST MEDICAL HISTORY: Small bowel adenocarcinoma; CAD, status post PCI; BPH; hypertension. PAST SURGICAL HISTORY: Small bowel resection in June 2018; exploratory laparotomy, January 2019; and stent placement x2. FAMILY HISTORY: Nonsignificant. SOCIAL HISTORY: Occasional alcohol use. Currently not smoking. CURRENT MEDICATIONS: Reviewed. ALLERGIES: NO KNOWN DRUG ALLERGIES. PHYSICAL EXAMINATION: VITAL SIGNS: Temperature 97.5, pulse 70, respirations 18, saturating 97% on room air, blood pressure 102/63. GENERAL APPEARANCE: The patient is lying in bed, in no acute distress, but does appear very ill and cachectic. HEENT: Normocephalic, atraumatic. CARDIAC: Regular rhythm and rate, S1 and S2. Respirations clear and nonlabored. ABDOMEN: Soft, distended, and mildly tender to palpation. SKIN: No rash. NEUROLOGIC: Cranial nerves 2 through 12 are grossly intact. PSYCHIATRIC: Awake, alert, and oriented x3. LABORATORY DATA: White blood cells 9.8, hemoglobin 8.8, platelets 274. Sodium 134, potassium 3.5, BUN 10, creatinine 0.55, magnesium 1.1, ferritin 657, percent saturation 12, iron 13, TIBC 110, albumin 2.3. IMAGING DATA: CT of the chest, abdomen, and pelvis dated March 12, 2019, shows the previous complex masses on the previous exam have increased now measuring 5.8 x 4.3 x 6.7 cm in the lower abdomen and 6.3 x 4.5 x 4 cm in the pelvis. There is also a complex mass in the left mid abdomen measuring 5.4 x 3.9 x 3.7 cm with probable involvement of mesenteric border of the small bowel. In addition, another mass in the left upper quadrant measuring 3.4 x 2 x 2.7 cm and a 1.8 x 1.6 x 2.3 cm mass in the mesentery and anterior left mid abdomen in close association with the loop of small bowel. ASSESSMENT AND PLAN: 73-year-old male with adenocarcinoma of the small bowel, status post resection and chemotherapy, now with recurrent disease. The patient's recurrent tumor grew straight through his initial adjuvant chemotherapy, which is a very poor prognostic sign. He is very cachectic, weak, and fatigued, although he does want treatment of this cancer if he is able to. At this time, he is not a candidate for treatment given his poor performance status. We encourage hydration and nutrition along with physical therapy and potentially rehab in order to gain his strength back. If he is able to do this, he may be a candidate for chemotherapy, although his likelihood of a good response is low given that his current disease progressed straight through chemotherapy already. If he has enough tissue on his previous biopsies. We will try to send [facility] testing. The patient's iron saturation is 12% and iron is 13, although his ferritin is elevated, this is likely just an acute phase reactant and patient would benefit from IV iron to improve his anemia. We will follow along briefly with you during this hospitalization and hopefully his functional status will improve. Job ID: [id number]
[2019-03-13 04:52] LABS: #Basophils 0.1 thou/uL (0.0-0.2); #Eosinphils 0.2 thou/uL (0.0-0.7); #Lymphocytes 1.7 thou/uL (1.20-3.40); #Monocytes 1.3 thou/uL (0.11-0.59); #Neutrophils 10.6 thou/uL (1.40-6.50); %Basophils 0.6 % (0.0-1.0); %Eosinophils 1.6 % (0.0-10.0); %Lymphocytes 12.3 % (21.0-51.0); %Monocytes 9.6 % (0.0-10.0); Hemoglobin 8.2 g/dL (14.0-18.0); Mean Corpuscular HGB CONC 32.8 g/dL (32.0-36.0); Mean Corpuscular Hemoglobin 31.4 pg (27.0-31.0); Mean Corpuscular Volume 95.7 fL (78.0-98.0); Mean Platelet Volume 6.2 fL (7.4-10.4); Platelet Count 280 thou/uL (130-400); RBC Distribution Width 17.3 % (11.5-14.5); Red Blood Cell (RBC) Count 2.62 mill/uL (4.70-6.10)
[2019-03-13 05:12] LABS: Anion Gap 7 mmol/L (10-20); BUN (Urea Nitrogen) 8 mg/dL (8.4-25.7); Calc. Creatinine Clearance 124 mL/min (70-130); Calcium 8.1 mg/dL (7.8-10.44); Carbon Dioxide 25 mmol/L (23-31); Chloride 103 mmol/L (98-107); Estimated GFR-MDRD Greater than 90; Glucose 92 mg/dL (83-110); Potassium 3.5 mmol/L (3.5-5.1); Sodium 131 mmol/L (136-145)
[2019-03-13] MEDS: Fentanyl 100 MCG/2 ML VIAL SLOW IVP PRN (05:52)
[2019-03-13] MEDS: Sodium Chloride 0.9% 1,000 ML IV SCH ×2 (05:54→11:02)
[2019-03-13] MEDS: Dronabinol 2.5 MG CAP PO SCH ×2 (06:30→18:24)
--- NOTE | 2019-03-13 06:45 | PDOC.FM ---
- Subjective Subjective: Feeling stronger. Able to eat small meal yesterday. Feeling constipated. No other concerns at this cici - Objective Vital Signs & Weight: Vital Signs (12 hours) Temp Pulse Resp BP Pulse Ox 03/13/19 03:56 97.5 F L 72 16 107/64 96 03/13/19 01:16 88 20 97 03/13/19 00:15 98.7 F 74 16 103/62 96 03/12/19 21:25 73 93/53 L 03/12/19 19:45 97.9 F 80 18 97/59 L 95 Weight Admit Weight 72.575 kg Weight 74.1 kg I&O: 03/11/19 03/12/19 03/13/19 06:59 06:59 06:59 Intake Total 2160 3940 Output Total 425 600 Balance 1735 3340 Result Diagrams: 03/13/19 04:44 03/13/19 04:44 Phys Exam - Physical Examination Constitutional: NAD HEENT: PERRLA Neck: no nodes, full ROM Respiratory: no wheezing, clear to auscultation bilateral Cardiovascular: RRR, no significant murmur Gastrointestinal: soft, no distention hypoactive BS, mildly tender in LLQ Musculoskeletal: no edema Neurological: non-focal, moves all 4 limbs Dx/Plan (1) Anemia Code(s): D64.9 - ANEMIA, UNSPECIFIED Status: Acute (2) Failure to thrive Code(s): ELU8804 - Status: Acute (3) Adenocarcinoma of small bowel Code(s): C17.9 - MALIGNANT NEOPLASM OF SMALL INTESTINE, UNSPECIFIED Status: Acute (4) CAD (coronary artery disease) Code(s): I25.10 - ATHSCL HEART DISEASE OF [place] CORONARY ARTERY W/O ANG PCTRS Status: Acute (5) HTN (hypertension) Code(s): I10 - ESSENTIAL (PRIMARY) HYPERTENSION Status: Acute (6) Hyperlipidemia Code(s): E78.5 - HYPERLIPIDEMIA, UNSPECIFIED Status: Acute - Plan Plan: #Failure to thrive - Nutrition on board, monitor I/Os - Supplementation advised, Dr. Holland planning for TPN - Encourage PO intake, monitor lytes, replace as nededed #Metastatic colon cancer - Recurrence noted 01/2019 - Patient finished chemo 01/2019 - Patient desires to start back on chemo - Onc, Dr. Bryant, consulted; appreciate recs - Palliative consult pending - Dr. Holland, gen surgery, consulted; appreciate recs - PT/OT/Palliative/Spiritual on board #Elevated LFTs -consider mets -will discuss d/c tylenol -trending down #Constipation -karine miralax #Hypokalemia, resolved #Hypomagnesemia - Replace #HTN - BP in low 100's - Hold BP medications #Mixed iron def./Anemia of chornic disease - PO iron replacemet - IV iron - Monitor Hb #HLD - Continue home medications #BPH - Hold doxazosin given low BP - Continue other home medications #CAD s/p stents - Continue home medications #Post-op A-fib - Patient states resolved during hospitalization - Will resume metoprolol and ASA DVT PPx: SCD's Code status: Full Addendum - Attending - Attending Attestation Date/Time: 03/13/19 1150 I personally evaluated the patient and discussed the management with Dr. Otero. I agree with the History, Examination, Assessment and Plan documented above with any addition or exceptions noted below. Continue attempts with appetite with dronabinol. I anticipate mass/obstructive symptoms are the primary cause of his anorexia, but will follow closely. TPN per GS.
[2019-03-13 07:05] LABS: ALT (SGPT) 33 U/L (8-55); AST (SGOT) 38 U/L (5-34); Alkaline Phosphatase 195 U/L (40-150); Bilirubin, Direct 0.4 mg/dL (0.1-0.3); Bilirubin, Total 0.6 mg/dL (0.2-1.2)
[2019-03-13] MEDS ORDERED: Magnesium 2 GM/50 ML 2 GM in Premix Bag 1 BAG IVPB SCH (08:00)
[2019-03-13] MEDS: Ferrous Sulfate 325 MG TAB PO SCH ×2 (08:20→17:31)
[2019-03-13] MEDS: Metoprolol Tartrate 25 MG TAB PO SCH ×2 (08:20→21:13)
[2019-03-13] MEDS: Docusate 100 MG CAP PO SCH ×2 (08:20→20:56)
[2019-03-13] MEDS: Pantoprazole 40 MG VIAL IVP SCH (08:22)
[2019-03-13] MEDS ORDERED: Iron Sucrose Complex 200 MG in Sodium Chloride 0.9% 250 ML 250 ML IVPB SCH (09:00)
--- NOTE | 2019-03-13 09:11 | PDOC.GSPN ---
Surgery Progress Note: Subj - Subjective Patient reports: no bowel movement, no flatus, still having pain (7/10 diffuse abdominal pain. More persistent pain in mid-abdomen and left lower quadrant. Able to tolerate ambulation 3-4 times in the last day.), tolerating a regular diet (Has a slight appetite, and is able to tolerate regular diet so far. Last night, was able to eat half of a large sub sandwich. This morning is waiting for his to bring him a meal, and even expresses an appetite for particular foods like a peanut butter sandwich or tomato soup.) Surgery Progress Note: Obj - Vital signs Vital signs: Vital Signs - Most Recent Temp Pulse Resp BP Pulse Ox 97.6 F 68 16 108/68 96 03/13/19 07:25 03/13/19 07:25 03/13/19 07:25 03/13/19 07:25 03/13/19 07:25 - Physical Exam General: severe pain Cardiovascular: regular rate and rhythm, other (No peripheral edema.) Respiratory: clear to auscultation, breath sounds present. negative: normal expansion (Some effort with respirations and some slight accessory muscle use when also talking. Not in distress.) Abdomen: decreased bowel sounds, distended (Fluid filled abdomen.), guarding, rigid, tender (diffusely tender; no rebound tenderness.) Surgery Progress Note: Results - Labs Result Diagrams: 03/13/19 04:44 03/13/19 04:44 Lab results: Laboratory Results - last 24 hr 03/13/19 03/13/19 03/13/19 04:44 04:44 04:44 WBC 14.0 H RBC 2.62 L Hgb 8.2 L Hct 25.0 L MCV 95.7 MCH 31.4 H MCHC 32.8 RDW 17.3 H Plt Count 280 MPV 6.2 L Neutrophils % 76.0 H Lymphocytes % 12.3 L Monocytes % 9.6 Eosinophils % 1.6 Basophils % 0.6 Neutrophils # 10.6 H Lymphocytes # 1.7 Monocytes # 1.3 H Eosinophils # 0.2 Basophils # 0.1 Sodium 131 L Potassium 3.5 Chloride 103 Carbon Dioxide 25 Anion Gap 7 L BUN 8 L Creatinine 0.54 L Estimated GFR (MDRD) Greater than 90 Glucose 92 Calcium 8.1 Total Bilirubin 0.6 Direct Bilirubin 0.4 H AST 38 H ALT 33 Alkaline Phosphatase 195 H Serum Total Protein 5.0 L Albumin 2.0 L Surgery Progress Note: A/P - Plan Plan: Patient has terminal T4 adenocarcinoma. While he is tolerating regular diet reasonably well right now, TPN over the weekend may be considered if this changes. Pain is still severe, persistent, and diffuse abdominally. Draining the malignancy related fluid may help with comfort measures. A fentanyl patch is being considered for pain management. Addendum - Physician - Physician Attestation Date/Time: 03/13/19 1011 Start Tpn, check prealbumin Fentanyl Patch for pain Not sure drainage of this ascities will be lasting. I personally performed or re-performed the physical examination and medical decision making. I have verified all student documentation or findings, including history, physical exam and/or medical decision making.
--- NOTE | 2019-03-13 09:39 | PQF ---
SUSANNAH KASPER BERNADETTE *r [id number] SURG A- [id number] CLINICAL DOCUMENTATION IMPROVEMENT CLARIFICATION FORM: ICD-10 Updated PLEASE DO AN ADDENDUM TO THE PROGRESS NOTE WITH ANY DOCUMENTATION UPDATES OR ADDITIONS AND CARRY THROUGH TO DC SUMMARY. THANK YOU. Date: ATTN: DR. ALYSSA VALDEZ/ DR. Flaquita SANCHEZ Please exercise your independent, professional judgment in responding to the clarification form. Clinical indicators are provided on the bottom of this form for your review. Please check appropriate box(s): [ ] Protein Calorie Malnutrition: [ ] Mild [ x ] Moderate [ ] Severe [ ] Other Malnutrition (please specify) __ [ ] Underweight without malnutrition [ ] Cachexia [ ] Other diagnosis [ ] Unable to determine In addition, please specify: Present on Admission (POA): [ x ] Yes [ ] No [ ] Unable to determine CLINICAL INDICATORS - SIGNS / SYMPTOMS / LABS H&P (JOSÉ MIGUEL) 03/11: DIRECT ADMIT FROM DR. GRIFFITH FOR FAILURE TO THRIVE; REPORTS WEIGHT/APPETITE/SLEEP CHANGES, FATIGUE; REPORTS N/V/D ONC H&P: PHY EXAM: GENERAL APPEARANCE: APPEARS VERY ILL & CACHECTIC; ASSESSMENT/PLAN: HE IS VERY CACHECTIC, WEAK & FATIGUED CLINICAL FACULTY ASSESSMENT 03/12: SUBJECTIVE ASSESSMENT: PATIENT REPORTS RETAINING FLUID; RD OBSERVED TEMPORAL & CLAVICULAR MUSCLE WASTING & ORBITAL FAT WASTING NUTRITION DIAGNOSIS: MALNUTRITION R/T ONCOLOGY/CHRONIC DISEASE EVIDENCED BY: PO INTAKE <50% OF ESTIMATED NEEDS FOR >1 MONTH, MUSCLE WASTING TO TEMPLES & CLAVICLES & ORBITAL FAT WASTING, SEVERE MALNUTRITION IN THE CONTEXT OF CHRONIC DISEASE RISKS: METASTATIC COLON CANCER FAILURE TO THRIVE ONGOING N/V, DECREASED APPETITE TREATMENT: CLINICAL FACULTY CONSULT (03/12) PLAN FOR TPA (PN 03/12) Moderate Malnutrition (in acute illness) Energy Intake: <75% of estimated energy requirement for > 7 days Weight Loss: 1-2%/1 week; 5%/ 1 month; 7.5%/3 months Other: mild body fat loss; mild muscle mass loss; mild fluid accumulation; Severe Malnutrition (in acute illness) Energy Intake: < 50% of estimated energy requirement for > 5 days Weight Loss: >1-2%/1 week; >5%/1 month; >7.5%/3 months Other: moderate body fat loss; moderate muscle mass loss; moderate- severe fluid accumulation; 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 Tanya (This form is maintained as a part of the permanent medical record) 2014 [employer]. All Rights Reserved Tanya Estrada RN, BSN [email or web address] Office: [phone] [facility]
[2019-03-13] MEDS: Polyethylene Glycol 3350 17 GM Packet PO SCH (09:52)
[2019-03-13] MEDS: Iron, Sodium Ferric Gluconate 250 MG in Sodium Chloride 0.9% 100 ML IVPB SCH (09:52)
[2019-03-13] MEDS ORDERED: fentaNYL 50 mcg/hour Patch TD SCH (10:15)
[2019-03-13] MEDS: traMADol HCl 50 MG TAB PO PRN ×2 (11:30→17:31)
[2019-03-13] MEDS ORDERED: [UNRECOGNIZED DRUG - OTHER] IV SCH (14:00)
[2019-03-13] MEDS ORDERED: SODIUM CHLORIDE IV SCH (14:00)
[2019-03-13] MEDS ORDERED: POTASSIUM ACETATE IV SCH (14:00)
[2019-03-13] MEDS ORDERED: SODIUM ACETATE IV SCH (14:00)
--- NOTE | 2019-03-13 15:16 | SPC ---
Ultrasound and Fluoroscopic guided left upper extremity PICC placement HISTORY: Patient needs long-term IV access for TPN administration. FINDINGS: Informed consent obtained prior to the procedure. An appropriate access site was determined with ultrasound guidance. The area was then meticulously pr epped and draped in usual sterile fashion. Skin overlying the left basilic vein anesthetized with 1% buffered lidocaine. Utilizing direct sonogr aphic guidance, vascular access is obtained via the left basilic vein, and a 0.018in guidewire was advanced to the SVC. Intravascular length is calculated at 40 cm, and the PICC is cut accordingly. Needle is removed and replaced with a peel-away sheath. The PICC was advanced over the wire. Wire and peel-away sheath were removed. The tip of the catheter overlies the SVC. The catheter was accessed and aspirated/flushed easily. Exposure data: 0.1 minutes of fluoroscopic time 681 mGy square centimeter FINDINGS: Technically successful placement of a 40 centimeter double-lumen 5 [place] left upper extremity PICC l ine. IMPRESSION: Successful ultrasound guided placement of a left upper extremity PICC.
[2019-03-13] MEDS ORDERED: Heparin 1,000 UNITS/ML VIAL ONE (20:54)
[2019-03-13] MEDS: Atorvastatin Calcium 20 MG TAB PO SCH (20:56)
[2019-03-13] MEDS: SODIUM ACETATE IV SCH (22:24)
[2019-03-13] MEDS: [UNRECOGNIZED DRUG - OTHER] IV SCH (22:24)
[2019-03-13] MEDS: POTASSIUM ACETATE IV SCH (22:24)
[2019-03-13] MEDS: SODIUM CHLORIDE IV SCH (22:24)
[2019-03-14] MEDS: traMADol HCl 50 MG TAB PO PRN ×3 (00:16→20:30)
[2019-03-14] MEDS: Sodium Chloride 0.9% 1,000 ML IV SCH ×2 (00:21→17:31)
[2019-03-14 06:25] LABS: INR-International Normal Ratio 1.2; Prothrombin Time 15.4 SEC (12.0-14.7)
[2019-03-14 06:26] LABS: PTT 46.4 SEC (22.9-36.1)
[2019-03-14] MEDS: Dronabinol 2.5 MG CAP PO SCH ×2 (06:28→17:28)
[2019-03-14 06:34] LABS: ALT (SGPT) 28 U/L (8-55); AST (SGOT) 25 U/L (5-34); Albumin 1.9 g/dL (3.4-4.8); Alkaline Phosphatase 173 U/L (40-150); Anion Gap 8 mmol/L (10-20); BUN (Urea Nitrogen) 9 mg/dL (8.4-25.7); Bilirubin, Total 0.5 mg/dL (0.2-1.2); Calc. Creatinine Clearance 147 mL/min (70-130); Carbon Dioxide 24 mmol/L (23-31); Chloride 105 mmol/L (98-107); Estimated GFR-MDRD Greater than 90; Globulin 3.2 g/dL (2.4-3.5); Glucose 106 mg/dL (83-110); Magnesium 1.5 mg/dL (1.6-2.6); Phosphorus 2.3 mg/dL (2.3-4.7); Potassium 3.6 mmol/L (3.5-5.1); Protein, Total 5.1 g/dL (5.8-8.1); Sodium 133 mmol/L (136-145)
--- NOTE | 2019-03-14 06:48 | PDOC.FM ---
- Subjective Subjective: Feels improved, walking around, had BM. Able to tolerate half of ham sandwich yesterday. Appetite improved. Still having abd pain w/ eating, no emesis. - Objective Vital Signs & Weight: Vital Signs (12 hours) Temp Pulse Resp BP Pulse Ox 03/14/19 05:47 94 L 03/14/19 04:09 98.1 F 67 16 108/67 94 L 03/14/19 00:30 98 F 74 16 125/76 94 L 03/13/19 20:00 96 03/13/19 19:43 98.0 F 79 16 100/62 96 Weight Admit Weight 72.575 kg Weight 79.4 kg I&O: 03/12/19 03/13/19 03/14/19 06:59 06:59 06:59 Intake Total 2160 3940 900 Output Total 425 600 550 Balance 1735 3340 350 Result Diagrams: 03/14/19 07:53 03/14/19 05:53 Phys Exam - Physical Examination Constitutional: NAD dry mucosal membranes Respiratory: no wheezing end expiratory wheezing Cardiovascular: RRR, no significant murmur Gastrointestinal: soft tender in left upper and lower qudarants, no rebound or guarding abd distension Musculoskeletal: no edema Neurological: non-focal, moves all 4 limbs Psychiatric: normal affect, A&O x 3 Dx/Plan (1) Anemia Code(s): D64.9 - ANEMIA, UNSPECIFIED Status: Acute (2) Failure to thrive Code(s): [id number] - Status: Acute (3) Adenocarcinoma of small bowel Code(s): C17.9 - MALIGNANT NEOPLASM OF SMALL INTESTINE, UNSPECIFIED Status: Acute (4) CAD (coronary artery disease) Code(s): I25.10 - ATHSCL HEART DISEASE OF [place] CORONARY ARTERY W/O ANG PCTRS Status: Acute (5) HTN (hypertension) Code(s): I10 - ESSENTIAL (PRIMARY) HYPERTENSION Status: Acute (6) Hyperlipidemia Code(s): E78.5 - HYPERLIPIDEMIA, UNSPECIFIED Status: Acute - Plan Plan: #Failure to thrive - Prealbumin low - TPN started - dronnabinol for appetite stimulation - Encourage PO intake, monitor lytes, replace as nededed #Metastatic colon cancer - Recurrence noted 01/2019 - Patient finished chemo 01/2019 - Patient desires to start back on chemo - Onc, Dr. Bryant, consulted; needs to regain strength first - PT/OT/Palliative/Spiritual on board #Abd ascites -possible paracentesis today, per gen surg #Elevated LFTs -Ct Abd with 0.7mm liver lesion -consider mets -downtrending #Constipation -karine miralax #Hypomagnesemia - Replace #Diastolic CHF -Up 9kg and 5L from fluid replacement -Start PO home lasix #Hypokalemia, resolved #HTN - BP in low 100's - Hold BP medications #Mixed iron def./Anemia of chornic disease - PO iron replacemet - IV iron - Monitor Hb #HLD - Continue home medications #BPH - Hold doxazosin given low BP - Continue other home medications #CAD s/p stents - Continue home medications #Post-op A-fib - Patient states resolved during hospitalization - Will resume metoprolol and ASA DVT PPx: SCD's Code status: Full Dispo: 1) dCHF- resume home PO lasix, watch for signs of fluid overload 2) Anemia of chronic disease/Iron def-Continue IV iron 3) HTN- low-nml, holding BP meds 4) FTT- improving, continue encouraging diet, TPN started 5)Abd ascites- possible paracentesis today Discussed with Dr. Shultz Addendum - Attending - Attending Attestation Date/Time: 03/14/19 3329 I personally evaluated the patient and discussed the management with Dr. Otero. I agree with the History, Examination, Assessment and Plan documented above with any addition or exceptions noted below.
[2019-03-14] MEDS ORDERED: Magnesium 2 GM/50 ML 2 GM in Premix Bag 1 BAG IVPB SCH (07:00)
[2019-03-14 08:02] LABS: #Basophils 0.1 thou/uL (0.0-0.2); #Eosinphils 0.5 thou/uL (0.0-0.7); #Lymphocytes 1.9 thou/uL (1.20-3.40); #Monocytes 1.7 thou/uL (0.11-0.59); #Neutrophils 13.4 thou/uL (1.40-6.50); %Basophils 0.4 % (0.0-1.0); %Eosinophils 2.7 % (0.0-10.0); %Lymphocytes 10.9 % (21.0-51.0); %Monocytes 9.8 % (0.0-10.0); %Neutrophils 76.2 % (42.0-75.0); Hemoglobin 8.6 g/dL (14.0-18.0); Mean Corpuscular HGB CONC 32.8 g/dL (32.0-36.0); Mean Corpuscular Hemoglobin 31.6 pg (27.0-31.0); Mean Corpuscular Volume 96.4 fL (78.0-98.0); Mean Platelet Volume 6.3 fL (7.4-10.4); Platelet Count 287 thou/uL (130-400); RBC Distribution Width 16.9 % (11.5-14.5); Red Blood Cell (RBC) Count 2.72 mill/uL (4.70-6.10); White Blood Cell (WBC) Count 17.6 thou/uL (4.8-10.8)
--- NOTE | 2019-03-14 08:02 | EKG ---
Test Reason : ROUTINE Blood Pressure : / mmHG Vent. Rate : 078 BPM Atrial Rate : 078 BPM P-R Int : 160 ms QRS Dur : 086 ms QT Int : 374 ms P-R-T Axes : 015 -16 -05 degrees QTc Int : 426 ms Sinus rhythm with Premature atrial complexes in a pattern of bigeminy Possible Anterolateral infarct , age undetermined Abnormal ECG When compared with ECG of 15-FEB-2019 13:59, (Unconfirmed) Sinus rhythm has replaced Atrial fibrillation Vent. rate has decreased BY 67 BPM Borderline criteria for Anterolateral infarct are now Present ST no longer depressed in Lateral leads Confirmed by DR. Chirag LEE ([id number]) on 03/14/2019 8:01:58 AM Referred By: GLADIS Confirmed By:DR. Chirag LEE
[2019-03-14] MEDS: Ferrous Sulfate 325 MG TAB PO SCH ×2 (10:22→17:28)
[2019-03-14] MEDS: Furosemide 20 MG TAB PO SCH ×2 (10:23→13:38)
[2019-03-14] MEDS: Docusate 100 MG CAP PO SCH ×2 (10:23→20:31)
[2019-03-14] MEDS: Pantoprazole 40 MG VIAL IVP SCH (10:23)
[2019-03-14] MEDS: Metoprolol Tartrate 25 MG TAB PO SCH ×2 (10:23→21:06)
[2019-03-14] MEDS: Polyethylene Glycol 3350 17 GM Packet PO SCH (10:24)
[2019-03-14 11:22] LABS: BF Color Red; Body Fluid Source Ascites Body Fluid; Clarity Cloudy/Turbid (Clear); Tube # EDTA; WBC Background Count 0.01
[2019-03-14 11:24] LABS: RBC Count-Automated 50000 /cumm; WBC/NonHematic-Auto 344 /cumm
--- NOTE | 2019-03-14 11:43 | PDOC.GSPN ---
Surgery Progress Note: Subj - Subjective Patient reports: feels better (Had paracentesis this am, he has less abdominal fullness. His pain is better controlled on the Fentanyl patch) Surgery Progress Note: Obj - Vital signs Vital signs: Vital Signs - Most Recent Temp Pulse Resp BP Pulse Ox 97.7 F 78 14 114/69 92 L 03/14/19 07:57 03/14/19 07:57 03/14/19 07:57 03/14/19 07:57 03/14/19 07:57 - Physical Exam General: no distress Cardiovascular: regular rate and rhythm Respiratory: clear to auscultation Abdomen: soft, other (Less tender, less distended) Wound: healing well Surgery Progress Note: Results - Labs Result Diagrams: 03/14/19 07:53 03/14/19 05:53 Lab results: Laboratory Results - last 24 hr 03/14/19 03/14/19 03/14/19 00:35 03:07 05:53 WBC RBC Hgb Hct MCV MCH MCHC RDW Plt Count MPV Neutrophils % Lymphocytes % Monocytes % Eosinophils % Basophils % Neutrophils # Lymphocytes # Monocytes # Eosinophils # Basophils # PT INR APTT Sodium 133 L Potassium 3.6 Chloride 105 Carbon Dioxide 24 Anion Gap 8 L BUN 9 Creatinine 0.51 L Estimated GFR (MDRD) Greater than 90 Glucose 106 POC Glucose 129 H Calcium 8.0 Phosphorus Magnesium Total Bilirubin 0.5 AST 25 ALT 28 Alkaline Phosphatase 173 H Serum Total Protein 5.1 L Albumin 1.9 L Globulin 3.2 Albumin/Globulin Ratio 0.6 L Prealbumin 5.0 L Fluid Source Fluid Tube Number Fluid Color Fluid Clarity Fluid WBC Fluid RBC Fluid Comment 03/14/19 03/14/19 03/14/19 05:53 05:53 07:53 WBC 17.6 H RBC 2.72 L Hgb 8.6 L Hct 26.2 L MCV 96.4 MCH 31.6 H MCHC 32.8 RDW 16.9 H Plt Count 287 MPV 6.3 L Neutrophils % 76.2 H Lymphocytes % 10.9 L Monocytes % 9.8 Eosinophils % 2.7 Basophils % 0.4 Neutrophils # 13.4 H Lymphocytes # 1.9 Monocytes # 1.7 H Eosinophils # 0.5 Basophils # 0.1 PT 15.4 H INR 1.2 APTT 46.4 H Sodium Potassium Chloride Carbon Dioxide Anion Gap BUN Creatinine Estimated GFR (MDRD) Glucose POC Glucose Calcium Phosphorus 2.3 Magnesium 1.5 L Total Bilirubin AST ALT Alkaline Phosphatase Serum Total Protein Albumin Globulin Albumin/Globulin Ratio Prealbumin Fluid Source Fluid Tube Number Fluid Color Fluid Clarity Fluid WBC Fluid RBC Fluid Comment 03/14/19 03/14/19 09:25 10:57 WBC RBC Hgb Hct MCV MCH MCHC RDW Plt Count MPV Neutrophils % Lymphocytes % Monocytes % Eosinophils % Basophils % Neutrophils # Lymphocytes # Monocytes # Eosinophils # Basophils # PT INR APTT Sodium Potassium Chloride Carbon Dioxide Anion Gap BUN Creatinine Estimated GFR (MDRD) Glucose POC Glucose 148 H Calcium Phosphorus Magnesium Total Bilirubin AST ALT Alkaline Phosphatase Serum Total Protein Albumin Globulin Albumin/Globulin Ratio Prealbumin Fluid Source Ascites Body Fluid Fluid Tube Number EDTA Fluid Color Red Fluid Clarity Cloudy/Turbid H Fluid WBC 344 Fluid RBC 36280 Fluid Comment Note: Surgery Progress Note: A/P - Problem (1) Adenocarcinoma of small bowel Current Visit: Yes Code(s): C17.9 - MALIGNANT NEOPLASM OF SMALL INTESTINE, UNSPECIFIED Status: Acute - Plan Plan: Recurrent bulky abdominal disease -Feels better after drainage -continue lasix BID -continue tpn through weekend, Albumin 1.9, prealbumin 5 -Pain now very well controlled on fentanyl patch and tramadol -Dr. Munson covering for me this weekend
[2019-03-14] MEDS ORDERED: Acetaminophen 1,000 MG in Premix Bag 1 BAG IVPB PRN (11:45)
[2019-03-14 11:52] LABS: Eosinophils 1 %; Lymphocytes 46 %
[2019-03-14 11:53] LABS: BF Segmented Neutrophils 8 %; Cell Count Non Hematic 45 %
--- NOTE | 2019-03-14 11:54 | ULT ---
PROCEDURE: Ultrasound guided paracentesis. INDICATION: Symptomatic malignant ascites. Diagnostic paracentesis requested. FINDINGS: 3 liters of bloody ascitic fluid removed from the right lower quadrant. Sample sent to laboratory for studies. PROCEDURE NOTE: Four quadrant ultrasound shows moderate volume ascites. Pocket of fluid in the right lower quadrant w as chosen for puncture. The overlying skin was prepped and draped in the sterile manner. Local anesth esia was administered with lidocaine and bicarb. Tiny skin incision made with scalpel. A 5 [place] h catheter with needle in place was introduced into the ascitic fluid in the right abdomen under ultr asound guidance. Needle was removed and catheter attached to suction drainage. 3 liters of bloody flu id removed. There were no problems or complications. POS: [facility]
[2019-03-14] MEDS: Iron, Sodium Ferric Gluconate 250 MG in Sodium Chloride 0.9% 100 ML IVPB SCH (13:39)
[2019-03-14] MEDS: Atorvastatin Calcium 20 MG TAB PO SCH (20:31)
[2019-03-14] MEDS ORDERED: Senokot 8.6 MG TAB PO SCH (21:00)
[2019-03-14] MEDS ORDERED: Morphine 2 MG/ML SYRINGE SLOW IVP SCH (21:00)
[2019-03-14] MEDS: [UNRECOGNIZED DRUG - OTHER] IV SCH (22:28)
[2019-03-14] MEDS: SODIUM CHLORIDE IV SCH (22:28)
[2019-03-14] MEDS: SODIUM ACETATE IV SCH (22:28)
[2019-03-14] MEDS: POTASSIUM ACETATE IV SCH (22:28)
[2019-03-14] MEDS: traMADol HCl 50 MG TAB PO SCH (23:58)
[2019-03-15] MEDS: Sodium Chloride 0.9% 1,000 ML IV SCH ×2 (00:55→21:15)
[2019-03-15] MEDS: traMADol HCl 50 MG TAB PO SCH ×4 (05:15→23:57)
[2019-03-15 05:31] LABS: #Eosinphils 0.4 thou/uL (0.0-0.7); #Lymphocytes 2.2 thou/uL (1.20-3.40); #Monocytes 2.2 thou/uL (0.11-0.59); #Neutrophils 13.1 thou/uL (1.40-6.50); %Basophils 0.2 % (0.0-1.0); %Lymphocytes 12.5 % (21.0-51.0); %Monocytes 12.3 % (0.0-10.0); Hemoglobin 8.7 g/dL (14.0-18.0); Mean Corpuscular HGB CONC 32.4 g/dL (32.0-36.0); Mean Corpuscular Hemoglobin 31.1 pg (27.0-31.0); Mean Platelet Volume 6.5 fL (7.4-10.4); Platelet Count 267 thou/uL (130-400); RBC Distribution Width 17.5 % (11.5-14.5); Red Blood Cell (RBC) Count 2.79 mill/uL (4.70-6.10); White Blood Cell (WBC) Count 17.9 thou/uL (4.8-10.8)
[2019-03-15] MEDS: Dronabinol 2.5 MG CAP PO SCH ×2 (06:20→17:25)
--- NOTE | 2019-03-15 06:36 | PDOC.FM ---
- Subjective Subjective: No complaints overnight. He reports constipation with some relief following BM. Pt reports current pain regimen is keeping the edge off of his abdominal pain. Pt continues to have a good sense of humor. - Objective MAR Reviewed: Yes Vital Signs & Weight: Vital Signs (12 hours) Temp Pulse Resp BP Pulse Ox 03/15/19 03:58 97.7 F 78 16 99/61 94 L 03/14/19 23:41 98 F 81 16 104/64 94 L 03/14/19 23:07 79 16 95 03/14/19 20:00 94 L 03/14/19 19:33 98.3 F 72 16 108/62 94 L 03/14/19 19:06 74 20 Weight Admit Weight 72.575 kg Weight 77.3 kg I&O: 03/13/19 03/14/19 03/15/19 06:59 06:59 06:59 Intake Total 3940 900 1958 Output Total 600 550 975 Balance 3340 350 983 Result Diagrams: 03/15/19 05:20 03/15/19 07:29 Phys Exam - Physical Examination Constitutional: NAD (cachectic) HEENT: moist MMs Neck: no JVD Respiratory: no wheezing, clear to auscultation bilateral Cardiovascular: RRR, no significant murmur Mild distension with tenderness to palpation diffusely Musculoskeletal: no edema, pulses present Neurological: moves all 4 limbs Psychiatric: A&O x 3 Skin: cap refill <2 seconds Dx/Plan (1) Failure to thrive Code(s): [id number] - Status: Acute (2) CAD (coronary artery disease) Code(s): I25.10 - ATHSCL HEART DISEASE OF [place] CORONARY ARTERY W/O ANG PCTRS Status: Acute (3) HTN (hypertension) Code(s): I10 - ESSENTIAL (PRIMARY) HYPERTENSION Status: Acute (4) Symptomatic anemia Code(s): D64.9 - ANEMIA, UNSPECIFIED Status: Acute - Plan Plan: This is a 73 yo male Failur to thrive -Prealbunin low, on TPN -Dronnabinol for appetite stimulation -Encourage PO intake Protein calorie malnutition, moderate -As above Metastatic colon cancer -Recurrence on 01/2019, finished chemo on same date -Pt desires chemo, Dr. Bryant consulted -PT/OT/Palliative/spiritual on board Abd ascites -Paracentesis performed yesterday, does not appear to point to SBP, pending culture, prelim gram stain negative Elevated LFTs -CT abd with 0.7mm liver lesion -consider mets -Down trending Constipation -karine miralax Hypomagnesemia -Replacing, pending AM level HFpEF -Replacing fluids due to failure to thrive, may transition to lasix only based on clinical picture -Will monitor for signs of overload Hypokalemia, resolved HTN -Low BPs, hold meds Mixed iron def./anemia of chronic disease/chemo induced anemia -PO iron -s/p IV iron -Monitor labs, pending AM CBC BPH -Holding doxazosin, consider flomax if this condition becomes an issue Hx of post of afib -Resolved during that hospital stay. -Holding metoprolol due to BPs, will continue when BPs improve Addendum - Attending - Attending Attestation Date/Time: 03/15/19 5596 I personally evaluated the patient and discussed the management with Dr. Thornton. I agree with the History, Examination, Assessment and Plan documented above with any addition or exceptions noted below. Pt's mag and phos are low, will replace. He remains on tpn. Pain is controlled. Paracentesis preliminary culture is negative for bacteria. Continue nutrition.
[2019-03-15 08:27] LABS: Phosphorus 1.8 mg/dL (2.3-4.7)
[2019-03-15 08:29] LABS: ALT (SGPT) 21 U/L (8-55); AST (SGOT) 20 U/L (5-34); Albumin 1.8 g/dL (3.4-4.8); Alkaline Phosphatase 149 U/L (40-150); Anion Gap 7 mmol/L (10-20); BUN (Urea Nitrogen) 12 mg/dL (8.4-25.7); Bilirubin, Total 0.3 mg/dL (0.2-1.2); Calc. Creatinine Clearance 152 mL/min (70-130); Calcium 7.9 mg/dL (7.8-10.44); Carbon Dioxide 28 mmol/L (23-31); Chloride 99 mmol/L (98-107); Estimated GFR-MDRD Greater than 90; Glucose 129 mg/dL (83-110); Magnesium 1.5 mg/dL (1.6-2.6); Potassium 3.3 mmol/L (3.5-5.1); Protein, Total 4.8 g/dL (5.8-8.1); Sodium 131 mmol/L (136-145)
[2019-03-15] MEDS ORDERED: Magnesium 2 GM/50 ML 2 GM in Premix Bag 1 BAG IVPB SCH (09:15)
[2019-03-15] MEDS ORDERED: Potassium Phosphate 15 MMOL in Sodium Chloride 0.9% 250 ML 250 ML IVPB SCH ×2 (09:15→13:00)
[2019-03-15] MEDS: Ferrous Sulfate 325 MG TAB PO SCH ×2 (09:32→17:24)
[2019-03-15] MEDS: Docusate 100 MG CAP PO SCH ×2 (09:34→21:15)
[2019-03-15] MEDS: Furosemide 20 MG TAB PO SCH ×2 (09:34→14:54)
[2019-03-15] MEDS: Polyethylene Glycol 3350 17 GM Packet PO SCH (09:35)
[2019-03-15] MEDS: Metoprolol Tartrate 25 MG TAB PO SCH ×2 (09:35→21:14)
[2019-03-15] MEDS: Pantoprazole 40 MG VIAL IVP SCH (09:35)
[2019-03-15] MEDS: Iron, Sodium Ferric Gluconate 250 MG in Sodium Chloride 0.9% 100 ML IVPB SCH (10:20)
--- NOTE | 2019-03-15 16:10 | PRG ---
DATE OF SERVICE: 03/15/2019 SUBJECTIVE: Mr. 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 The patient was recently admitted with malaise and failure to thrive. He was also found with large abdominal ascites, which required therapeutic paracenteses, evacuating over 3 L. The patient reports significant improvement since the procedure. This morning, he is awake and alert. Although he is quite fatigued, he reports better appetite and energy. Urinary output is adequate. PHYSICAL EXAMINATION: VITAL SIGNS: Include blood pressure of 107/68, pulse 83, respiratory rate 16, temperature 97.9 degrees Fahrenheit, and oxygen saturation is 94% on room air. HEART: Reveals regular rate and rhythm. LUNGS: Clear to auscultation bilaterally. Breathing, regular and nonlabored. ABDOMEN: Soft and nontender to palpation. NEUROLOGIC: Reveals no focal deficits present. LABORATORY FINDINGS: Include a CBC with 17,900 white blood cells, hemoglobin and hematocrit 8.7 and 26.8 respectively. Platelet count is 267,000. Metabolic profile; sodium 131, potassium 3.3, chloride is 99, bicarb is 28, BUN 12, creatinine 0.48, glucose 129, and phosphorus 1.8 and magnesium 1.5. IMPRESSIONS: 1. Resolving adynamic ileus. 2. Acute hypokalemia. 3. Acute hypophosphatemia. 4. Acute hypomagnesemia. 5. Chronic malnutrition. PLAN: 1. Abnormal electrolytes. 2. Increase activity per Physical and Occupational therapy. Job ID: [id number]
[2019-03-15 17:08] LABS: Magnesium 1.8 mg/dL (1.6-2.6); Phosphorus 2.4 mg/dL (2.3-4.7)
[2019-03-15] MEDS: Atorvastatin Calcium 20 MG TAB PO SCH (21:15)
[2019-03-15] MEDS: Enoxaparin Sodium 40 MG/0.4 ML SYRINGE SC SCH (21:16)
[2019-03-15] MEDS: SODIUM ACETATE IV SCH (22:51)
[2019-03-15] MEDS: POTASSIUM ACETATE IV SCH (22:51)
[2019-03-15] MEDS: SODIUM CHLORIDE IV SCH (22:51)
[2019-03-15] MEDS: [UNRECOGNIZED DRUG - OTHER] IV SCH (22:51)
[2019-03-16] MEDS ORDERED: Milk Of Magnesia 30 ML UDCUP PO PRN (00:27)
--- NOTE | 2019-03-16 01:23 | PRG ---
DATE OF SERVICE: 03/16/2019 SUBJECTIVE: The patient is currently on the surgical floor. He is doing well this evening and is in good spirits. He states that his pain is controlled. He is tolerating a diet, albeit his appetite has not fully returned. He has been working with Physical and Occupational Therapy. His only concern is he has not had a bowel movement today. OBJECTIVE: VITAL SIGNS: Stable. The patient is afebrile. GENERAL: The patient appears in no discomfort or distress. PLAN: Continue current regimen as per the Primary Team. Job ID: [id number]
[2019-03-16] MEDS: traMADol HCl 50 MG TAB PO SCH ×4 (06:23→23:37)
[2019-03-16] MEDS: Dronabinol 2.5 MG CAP PO SCH ×2 (06:23→17:03)
--- NOTE | 2019-03-16 06:32 | PDOC.FM ---
- Subjective Subjective: Pt reports being comfortable for most of the night but admits to occasional cramping pain. He also reports not having a BM for 3 days but reports not having eaten much during this time. No CP or SOB - Objective MAR Reviewed: Yes Vital Signs & Weight: Vital Signs (12 hours) Temp Pulse Resp BP Pulse Ox 03/16/19 04:10 98.1 F 75 16 126/77 97 03/15/19 23:48 98.3 F 80 16 103/64 94 L 03/15/19 23:35 95 03/15/19 19:40 98.3 F 90 16 113/70 95 03/15/19 19:26 96 03/15/19 19:25 88 16 95 Weight Admit Weight 72.575 kg Weight 77.3 kg I&O: 03/14/19 03/15/19 03/16/19 06:59 06:59 06:59 Intake Total 900 1958 1816 Output Total 550 975 850 Balance 350 983 966 Result Diagrams: 03/15/19 05:20 03/16/19 03:30 Phys Exam - Physical Examination Constitutional: NAD HEENT: moist MMs Neck: no JVD Respiratory: no wheezing, clear to auscultation bilateral Cardiovascular: RRR, no significant murmur Gastrointestinal: soft, no distention, positive bowel sounds Mild tenderness diffusely Musculoskeletal: no edema, pulses present Neurological: normal sensation, moves all 4 limbs Psychiatric: A&O x 3 Skin: cap refill <2 seconds Dx/Plan (1) Failure to thrive Code(s): [id number] - Status: Acute (2) CAD (coronary artery disease) Code(s): I25.10 - ATHSCL HEART DISEASE OF [place] CORONARY ARTERY W/O ANG PCTRS Status: Acute (3) HTN (hypertension) Code(s): I10 - ESSENTIAL (PRIMARY) HYPERTENSION Status: Acute (4) Symptomatic anemia Code(s): D64.9 - ANEMIA, UNSPECIFIED Status: Acute - Plan Plan: This is a 73 yo male small bowel cancer, HTN, constipation, BPH Failur to thrive -Prealbunin low, on TPN -Dronnabinol for appetite stimulation -Encourage PO intake Protein calorie malnutition, moderate -As above Metastatic colon cancer -Recurrence on 01/2019, finished chemo on same date -Pt desires chemo, Dr. Bryant consulted -PT/OT/Palliative/spiritual on board Abd ascites -Paracentesis performed yesterday, does not appear to point to SBP, pending culture, prelim gram stain negative Elevated LFTs -CT abd with 0.7mm liver lesion -consider mets -Down trending Constipation -karine miralax -Colace PRN -Magnesium hydroxide PRN -One time dulcolax Hypomagnesemia -Replacing, pending AM level HFpEF -Replacing fluids due to failure to thrive, may transition to lasix only based on clinical picture -Will monitor for signs of overload Hypokalemia, resolved HTN -Low BPs, hold meds Mixed iron def./anemia of chronic disease/chemo induced anemia -PO iron -s/p IV iron -Monitor labs, pending AM CBC BPH -Holding doxazosin, consider flomax if this condition becomes an issue Hx of post of afib -Resolved during that hospital stay. -Holding metoprolol due to BPs, will continue when BPs improve Addendum - Attending - Attending Attestation Date/Time: 03/16/19 1702 I personally evaluated the patient and discussed the management with Dr. Thornton. I agree with the History, Examination, Assessment and Plan documented above with any addition or exceptions noted below. The patient complains of constipation despite stool softener and miralax. Will try mag citrate per his request. Otherwise he is stable. He remains on tpn. Will replace electrolytes as needed.
[2019-03-16 07:24] LABS: ALT (SGPT) 20 U/L (8-55); AST (SGOT) 22 U/L (5-34); Albumin 1.9 g/dL (3.4-4.8); Alkaline Phosphatase 175 U/L (40-150); Anion Gap 9 mmol/L (10-20); BUN (Urea Nitrogen) 15 mg/dL (8.4-25.7); Bilirubin, Total 0.5 mg/dL (0.2-1.2); Calc. Creatinine Clearance 169 mL/min (70-130); Calcium 8.1 mg/dL (7.8-10.44); Carbon Dioxide 29 mmol/L (23-31); Chloride 98 mmol/L (98-107); Estimated GFR-MDRD Greater than 90; Globulin 3.2 g/dL (2.4-3.5); Glucose 95 mg/dL (83-110); Potassium 3.8 mmol/L (3.5-5.1); Protein, Total 5.1 g/dL (5.8-8.1); Sodium 132 mmol/L (136-145)
[2019-03-16] MEDS: Pantoprazole 40 MG VIAL IVP SCH (08:03)
[2019-03-16] MEDS: Furosemide 20 MG TAB PO SCH ×2 (08:04→14:11)
[2019-03-16] MEDS: Docusate 100 MG CAP PO SCH ×2 (08:04→21:09)
[2019-03-16] MEDS: Polyethylene Glycol 3350 17 GM Packet PO SCH (08:04)
[2019-03-16] MEDS: Metoprolol Tartrate 25 MG TAB PO SCH ×2 (08:04→21:10)
[2019-03-16] MEDS: Ferrous Sulfate 325 MG TAB PO SCH ×2 (08:04→17:45)
[2019-03-16] MEDS: Sodium Chloride 0.9% 1,000 ML IV SCH ×2 (08:48→23:39)
[2019-03-16] MEDS ORDERED: Bisacodyl 10 MG SUPP PR SCH (09:00)
[2019-03-16] MEDS ORDERED: Magnesium Citrate 300 ML BOT PO SCH (09:30)
[2019-03-16 13:28] LABS: Magnesium 1.9 mg/dL (1.6-2.6); Phosphorus 1.9 mg/dL (2.3-4.7)
[2019-03-16] MEDS: Tamsulosin HCl 0.4 MG CAP PO SCH (17:45)
[2019-03-16] MEDS: Doxazosin Mesylate 4 MG TAB PO SCH (18:11)
[2019-03-16] MEDS: Enoxaparin Sodium 40 MG/0.4 ML SYRINGE SC SCH (21:09)
[2019-03-16] MEDS: Atorvastatin Calcium 20 MG TAB PO SCH (21:09)
[2019-03-16] MEDS ORDERED: SODIUM ACETATE IV SCH (22:00)
[2019-03-16] MEDS ORDERED: POTASSIUM ACETATE IV SCH (22:00)
[2019-03-16] MEDS ORDERED: [UNRECOGNIZED DRUG - OTHER] IV SCH (22:00)
[2019-03-16] MEDS ORDERED: SODIUM CHLORIDE IV SCH (22:00)
--- NOTE | 2019-03-17 01:42 | PRG ---
DATE OF SERVICE: 03/17/2019 SUBJECTIVE: The patient remains on the surgical floor. He had no reported issues tonight. He is tolerating p.o. He has had a bowel movement and he has been working with Physical and Occupational Therapy. The patient reports that his pain is apparently controlled. The Medicine Team has started him on Marinol to stimulate his appetite and he of course is being encouraged to increase his p.o. intake. The patient remains on TPN. PHYSICAL EXAMINATION: VITAL SIGNS: Stable. The patient is afebrile. ASSESSMENT: 1. Adynamic ileus, resolved. 2. Failure to thrive, stable. 3. Deconditioning due to the above. PLAN: Plan will be to continue encourage nutrition, physical and occupational therapy, and had discussed placement. Job ID: [id number]
[2019-03-17] MEDS: traMADol HCl 50 MG TAB PO SCH ×4 (05:11→23:17)
[2019-03-17 06:20] LABS: ALT (SGPT) 15 U/L (8-55); AST (SGOT) 22 U/L (5-34); Alkaline Phosphatase 177 U/L (40-150); Anion Gap 7 mmol/L (10-20); BUN (Urea Nitrogen) 16 mg/dL (8.4-25.7); Bilirubin, Total 0.4 mg/dL (0.2-1.2); Calc. Creatinine Clearance 168 mL/min (70-130); Calcium 8.2 mg/dL (7.8-10.44); Carbon Dioxide 32 mmol/L (23-31); Chloride 97 mmol/L (98-107); Estimated GFR-MDRD Greater than 90; Globulin 3.2 g/dL (2.4-3.5); Glucose 81 mg/dL (83-110); Magnesium 1.7 mg/dL (1.6-2.6); Potassium 4.1 mmol/L (3.5-5.1); Protein, Total 5.2 g/dL (5.8-8.1); Sodium 132 mmol/L (136-145)
[2019-03-17 06:29] LABS: Phosphorus 1.7 mg/dL (2.3-4.7)
[2019-03-17] MEDS: Dronabinol 2.5 MG CAP PO SCH ×2 (06:35→16:46)
--- NOTE | 2019-03-17 06:50 | PDOC.FM ---
- Subjective Subjective: Patient reports he does not want to eat because it causes his stomach to cramp. Denies N/V. Had a BM. - Objective Vital Signs & Weight: Vital Signs (12 hours) Temp Pulse Resp BP Pulse Ox 03/17/19 03:31 97.9 F 81 18 104/65 95 03/17/19 00:00 97.7 F 86 16 122/59 L 96 03/16/19 23:47 95 03/16/19 21:09 96 03/16/19 20:00 97.7 F 82 16 97/57 L 97 Weight Admit Weight 72.575 kg Weight 80 kg I&O: 03/15/19 03/16/19 03/17/19 06:59 06:59 06:59 Intake Total 0186 1136 2256 Output Total 975 670 575 Balance 525 726 4609 Result Diagrams: 03/15/19 05:20 03/17/19 05:45 Phys Exam - Physical Examination Constitutional: NAD Respiratory: clear to auscultation bilateral Cardiovascular: RRR, no significant murmur Gastrointestinal: soft, positive bowel sounds midline incisoin healing, tight abdomen Musculoskeletal: no edema Psychiatric: normal affect Skin: normal turgor Dx/Plan (1) Failure to thrive Code(s): [id number] - Status: Acute (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 Will try bentyl today. -Encourage PO intake Protein calorie malnutition, moderate -As above Metastatic colon cancer -Recurrence on 01/2019, finished chemo on same date -Pt desires chemo, Dr. Bryant consulted -PT/OT/Palliative/spiritual on board Abd ascites -Paracentesis done 03/15 Elevated LFTs -CT abd with 0.7mm liver lesion -Down trending Constipation, improving -karine miralax, Colace PRN, Magnesium hydroxide PRN Hypomagnesemia, improved Hypophosphatemia - 1.7, will replace today HFpEF -Replacing fluids due to failure to thrive, may transition to lasix only based on clinical picture -Will monitor for signs of overload Hypokalemia, resolved HTN -Low BPs, hold meds Mixed iron def./anemia of chronic disease/chemo induced anemia -PO iron -s/p IV iron -Monitor labs, pending AM CBC BPH -Holding doxazosin, consider flomax if this condition becomes an issue Hx of post of afib -Resolved during that hospital stay. -Holding metoprolol due to BPs, will continue when BPs improve Addendum - Attending - Attending Attestation Date/Time: 03/17/19 9509 I personally evaluated the patient and discussed the management with Dr. He. I agree with the History, Examination, Assessment and Plan documented above with any addition or exceptions noted below. Patient here for FTT. Surgery is primary team. Patient complains of some abdominal cramping, will attempt trial of Bentyl or Levsin to see if this improves pain. This is his major reason for not wanting to eat. Marinol not effective. Continue TPN, will need to watch for volume overload given his history of CHF and the large volume in TPN.
[2019-03-17] MEDS ORDERED: Magnesium 2 GM/50 ML 2 GM in Premix Bag 1 BAG IVPB SCH (07:30)
[2019-03-17] MEDS ORDERED: Sodium Phosphate 30 MMOL in Sodium Chloride 0.9% 250 ML 250 ML IVPB SCH (07:30)
[2019-03-17] MEDS: Docusate 100 MG CAP PO SCH ×2 (08:47→21:06)
[2019-03-17] MEDS: Ferrous Sulfate 325 MG TAB PO SCH ×2 (08:47→17:42)
[2019-03-17] MEDS: Polyethylene Glycol 3350 17 GM Packet PO SCH (08:47)
[2019-03-17] MEDS: Pantoprazole 40 MG VIAL IVP SCH (08:47)
[2019-03-17] MEDS: Furosemide 20 MG TAB PO SCH ×2 (08:48→14:51)
[2019-03-17] MEDS: Acetaminophen 650 MG/20.3 ML UDCUP PO PRN (09:05)
[2019-03-17] MEDS: Metoprolol Tartrate 25 MG TAB PO SCH ×2 (09:57→21:10)
[2019-03-17] MEDS: PHOS-NAK 1 PKT PACK PO SCH ×3 (10:33→21:04)
--- NOTE | 2019-03-17 10:47 | PDOC.GSPN ---
Surgery Progress Note: Subj - Subjective Narrative: Pain controlled with fentanyl patch Surgery Progress Note: Obj - Vital signs Vital signs: Vital Signs - Most Recent Temp Pulse Resp BP Pulse Ox 97.8 F 67 20 114/67 95 03/17/19 07:39 03/17/19 09:57 03/17/19 07:55 03/17/19 09:57 03/17/19 07:39 - Physical Exam General: no distress Cardiovascular: regular rate and rhythm Respiratory: clear to auscultation Abdomen: soft, non tender, distended Surgery Progress Note: Results - Labs Result Diagrams: 03/15/19 05:20 03/17/19 05:45 Lab results: Laboratory Results - last 24 hr 03/14/19 03/16/19 03/17/19 09:25 23:50 05:05 Sodium Potassium Chloride Carbon Dioxide Anion Gap BUN Creatinine Estimated GFR (MDRD) Glucose POC Glucose 129 H 125 H Calcium Phosphorus Magnesium Total Bilirubin AST ALT Alkaline Phosphatase Serum Total Protein Albumin Globulin Albumin/Globulin Ratio Fluid Diff Path Review 03/17/19 03/17/19 05:45 05:45 Sodium 132 L Potassium 4.1 Chloride 97 L Carbon Dioxide 32 H Anion Gap 7 L BUN 16 Creatinine 0.45 L Estimated GFR (MDRD) Greater than 90 Glucose 81 L POC Glucose Calcium 8.2 Phosphorus 1.7 L Magnesium 1.7 Total Bilirubin 0.4 AST 22 ALT 15 Alkaline Phosphatase 177 H Serum Total Protein 5.2 L Albumin 2.0 L Globulin 3.2 Albumin/Globulin Ratio 0.6 L Fluid Diff Path Review Surgery Progress Note: A/P - Problem (1) Adenocarcinoma of small bowel Current Visit: Yes Code(s): C17.9 - MALIGNANT NEOPLASM OF SMALL INTESTINE, UNSPECIFIED Status: Acute - Plan Plan: Bloating returned. But pain controlled on Fentanyl patch -Needs to ambulate more -cont tpn -check prealbumin sunday am -would like to keep him until prealbumin moving towards normal
--- NOTE | 2019-03-17 15:42 | PRG ---
DATE OF SERVICE: 03/16/2019 SUBJECTIVE: Mr. 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 The patient was recently admitted with malaise and failure to thrive. He was found to have a large abdominal ascites, which required therapeutic paracenteses. The patient had paracenteses on the March 14, withdrew over 3 L. The patient states that he is feeling better. He has been making good urine and reports no fever or shortness of breath. No overnight events. The patient is able to tolerate regular diet with supplement Ensure. OBJECTIVE: VITAL SIGNS: Blood pressure 110/60, pulse 80, respiratory rate 16, temperature 97, and O2 saturation 95 on room air. HEART: Regular rate and rhythm. LUNGS: Clear bilaterally. ABDOMEN: Soft, nondistended. NEUROLOGIC: No focal neurologic deficits. LABORATORY DATA: Sodium 132, potassium 3.8, magnesium 1.9, phosphorus 1.9, creatinine 0.45, albumin 1.9, total protein is 5.1. IMPRESSION: 1. Adynamic ileus, resolving. 2. Hypokalemia, resolved. 3. History of small bowel cancer with multiple abdominal surgeries perineal paracentesis. PLAN: Communicate with Pharmacy for replacement phosphorus through TPN. Continue supportive care. Continue for nutrition replacement and DVT gastritis prophylaxis. Job ID: [id number] MTDD
[2019-03-17] MEDS: Dicyclomine 10 MG CAP PO SCH ×3 (16:24→21:05)
[2019-03-17] MEDS: Enoxaparin Sodium 40 MG/0.4 ML SYRINGE SC SCH (21:05)
[2019-03-17] MEDS: Tamsulosin HCl 0.4 MG CAP PO SCH (21:06)
[2019-03-17] MEDS: Doxazosin Mesylate 4 MG TAB PO SCH (21:06)
[2019-03-17] MEDS: Atorvastatin Calcium 20 MG TAB PO SCH (21:06)
[2019-03-17] MEDS: SODIUM ACETATE IV SCH (22:11)
[2019-03-17] MEDS: POTASSIUM ACETATE IV SCH (22:11)
[2019-03-17] MEDS: [UNRECOGNIZED DRUG - OTHER] IV SCH (22:11)
[2019-03-17] MEDS: SODIUM CHLORIDE IV SCH (22:11)
[2019-03-18] MEDS: traMADol HCl 50 MG TAB PO SCH ×4 (05:34→23:01)
[2019-03-18 06:10] LABS: ALT (SGPT) 21 U/L (8-55); AST (SGOT) 32 U/L (5-34); Albumin 1.9 g/dL (3.4-4.8); Alkaline Phosphatase 252 U/L (40-150); Anion Gap 8 mmol/L (10-20); BUN (Urea Nitrogen) 15 mg/dL (8.4-25.7); Bilirubin, Total 0.5 mg/dL (0.2-1.2); Calc. Creatinine Clearance 162 mL/min (70-130); Calcium 8.1 mg/dL (7.8-10.44); Carbon Dioxide 32 mmol/L (23-31); Chloride 96 mmol/L (98-107); Estimated GFR-MDRD Greater than 90; Globulin 3.1 g/dL (2.4-3.5); Glucose 83 mg/dL (83-110); Potassium 4.6 mmol/L (3.5-5.1); Sodium 131 mmol/L (136-145)
[2019-03-18] MEDS: Dronabinol 2.5 MG CAP PO SCH (06:25)
--- NOTE | 2019-03-18 06:33 | PDOC.FM ---
- Subjective Subjective: Patient has no new complaints today. Ate some cereal today with some abdominal pain. Not sure if bentyl has helped. Plans to try some food from outside of hospital today. Reports SOB. No hypoxia but says supplemental O2 has helped SOB. - Objective Vital Signs & Weight: Vital Signs (12 hours) Temp Pulse Resp BP Pulse Ox 03/18/19 03:22 98.1 F 86 16 97/59 L 97 03/18/19 02:43 88 18 97 03/17/19 23:14 97.9 F 80 16 102/60 94 L 03/17/19 20:48 96 03/17/19 20:32 97.8 F 81 16 107/65 96 03/17/19 19:22 80 18 95 Weight Admit Weight 72.575 kg Weight 82.5 kg I&O: 03/16/19 03/17/19 03/18/19 06:59 06:59 06:59 Intake Total 1816 2946 6 Output Total 850 575 Balance 966 9150 2055 Result Diagrams: 03/15/19 05:20 03/18/19 05:35 Phys Exam - Physical Examination Constitutional: NAD HEENT: moist MMs decreased breath sounds at bases b/l Cardiovascular: RRR, no significant murmur Gastrointestinal: soft, non-tender, positive bowel sounds Musculoskeletal: no edema Neurological: moves all 4 limbs Psychiatric: normal affect Skin: normal turgor, cap refill <2 seconds Dx/Plan (1) Failure to thrive Code(s): DCA1622 - Status: Acute (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 -Dronnabinol discontinued as pt refused. Continue bentyl today -Encourage PO intake Protein calorie malnutition, moderate -As above Metastatic colon cancer -Recurrence on 01/2019, finished chemo on same date -Pt desires chemo, Dr. Bryant consulted -PT/OT/Palliative/spiritual on board Elevated LFTs, resolved -CT abd with 0.7mm liver lesion Constipation, improving -karine miralax, Colace PRN, Magnesium hydroxide PRN Hypophosphatemia - replaced yesterday, pending recheck HFpEF -Patient reports SOB today. Will consider CXR to monitor for overload Hypokalemia, resolved Hypomagnesemia, improved HTN -Low BPs, hold meds Mixed iron def./anemia of chronic disease/chemo induced anemia -Stable. PO iron, s/p IV iron, continue to monitor BPH -Holding doxazosin, consider flomax if this condition becomes an issue Hx of post of afib -Resolved during that hospital stay. -Holding metoprolol due to BPs, will continue when BPs improve Addendum - Attending - Attending Attestation Date/Time: 03/18/19 7834 I personally evaluated the patient and discussed the management with Dr. He. I agree with the History, Examination, Assessment and Plan documented above with any addition or exceptions noted below. Patient here for malnutrition and abdominal pain in the setting of GI malignancy. We are consulted for medical management of his chronic conditions. He is attempting solid food this morning in conjunction with Bentyl therapy. Will see how he tolerates and make changes based on that. Closely monitoring his I/O status due to CHF. Currently on low dose O2 therapy, but if any escalation needed or he develops LE edema, will need CXR and possible increase in Lasix dose due to the amount of volume of his TPN.
[2019-03-18] MEDS: Pantoprazole 40 MG VIAL IVP SCH (08:20)
[2019-03-18] MEDS: Furosemide 20 MG TAB PO SCH ×2 (08:20→13:41)
[2019-03-18] MEDS: Docusate 100 MG CAP PO SCH ×2 (08:21→20:46)
[2019-03-18] MEDS: Polyethylene Glycol 3350 17 GM Packet PO SCH (08:21)
[2019-03-18] MEDS: Ferrous Sulfate 325 MG TAB PO SCH ×2 (08:21→18:03)
[2019-03-18] MEDS: Dicyclomine 10 MG CAP PO SCH ×4 (08:21→20:45)
[2019-03-18] MEDS: Metoprolol Tartrate 25 MG TAB PO SCH ×2 (12:14→20:52)
--- NOTE | 2019-03-18 13:12 | PDOC.GSPN ---
Surgery Progress Note: Subj - Subjective Patient reports: no new complaints (pain controlled) Surgery Progress Note: Obj - Vital signs Vital signs: Vital Signs - Most Recent Temp Pulse Resp BP Pulse Ox 98.0 F 88 18 108/62 97 03/18/19 07:58 03/18/19 10:58 03/18/19 10:58 03/18/19 10:58 03/18/19 10:58 - Physical Exam General: no distress Respiratory: clear to auscultation Abdomen: soft, distended Wound: other (well healed) Surgery Progress Note: Results - Labs Result Diagrams: 03/15/19 05:20 03/18/19 05:35 Lab results: Laboratory Results - last 24 hr 03/18/19 03/18/19 03/18/19 05:30 05:35 05:35 Sodium 131 L Potassium 4.6 Chloride 96 L Carbon Dioxide 32 H Anion Gap 8 L BUN 15 Creatinine 0.48 L Estimated GFR (MDRD) Greater than 90 Glucose 83 POC Glucose 97 Calcium 8.1 Phosphorus 4.0 Total Bilirubin 0.5 AST 32 ALT 21 Alkaline Phosphatase 252 H Serum Total Protein 5.0 L Albumin 1.9 L Globulin 3.1 Albumin/Globulin Ratio 0.6 L 03/18/19 11:02 Sodium Potassium Chloride Carbon Dioxide Anion Gap BUN Creatinine Estimated GFR (MDRD) Glucose POC Glucose 122 H Calcium Phosphorus Total Bilirubin AST ALT Alkaline Phosphatase Serum Total Protein Albumin Globulin Albumin/Globulin Ratio Surgery Progress Note: A/P - Problem (1) Adenocarcinoma of small bowel Current Visit: Yes Code(s): C17.9 - MALIGNANT NEOPLASM OF SMALL INTESTINE, UNSPECIFIED Status: Chronic - Plan Plan: Continue tpn -recheck pre-albumin in am -home when pre-albumin approaching normal
[2019-03-18] MEDS: Atorvastatin Calcium 20 MG TAB PO SCH (20:45)
[2019-03-18] MEDS: Doxazosin Mesylate 4 MG TAB PO SCH (20:46)
[2019-03-18] MEDS: Enoxaparin Sodium 40 MG/0.4 ML SYRINGE SC SCH (20:46)
[2019-03-18] MEDS: Tamsulosin HCl 0.4 MG CAP PO SCH (20:46)
[2019-03-18] MEDS: POTASSIUM ACETATE IV SCH (22:18)
[2019-03-18] MEDS: SODIUM ACETATE IV SCH (22:18)
[2019-03-18] MEDS: [UNRECOGNIZED DRUG - OTHER] IV SCH (22:18)
[2019-03-18] MEDS: SODIUM CHLORIDE IV SCH (22:18)
[2019-03-19] MEDS: traMADol HCl 50 MG TAB PO SCH ×4 (05:12→23:03)
[2019-03-19 05:51] LABS: Anion Gap 8 mmol/L (10-20); BUN (Urea Nitrogen) 16 mg/dL (8.4-25.7); Calc. Creatinine Clearance 159 mL/min (70-130); Calcium 8.4 mg/dL (7.8-10.44); Carbon Dioxide 32 mmol/L (23-31); Chloride 96 mmol/L (98-107); Estimated GFR-MDRD Greater than 90; Glucose 83 mg/dL (83-110); Magnesium 1.7 mg/dL (1.6-2.6); Phosphorus 4.3 mg/dL (2.3-4.7); Potassium 4.3 mmol/L (3.5-5.1); Sodium 132 mmol/L (136-145)
--- NOTE | 2019-03-19 06:29 | PDOC.FM ---
- Subjective Subjective: Patient is in good spirits this morning. Reports minimal pain and is able to sit up. He is motivated to get his diabetes under control. Awaiting surgery today. - Objective Vital Signs & Weight: Vital Signs (12 hours) Temp Pulse Resp BP Pulse Ox 03/19/19 04:20 98.4 F 92 18 104/61 99 03/19/19 01:23 97 03/19/19 01:19 97 03/19/19 00:03 98.3 F 83 18 99/60 98 03/18/19 20:41 89 18 97 03/18/19 20:34 98.1 F 90 18 107/62 98 Weight Admit Weight 72.575 kg Weight 82.7 kg I&O: 03/17/19 03/18/19 03/19/19 06:59 06:59 06:59 Intake Total 2946 6 1561 Output Total 575 800 Balance 2371 6 761 Result Diagrams: 03/15/19 05:20 03/19/19 05:16 Phys Exam - Physical Examination Constitutional: NAD (obese) HEENT: moist MMs Respiratory: no wheezing, clear to auscultation bilateral Cardiovascular: RRR, no significant murmur Gastrointestinal: soft, non-tender, positive bowel sounds Neurological: non-focal Psychiatric: normal affect Skin: normal turgor, cap refill <2 seconds Dx/Plan (1) Failure to thrive Code(s): [id number] - Status: Acute (2) Adenocarcinoma of small bowel Code(s): 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 CXR completed, pending radiology read may consider dose of lasix. Plan to wean O2 today Metastatic colon cancer -Recurrence on 01/2019, finished chemo on same date -Pt desires chemo, Dr. Bryant consulted -PT/OT/Palliative/spiritual on board Elevated LFTs, resolved -CT abd with 0.7mm liver lesion Constipation, improving -Colace, Magnesium hydroxide PRN Hypokalemia, resolved Hypomagnesemia, improved Hypophosphatemia, improved HTN -BP was low but has normalized Mixed iron def./anemia of chronic disease/chemo induced anemia -Stable. PO iron, s/p IV iron, continue to monitor BPH -continue medications Hx of post of afib -Resolved during that hospital stay. Addendum - Attending - Attending Attestation Date/Time: 03/19/19 1112 I personally evaluated the patient and discussed the management with Dr. He. I agree with the History, Examination, Assessment and Plan documented above with any addition or exceptions noted below. Patient stable this morning. Had issues with solid PO intake yesterday. He is enjoying the boost shakes and we will provide those as often as he likes. Continue to ambulate. We are monitoring fluid status and if CXR shows some volume overload may consider Lasix x1. Prealbumin continues to be low. Primary team Gen Surg is managing this.
[2019-03-19] MEDS: Furosemide 20 MG TAB PO SCH ×2 (08:15→14:38)
[2019-03-19] MEDS: Dicyclomine 10 MG CAP PO SCH ×4 (08:16→20:09)
[2019-03-19] MEDS: Metoprolol Tartrate 25 MG TAB PO SCH ×2 (08:16→20:09)
[2019-03-19] MEDS: Ferrous Sulfate 325 MG TAB PO SCH ×2 (08:16→17:57)
[2019-03-19] MEDS: Polyethylene Glycol 3350 17 GM Packet PO SCH (08:16)
[2019-03-19] MEDS: Pantoprazole 40 MG VIAL IVP SCH (08:16)
[2019-03-19] MEDS: Docusate 100 MG CAP PO SCH ×2 (08:16→20:09)
--- NOTE | 2019-03-19 08:52 | PDOC.GSPN ---
Surgery Progress Note: Subj - Subjective Narrative: Increased dyspnea today Surgery Progress Note: Obj - Vital signs Vital signs: Vital Signs - Most Recent Temp Pulse Resp BP Pulse Ox 97.9 F 85 20 103/68 99 03/19/19 07:13 03/19/19 07:13 03/19/19 07:13 03/19/19 07:13 03/19/19 07:13 - Physical Exam General: no distress Cardiovascular: regular rate and rhythm Respiratory: coarse breath sounds Abdomen: soft, distended Surgery Progress Note: Results - Labs Result Diagrams: 03/15/19 05:20 03/19/19 05:16 Lab results: Laboratory Results - last 24 hr 03/14/19 03/19/19 03/19/19 03:07 00:01 05:16 Sodium 132 L Potassium 4.3 Chloride 96 L Carbon Dioxide 32 H Anion Gap 8 L BUN 16 Creatinine 0.49 L Estimated GFR (MDRD) Greater than 90 Glucose 83 POC Glucose 122 H Calcium 8.4 Phosphorus 4.3 Magnesium 1.7 Prealbumin Lipid Assoc Sialic Acid 11 03/19/19 03/19/19 05:16 06:06 Sodium Potassium Chloride Carbon Dioxide Anion Gap BUN Creatinine Estimated GFR (MDRD) Glucose POC Glucose 135 H Calcium Phosphorus Magnesium Prealbumin 7.0 L Lipid Assoc Sialic Acid Surgery Progress Note: A/P - 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 -I suspect he is going to need to stay till next week for tpn. Would prefer his pre-albumin to at least be above 10 prior to discharge.
[2019-03-19] MEDS ORDERED: Iopamidol 370 76% 100 ML VIAL ONE (10:26)
--- NOTE | 2019-03-19 10:39 | RAD ---
CHEST 1 VIEW: Date: 03/19/19 HISTORY: Metastatic small intestine cancer. Dyspnea. COMPARISON: 03/12/19 CT and chest 2 views dated 03/11/19. FINDINGS: Left PICC line in place. Right central line and injection port. There are increasing bilateral vascul ar congestive changes with evidence for small bilateral pleural effusions and subtle somewhat diffuse ground-glass opacity changes in the perihilar regions bilaterally, showing minimal worsening. IMPRESSION: Minimal worsening bilateral vascular congestion and subtle ground-glass opacity changes bilaterally, primarily in the perihilar regions, as well as small pleural effusions and costophrenic angle bluntin g. No significant lobar confluent pneumonia. Continue short-term follow-up. POS: [facility]
[2019-03-19] MEDS ORDERED: Furosemide 20 MG/2 ML VIAL SLOW IVP SCH ×2 (12:00→22:00)
[2019-03-19] MEDS ORDERED: Morphine 2 MG/ML SYRINGE SLOW IVP SCH (19:00)
--- NOTE | 2019-03-19 20:01 | RAD ---
TWO VIEWS OF THE CHEST: 03/19/19 HISTORY: Shortness of breath. COMPARISON: Portable AP chest x-ray also obtained on this date at 8:30 hours. FINDINGS: Left sided PICC line is noted in place and unchanged in position. A right internal jugular vein Medip ort catheter also remains in place. The cardiac silhouette is at the upper limits of normal in size. There are increased perihilar inter stitial densities again seen. Small bilateral pleural effusions are identified. No consolidation is s een. Vascular calcifications again seen in the thoracic aorta. No other interval change. IMPRESSION: 1. Increased interstitial densities bilaterally which could be related to mild pulmonary edema o r possibly infectious process. 2. Small bilateral pleural effusions. POS: [facility]
--- NOTE | 2019-03-19 20:06 | RAD ---
AP ABDOMINAL RADIOGRAPH 03/19/19 HISTORY: Increasing abdominal tension. COMPARISON: 02/17/19. FINDINGS: Midline skin clips have been removed. Residual contrast is seen within the colon related to prior con trasted study. Radiopaque suture material is seen overlying the left abdomen. There is dilatation and gaseous distention of loops of small bowel within the central abdomen. There is an oval shaped calcified appearing density overlying the left upper quadrant. Exact etiology is uncertain. No calculus was seen in the kidney on recent CT exam on 03/12/19. This could potentiall y represent ingested material within bowel. Degenerative changes are seen in the spine. Vascular calcifications are seen in the abdominal aorta a s well as iliac and femoral arteries. IMPRESSION: 1. Nonspecific gas filled and distended loops of small bowel in the central abdomen. Findings co uld be related to either ileus or developing small bowel obstruction. There is contrast seen througho ut the colon related to prior contrasted exam. 2. Postsurgical changes left abdomen. 3. Oval shaped calcific density overlying left upper quadrant of uncertain etiology which is dif ficult to further localize. No renal calculus is seen on the prior exam. This could be related to ing ested material within bowel. 4. Vascular calcifications. POS: [facility]
[2019-03-19] MEDS: Atorvastatin Calcium 20 MG TAB PO SCH (20:09)
[2019-03-19] MEDS: Doxazosin Mesylate 4 MG TAB PO SCH (20:09)
[2019-03-19] MEDS: Tamsulosin HCl 0.4 MG CAP PO SCH (20:09)
[2019-03-19] MEDS: Enoxaparin Sodium 40 MG/0.4 ML SYRINGE SC SCH (20:10)
[2019-03-19] MEDS: SODIUM CHLORIDE IV SCH (22:21)
[2019-03-19] MEDS: POTASSIUM CHLORIDE IV SCH (22:21)
[2019-03-19] MEDS: [UNRECOGNIZED DRUG - OTHER] IV SCH (22:21)
[2019-03-19] MEDS: POTASSIUM PHOSPHATE IV SCH (22:21)
--- NOTE | 2019-03-19 23:14 | CT ---
CT ABDOMEN AND PELVIS 03/19/19 COMPARISON: 03/12/19. HISTORY: Evaluate for diverticulitis, pain. TECHNIQUE: Axial CT imaging at 5 mm intervals from lung bases through pubic symphysis with IV and oral contrast. Coronal reformatted imaging obtained. FINDINGS: Stable small bilateral pleural effusions. Mild increased linear interstitial density noted within both lung bases. Coronary arterial calcificat ion is noted. No free intraperitoneal air. There is ascites noted within the left upper and right upper quadrant, slightly decreased in volume w hen compared to 03/12/19. There is free fluid within bilateral pericolic gutters and within the pelvis, right greater than left , slightly decreased in volume when compared to the prior examination. The peripheral contour of the liver is irregular, which may signify cirrhosis. There is a tiny hypodensity within the right lobe of the liver on image 19, too small to characterize . Gallbladder, spleen, pancreas, adrenal glands, and kidneys demonstrate no acute findings. There is a subcentimeter nonobstructing stone in the lower pole of the left kidney. There is a tiny hypodensi ty in the posterior mid pole right kidney, too small to characterize but likely representing a cyst. There is a large mass either emanating from or abutting the distal sigmoid colon/rectum, measuring 7 cm x 6.9 cm, consistent with a malignant lesion. There is sigmoid diverticulosis. There is mild wall thickening of the sigmoid colon which could signify colitis or underdistention. There is also mild d istal rectal wall thickening, a nonspecific finding. There is a mass adjacent to the descending colon on image 55 measuring 2.6 cm. There is a small bowel suture line in the mid left abdomen with a soft tissue mass in this region measuring 6 cm. There is a mesenteric mass anterior to the distal transverse colon measuring 3.8 cm. No evidence for small bowel obstruction is seen. There is a central mesenteric mass on image 67 measuring approximately 9.3 cm in transverse dimensio n. There is no evidence for small bowel obstruction. There is extensive atherosclerotic calcifications of the abdominal aorta and its branches. No retroperitoneal lymphadenopathy. Review of the osseous structures demonstrates no worrisome lytic or blastic bone lesion. IMPRESSION: Bilateral pleural effusions with diffuse ascites. Multiple mesenteric masses consistent with metastat ic disease. There is mild wall thickening versus underdistention in the region of the sigmoid colon a nd rectum. Colitis in these regions cannot be excluded. POS: [facility]
[2019-03-20] MEDS: traMADol HCl 50 MG TAB PO SCH ×4 (05:00→23:45)
[2019-03-20 05:02] LABS: ALT (SGPT) 18 U/L (8-55); AST (SGOT) 33 U/L (5-34); Albumin 1.9 g/dL (3.4-4.8); Alkaline Phosphatase 280 U/L (40-150); Anion Gap 7 mmol/L (10-20); BUN (Urea Nitrogen) 17 mg/dL (8.4-25.7); Bilirubin, Total 0.5 mg/dL (0.2-1.2); Calc. Creatinine Clearance 153 mL/min (70-130); Calcium 8.7 mg/dL (7.8-10.44); Carbon Dioxide 35 mmol/L (23-31); Chloride 96 mmol/L (98-107); Estimated GFR-MDRD Greater than 90; Globulin 3.4 g/dL (2.4-3.5); Glucose 100 mg/dL (83-110); Potassium 4.2 mmol/L (3.5-5.1); Protein, Total 5.3 g/dL (5.8-8.1); Sodium 134 mmol/L (136-145)
--- NOTE | 2019-03-20 06:19 | PDOC.FM ---
- Subjective Subjective: Mr. Melgar reports 6/10 constant abdominal pain since last night as well. Imaging was completed last night. He has had difficulty tolerating any PO intake due to abdominal pain. He says his SOB has improved and is breathing fine off O2. - Objective Vital Signs & Weight: Vital Signs (12 hours) Temp Pulse Resp BP Pulse Ox 03/20/19 04:00 98.3 F 83 18 94/56 L 98 03/20/19 00:00 98 F 85 18 109/61 99 03/19/19 23:15 88 14 98 03/19/19 20:21 97 03/19/19 19:53 105 H 14 98 03/19/19 19:29 98.3 F 96 20 119/67 97 Weight Admit Weight 72.575 kg Weight 81.7 kg I&O: 03/18/19 03/19/19 03/20/19 06:59 06:59 06:59 Intake Total 2055 2897 2922 Output Total 1050 2275 Balance 2055 1845 647 Result Diagrams: 03/15/19 05:20 03/20/19 04:25 Phys Exam - Physical Examination Constitutional: NAD Respiratory: no wheezing, clear to auscultation bilateral Cardiovascular: RRR, no significant murmur Gastrointestinal: non-tender, positive bowel sounds (abdomen tight) Musculoskeletal: no edema Neurological: non-focal Psychiatric: normal affect Skin: normal turgor, cap refill <2 seconds Dx/Plan (1) Failure to thrive Code(s): [id number] - Status: Acute (2) Adenocarcinoma of small bowel Code(s): C17.9 - MALIGNANT NEOPLASM OF SMALL INTESTINE, UNSPECIFIED Status: Chronic (3) CAD (coronary artery disease) Code(s): I25.10 - ATHSCL HEART DISEASE OF [place] CORONARY ARTERY W/O ANG PCTRS Status: Chronic (4) HTN (hypertension) Code(s): I10 - ESSENTIAL (PRIMARY) HYPERTENSION Status: Chronic - Plan Plan: Failure to thrive, protein calorie malnutrition -Prealbumin 5->7, on TPN -Continue bentyl -Encourage PO intake, may have unlimited supplemental shakes HFpEF -Patient reports SOB, however no documented hypoxia and pt able to ambulate without O2 without desaturation or SOB. Off O2 supplementation. Given IV lasix 20 x2 yesterday. Will increase daily PO dose 20->40mg BID. Continue to monitor I /Os. Had improved output yesterday. Metastatic colon cancer -Recurrence on 01/2019, finished chemo on same date -Pt desires chemo, Dr. Bryant consulted -PT/OT/Palliative/spiritual on board - CT completed yesterday showing pleural effusion and ascites Elevated LFTs, resolved -CT abd with 0.7mm liver lesion Constipation, improving -Colace, Magnesium hydroxide PRN - no SBO on imaging Hypokalemia, resolved Hypomagnesemia, improved Hypophosphatemia, improved HTN -BP normalized Mixed iron def./anemia of chronic disease/chemo induced anemia -Stable. PO iron, s/p IV iron, continue to monitor BPH -continue medications Hx of post of afib -Resolved during that hospital stay. Addendum - Attending - Attending Attestation Date/Time: 03/20/19 [id number] I personally evaluated the patient and discussed the management with Dr. He. I agree with the History, Examination, Assessment and Plan documented above with any addition or exceptions noted below. Patient overall unchanged. Continues on TPN with intermittent rechecks on prealbumin. PO diet is not going well. We are monitoring his fluid status. Some small pleural effusions and he has had increased diuresis with extra Lasix x2 yesterday. We will increase his home dose and continue to monitor. Suspect most of his dyspnea is related to atelectasis and needs more time in chair and ambulate frequently.
[2019-03-20] MEDS: Ferrous Sulfate 325 MG TAB PO SCH ×2 (08:23→17:45)
[2019-03-20] MEDS: Metoprolol Tartrate 25 MG TAB PO SCH ×2 (08:24→20:33)
[2019-03-20] MEDS: Furosemide 20 MG TAB PO SCH ×2 (08:24→13:58)
[2019-03-20] MEDS: Dicyclomine 10 MG CAP PO SCH ×4 (08:24→20:34)
[2019-03-20] MEDS: Polyethylene Glycol 3350 17 GM Packet PO SCH (08:25)
[2019-03-20] MEDS: Docusate 100 MG CAP PO SCH ×2 (08:25→20:34)
[2019-03-20] MEDS: Pantoprazole 40 MG VIAL IVP SCH (08:25)
--- NOTE | 2019-03-20 16:49 | PDOC.GSPN ---
Surgery Progress Note: Subj - Subjective Narrative: Pain still /10. CT last night showed recurrent ascites but not as severe as on admission Surgery Progress Note: Obj - Vital signs Vital signs: Vital Signs - Most Recent Temp Pulse Resp BP Pulse Ox 98.5 F 87 18 116/69 92 L 03/20/19 16:00 03/20/19 16:00 03/20/19 16:00 03/20/19 16:00 03/20/19 16:00 - Physical Exam General: no distress Cardiovascular: regular rate and rhythm Respiratory: clear to auscultation Abdomen: soft, distended Surgery Progress Note: Results - Labs Result Diagrams: 03/15/19 05:20 03/20/19 04:25 Lab results: Laboratory Results - last 24 hr 03/20/19 03/20/19 03/20/19 04:25 05:43 05:53 Sodium 134 L Potassium 4.2 Chloride 96 L Carbon Dioxide 35 H Anion Gap 7 L BUN 17 Creatinine 0.51 L Estimated GFR (MDRD) Greater than 90 Glucose 100 POC Glucose 119 H Calcium 8.7 Total Bilirubin 0.5 AST 33 ALT 18 Alkaline Phosphatase 280 H Serum Total Protein 5.3 L Albumin 1.9 L Globulin 3.4 Albumin/Globulin Ratio 0.6 L Prealbumin 8.0 L 03/20/19 11:17 Sodium Potassium Chloride Carbon Dioxide Anion Gap BUN Creatinine Estimated GFR (MDRD) Glucose POC Glucose 140 H Calcium Total Bilirubin AST ALT Alkaline Phosphatase Serum Total Protein Albumin Globulin Albumin/Globulin Ratio Prealbumin Surgery Progress Note: A/P - 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
[2019-03-20] MEDS: Tamsulosin HCl 0.4 MG CAP PO SCH (20:34)
[2019-03-20] MEDS: Doxazosin Mesylate 4 MG TAB PO SCH (20:34)
[2019-03-20] MEDS: Enoxaparin Sodium 40 MG/0.4 ML SYRINGE SC SCH (20:34)
[2019-03-20] MEDS: Atorvastatin Calcium 20 MG TAB PO SCH (20:34)
[2019-03-20] MEDS: [UNRECOGNIZED DRUG - OTHER] IV SCH (22:11)
[2019-03-20] MEDS: POTASSIUM CHLORIDE IV SCH (22:11)
[2019-03-20] MEDS: POTASSIUM PHOSPHATE IV SCH (22:11)
[2019-03-20] MEDS: SODIUM CHLORIDE IV SCH (22:11)
[2019-03-21] MEDS: Acetaminophen 650 MG/20.3 ML UDCUP PO PRN ×2 (03:34→23:39)
[2019-03-21] MEDS: traMADol HCl 50 MG TAB PO SCH (05:55)
--- NOTE | 2019-03-21 06:26 | PDOC.FM ---
- Subjective Subjective: Mr. Melgar has no new complaints this morning. Says he feels SOB intermittently. Still has difficulty eating. Has had a couple BMs recently. - Objective Vital Signs & Weight: Vital Signs (12 hours) Temp Pulse Resp BP Pulse Ox 03/21/19 03:21 98.4 F 88 16 124/67 95 03/21/19 00:44 12 03/20/19 23:06 98.4 F 80 16 101/63 96 03/20/19 20:35 95 03/20/19 19:47 85 12 95 03/20/19 19:15 98.5 F 82 16 116/65 95 Weight Admit Weight 72.575 kg Weight 81 kg I&O: 03/19/19 03/20/19 03/21/19 06:59 06:59 06:59 Intake Total 2897 2922 Output Total 1050 9716 250 Balance 3236 127 250 Result Diagrams: 03/15/19 05:20 03/20/19 04:25 Phys Exam - Physical Examination Constitutional: NAD Respiratory: clear to auscultation bilateral (decreased breath sounds lower lobes) Cardiovascular: RRR, no significant murmur Gastrointestinal: positive bowel sounds (mild TTP diffusely) Musculoskeletal: no edema Neurological: non-focal Psychiatric: normal affect Skin: normal turgor Dx/Plan (1) Failure to thrive Code(s): [id number] - Status: Acute (2) Adenocarcinoma of small bowel Code(s): C17.9 - MALIGNANT NEOPLASM OF SMALL INTESTINE, UNSPECIFIED Status: Chronic (3) CAD (coronary artery disease) Code(s): I25.10 - ATHSCL HEART DISEASE OF [place] CORONARY ARTERY W/O ANG PCTRS Status: Chronic (4) HTN (hypertension) Code(s): I10 - ESSENTIAL (PRIMARY) HYPERTENSION Status: Chronic - Plan Plan: Failure to thrive, protein calorie malnutrition -Prealbumin 5->7, on TPN -Continue bentyl -Encourage PO intake, may have unlimited supplemental shakes HFpEF -Patient reports SOB, however no documented hypoxia and pt able to ambulate without O2 without desaturation or SOB. Continue increased Lasix daily PO dose 40mg BID. Continue to monitor I/Os. Patient encouraged to ambulate, use IS, sit in chair frequently. Metastatic colon cancer -Recurrence on 01/2019, finished chemo on same date -Dr. Bryant consulted -PT/OT/Palliative/spiritual on board - CT 03/19 showing pleural effusion and ascites Elevated LFTs, resolved -CT abd with 0.7mm liver lesion, possible cirrhosis Constipation, improving -Colace, Magnesium hydroxide PRN -no SBO on imaging Hypokalemia, resolved Hypomagnesemia, improved Hypophosphatemia, improved HTN -stable Mixed iron def./anemia of chronic disease/chemo induced anemia -Stable. PO iron, s/p IV iron, continue to monitor BPH -continue medications Hx of post of afib -Resolved during that hospital stay. Addendum - Attending - Attending Attestation Date/Time: 03/21/19 [id number] I personally evaluated the patient and discussed the management with Dr. He. I agree with the History, Examination, Assessment and Plan documented above with any addition or exceptions noted below. Patient continues to be stable. Still unable to tolerate much PO intake. Continues on TPN per the primary service. We are monitoring fluid balance and he is currently doing well from that standpoint.
[2019-03-21] MEDS: Docusate 100 MG CAP PO SCH ×2 (08:49→20:33)
[2019-03-21] MEDS: Ferrous Sulfate 325 MG TAB PO SCH ×2 (08:49→16:55)
[2019-03-21] MEDS: Dicyclomine 10 MG CAP PO SCH ×4 (08:49→20:33)
[2019-03-21] MEDS: Pantoprazole 40 MG VIAL IVP SCH (08:50)
[2019-03-21] MEDS: Furosemide 20 MG TAB PO SCH ×2 (08:50→14:43)
[2019-03-21] MEDS: Polyethylene Glycol 3350 17 GM Packet PO SCH (08:50)
[2019-03-21] MEDS: Metoprolol Tartrate 25 MG TAB PO SCH ×2 (08:50→20:32)
[2019-03-21] MEDS ORDERED: traMADol HCl 50 MG TAB PO PRN (09:01)
[2019-03-21] MEDS: fentaNYL 50 mcg/hour Patch TD SCH (15:05)
[2019-03-21] MEDS: Atorvastatin Calcium 20 MG TAB PO SCH (20:32)
[2019-03-21] MEDS: Tamsulosin HCl 0.4 MG CAP PO SCH (20:32)
[2019-03-21] MEDS: Enoxaparin Sodium 40 MG/0.4 ML SYRINGE SC SCH (20:32)
[2019-03-21] MEDS: Doxazosin Mesylate 4 MG TAB PO SCH (20:32)
[2019-03-21] MEDS: [UNRECOGNIZED DRUG - OTHER] IV SCH (22:19)
[2019-03-21] MEDS: SODIUM CHLORIDE IV SCH (22:19)
[2019-03-21] MEDS: POTASSIUM CHLORIDE IV SCH (22:19)
[2019-03-21] MEDS: POTASSIUM PHOSPHATE IV SCH (22:19)
[2019-03-22 07:46] LABS: ALT (SGPT) 20 U/L (8-55); AST (SGOT) 33 U/L (5-34); Albumin 2.3 g/dL (3.4-4.8); Alkaline Phosphatase 294 U/L (40-150); Anion Gap 10 mmol/L (10-20); BUN (Urea Nitrogen) 17 mg/dL (8.4-25.7); Bilirubin, Total 0.8 mg/dL (0.2-1.2); Calc. Creatinine Clearance 143 mL/min (70-130); Calcium 8.7 mg/dL (7.8-10.44); Carbon Dioxide 29 mmol/L (23-31); Chloride 100 mmol/L (98-107); Estimated GFR-MDRD Greater than 90; Globulin 3.9 g/dL (2.4-3.5); Glucose 110 mg/dL (83-110); Potassium 3.4 mmol/L (3.5-5.1); Protein, Total 6.2 g/dL (5.8-8.1); Sodium 136 mmol/L (136-145)
[2019-03-22] MEDS: Polyethylene Glycol 3350 17 GM Packet PO SCH (09:37)
[2019-03-22] MEDS: Metoprolol Tartrate 25 MG TAB PO SCH ×2 (09:37→20:02)
[2019-03-22] MEDS: Dicyclomine 10 MG CAP PO SCH ×4 (09:37→20:01)
[2019-03-22] MEDS: Docusate 100 MG CAP PO SCH ×2 (09:37→20:01)
[2019-03-22] MEDS: Furosemide 20 MG TAB PO SCH ×2 (09:37→14:57)
[2019-03-22] MEDS: Ferrous Sulfate 325 MG TAB PO SCH ×2 (09:37→17:46)
[2019-03-22] MEDS: Pantoprazole 40 MG VIAL IVP SCH (09:38)
--- NOTE | 2019-03-22 10:06 | PRG ---
DATE OF SERVICE: 03/22/2019 SUBJECTIVE: The patient has been very anxious lately per the nurses. Pain is moderately well controlled. OBJECTIVE: VITAL SIGNS: His temperature is 97.8, pulse 93, and blood pressure 121/68. GENERAL: He is fairly sleepy at this time. ABDOMEN: Soft. Mild distention. ASSESSMENT: Metastatic intestinal cancer. PLAN: We will add some Gopal sevilla Job ID: [id number]
--- NOTE | 2019-03-22 11:17 | PRG ---
DATE OF SERVICE: 03/22/2019 Mr. Melgar is a bit anxious this morning, but otherwise in no acute distress. We will continue to monitor his blood pressure and nourishment status. Job ID: [id number]
--- NOTE | 2019-03-22 12:13 | PDOC.FM ---
- Subjective Subjective: Pt resting in bed. Pt sleeping. Reports feeling tired. Denies any acute events overnight. Pt reports feeling a little more anxious at this time. - Objective MAR Reviewed: Yes Vital Signs & Weight: Vital Signs (12 hours) Temp Pulse Resp BP BP Pulse Ox 03/22/19 12:00 98.5 F 82 20 116/67 94 L 03/22/19 08:15 93 16 97 03/22/19 07:45 97.8 F 99 20 121/68 100 03/22/19 04:00 97.9 F 93 16 147/77 H 95 03/22/19 00:52 99 16 98 Weight Admit Weight 72.575 kg Weight 78.471 kg I&O: 03/21/19 03/22/19 03/23/19 06:59 06:59 06:59 Intake Total 1436 Output Total 250 1000 Balance -250 436 Result Diagrams: 03/15/19 05:20 03/22/19 07:20 Radiology Reviewed by me: Yes (No new imaging to review) Phys Exam - Physical Examination Constitutional: NAD HEENT: PERRLA, moist MMs Neck: no nodes, no JVD, supple, full ROM Respiratory: no wheezing, no rales, clear to auscultation bilateral Cardiovascular: RRR, no significant murmur, no rub Gastrointestinal: soft, no distention, positive bowel sounds mildly TTP Musculoskeletal: no edema, pulses present Neurological: non-focal, moves all 4 limbs Psychiatric: normal affect, A&O x 3 Skin: no rash, cap refill <2 seconds Dx/Plan (1) Failure to thrive Code(s): [id number] - Status: Acute (2) Adenocarcinoma of small bowel Code(s): C17.9 - MALIGNANT NEOPLASM OF SMALL INTESTINE, UNSPECIFIED Status: Chronic (3) Anemia Code(s): D64.9 - ANEMIA, UNSPECIFIED Status: Acute (4) Hyperlipidemia Code(s): E78.5 - HYPERLIPIDEMIA, UNSPECIFIED Status: Acute (5) Symptomatic anemia Code(s): D64.9 - ANEMIA, UNSPECIFIED Status: Acute (6) HTN (hypertension) Code(s): I10 - ESSENTIAL (PRIMARY) HYPERTENSION Status: Chronic - Plan Plan: Failure to thrive, protein calorie malnutrition -Prealbumin 5->7->8, on TPN -Continue bentyl -Encourage PO intake, may have unlimited supplemental shakes HFpEF -Patient reports SOB, however no documented hypoxia and pt able to ambulate without O2 without desaturation or SOB. Continue increased Lasix daily PO dose 40mg BID. Continue to monitor I/Os. Patient encouraged to ambulate, use IS, sit in chair frequently. Metastatic colon cancer -Recurrence on 01/2019, finished chemo on same date -Dr. Bryant consulted -PT/OT/Palliative/spiritual on board - CT 03/19 showing pleural effusion and ascites Elevated LFTs, resolved -CT abd with 0.7mm liver lesion, possible cirrhosis Constipation, improving -Colace, Magnesium hydroxide PRN -no SBO on imaging Hypokalemia, resolved Hypomagnesemia, improved Hypophosphatemia, improved HTN -stable Mixed iron def./anemia of chronic disease/chemo induced anemia -Stable. PO iron, s/p IV iron, continue to monitor BPH -continue medications Hx of post of afib -Resolved during that hospital stay.
[2019-03-22] MEDS: Ondansetron ODT 4 MG TAB PO PRN (14:57)
[2019-03-22] MEDS: Acetaminophen 650 MG/20.3 ML UDCUP PO PRN (19:57)
[2019-03-22] MEDS: Doxazosin Mesylate 4 MG TAB PO SCH (20:01)
[2019-03-22] MEDS: Enoxaparin Sodium 40 MG/0.4 ML SYRINGE SC SCH (20:02)
[2019-03-22] MEDS: Atorvastatin Calcium 20 MG TAB PO SCH (20:02)
[2019-03-22] MEDS: Tamsulosin HCl 0.4 MG CAP PO SCH (20:02)
[2019-03-22] MEDS: SODIUM CHLORIDE IV SCH (22:16)
[2019-03-22] MEDS: POTASSIUM PHOSPHATE IV SCH (22:16)
[2019-03-22] MEDS: POTASSIUM CHLORIDE IV SCH (22:16)
[2019-03-22] MEDS: [UNRECOGNIZED DRUG - OTHER] IV SCH (22:16)
--- NOTE | 2019-03-23 07:48 | PDOC.FM ---
- Subjective Subjective: Pt resting in bed. Reports doing well. Has no acute concerns at this time. Reports eating and drinking a little. Reports mouth feeling dry. Denies any pain. - Objective MAR Reviewed: Yes Vital Signs & Weight: Vital Signs (12 hours) Temp Pulse Resp BP Pulse Ox 03/23/19 07:38 98 16 95 03/23/19 04:29 98.3 F 86 18 103/58 L 98 03/22/19 23:46 98.3 F 80 18 106/60 96 03/22/19 23:11 83 16 03/22/19 20:04 98.7 F 100 18 111/60 97 03/22/19 20:02 97 Weight Admit Weight 72.575 kg Weight 78.471 kg I&O: 03/22/19 03/23/19 03/24/19 06:59 06:59 06:59 Intake Total 1436 3332 Output Total 1000 525 Balance 436 2807 Result Diagrams: 03/15/19 05:20 03/22/19 07:20 EKG Reviewed by me: Yes Radiology Reviewed by me: Yes (No new imaging to review) Phys Exam - Physical Examination Constitutional: NAD HEENT: PERRLA, moist MMs, oral pharynx no lesions Neck: no nodes, no JVD, supple Respiratory: no wheezing, no rales, no rhonchi, clear to auscultation bilateral Cardiovascular: RRR, no significant murmur, no rub Gastrointestinal: soft, non-tender, positive bowel sounds Mildly distended Musculoskeletal: no edema, pulses present Neurological: non-focal, normal sensation, moves all 4 limbs Psychiatric: normal affect, A&O x 3 Skin: no rash, normal turgor, cap refill <2 seconds Dx/Plan (1) Failure to thrive Code(s): [id number] - Status: Acute (2) Adenocarcinoma of small bowel Code(s): C17.9 - MALIGNANT NEOPLASM OF SMALL INTESTINE, UNSPECIFIED Status: Chronic (3) Anemia Code(s): D64.9 - ANEMIA, UNSPECIFIED Status: Acute (4) Hyperlipidemia Code(s): E78.5 - HYPERLIPIDEMIA, UNSPECIFIED Status: Acute (5) Symptomatic anemia Code(s): D64.9 - ANEMIA, UNSPECIFIED Status: Acute (6) HTN (hypertension) Code(s): I10 - ESSENTIAL (PRIMARY) HYPERTENSION Status: Chronic - Plan Plan: Failure to thrive, protein calorie malnutrition -Prealbumin 5->7->8, on TPN -Continue bentyl -Encourage PO intake, may have unlimited supplemental shakes HFpEF -Patient reports SOB, however no documented hypoxia and pt able to ambulate without O2 without desaturation or SOB. Continue increased Lasix daily PO dose 40mg BID. May consider to switch to lower dose as pt reports some dry mouth. Continue to monitor I/Os. Patient encouraged to ambulate, use IS, sit in chair frequently. Metastatic colon cancer -Recurrence on 01/2019, finished chemo on same date -Dr. Bryant consulted -PT/OT/Palliative/spiritual on board - CT 03/19 showing pleural effusion and ascites Elevated LFTs, resolved -CT abd with 0.7mm liver lesion, possible cirrhosis Constipation, improving -Colace, Magnesium hydroxide PRN -no SBO on imaging Hypokalemia, resolved Hypomagnesemia, improved Hypophosphatemia, improved -Will continue to check labs as needed and trend. HTN -stable Mixed iron def./anemia of chronic disease/chemo induced anemia -Stable. PO iron, s/p IV iron, continue to monitor BPH -continue medications Hx of post of afib -Resolved during that hospital stay.
[2019-03-23] MEDS: Metoprolol Tartrate 25 MG TAB PO SCH ×2 (08:46→20:36)
[2019-03-23] MEDS: Pantoprazole 40 MG VIAL IVP SCH (08:47)
[2019-03-23] MEDS: Dicyclomine 10 MG CAP PO SCH ×4 (08:47→20:36)
[2019-03-23] MEDS: Ferrous Sulfate 325 MG TAB PO SCH ×2 (08:47→17:40)
[2019-03-23] MEDS: Docusate 100 MG CAP PO SCH ×2 (08:47→20:36)
[2019-03-23] MEDS: Polyethylene Glycol 3350 17 GM Packet PO SCH (08:48)
[2019-03-23] MEDS: Furosemide 40 MG TAB PO SCH (08:50)
[2019-03-23] MEDS ORDERED: Furosemide 20 MG TAB PO SCH (09:00)
--- NOTE | 2019-03-23 11:18 | PRG ---
DATE OF SERVICE: 03/23/2019 Mr. Melgar this morning complains of some shortness of breath. He is sitting up in a chair and does appear to be somewhat short of breath, although he is awake and alert. Auscultation of the lungs reveals some moist rales. He has a history of heart failure and diastolic dysfunction. I would advise giving him an additional IV Lasix doses in between 20 and 40 mg and rechecking him in an hour or two. We also need to discuss with Surgery, who is in charge of monitoring his TPN, although I would recommend we go ahead and get a chemistry profile of what has not been done recently. Job ID: [id number]
[2019-03-23] MEDS ORDERED: Acetaminophen 500 MG TAB PO PRN (11:30)
--- NOTE | 2019-03-23 12:53 | PRG ---
DATE OF SERVICE: 03/23/2019 SUBJECTIVE: The patient is complaining of little bit worsening of his shortness of breath and abdominal girth. He is having some black bowel movements, but he is on iron. No nausea. The pharmacy auto corrected this since he was taking some p.o., they took him off the IV Tylenol, but the oral step does not work for him. OBJECTIVE: VITAL SIGNS: On exam, the temperature is 98.5, pulse 88, and blood pressure 111/68. His O2 saturation is 98%, but on 4 L. GENERAL: He is awake, alert. LUNGS: Clear. ASSESSMENT: Metastatic cancer. PLAN: I talked to pharmacy that I will switch him back to the [facility] and hold the oral or the pill form Lasix as needed. Job ID: [id number]
[2019-03-23] MEDS: Acetaminophen 1,000 MG in Premix Bag 1 BAG IVPB PRN ×2 (13:17→20:35)
--- NOTE | 2019-03-23 18:48 | RAD ---
CHEST TWO VIEWS: Comparison: 03-19-19 History: Worsening shortness of breath. FINDINGS: Stable right sided Mediport catheter and left sided PIC line. Stable cardiac silhouette and atheroscl erosis. Diffuse interstitial opacities, unchanged. No consolidation. Stable blunting of the costophrenic angl es. No pneumothorax. IMPRESSION: 1. No significant change. Stable bilateral pleural effusions. 2. Stable interstitial prominence which may be due to edema or infection. POS: [facility]
[2019-03-23] MEDS: Enoxaparin Sodium 40 MG/0.4 ML SYRINGE SC SCH (20:35)
[2019-03-23] MEDS: Doxazosin Mesylate 4 MG TAB PO SCH (20:36)
[2019-03-23] MEDS: Atorvastatin Calcium 20 MG TAB PO SCH (20:37)
[2019-03-23] MEDS: Tamsulosin HCl 0.4 MG CAP PO SCH (20:37)
[2019-03-23] MEDS: SODIUM CHLORIDE IV SCH (22:05)
[2019-03-23] MEDS: POTASSIUM PHOSPHATE IV SCH (22:05)
[2019-03-23] MEDS: POTASSIUM CHLORIDE IV SCH (22:05)
[2019-03-23] MEDS: [UNRECOGNIZED DRUG - OTHER] IV SCH (22:05)
[2019-03-24] MEDS: Acetaminophen 1,000 MG in Premix Bag 1 BAG IVPB PRN ×2 (03:18→10:13)
--- NOTE | 2019-03-24 06:47 | PDOC.FM ---
- Subjective Subjective: Mr. Melgar has no new complaints this morning. Says he wants to get out of bed. Denies current SOB. No swelling. Reports regular BMs. - Objective Vital Signs & Weight: Vital Signs (12 hours) Temp Pulse Resp BP BP Pulse Ox 03/24/19 03:28 98.4 F 92 16 109/62 99 03/24/19 00:04 100 03/24/19 00:03 100 03/23/19 23:55 98.5 F 79 16 100/61 100 03/23/19 20:45 100 03/23/19 19:18 93 14 100 03/23/19 19:11 98.3 F 91 16 128/78 98 Weight Admit Weight 72.575 kg Weight 78.698 kg I&O: 03/22/19 03/23/19 03/24/19 06:59 06:59 06:59 Intake Total 1436 3332 2622 Output Total 1000 525 750 Balance 436 2807 1872 Result Diagrams: 03/15/19 05:20 03/22/19 07:20 Phys Exam - Physical Examination Constitutional: NAD Respiratory: no wheezing (decreased breath sounds lower lung waters) Cardiovascular: RRR, no significant murmur Gastrointestinal: non-tender, positive bowel sounds Musculoskeletal: no edema Neurological: moves all 4 limbs Skin: normal turgor Dx/Plan (1) Failure to thrive Code(s): [id number] - Status: Acute (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 Continue increased Lasix daily PO dose 40mg BID. Continue to monitor I/Os. Patient encouraged to ambulate, use IS, sit in chair frequently. Metastatic colon cancer -Recurrence on 01/2019, finished chemo on same date -Dr. Bryant consulted -PT/OT/Palliative/spiritual on board - CT 03/19 showing pleural effusion and ascites Elevated LFTs, resolved -CT abd with 0.7mm liver lesion, possible cirrhosis Constipation, improving -Colace, Magnesium hydroxide PRN Hypokalemia, resolved Hypomagnesemia, improved Hypophosphatemia, improved -Will continue to check labs as needed and trend. HTN -stable Mixed iron def./anemia of chronic disease/chemo induced anemia -Stable. PO iron, s/p IV iron, continue to monitor BPH -continue medications Hx of post of afib -Resolved during that hospital stay. Addendum - Attending - Attending Attestation Date/Time: 03/24/19 1211 I personally evaluated the patient and discussed the management with Dr. He I agree with the History, Examination, Assessment and Plan documented above with any addition or exceptions noted below - Patient without complaints. Pain better controlled. Only tolerated small amounts of po. Afebrile VSS. A/P: 1) Failure to thrive - continue TPN; repeat prealbumin tomorrow. 2) malignant ascites- continue to monitor. 3) Small bowel adenoca- recurrent.
[2019-03-24] MEDS: Ferrous Sulfate 325 MG TAB PO SCH ×2 (09:40→17:04)
[2019-03-24] MEDS: Metoprolol Tartrate 25 MG TAB PO SCH ×2 (09:40→21:17)
[2019-03-24] MEDS: Docusate 100 MG CAP PO SCH ×3 (09:40→21:17)
[2019-03-24] MEDS: Dicyclomine 10 MG CAP PO SCH ×4 (09:40→21:17)
[2019-03-24] MEDS: Furosemide 40 MG TAB PO SCH (09:41)
[2019-03-24] MEDS: Polyethylene Glycol 3350 17 GM Packet PO SCH ×2 (09:42→09:55)
[2019-03-24] MEDS: Furosemide 20 MG TAB PO SCH ×2 (09:42→13:19)
[2019-03-24] MEDS: Pantoprazole 40 MG VIAL IVP SCH (09:42)
--- NOTE | 2019-03-24 11:20 | PDOC.GSPN ---
Surgery Progress Note: Subj - Subjective Narrative: Pain better controlled on Fentanyl 50 mcg patch. Not eating much Surgery Progress Note: Obj - Vital signs Vital signs: Vital Signs - Most Recent Temp Pulse Resp BP Pulse Ox 98 F 83 16 118/61 100 03/24/19 07:11 03/24/19 07:11 03/24/19 07:11 03/24/19 07:11 03/24/19 07:11 - Physical Exam General: no distress Cardiovascular: regular rate and rhythm Respiratory: clear to auscultation Abdomen: soft, distended, other (ascites) Surgery Progress Note: Results - Labs Result Diagrams: 03/15/19 05:20 03/22/19 07:20 Lab results: Laboratory Results - last 24 hr 03/23/19 03/24/19 23:17 05:54 POC Glucose 130 H 119 H Surgery Progress Note: A/P - Problem (1) Adenocarcinoma of small bowel Current Visit: Yes Code(s): C17.9 - MALIGNANT NEOPLASM OF SMALL INTESTINE, UNSPECIFIED Status: Chronic - Plan Plan: Small bowel adenocarcinoma -Malignancy ascites, recurred immediately after drainage -Chronic failure to thrive, on tpn, recheck prealbumin tomorrow -Will ask GI to see for management of this ascites, and Dr. Bryant to see for any other treatment options. I suspect we need to have hospice see him.
[2019-03-24] MEDS: fentaNYL 50 mcg/hour Patch TD SCH (13:22)
[2019-03-24] MEDS: Acetaminophen 500 MG TAB PO PRN (17:08)
[2019-03-24] MEDS: Ondansetron PF 4 MG/2 ML Vial SLOW IVP PRN (17:08)
[2019-03-24] MEDS: Atorvastatin Calcium 20 MG TAB PO SCH (21:17)
[2019-03-24] MEDS: Tamsulosin HCl 0.4 MG CAP PO SCH (21:17)
[2019-03-24] MEDS: Doxazosin Mesylate 4 MG TAB PO SCH (21:18)
[2019-03-24] MEDS: Enoxaparin Sodium 40 MG/0.4 ML SYRINGE SC SCH (21:18)
[2019-03-24] MEDS: SODIUM CHLORIDE IV SCH (22:11)
[2019-03-24] MEDS: POTASSIUM PHOSPHATE IV SCH (22:11)
[2019-03-24] MEDS: POTASSIUM CHLORIDE IV SCH (22:11)
[2019-03-24] MEDS: [UNRECOGNIZED DRUG - OTHER] IV SCH (22:11)
[2019-03-25 08:16] LABS: Anion Gap 8 mmol/L (10-20); BUN (Urea Nitrogen) 17 mg/dL (8.4-25.7); Calc. Creatinine Clearance 157 mL/min (70-130); Calcium 8.6 mg/dL (7.8-10.44); Carbon Dioxide 30 mmol/L (23-31); Chloride 103 mmol/L (98-107); Estimated GFR-MDRD Greater than 90; Glucose 123 mg/dL (83-110); Potassium 3.7 mmol/L (3.5-5.1); Sodium 137 mmol/L (136-145)
[2019-03-25] MEDS: Acetaminophen 500 MG TAB PO PRN ×2 (08:29→16:33)
[2019-03-25] MEDS: Ferrous Sulfate 325 MG TAB PO SCH ×2 (08:29→16:34)
[2019-03-25] MEDS: Dicyclomine 10 MG CAP PO SCH ×4 (08:30→20:22)
[2019-03-25] MEDS: Pantoprazole 40 MG VIAL IVP SCH (08:30)
[2019-03-25] MEDS: Docusate 100 MG CAP PO SCH ×2 (08:30→20:19)
[2019-03-25] MEDS: Furosemide 20 MG TAB PO SCH ×2 (08:30→13:10)
[2019-03-25] MEDS: Metoprolol Tartrate 25 MG TAB PO SCH ×2 (08:30→20:19)
[2019-03-25] MEDS: Polyethylene Glycol 3350 17 GM Packet PO SCH (08:37)
[2019-03-25] MEDS: Furosemide 40 MG TAB PO SCH (08:38)
--- NOTE | 2019-03-25 08:39 | CON ---
DATE OF CONSULTATION: 03/24/2019 REASON FOR CONSULT: Mr. Melgar has some malignant ascites and I have been asked to see him to see if there is anything else to help with that. HISTORY OF PRESENT ILLNESS: He is a very pleasant gentleman, who works here at the hospital. He was found to have iron-deficiency anemia last year and underwent upper and lower endoscopy in May by myself. This was nondiagnostic, and plans were in process for making further evaluation, when a week later, he presented to the emergency room with abdominal pain and was found to have intraabdominal bleeding. He was found to have a 5.5 cm mass in the small bowel loops, for which he had surgery a few days later. He was treated with chemotherapy with FOLFOX. He was having his last cycle of that in late January, when he came into the office with nausea, vomiting, and diarrhea. He developed worsening pain, and a CAT scan is showing free fluid in the abdomen. Ultimately, he underwent a second surgery with Dr. Erickson and was found to have hemorrhagic metastatic disease. Presently, he was admitted in the hospital and was since on TPN. He has had a couple of paracenteses. He has had a CAT scan that shows diffuse ascites, multiple mesenteric masses consistent with metastatic disease, mild wall thickening and distention of the sigmoid colon and rectum. Presently, Mr. Melgar notes that his pain is about a 7/10 despite being on a fentanyl patch. He states he hurts all over. I have talked with Dr. Erickson. He has noted that Oncology has talked to him about options of palliative care versus trying the other treatments and we are really waiting for improved nutrition. Dr. Erickson has talked to Oncology today stating that his impression was his nutrition with TPN is the best he is going to get in light of his worsening ascites, which I do agree with. I talked with Mr. Melgar frankly this evening and he has talked with Palliative Care, but he still is interested in therapy if there is something feasible. PAST MEDICAL HISTORY: 1. Small bowel adenocarcinoma of jejunum, recurrent disease with malignant ascites, intraperitoneal metastatic disease. 2. Coronary artery disease and hypertension. PAST SURGICAL HISTORY: Small-bowel resection. Postoperative wound infection. ALLERGIES: NONE KNOWN. SOCIAL HISTORY: He has smoked in the past. Occasional alcohol. No drugs. REVIEW OF SYSTEMS: Diffuse pain. No nausea or vomiting liquids. MEDICATIONS: 1. Tylenol. 2. DuoNeb. 3. Lipitor. 4. Bentyl. 5. Colace. 6. Cardura. 7. Lovenox. 8. Iron. 9. Lasix. 10. Apresoline. 11. Ativan. 12. Zofran. 13. Protonix. 14. TPN. PHYSICAL EXAMINATION: VITAL SIGNS: Temperature is 99.3, pulse 96, and blood pressure 111/64. GENERAL: He is resting comfortably in bed. Oropharynx, no lesions. NECK: Supple. LUNGS: Clear. There is decreased respiratory excursion secondary to abdominal distention. HEART: Regular rate and rhythm. EXTREMITIES: Abdomen reveals distended abdomen with some mild voluntary guarding, but no rebound. Bowel sounds are quiescent. There are no masses or nodules palpated. There are no umbilical nodules palpated. There is no supraclavicular adenopathy palpated. EXTREMITIES: No clubbing, cyanosis, or edema. LABORATORY DATA: White count 17,000, hemoglobin 8.7, and platelet count 267. INR is 1.2 on 03/14. On 03/22, electrolytes were notable for sodium 136, potassium 3.4, BUN and creatinine of 17 and 0.52, calcium 8.7, phosphorus 4.3 on 03/19, and alkaline phosphatase 394. AST and ALT are 33 and 20, bilirubin is 0.8, and albumin 2.3. Pre-albumin was 5 on 03/14, it is 8 on 03/20. ASSESSMENT: 1. Metastatic adenocarcinoma of small bowel, now with intraperitoneal involvement and malignant ascites and masses. 2. Poor p.o. intake secondary to #1. 3. Coronary artery disease. RECOMMENDATIONS: 1. We would need to have a multidisciplinary meeting with Oncology and determine if he is going to have opportunity for other treatments of if there was any other treatments that are available with us it would be local or in another facility. If it is another facility, at that time, he needs to be optimized now as he probably is not going to have any better nutritional status than he has presently due to the rapid worsening of his malignant ascites. On the other hand, if he is not going to be a candidate for further treatment because of his current nutritional status or other factors, then I would move towards palliative care. 2. With regard to the ascites, if he is going to be on palliative care, this can be done with serial paracenteses as needed either through Interventional Radiology or Hospice if he goes that route. The other option would be some type of catheter placements to drain the peritoneal cavity with malignant ascites or often clot and especially if there is blood mixed in the ascites and would stop functioning relatively soon. If he is going to have further therapy, the only option for palliation of his discomfort would be paracentesis because of the high risk of infection with indwelling catheters that would be limited to a palliative situation only with no treatment planned. I have discussed this with the patient in detail. We will follow along with you. Job ID: [id number]
--- NOTE | 2019-03-25 12:16 | PDOC.GSPN ---
Surgery Progress Note: Subj - Subjective Narrative: Pain controlled Surgery Progress Note: Obj - Vital signs Vital signs: Vital Signs - Most Recent Temp Pulse Resp BP Pulse Ox 98.1 F 91 18 100/62 100 03/25/19 12:08 03/25/19 12:08 03/25/19 12:08 03/25/19 12:08 03/25/19 12:08 - Physical Exam General: no distress Abdomen: soft, distended Surgery Progress Note: Results - Labs Result Diagrams: 03/15/19 05:20 03/25/19 07:34 Lab results: Laboratory Results - last 24 hr 03/25/19 03/25/19 03/25/19 05:20 07:34 07:34 Sodium 137 Potassium 3.7 Chloride 103 Carbon Dioxide 30 Anion Gap 8 L BUN 17 Creatinine 0.48 L Estimated GFR (MDRD) Greater than 90 Glucose 123 H POC Glucose 107 Calcium 8.6 Phosphorus 3.0 Magnesium 2.0 Prealbumin 7.0 L 03/25/19 11:58 Sodium Potassium Chloride Carbon Dioxide Anion Gap BUN Creatinine Estimated GFR (MDRD) Glucose POC Glucose 116 H Calcium Phosphorus Magnesium Prealbumin Surgery Progress Note: A/P - Problem (1) Adenocarcinoma of small bowel Current Visit: Yes Code(s): C17.9 - MALIGNANT NEOPLASM OF SMALL INTESTINE, UNSPECIFIED Status: Chronic - Plan Plan: Paracentesis today -hopefully can then increase PO prior to DC -Prealbumin still low after a week of TPN, won't expect much benefit now -Palliative care
--- NOTE | 2019-03-25 12:35 | PDOC.FM ---
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 Continue increased Lasix daily PO dose 40mg BID. Continue to monitor I/Os. Patient encouraged to ambulate, use IS, sit in chair frequently. Metastatic colon cancer -Recurrence on 01/2019, finished chemo on same date -Dr. Bryant consulted -PT/OT/Palliative/spiritual on board - CT 03/19 showing pleural effusion and ascites Elevated LFTs, resolved -CT abd with 0.7mm liver lesion, possible cirrhosis Constipation, improving -Colace, Magnesium hydroxide PRN Hypokalemia, resolved Hypomagnesemia, improved Hypophosphatemia, improved -Will continue to check labs as needed and trend. HTN -stable Mixed iron def./anemia of chronic disease/chemo induced anemia -Stable. PO iron, s/p IV iron, continue to monitor BPH -continue medications Hx of post of afib -Resolved during that hospital stay. Addendum - Attending - Attending Attestation Date/Time: 03/26/19 0910 I personally evaluated the patient and discussed the management with Dr. He on 03/25/2019 I agree with the History, Examination, Assessment and Plan documented above with any addition or exceptions noted below - Patient feeling distended from ascites. Afebrile VSS. A/P: 1) Samll bowel adenoca- plan for paracentesis today for symptom management. 2) Nutrition- continue TPN
--- NOTE | 2019-03-25 12:36 | PDOC.MOPN ---
Interval History: Pt began eating/drinking the last couple days and sitting up in the chair. He is working with PT. He continues on TPN. His abdomen is distended and uncomfortable from malignant ascites. - Vital Signs Vital Signs: Vital Signs (12 hours) Temp Pulse Resp BP BP Pulse Ox 03/25/19 12:08 98.1 F 91 18 100/62 100 03/25/19 08:30 99 03/25/19 08:00 98.7 F 93 14 116/72 99 03/25/19 06:27 89 16 98 03/25/19 04:00 98.8 F 94 16 110/62 96 Weight Admit Weight 160 lb Weight 176 lb 1 oz - Physical Exam General: Alert, Oriented x3, No acute distress HEENT: Atraumatic, PERRLA, EOMI, Mucous membr. moist/pink Lungs: Clear to auscultation, Normal air movement Cardiovascular: Regular rate, Normal S1, Normal S2, No murmurs, Gallops, Rubs Abdomen: Other (tense, distended abdomen w/ascites, tender to palpation) Extremities: No clubbing, No cyanosis, No edema, Normal pulses, No tenderness/ swelling Skin: No rashes, No breakdown, No significant lesion Neurological: Cranial nerves 3-12 NL Psych/Mental Status: Mental status NL, Mood NL - Labs Result Diagrams: 03/15/19 05:20 03/25/19 07:34 A/P - Problem (1) Adenocarcinoma of small bowel Current Visit: Yes Code(s): C17.9 - MALIGNANT NEOPLASM OF SMALL INTESTINE, UNSPECIFIED Status: Chronic - Plan Plan: Pt has very aggressive adenocarcinoma of the small bowel which progressed through 1st-line FOLFOX. He is clinically improving, albeit very slowly. He has just started to eat/drink and participate with PT. I discussed further chemotherapy with him. In order for me to treat him, he will need to increase his PO intake further, come off TPN, and improve his functional status more than he has. He is doing a little better so will re-evaluate his functional status again next week. encourage PO intake and cooperation with PT paracentesis today: consider drain placement for recurrent malignant ascites f/u [facility] testing on pathology which may show an actionable mutation re-evaluate clinical status over the next week agree with palliative care
[2019-03-25] MEDS ORDERED: Sodium Bicarbonate 2.5 MEQ/5 ML VIAL ONE (14:10)
--- NOTE | 2019-03-25 17:53 | ULT ---
PROCEDURE: Ultrasound guided abdominal paracentesis. INDICATION: Recurrent malignant ascites. FINDINGS: Four quadrant ultrasound showed moderate volume ascites. 2100 mL of bloody ascitic fluid removed from right lower quadrant. Postprocedure ultrasound showed minimal residual ascites. PROCEDURE NOTE: Four quadrant ultrasound reveals moderate volume ascites in all quadrants. Right lower quadrant was c hosen for puncture. Overlying skin was prepped and draped in the sterile manner. Local anesthesia adm inistered with lidocaine. Tiny skin luis made with scalpel. A 5 [place] Clic[place] catheter with guide needl e in place was introduced under ultrasound guidance into the ascites of the right lower quadrant. The needle was removed and the catheter was attached to suction drainage. 2100 mL of bloody ascitic flui d removed. Patient tolerated the procedure well and there were no problems or complications. POS: VENECIA
[2019-03-25] MEDS: Tamsulosin HCl 0.4 MG CAP PO SCH (20:18)
[2019-03-25] MEDS: Atorvastatin Calcium 20 MG TAB PO SCH (20:21)
[2019-03-25] MEDS: Doxazosin Mesylate 4 MG TAB PO SCH (20:21)
[2019-03-25] MEDS: Enoxaparin Sodium 40 MG/0.4 ML SYRINGE SC SCH (20:24)
[2019-03-25] MEDS: POTASSIUM CHLORIDE IV SCH (22:10)
[2019-03-25] MEDS: POTASSIUM PHOSPHATE IV SCH (22:10)
[2019-03-25] MEDS: [UNRECOGNIZED DRUG - OTHER] IV SCH (22:10)
[2019-03-25] MEDS: SODIUM CHLORIDE IV SCH (22:10)
[2019-03-26] MEDS: Acetaminophen 500 MG TAB PO PRN ×3 (02:46→17:31)
--- NOTE | 2019-03-26 02:46 | CON ---
DATE OF CONSULTATION: 03/25/2019 HISTORY OF PRESENT ILLNESS: Mr. Melgar had paracentesis today. Intake was about 2.5 L. He is feeling less tense in his abdomen and is able to eat a little bit more. He was also seen by his oncologist. I have reviewed their note. He does have a little bit of incontinence. His pain is better controlled. He notes he has had about two or three bowel movements a day. PHYSICAL EXAMINATION: VITAL SIGNS: T-max 99.6, T-current 98.3, pulse 90, and blood pressure 100/62. GENERAL: Remains on DVT prophylaxis, pain control, PPI therapy. ABDOMEN: Protuberant. There is some mild tenderness. There is dullness to percussion. Bowel sounds are present, but quiet. LABORATORY DATA: Electrolytes were within normal limits. His BUN and creatinine are 17 and 0.48. ASSESSMENT: Malignant ascites seems from Oncology notes that they are okay with possible drain placement and still pursuing further therapy. Otherwise seems strength well, but I will talk with Dr. Erickson tomorrow about risks and benefits of some type of peritoneal catheter to facilitate drainage. If we are going to do that, we need to let the ascitic fluid build back up, so there is adequate place to do that. There was some risk of infection with placement of those tubes and dehydration. Once we talk to Dr. Erickson, we will again clarify with Oncology before we proceed with such a matter. Job ID: [id number]
--- NOTE | 2019-03-26 06:41 | PDOC.FM ---
- Subjective Subjective: Mr. eMlgar says he felt so much better after paracentesis yesterday. Ate a Twix last night and some cereal. Reports abdominal pain has improved. Food does not taste good and he has difficulty texture. Denies SOB, wheeze or difficulty breathing. - Objective Vital Signs & Weight: Vital Signs (12 hours) Temp Pulse Resp BP Pulse Ox 03/26/19 04:11 98.6 F 85 18 97/58 L 99 03/26/19 00:10 98.1 F 81 18 102/56 L 98 03/25/19 20:33 98.3 F 90 18 100/62 99 03/25/19 20:30 99 03/25/19 18:58 16 Weight Admit Weight 72.575 kg Weight 80.087 kg I&O: 03/24/19 03/25/19 03/26/19 06:59 06:59 06:59 Intake Total 2622 2120 2746 Output Total 156 058 8088 Balance 1872 1195 1696 Result Diagrams: 03/15/19 05:20 03/25/19 07:34 Phys Exam - Physical Examination Constitutional: NAD mild diffuse wheeze, no resp distress Cardiovascular: RRR, no significant murmur abdomen tight Musculoskeletal: no edema Neurological: non-focal Psychiatric: normal affect Skin: normal turgor Dx/Plan (1) Failure to thrive Code(s): [id number] - Status: Acute (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 Continue increased Lasix daily PO dose 40mg BID. Continue to monitor I/Os. Patient encouraged to ambulate, use IS, sit in chair frequently. Metastatic colon cancer -Recurrence on 01/2019, finished chemo on same date -Dr. Bryant consulted -PT/OT/Palliative/spiritual on board - CT 03/19 showing pleural effusion and ascites. s/p 2.5L paracentesis 03/25. Elevated LFTs, resolved -CT abd with 0.7mm liver lesion, possible cirrhosis Constipation, improving -Colace, Magnesium hydroxide PRN Hypokalemia, resolved Hypomagnesemia, improved Hypophosphatemia, improved -Will continue to check labs as needed and trend. HTN -stable Mixed iron def./anemia of chronic disease/chemo induced anemia -Stable. PO iron, s/p IV iron, continue to monitor BPH -continue medications Hx of post of afib -Resolved during that hospital stay. Addendum - Attending - Attending Attestation Date/Time: 03/26/19 1107 I personally evaluated the patient and discussed the management with Dr. He I agree with the History, Examination, Assessment and Plan documented above with any addition or exceptions noted below- Patient feeling better since paracentesis; able to eat some more yesterday and this morning. Afebrile VSS A/P : 1) Small bowel carcinoma- continue plans as per onc. 2) Malnutrition- continue TPN; encourage po intake. 3) Malignant ascites - distension improved after paracentesis; continue to monitor.
--- NOTE | 2019-03-26 08:24 | PDOC.GSPN ---
Surgery Progress Note: Subj - Subjective Narrative: Feels better after drainage of ascites. Has more of an appetite this am Surgery Progress Note: Obj - Vital signs Vital signs: Vital Signs - Most Recent Temp Pulse Resp BP Pulse Ox 98.2 F 93 20 136/71 99 03/26/19 07:38 03/26/19 07:38 03/26/19 07:38 03/26/19 07:38 03/26/19 07:38 - Physical Exam General: no distress Neck: no bruits Cardiovascular: regular rate and rhythm Respiratory: clear to auscultation Abdomen: soft, other (Less tender. Less distended) Surgery Progress Note: Results - Labs Result Diagrams: 03/15/19 05:20 03/25/19 07:34 Lab results: Laboratory Results - last 24 hr 03/26/19 03/26/19 00:09 05:34 POC Glucose 110 124 H Surgery Progress Note: A/P - Problem (1) Adenocarcinoma of small bowel Current Visit: Yes Code(s): C17.9 - MALIGNANT NEOPLASM OF SMALL INTESTINE, UNSPECIFIED Status: Chronic - Plan Plan: Small Bowel Cancer, metastatic with ascites -Plan indwelling drainage catheter next week if ascites returns. -Dr. Farmer covering for me -cont tpn until more po intake
[2019-03-26] MEDS: Ferrous Sulfate 325 MG TAB PO SCH ×2 (08:30→17:27)
[2019-03-26] MEDS: Docusate 100 MG CAP PO SCH ×2 (08:30→20:48)
[2019-03-26] MEDS: Metoprolol Tartrate 25 MG TAB PO SCH ×2 (08:30→20:48)
[2019-03-26] MEDS: Dicyclomine 10 MG CAP PO SCH ×4 (08:30→20:49)
[2019-03-26] MEDS: Pantoprazole 40 MG VIAL IVP SCH (08:31)
[2019-03-26] MEDS: Polyethylene Glycol 3350 17 GM Packet PO SCH (08:31)
[2019-03-26] MEDS: Furosemide 20 MG TAB PO SCH ×2 (08:33→14:05)
[2019-03-26] MEDS: Furosemide 40 MG TAB PO SCH (08:33)
[2019-03-26] MEDS ORDERED: Ketorolac Tromethamine 30 MG/ML VIAL IVP SCH (13:00)
--- NOTE | 2019-03-26 16:37 | PRG ---
DATE OF SERVICE: 03/26/2019 Mr. Melgar is napping in the chair. His nurse notes that he ate a pretty good breakfast today, but did not eat lunch. I have talked with Dr. Erickson. He had talked with Dr. Velazquez about the peritoneal catheter for palliation and neither one have actually placed one in a patient with malignant ascites, though we are debating that at this time. In the long-term, I think the plan is for him to get chemotherapy when he gets an improved functional status. I agree with Dr. Erickson that this is the best of his functional status he is going to get in my opinion. TPN is not going to make him much better than he is right now and his ascites problem is only going to get worse with time as the cancer progresses. If there is a plan to give other chemotherapy, the time to do that would be now. If it is not deemed that he is a candidate for chemotherapy because of his functional status presently, I do not think that is going to change with time. It is actually going to get worse over the next few weeks. If that is the case, then the patient should be told that he is not a candidate for chemotherapy, and palliative care should be instituted. At this point in time, we would tap him periodically as needed with Interventional Radiology. I will be available for assistance. We will check him periodically with them. There is nothing further to add at this point in time. Job ID: [id number]
[2019-03-26] MEDS: Doxazosin Mesylate 4 MG TAB PO SCH (20:48)
[2019-03-26] MEDS: Enoxaparin Sodium 40 MG/0.4 ML SYRINGE SC SCH (20:49)
[2019-03-26] MEDS: Tamsulosin HCl 0.4 MG CAP PO SCH (20:49)
[2019-03-26] MEDS: Atorvastatin Calcium 20 MG TAB PO SCH (20:49)
[2019-03-26] MEDS: [UNRECOGNIZED DRUG - OTHER] IV SCH (22:16)
[2019-03-26] MEDS: SODIUM CHLORIDE IV SCH (22:16)
[2019-03-26] MEDS: POTASSIUM PHOSPHATE IV SCH (22:16)
[2019-03-26] MEDS: POTASSIUM CHLORIDE IV SCH (22:16)
[2019-03-27] MEDS: Acetaminophen 500 MG TAB PO PRN (01:46)
[2019-03-27] MEDS: Ondansetron ODT 4 MG TAB PO PRN ×3 (03:13→22:16)
[2019-03-27] MEDS: Lorazepam 2 MG/ML VIAL SLOW IVP PRN ×3 (04:15→22:17)
[2019-03-27 06:08] LABS: Anion Gap 9 mmol/L (10-20); BUN (Urea Nitrogen) 23 mg/dL (8.4-25.7); Calc. Creatinine Clearance 151 mL/min (70-130); Calcium 8.4 mg/dL (7.8-10.44); Carbon Dioxide 30 mmol/L (23-31); Chloride 104 mmol/L (98-107); Estimated GFR-MDRD Greater than 90; Glucose 99 mg/dL (83-110); Phosphorus 3.4 mg/dL (2.3-4.7); Potassium 4.3 mmol/L (3.5-5.1); Sodium 139 mmol/L (136-145)
--- NOTE | 2019-03-27 06:47 | PDOC.FM ---
- Subjective Subjective: Patient sleeping in bed this morning. Reports tolerating better PO intake yesterday. Notes some acid reflux with eating. - Objective Vital Signs & Weight: Vital Signs (12 hours) Temp Pulse Resp BP Pulse Ox 03/27/19 04:00 98.5 F 95 16 119/71 98 03/27/19 00:00 98.5 F 91 16 106/63 97 03/26/19 23:31 94 16 98 03/26/19 21:08 98.1 F 86 16 104/62 100 03/26/19 20:45 98 03/26/19 18:47 82 14 100 Weight Admit Weight 72.575 kg Weight 79.107 kg I&O: 03/25/19 03/26/19 03/27/19 06:59 06:59 06:59 Intake Total 2120 2746 437 Output Total 925 1050 650 Balance 1195 1696 -213 Result Diagrams: 03/15/19 05:20 03/27/19 05:39 Phys Exam - Physical Examination Constitutional: NAD HEENT: moist MMs Respiratory: clear to auscultation bilateral (anteriorly) Cardiovascular: RRR, no significant murmur Gastrointestinal: positive bowel sounds (slightly distended, tight) Musculoskeletal: no edema Neurological: non-focal Psychiatric: normal affect Skin: normal turgor Dx/Plan (1) Failure to thrive Code(s): [id number] - Status: Acute (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 Will start H2 fela for reflux symptoms -Encourage PO intake, may have unlimited supplemental shakes HFpEF -Patient reports SOB, however no documented hypoxia and pt able to ambulate without O2 without desaturation or SOB. Continue increased Lasix daily PO dose 40mg BID. Continue to monitor I/Os. Patient encouraged to ambulate, use IS, sit in chair frequently. Metastatic colon cancer -Recurrence on 01/2019, finished chemo on same date -Dr. Bryant consulted -PT/OT/Palliative/spiritual on board - CT 03/19 showing pleural effusion and ascites. s/p 2.5L paracentesis 03/25. Elevated LFTs, resolved -CT abd with 0.7mm liver lesion, possible cirrhosis Constipation, improving -Colace, Magnesium hydroxide PRN Hypokalemia, resolved Hypomagnesemia, improved Hypophosphatemia, improved -Will continue to check labs as needed and trend. HTN -stable Mixed iron def./anemia of chronic disease/chemo induced anemia -Stable. PO iron, s/p IV iron, continue to monitor BPH -continue medications Hx of post of afib -Resolved during that hospital stay. Addendum - Attending - Attending Attestation Date/Time: 03/27/19 1045 I personally evaluated the patient and discussed the management with Dr. He I agree with the History, Examination, Assessment and Plan documented above with any addition or exceptions noted below- Patient without complaints. eating more. Feeling less distended. Afebrile VSS. A/P: 1) Small bowel carcinoma- plans as per oncology, 2) Malnutrition- Continue TPN and diet as tolerated.
[2019-03-27] MEDS: Pantoprazole 40 MG VIAL IVP SCH (08:59)
[2019-03-27] MEDS: Ferrous Sulfate 325 MG TAB PO SCH ×2 (08:59→16:58)
[2019-03-27] MEDS: Furosemide 20 MG TAB PO SCH ×2 (08:59→14:46)
[2019-03-27] MEDS: Dicyclomine 10 MG CAP PO SCH ×4 (08:59→20:08)
[2019-03-27] MEDS: Docusate 100 MG CAP PO SCH ×2 (08:59→20:09)
[2019-03-27] MEDS: Metoprolol Tartrate 25 MG TAB PO SCH ×2 (09:00→20:08)
[2019-03-27] MEDS: Polyethylene Glycol 3350 17 GM Packet PO SCH (09:12)
--- NOTE | 2019-03-27 11:07 | PDOC.MOPN ---
Interval History: states eating more, up in chair for several hours throughout the day. Pain controlled. - Vital Signs Vital Signs: Vital Signs (12 hours) Temp Pulse Resp BP Pulse Ox 03/27/19 07:23 95 03/27/19 07:21 92 16 98 03/27/19 07:18 98.5 F 87 18 104/65 98 03/27/19 04:00 98.5 F 95 16 119/71 98 03/27/19 00:00 98.5 F 91 16 106/63 97 03/26/19 23:31 94 16 98 Weight Admit Weight 160 lb Weight 174 lb 6.4 oz - Physical Exam General: Alert, Oriented x3 HEENT: Atraumatic Lungs: Clear to auscultation Cardiovascular: Regular rate Abdomen: Other Extremities: No edema Skin: No rashes Neurological: Normal speech Psych/Mental Status: Mental status NL - Labs Result Diagrams: 03/15/19 05:20 03/27/19 05:39 Lab results: Laboratory Results - last 24 hr 03/27/19 05:39: Sodium 139, Potassium 4.3, Chloride 104, Carbon Dioxide 30, Anion Gap 9 L, BUN 23, Creatinine 0.50 L, Estimated GFR (MDRD) Greater than 90 , Glucose 99, Calcium 8.4, Phosphorus 3.4, Magnesium 2.0 03/27/19 05:38: POC Glucose 107 03/26/19 23:33: POC Glucose 124 H 03/26/19 18:01: POC Glucose 93 03/26/19 11:56: POC Glucose 123 H Status: lab reviewed by me A/P - Problem (1) Malignant ascites Current Visit: Yes Code(s): R18.0 - MALIGNANT ASCITES Status: Acute (2) Adenocarcinoma of small bowel Current Visit: Yes Code(s): C17.9 - MALIGNANT NEOPLASM OF SMALL INTESTINE, UNSPECIFIED Status: Chronic - Plan Plan: [facility] testing sent, expect results next week If actionable mutation, will start treatment Discussed hospice as well encourage PO intake and cooperation with PT paracentesis prn: consider drain placement for recurrent malignant ascites
[2019-03-27] MEDS: Ondansetron PF 4 MG/2 ML Vial SLOW IVP PRN ×2 (13:00→18:35)
[2019-03-27] MEDS: fentaNYL 50 mcg/hour Patch TD SCH (14:43)
[2019-03-27] MEDS: Tamsulosin HCl 0.4 MG CAP PO SCH (20:08)
[2019-03-27] MEDS: Famotidine 20 MG TAB PO SCH (20:08)
[2019-03-27] MEDS: Enoxaparin Sodium 40 MG/0.4 ML SYRINGE SC SCH (20:08)
[2019-03-27] MEDS: Doxazosin Mesylate 4 MG TAB PO SCH (20:08)
[2019-03-27] MEDS: Atorvastatin Calcium 20 MG TAB PO SCH (20:08)
[2019-03-27] MEDS: SODIUM CHLORIDE IV SCH (22:16)
[2019-03-27] MEDS: POTASSIUM CHLORIDE IV SCH (22:16)
[2019-03-27] MEDS: POTASSIUM PHOSPHATE IV SCH (22:16)
[2019-03-27] MEDS: Calcium Carbonate 500 MG ChewTAB PO PRN (22:16)
[2019-03-27] MEDS: [UNRECOGNIZED DRUG - OTHER] IV SCH (22:16)
[2019-03-28 06:19] LABS: #Basophils 0.1 thou/uL (0.0-0.2); #Eosinphils 0.2 thou/uL (0.0-0.7); #Lymphocytes 1.6 thou/uL (1.20-3.40); #Monocytes 1.4 thou/uL (0.11-0.59); #Neutrophils 11.3 thou/uL (1.40-6.50); %Basophils 0.4 % (0.0-1.0); %Eosinophils 1.1 % (0.0-10.0); %Monocytes 9.5 % (0.0-10.0); %Neutrophils 78.1 % (42.0-75.0); Hemoglobin 6.8 g/dL (14.0-18.0); Mean Corpuscular HGB CONC 31.3 g/dL (32.0-36.0); Mean Corpuscular Hemoglobin 30.4 pg (27.0-31.0); Mean Platelet Volume 7.2 fL (7.4-10.4); Platelet Count 286 thou/uL (130-400); RBC Distribution Width 17.9 % (11.5-14.5); Red Blood Cell (RBC) Count 2.23 mill/uL (4.70-6.10); White Blood Cell (WBC) Count 14.4 thou/uL (4.8-10.8)
--- NOTE | 2019-03-28 06:38 | PDOC.FM ---
- Subjective Subjective: Mr. Melgar notes eating was uncomfortable yesterday due to acid reflux. Otherwise he notes he feels a little groggy this morning. He remembers being disoriented last night. - Objective Vital Signs & Weight: Vital Signs (12 hours) Temp Pulse Resp BP Pulse Ox 03/27/19 23:13 98 03/27/19 20:08 99 03/27/19 20:05 98.6 F 104 H 16 138/77 99 03/27/19 20:02 97 03/27/19 19:59 98 Weight Admit Weight 72.575 kg Weight 78.88 kg I&O: 03/26/19 03/27/19 03/28/19 06:59 06:59 06:59 Intake Total 2746 437 2932 Output Total 1050 650 825 Balance 1696 -213 2107 Result Diagrams: 03/28/19 06:05 03/27/19 05:39 Phys Exam - Physical Examination Constitutional: NAD Respiratory: clear to auscultation bilateral (anteriorly) Cardiovascular: RRR, no significant murmur slightly distended, tight, TTP Musculoskeletal: no edema Neurological: moves all 4 limbs Psychiatric: normal affect Skin: normal turgor Dx/Plan (1) Failure to thrive Code(s): [id number] - Status: Acute (2) Adenocarcinoma of small bowel Code(s): 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 H2 fela for reflux symptoms -Encourage PO intake, may have unlimited supplemental shakes HFpEF -Patient reports SOB, however no documented hypoxia and pt able to ambulate without O2 without desaturation or SOB. Continue increased Lasix daily PO dose 40mg BID. Continue to monitor I/Os. Patient encouraged to ambulate, use IS, sit in chair frequently. Metastatic colon cancer -Recurrence on 01/2019, finished chemo on same date -Dr. Bryant consulted, pending results for possible chemo -PT/OT/Palliative/spiritual on board - CT 03/19 showing pleural effusion and ascites. s/p 2.5L paracentesis 03/25. Elevated LFTs, resolved -CT abd with 0.7mm liver lesion, possible cirrhosis Constipation, improving -Colace, Magnesium hydroxide PRN Hypokalemia, resolved Hypomagnesemia, improved Hypophosphatemia, improved -Will continue to check labs as needed and trend. HTN -stable Mixed iron def./anemia of chronic disease/chemo induced anemia -Stable. PO iron, s/p IV iron, continue to monitor BPH -continue medications Hx of post of afib -Resolved during that hospital stay. Addendum - Attending - Attending Attestation Date/Time: 03/28/19 4165 I personally evaluated the patient and discussed the management with Dr. He I agree with the History, Examination, Assessment and Plan documented above with any addition or exceptions noted below - Patient resting. Feeling a little weak. Still c/o heartburn. Afebrile VSS. A/P: 1) Small bowel carcinoma- continue current treatment. 2) Anemia- will transfuse 1 u pRBCs today and recheck. 3) Malnutrition - continue TPN.
[2019-03-28] MEDS: Ferrous Sulfate 325 MG TAB PO SCH ×2 (08:16→16:28)
[2019-03-28] MEDS: Polyethylene Glycol 3350 17 GM Packet PO SCH (08:16)
[2019-03-28] MEDS: Dicyclomine 10 MG CAP PO SCH ×4 (08:16→20:11)
[2019-03-28] MEDS: Docusate 100 MG CAP PO SCH ×2 (08:17→20:11)
[2019-03-28] MEDS: Furosemide 20 MG TAB PO SCH ×2 (08:17→16:28)
[2019-03-28] MEDS: Famotidine 20 MG TAB PO SCH (08:17)
[2019-03-28] MEDS: Metoprolol Tartrate 25 MG TAB PO SCH ×2 (08:21→20:10)
[2019-03-28] MEDS: Pantoprazole 40 MG VIAL IVP SCH (08:21)
[2019-03-28] MEDS: Acetaminophen 500 MG TAB PO PRN ×2 (10:41→20:10)
[2019-03-28 12:39] LABS: Bilirubin Negative (Negative); Blood, Urine Negative (Negative); Clarity Clear (Clear); Glucose, Urine (Dipstick) Normal (Negative); Leukocyte Negative Leu/uL (Negative); Nitrite Negative (Negative); Protein, Urine (Dipstick) Negative (Neg-Trace); Urobilinogen 6 mg/dL (Less than 2)
--- NOTE | 2019-03-28 14:09 | PDOC.MOPN ---
Interval History: Events of last night noted. Patient sleeping, nurse states "out of it" today. - Vital Signs Vital Signs: Vital Signs (12 hours) Temp Pulse Resp BP Pulse Ox 03/28/19 12:43 92 16 95 03/28/19 11:00 98.4 F 88 18 107/63 98 03/28/19 07:20 98.7 F 96 18 107/66 96 03/28/19 06:45 95 03/28/19 06:41 99 16 95 Weight Admit Weight 160 lb Weight 173 lb 14.4 oz - Physical Exam General: No acute distress Lungs: Clear to auscultation Cardiovascular: Regular rate Abdomen: Other Extremities: No edema Skin: No rashes - Labs Result Diagrams: 03/28/19 06:05 03/27/19 05:39 Lab results: Laboratory Results - last 24 hr 03/28/19 12:03: Urine Color Yellow, Urine Clarity Clear, Urine pH 6.5, Ur Specific Cantril 1.016, Urine Protein Negative, Urine Glucose (UA) Normal, Urine Ketones Negative, Urine Blood Negative, Urine Nitrite Negative, Urine Bilirubin Negative, Urine Urobilinogen 6 A, Ur Leukocyte Esterase Negative 03/28/19 11:31: Blood Type B POSITIVE, Antibody Screen NEGATIVE, Crossmatch See Detail 03/28/19 10:53: POC Glucose 133 H 03/28/19 06:05: WBC 14.4 H, RBC 2.23 L, Hgb 6.8 L, Hct 21.6 L, MCV 97.0, MCH 30.4, MCHC 31.3 L, RDW 17.9 H, Plt Count 286, MPV 7.2 L, Neutrophils % 78.1 H, Lymphocytes % 11.0 L, Monocytes % 9.5, Eosinophils % 1.1, Basophils % 0.4, Neutrophils # 11.3 H, Lymphocytes # 1.6, Monocytes # 1.4 H, Eosinophils # 0.2, Basophils # 0.1 Status: lab reviewed by me A/P - Problem (1) Malignant ascites Current Visit: Yes Code(s): R18.0 - MALIGNANT ASCITES Status: Acute (2) Adenocarcinoma of small bowel Current Visit: Yes Code(s): C17.9 - MALIGNANT NEOPLASM OF SMALL INTESTINE, UNSPECIFIED Status: Chronic (3) Anemia Current Visit: Yes Code(s): D64.9 - ANEMIA, UNSPECIFIED Status: Acute Qualifiers: Anemia type: other cause - Plan Plan: [facility] testing sent, expect results next week If actionable mutation, will start treatment Further discussion regarding hospice, code status encourage PO intake and cooperation with PT paracentesis prn: consider drain placement for recurrent malignant ascites transfuse blood today
--- NOTE | 2019-03-28 19:45 | PRG ---
DATE OF SERVICE: 03/28/2019 SUBJECTIVE: Mr. Melgar is awake and alert today. He reports quite some fatigue. He remains with poor oral intake due to poor appetite. He denies any chest pain, syncope, or dyspnea. He remains on TPN, which he is tolerating. He is having good urinary output and bowel movements. OBJECTIVE: VITAL SIGNS: This morning, blood pressure 107/63, pulse 88, respiratory rate is 18, temperature 98.4 degrees Fahrenheit, oxygen saturation 98% on 2 L by nasal cannula oxygen. ABDOMEN: Soft, moderately distended and mildly tender to palpation. He has no gross rebound tenderness present. NEUROLOGIC: Reveals no focal deficits present. LABORATORY FINDINGS: Today include a CBC with 14,400 white blood cells, hemoglobin and hematocrit are 6.8 and 21.6 respectively. Platelet count is 286,000. Continue to encourage ambulation. The patient actually is motivated to work with physical therapy or walking program today when available. Encourage oral intake as tolerated. There is no acute surgical indication for this patient at this time. Job ID: [id number]
[2019-03-28] MEDS: Doxazosin Mesylate 4 MG TAB PO SCH (20:10)
[2019-03-28] MEDS: Atorvastatin Calcium 20 MG TAB PO SCH (20:10)
[2019-03-28] MEDS: Enoxaparin Sodium 40 MG/0.4 ML SYRINGE SC SCH (20:11)
[2019-03-28] MEDS: Tamsulosin HCl 0.4 MG CAP PO SCH (20:11)
[2019-03-28] MEDS: POTASSIUM PHOSPHATE IV SCH (22:28)
[2019-03-28] MEDS: POTASSIUM CHLORIDE IV SCH (22:28)
[2019-03-28] MEDS: [UNRECOGNIZED DRUG - OTHER] IV SCH (22:28)
[2019-03-28] MEDS: SODIUM CHLORIDE IV SCH (22:28)
[2019-03-29] MEDS: Acetaminophen 500 MG TAB PO PRN ×4 (02:28→21:27)
--- NOTE | 2019-03-29 07:07 | PDOC.FM ---
- Subjective Subjective: Mr. Melgar was resting comfortably in bed. He continues to sit up in chair and work with PT during the days. He has no new complaints today. PO intake still difficult. - Objective Vital Signs & Weight: Vital Signs (12 hours) Temp Pulse Resp BP Pulse Ox 03/29/19 06:29 98 03/29/19 06:28 87 16 98 03/29/19 04:13 98.3 F 89 18 119/67 98 03/28/19 23:29 95 03/28/19 20:16 98.3 F 103 H 20 145/73 H 96 03/28/19 20:07 96 03/28/19 19:30 95 03/28/19 19:28 96 Weight Admit Weight 72.575 kg Weight 78.653 kg Most Recent Monitor Data NIBP 126/68 I&O: 03/28/19 03/29/19 03/30/19 06:59 06:59 06:59 Intake Total 2932 3214 Output Total 825 1150 Balance 2107 4 Result Diagrams: 03/28/19 06:05 03/27/19 05:39 Phys Exam - Physical Examination Constitutional: NAD Respiratory: clear to auscultation bilateral (anteriorly) Cardiovascular: RRR, no significant murmur tight, slightly TTP Musculoskeletal: no edema Neurological: non-focal Psychiatric: normal affect Skin: cap refill <2 seconds Dx/Plan (1) Failure to thrive Code(s): [id number] - Status: Acute (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 Will recheck prealbumin today. -Continue bentyl. H2 fela for reflux symptoms -Encourage PO intake HFpEF -Patient reports SOB, however no documented hypoxia and pt able to ambulate without O2 without desaturation or SOB. Continue increased Lasix daily PO dose 40mg BID. Continue to monitor I/Os. Patient encouraged to ambulate, use IS, sit in chair frequently. Metastatic colon cancer -Recurrence on 01/2019, finished chemo on same date -Dr. Bryant consulted, pending results for possible chemo -PT/OT/Palliative/spiritual on board - CT 03/19 showing pleural effusion and ascites. s/p 2.5L paracentesis 03/25. Mixed iron def./anemia of chronic disease/chemo induced anemia -s/p IV iron, continue to monitor -s/p 1 u prbc 03/28, recheck this am pending Elevated LFTs, resolved -CT abd with 0.7mm liver lesion, possible cirrhosis Constipation, improving -Colace, Magnesium hydroxide PRN Hypokalemia, resolved Hypomagnesemia, improved Hypophosphatemia, improved -Will continue to check labs as needed and trend. HTN -stable BPH -continue medications Addendum - Attending - Attending Attestation Date/Time: 03/29/19 [id number] I personally evaluated the patient and discussed the management with Dr. He. I agree with the History, Examination, Assessment and Plan documented above with any addition or exceptions noted below. Patient here for malnutrition in the setting of GI malignancy. He continues on TPN with nutrition status not at goal. Has issues with PO intake. We are monitoring fluid status. Overall stable, encourage ambulation.
[2019-03-29] MEDS: Dicyclomine 10 MG CAP PO SCH ×4 (08:33→21:23)
[2019-03-29] MEDS: Furosemide 20 MG TAB PO SCH ×2 (08:33→13:51)
[2019-03-29] MEDS: Ferrous Sulfate 325 MG TAB PO SCH ×2 (08:33→17:43)
[2019-03-29] MEDS: Metoprolol Tartrate 25 MG TAB PO SCH ×2 (08:33→21:22)
[2019-03-29 08:34] LABS: Hemoglobin 8.1 g/dL (14.0-18.0); Mean Corpuscular HGB CONC 32.4 g/dL (32.0-36.0); Mean Corpuscular Hemoglobin 32.8 pg (27.0-31.0); Mean Platelet Volume 7.5 fL (7.4-10.4); Platelet Count 262 thou/uL (130-400); RBC Distribution Width 17.6 % (11.5-14.5); Red Blood Cell (RBC) Count 2.46 mill/uL (4.70-6.10); White Blood Cell (WBC) Count 12.1 thou/uL (4.8-10.8)
[2019-03-29] MEDS: Docusate 100 MG CAP PO SCH ×2 (08:34→21:22)
[2019-03-29] MEDS: Pantoprazole 40 MG VIAL IVP SCH (08:34)
[2019-03-29] MEDS: Polyethylene Glycol 3350 17 GM Packet PO SCH (08:34)
[2019-03-29 08:59] LABS: Eosinophils 2 % (0-10); Hypochromia SLIGHT = 6-15 cells (100X) (0-5/hpf); Large Platelets SLIGHT; Lymphocytes 9 % (21-51); MDiff Complete? YES; Monocytes 3 % (0-10); Neutrophil 86 % (42-75); Platelet Morphology Comment Appears Adequate; Polychromasia SLIGHT = 2-3 cells (100X) (0-2/hpf)
[2019-03-29] MEDS: Lorazepam 2 MG/ML VIAL SLOW IVP PRN (09:06)
[2019-03-29 11:00] LABS: ALT (SGPT) 41 U/L (8-55); AST (SGOT) 42 U/L (5-34); Alkaline Phosphatase 336 U/L (40-150); Anion Gap 8 mmol/L (10-20); BUN (Urea Nitrogen) 21 mg/dL (8.4-25.7); Bilirubin, Total 0.6 mg/dL (0.2-1.2); Calc. Creatinine Clearance 155 mL/min (70-130); Calcium 8.4 mg/dL (7.8-10.44); Carbon Dioxide 30 mmol/L (23-31); Chloride 104 mmol/L (98-107); Estimated GFR-MDRD Greater than 90; Globulin 3.9 g/dL (2.4-3.5); Glucose 109 mg/dL (83-110); Potassium 4.2 mmol/L (3.5-5.1); Protein, Total 5.9 g/dL (5.8-8.1); Sodium 138 mmol/L (136-145)
--- NOTE | 2019-03-29 13:19 | PRG ---
DATE OF SERVICE: 03/29/2019 SUBJECTIVE: Mr. Melgar is awake and alert today. He remains quite weak. He was able to ambulate a few steps today. He is resting in bed. He is complaining of some abdominal pain, not in excess of yesterday. He denies any dyspnea or syncope. OBJECTIVE: VITAL SIGNS: Today includes blood pressure is 113/75, pulse is 84, respiratory rate is 20, temperature is 98.2 degrees Fahrenheit, oxygen saturation is 97% on 2 L by nasal cannula oxygen. LUNGS: Clear to auscultation bilaterally. Breathing, regular, and nonlabored. ABDOMEN: Soft, moderately distended with percussive waves suggestive of recurrent ascites. Has no peritoneal signs on examination. NEUROLOGIC: Reveals no focal deficits present. LABORATORY FINDINGS: Include CBC with 12,100 white blood cells, hemoglobin and hematocrit 8.1 and 24.9 respectively. Platelet count is 262,000. Metabolic profile; sodium 138, potassium 4.2, chloride 104, bicarb 30, BUN 21, creatinine 0.48, glucose 109. IMPRESSIONS: 1. Stable recurrent malignant ascites. 2. Debility. PLAN: Increase activity per Physical and Occupational Therapy. There remains no acute surgical indication for this patient at this time. Job ID: [id number] [facility]
[2019-03-29] MEDS ORDERED: Ketorolac Tromethamine 30 MG/ML VIAL IVP SCH ×2 (15:00→21:30)
[2019-03-29] MEDS: Bacitracin 1 PK TOP SCH ×2 (15:22→21:22)
[2019-03-29] MEDS: Ondansetron PF 4 MG/2 ML Vial SLOW IVP PRN (19:17)
[2019-03-29] MEDS: Tamsulosin HCl 0.4 MG CAP PO SCH (21:22)
[2019-03-29] MEDS: Enoxaparin Sodium 40 MG/0.4 ML SYRINGE SC SCH (21:22)
[2019-03-29] MEDS: Atorvastatin Calcium 20 MG TAB PO SCH (21:22)
[2019-03-29] MEDS: Doxazosin Mesylate 4 MG TAB PO SCH (21:23)
[2019-03-29] MEDS: Morphine 2 MG/ML SYRINGE IVP PRN (22:25)
[2019-03-29] MEDS: POTASSIUM PHOSPHATE IV SCH (22:26)
[2019-03-29] MEDS: Mag-Al Plus 1200 MG/1200 MG/120 MG/30 ML UDCUP PO PRN (22:26)
[2019-03-29] MEDS: POTASSIUM CHLORIDE IV SCH (22:26)
[2019-03-29] MEDS: SODIUM CHLORIDE IV SCH (22:26)
[2019-03-29] MEDS: [UNRECOGNIZED DRUG - OTHER] IV SCH (22:26)
[2019-03-29 23:50] LABS: CKMB 0.5 ng/mL (0-6.6)
--- NOTE | 2019-03-30 00:28 | PRG ---
DATE OF SERVICE: 03/30/2019 SUBJECTIVE: The patient is currently on the surgical floor. He is hospital day 18 after admission for failure to thrive. He has had recurrent malignant ascites significantly weak from this and unable to continue adequate nutrition, he is currently on TPN. He is able to take some nutrition orally. His chief complaint tonight is acid reflux. He did tell the nurse that his chest was hurting and that he was not sure if it was the acid reflux or something else. A 12-lead EKG was done and cardiac enzymes. The 12-lead EKG appeared to be very similar to his one on the , and his cardiac enzymes were negative. OBJECTIVE: VITAL SIGNS: Stable. The patient is afebrile. GENERAL: The patient is resting comfortably in bed. Again, his chief complaint is his acid reflux. LUNGS: Respirations are regular and nonlabored. ABDOMEN: Soft with a fair amount of distention, but does not appear to restrict his breathing. EXTREMITIES: Lower extremities, they have 1+ pitting edema. ASSESSMENT AND PLAN: 1. Recurrent malignant ascites. 2. Deconditioning. Plan will be to continue to encourage his oral intake. For nutrition, continue his TPN. Encourage out of bed. We will work with Physical Therapy. Job ID: [id number]
[2019-03-30] MEDS: Lorazepam 2 MG/ML VIAL SLOW IVP PRN ×4 (00:50→22:20)
[2019-03-30] MEDS: Morphine 2 MG/ML SYRINGE IVP PRN ×3 (04:30→21:22)
[2019-03-30] MEDS: Mag-Al Plus 1200 MG/1200 MG/120 MG/30 ML UDCUP PO PRN (04:30)
[2019-03-30 06:53] LABS: Anion Gap 8 mmol/L (10-20); BUN (Urea Nitrogen) 26 mg/dL (8.4-25.7); Calc. Creatinine Clearance 149 mL/min (70-130); Calcium 8.5 mg/dL (7.8-10.44); Carbon Dioxide 31 mmol/L (23-31); Chloride 103 mmol/L (98-107); Estimated GFR-MDRD Greater than 90; Glucose 103 mg/dL (83-110); Phosphorus 3.9 mg/dL (2.3-4.7); Potassium 4.4 mmol/L (3.5-5.1); Sodium 138 mmol/L (136-145)
--- NOTE | 2019-03-30 07:04 | PDOC.FM ---
- Subjective Subjective: Mr. Melgar says he feels okay this morning. Last night had event of indigestion. EKG and trop were taken and negative. Patient reports Maalox helped but he did continue to have reflux. He reports his breathing feels "tight". - Objective Vital Signs & Weight: Vital Signs (12 hours) Temp Pulse Resp BP Pulse Ox 03/30/19 06:42 98 03/30/19 06:41 102 H 20 98 03/30/19 00:28 90 16 95 03/29/19 21:00 98.3 F 104 H 22 H 121/72 98 03/29/19 20:00 95 03/29/19 19:11 16 95 Weight Admit Weight 72.575 kg Weight 78.653 kg Most Recent Monitor Data NIBP 126/68 I&O: 03/29/19 03/30/19 03/31/19 06:59 06:59 06:59 Intake Total 3214 100 Output Total 1150 650 Balance 2064 -550 Result Diagrams: 03/29/19 07:51 03/30/19 06:01 Phys Exam - Physical Examination Constitutional: NAD Respiratory: no wheezing (mild crackles auscultated) Cardiovascular: RRR, no significant murmur Abdomen tight, baseline tenderness to palpation, slightly more distended Musculoskeletal: no edema Neurological: non-focal Skin: normal turgor Dx/Plan (1) Protein calorie malnutrition Code(s): E46 - UNSPECIFIED PROTEIN-CALORIE MALNUTRITION Status: Acute (2) Failure to thrive Code(s): [id number] - Status: Acute (3) Adenocarcinoma of small bowel Code(s): C17.9 - MALIGNANT NEOPLASM OF SMALL INTESTINE, UNSPECIFIED Status: Chronic (4) CAD (coronary artery disease) Code(s): I25.10 - ATHSCL HEART DISEASE OF [place] CORONARY ARTERY W/O ANG PCTRS Status: Chronic (5) HTN (hypertension) Code(s): I10 - ESSENTIAL (PRIMARY) HYPERTENSION Status: Chronic - Plan Plan: 73 yo M [facility] small bowel adenocarcinoma s/p resection is hospitalized with protein calorie malnutrition and on TPN. Failure to thrive, protein calorie malnutrition -Prealbumin 5->7->8->6, on TPN. Nutrition status does not seem to be improving further -Continue bentyl. H2 fela, maalox for reflux symptoms. Pt on PPI IV daily. -Encourage PO intake HFpEF -Patient reports SOB, however no documented hypoxia and pt able to ambulate without O2 without desaturation or SOB. Continue increased Lasix daily PO dose 40mg BID. Continue to monitor I/Os. Patient encouraged to ambulate, use IS, sit in chair frequently. - will get repeat CXR Metastatic colon cancer -Recurrence on 01/2019, finished chemo on same date -Dr. Bryant consulted, pending results for possible chemo -PT/OT/Palliative/spiritual on board - CT 03/19 showing pleural effusion and ascites. s/p 2.5L paracentesis 03/25. Patient could be nearing need for another tap. GI consulted and managing this. Mixed iron def./anemia of chronic disease/chemo induced anemia -s/p IV iron, continue to monitor -s/p 1 u prbc 03/28, recheck this am pending Elevated LFTs, resolved -CT abd with 0.7mm liver lesion, possible cirrhosis Constipation, improving -Colace, Magnesium hydroxide PRN Hypokalemia, resolved Hypomagnesemia, improved Hypophosphatemia, improved -Will continue to check labs as needed and trend. HTN -stable BPH -continue medications Addendum - Attending - Attending Attestation Date/Time: 03/30/19 5860 I personally evaluated the patient and discussed the management with Dr. He. I agree with the History, Examination, Assessment and Plan documented above with any addition or exceptions noted below. Patient here for severe malnutrition relating to GI malignancy. Gen Surg is primary team and overall managing this. Patient prealbumin continues to downtrend even with TPN, should get dietary input on need to increase nutrition value of TPN. We are consulted to manage chronic medical conditions which at this time are overall stable. Continue to monitor I/O.
[2019-03-30] MEDS: Pantoprazole 40 MG VIAL IVP SCH (08:49)
[2019-03-30] MEDS: Polyethylene Glycol 3350 17 GM Packet PO SCH (08:49)
[2019-03-30] MEDS: Metoprolol Tartrate 25 MG TAB PO SCH ×2 (08:50→21:19)
[2019-03-30] MEDS: Ferrous Sulfate 325 MG TAB PO SCH ×2 (08:50→18:54)
[2019-03-30] MEDS: Docusate 100 MG CAP PO SCH ×2 (08:50→21:19)
[2019-03-30] MEDS: Dicyclomine 10 MG CAP PO SCH ×4 (08:50→21:20)
[2019-03-30] MEDS: Furosemide 20 MG TAB PO SCH ×2 (08:51→14:47)
[2019-03-30] MEDS: Bacitracin 1 PK TOP SCH ×3 (08:52→21:20)
--- NOTE | 2019-03-30 08:54 | RAD ---
PORTABLE AP CHEST XRAY: HISTORY: Followup pleural effusions. Evaluate volume status. COMPARISON: 03/23/2019. FINDINGS: Right internal jugular vein MediPort catheter as well as left-sided PICC line remain in place and unc hanged in position. There are bilateral pleural effusions with associated atelectasis larger in size on the right. There is an increase in perihilar interstitial opacities bilaterally which may be rel ated to pulmonary edema or possibly infectious process. No other interval change. IMPRESSION: 1. Moderate right and small left pleural effusions which have increased from prior study. 2. Bilateral perihilar interstitial opacities which may be related to either pulmonary edema or infe ctious process. POS: ABRAHAM
[2019-03-30] MEDS ORDERED: Furosemide 20 MG TAB PO SCH (09:00)
--- NOTE | 2019-03-30 09:41 | PDOC.EVN ---
Event Note - Event Note Event Note: small/moderate bilateral effusions noted on CXR added 1 time dose 20mg IV lasix repeat CXR in AM
[2019-03-30] MEDS: Furosemide 20 MG/2 ML VIAL SLOW IVP SCH ×2 (11:50→12:21)
[2019-03-30] MEDS ORDERED: Albumin 25% 25 GM/100 ML BOT IVPB ONE (11:51)
[2019-03-30] MEDS ORDERED: Albumin 25% 25 GM/100 ML BOT IVPB SCH (12:00)
[2019-03-30] MEDS: Ondansetron PF 4 MG/2 ML Vial SLOW IVP PRN (14:32)
[2019-03-30] MEDS: fentaNYL 50 mcg/hour Patch TD SCH (14:34)
[2019-03-30] MEDS: Calcium Carbonate 500 MG ChewTAB PO PRN (16:35)
--- NOTE | 2019-03-30 17:01 | PRG ---
DATE OF SERVICE: 03/30/2019 SUBJECTIVE: Mr. Melgar is awake today, though he is quite fatigued. His appetite is indeed poor. He reports adequate pain control. He complains of intermittent episodes of anxiety, although this is relieved with lorazepam. He denies any chest pain or dyspnea. OBJECTIVE: VITAL SIGNS: Include blood pressure 145/69, pulse is 100, respiratory rate is 20, temperature 98.3 degrees Fahrenheit, and oxygen saturation 96% on 3 L by nasal cannula oxygen. HEART: Reveals irregular rate and irregular rhythm. LUNGS: Reveals bibasilar rhonchi. Breathing regular and nonlabored. ABDOMEN: Soft and moderately distended, but mildly tender to palpation with no rebound tenderness present. NEUROLOGIC: Reveals no focal deficits present. LABORATORY FINDINGS: Include a metabolic profile; sodium 138, potassium 4.4, chloride is 103, bicarb is 31, BUN is 26, creatinine 0.50, glucose 103, magnesium 2.0, and phosphorus is 3.9. IMPRESSION AND PLAN: 1. Profound debility. 2. Increase activity per Physical and Occupational Therapy. 3. Encourage oral intake. Job ID: [id number]
[2019-03-30] MEDS ORDERED: Lidocaine 2% Viscous Solution 10 ML, Aluminum & Magnesium Hydroxide 30 ML SSW PRN (18:20)
[2019-03-30] MEDS: Tamsulosin HCl 0.4 MG CAP PO SCH (21:19)
[2019-03-30] MEDS: Atorvastatin Calcium 20 MG TAB PO SCH (21:19)
[2019-03-30] MEDS: Enoxaparin Sodium 40 MG/0.4 ML SYRINGE SC SCH (21:19)
[2019-03-30] MEDS: Doxazosin Mesylate 4 MG TAB PO SCH (21:20)
[2019-03-30] MEDS: [UNRECOGNIZED DRUG - OTHER] IV SCH (22:04)
[2019-03-30] MEDS: POTASSIUM PHOSPHATE IV SCH (22:04)
[2019-03-30] MEDS: SODIUM CHLORIDE IV SCH (22:04)
[2019-03-30] MEDS: POTASSIUM CHLORIDE IV SCH (22:04)
[2019-03-31] MEDS: Morphine 2 MG/ML SYRINGE IVP PRN ×3 (00:54→14:33)
--- NOTE | 2019-03-31 01:05 | PRG ---
DATE OF SERVICE: 03/31/2019 SUBJECTIVE: The patient is currently on the surgical floor. He has been admitted with a failure to thrive related to malignant small intestine neoplasm and malignant ascites. The patient reportedly had a "rough day" today with some confusion and pain control issues and further weakness very successful with therapy. OBJECTIVE: VITAL SIGNS: Stable. The patient had a max temperature of 100.2, but otherwise has been afebrile for the previous 24 hours. GENERAL: The patient is resting comfortably in bed. He is asleep. Nurses report first time he appeared restful during their shift. In light of this, I will not awaken him. He appears in no distress. ASSESSMENT: 1. Small bowel malignancy. 2. Malignant ascites. 3. Severe deconditioning. PLAN: Continue TPN and encourage oral intake of nutrition. We will encourage increased participation in physical and occupational therapy. Otherwise, remainder of his supportive care as directed right now. Job ID: [id number]
[2019-03-31] MEDS: Lorazepam 2 MG/ML VIAL SLOW IVP PRN ×3 (06:51→19:19)
[2019-03-31] MEDS: Dicyclomine 10 MG CAP PO SCH ×3 (08:26→21:46)
[2019-03-31] MEDS: Metoprolol Tartrate 25 MG TAB PO SCH ×2 (08:26→21:45)
[2019-03-31] MEDS: Ferrous Sulfate 325 MG TAB PO SCH ×2 (08:26→16:06)
[2019-03-31] MEDS: Polyethylene Glycol 3350 17 GM Packet PO SCH (08:27)
[2019-03-31] MEDS: Docusate 100 MG CAP PO SCH ×2 (08:27→21:45)
[2019-03-31] MEDS: Pantoprazole 40 MG VIAL IVP SCH (08:27)
[2019-03-31] MEDS: Bacitracin 1 PK TOP SCH ×3 (08:27→22:06)
[2019-03-31] MEDS: Furosemide 20 MG TAB PO SCH ×2 (08:27→14:33)
--- NOTE | 2019-03-31 08:34 | PDOC.FM ---
- Subjective Subjective: Reports SOB this AM, denies chest pain. Denies nausea/vomiting. - Objective Vital Signs & Weight: Vital Signs (12 hours) Temp Pulse Resp BP Pulse Ox 03/31/19 07:32 112 H 22 H 03/31/19 07:03 98.5 F 102 H 18 109/68 96 03/31/19 00:46 98 Weight Admit Weight 72.575 kg Weight 79.52 kg Most Recent Monitor Data NIBP 126/68 I&O: 03/30/19 03/31/19 04/01/19 06:59 06:59 06:59 Intake Total 100 1054 1060 Output Total 650 575 630 Balance -550 479 430 Result Diagrams: 03/31/19 09:01 03/31/19 09:01 Phys Exam - Physical Examination Constitutional: NAD sitting up in bed HEENT: PERRLA mildly dry MM Neck: no nodes, supple crackles bilat bases, inspiratory and expiratory wheezing Cardiovascular: RRR, no rub +distention, nontender mild pitting edema bilat Neurological: non-focal, moves all 4 limbs Psychiatric: normal affect Skin: no rash, normal turgor Dx/Plan (1) Elevated LFTs Code(s): R94.5 - ABNORMAL RESULTS OF LIVER FUNCTION STUDIES Status: Acute (2) Constipation Code(s): K59.00 - CONSTIPATION, UNSPECIFIED Status: Acute (3) BPH (benign prostatic hyperplasia) Code(s): N40.0 - BENIGN PROSTATIC HYPERPLASIA WITHOUT LOWER URINRY TRACT SYMP Status: Chronic (4) (HFpEF) heart failure with preserved ejection fraction Code(s): I50.30 - UNSPECIFIED DIASTOLIC (CONGESTIVE) HEART FAILURE Status: Chronic (5) Anemia Code(s): D64.9 - ANEMIA, UNSPECIFIED Status: Acute Qualifiers: Anemia type: other cause (6) Failure to thrive Code(s): [id number] - Status: Acute (7) Malignant ascites Code(s): R18.0 - MALIGNANT ASCITES Status: Acute (8) Protein calorie malnutrition Code(s): E46 - UNSPECIFIED PROTEIN-CALORIE MALNUTRITION Status: Acute (9) Adenocarcinoma of small bowel Code(s): C17.9 - MALIGNANT NEOPLASM OF SMALL INTESTINE, UNSPECIFIED Status: Chronic (10) HTN (hypertension) Code(s): I10 - ESSENTIAL (PRIMARY) HYPERTENSION Status: Chronic - Plan Plan: 73 yo M with PMH small bowel adenocarcinoma s/p resection is hospitalized with protein calorie malnutrition and on TPN. Failure to thrive, protein calorie malnutrition -Prealbumin 5->7->8->6, on TPN. Nutrition status does not seem to be improving further -Continue bentyl. H2 fela, maalox for reflux symptoms. Pt on PPI IV daily. -Encourage PO intake HFpEF -Patient reports SOB, however no documented hypoxia and pt able to ambulate without O2 without desaturation or SOB. Crackles on exam today. -Continue increased Lasix daily PO dose 40mg BID. Continue to monitor I/Os. Patient encouraged to ambulate, use IS, sit in chair frequently. - official read on repeat CXR pending, does not appear much improved Metastatic colon cancer -Recurrence on 01/2019, finished chemo on same date -Dr. Bryant consulted, pending results for possible chemo -[facility] testing, results expected this week -PT/OT/Palliative/spiritual on board Malignant Ascites - CT 03/19 showing pleural effusion and ascites. s/p 2.5L paracentesis 03/25. Patient could be nearing need for another tap. GI consulted and managing this. Mixed iron def./anemia of chronic disease/chemo induced anemia -s/p IV iron, continue to monitor -s/p 1 u prbc 03/28, Hgb 8.1 on 03/29/19 Elevated LFTs, resolved -CT abd with 0.7mm liver lesion, possible cirrhosis Constipation, improving -Colace, Magnesium hydroxide PRN Hypokalemia, resolved Hypomagnesemia, improved Hypophosphatemia, improved -Will continue to check labs as needed and trend. HTN -stable BPH -continue medications Addendum - Attending - Attending Attestation Date/Time: 03/31/19 1216 I personally evaluated the patient and discussed the management with Dr. Cota. I agree with the History, Examination, Assessment and Plan documented above with any addition or exceptions noted below. Pt appears weak and is short of breath. He is unable to speak in complete sentences. Crackles are heard on lung exam and cxr shows mild effusions. CBC shows anemia with Hb < 7. This is likely contributing to dyspnea. Will transfuse 1 unit and give lasix following transfusion.
[2019-03-31 09:14] LABS: #Eosinphils 0.2 thou/uL (0.0-0.7); #Lymphocytes 1.4 thou/uL (1.20-3.40); #Monocytes 1.4 thou/uL (0.11-0.59); #Neutrophils 9.5 thou/uL (1.40-6.50); %Basophils 0.2 % (0.0-1.0); %Eosinophils 1.7 % (0.0-10.0); %Lymphocytes 11.2 % (21.0-51.0); %Neutrophils 75.9 % (42.0-75.0); Hemoglobin 6.7 g/dL (14.0-18.0); Mean Corpuscular HGB CONC 30.1 g/dL (32.0-36.0); Mean Corpuscular Hemoglobin 28.4 pg (27.0-31.0); Mean Corpuscular Volume 94.4 fL (78.0-98.0); Mean Platelet Volume 7.2 fL (7.4-10.4); Platelet Count 328 thou/uL (130-400); RBC Distribution Width 17.4 % (11.5-14.5); Red Blood Cell (RBC) Count 2.36 mill/uL (4.70-6.10); White Blood Cell (WBC) Count 12.6 thou/uL (4.8-10.8)
--- NOTE | 2019-03-31 09:35 | RAD ---
SINGLE VIEW CHEST: HISTORY: Pleural effusions. COMPARISON: 03/30/2019 FINDINGS: A single view of the chest shows a normal sized cardiomediastinal silhouette. The PICC line and Medi port are unchanged in position. Small bilateral pleural effusions are seen with adjacent atelectasis . IMPRESSION: Stable examination. POS: [facility]
[2019-03-31 09:41] LABS: Phosphorus 3.3 mg/dL (2.3-4.7)
[2019-03-31 09:48] LABS: Anion Gap 8 mmol/L (10-20); BUN (Urea Nitrogen) 23 mg/dL (8.4-25.7); Calc. Creatinine Clearance 150 mL/min (70-130); Calcium 8.3 mg/dL (7.8-10.44); Carbon Dioxide 30 mmol/L (23-31); Chloride 102 mmol/L (98-107); Estimated GFR-MDRD Greater than 90; Glucose 122 mg/dL (83-110); Sodium 136 mmol/L (136-145)
[2019-03-31] MEDS ORDERED: Furosemide 40 MG/4 ML VIAL SLOW IVP SCH (10:30)
--- NOTE | 2019-03-31 10:49 | PDOC.EVN ---
Event Note - Event Note Event Note: Hgb resulted as 6.7. Will transfuse 1 unit PRBCs.
--- NOTE | 2019-03-31 12:47 | PDOC.GSPN ---
Surgery Progress Note: Subj - Subjective Narrative: Patient has more dyspnea today. He feels like his ascites has returned Surgery Progress Note: Obj - Vital signs Vital signs: Vital Signs - Most Recent Temp Pulse Resp BP Pulse Ox 98.7 F 89 20 111/70 97 03/31/19 12:00 03/31/19 12:00 03/31/19 12:00 03/31/19 12:00 03/31/19 12:00 - Physical Exam General: no distress Cardiovascular: regular rate and rhythm Respiratory: coarse breath sounds Abdomen: soft, distended Wound: other (Incision well healed) Surgery Progress Note: Results - Labs Result Diagrams: 03/31/19 09:01 03/31/19 09:01 Lab results: Laboratory Results - last 24 hr 03/28/19 03/31/19 03/31/19 11:31 09:01 09:01 WBC RBC Hgb Hct MCV MCH MCHC RDW Plt Count MPV Neutrophils % Lymphocytes % Monocytes % Eosinophils % Basophils % Neutrophils # Lymphocytes # Monocytes # Eosinophils # Basophils # Sodium 136 Potassium 4.0 Chloride 102 Carbon Dioxide 30 Anion Gap 8 L BUN 23 Creatinine 0.50 L Estimated GFR (MDRD) Greater than 90 Glucose 122 H POC Glucose Calcium 8.3 Phosphorus Magnesium 2.0 Prealbumin 7.0 L Blood Type B POSITIVE Antibody Screen NEGATIVE Crossmatch See Detail 03/31/19 03/31/19 03/31/19 09:01 09:01 11:58 WBC 12.6 H RBC 2.36 L Hgb 6.7 L Hct 22.3 L MCV 94.4 MCH 28.4 MCHC 30.1 L RDW 17.4 H Plt Count 328 MPV 7.2 L Neutrophils % 75.9 H Lymphocytes % 11.2 L Monocytes % 11.0 H Eosinophils % 1.7 Basophils % 0.2 Neutrophils # 9.5 H Lymphocytes # 1.4 Monocytes # 1.4 H Eosinophils # 0.2 Basophils # 0.0 Sodium Potassium Chloride Carbon Dioxide Anion Gap BUN Creatinine Estimated GFR (MDRD) Glucose POC Glucose 132 H Calcium Phosphorus 3.3 Magnesium Prealbumin Blood Type Antibody Screen Crossmatch Surgery Progress Note: A/P - Problem (1) Adenocarcinoma of small bowel Current Visit: Yes Code(s): C17.9 - MALIGNANT NEOPLASM OF SMALL INTESTINE, UNSPECIFIED Status: Chronic - Plan Plan: Small Intestine Adenocarcinoma -malignant recurrent ascites -chronic deconditioning -cancer pain
--- NOTE | 2019-03-31 12:49 | PRG ---
DATE OF SERVICE: 03/28/2019 SUBJECTIVE: Mr. Melgar is resting. Right now, he states his pain is controlled. He is eating a little bit, but not great. OBJECTIVE: VITAL SIGNS: Temperature is 97, pulse 92, blood pressure 126/68. ABDOMEN: Soft and nontender. It is protuberant . DIAGNOSTIC STUDIES: Today's white count 14, hemoglobin of 6.8, platelet count 286, BUN and creatinine 23 and 0.5. Basic metabolic profile otherwise normal. ASSESSMENT: 1. 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 Has not responded to first-line chemotherapy, now with advanced disease. 2. Anemia with no signs of gastrointestinal bleeding. PLAN: 1. Oncology is testing to see if he is a candidate for any other chemotherapy one testing apparently was sent. We may expect results and decisions next week. With regard to the issue of recurrent malignant ascites, ultimately Surgery decided not to proceed with that as I do not have any experience with it , it is not typically something done at [facility], where they have vast experience in peritoneal malignancy. At this point in time, I would recommend intermittent paresthesias as needed. 2. With regard to his drop in hemoglobin, we will stop H2 flea and place him on a PPI. He is on Lovenox. Job ID: [id number]
--- NOTE | 2019-03-31 15:54 | PDOC.MOPN ---
Interval History: Seen at bedside with . She expressed frustration with patients general decline and feels "nobody is doing anything". We discussed general decline and tumor burden. Patient not eating, has pain. - Vital Signs Vital Signs: Vital Signs (12 hours) Temp Pulse Pulse Resp BP BP Pulse Ox 03/31/19 14:44 98.3 F 100 20 146/80 H 97 03/31/19 13:38 92 16 03/31/19 12:00 98.7 F 89 20 111/70 97 03/31/19 11:29 98.4 F 94 16 120/74 99 03/31/19 08:27 96 03/31/19 07:32 112 H 22 H 03/31/19 07:03 98.5 F 102 H 18 109/68 96 Weight Admit Weight 160 lb Weight 175 lb 5 oz Most Recent Monitor Data NIBP 126/68 - Physical Exam General: Alert HEENT: PERRLA Lungs: Other (diminshed) Cardiovascular: Regular rate Abdomen: Other Extremities: No clubbing Skin: No rashes Neurological: Normal speech - Labs Result Diagrams: 03/31/19 09:01 03/31/19 09:01 Lab results: Laboratory Results - last 24 hr 03/31/19 11:58: POC Glucose 132 H 03/31/19 09:01: Phosphorus 3.3 03/31/19 09:01: WBC 12.6 H, RBC 2.36 L, Hgb 6.7 L, Hct 22.3 L, MCV 94.4, MCH 28.4, MCHC 30.1 L, RDW 17.4 H, Plt Count 328, MPV 7.2 L, Neutrophils % 75.9 H, Lymphocytes % 11.2 L, Monocytes % 11.0 H, Eosinophils % 1.7, Basophils % 0.2, Neutrophils # 9.5 H, Lymphocytes # 1.4, Monocytes # 1.4 H, Eosinophils # 0.2, Basophils # 0.0 03/31/19 09:01: Prealbumin 7.0 L 03/31/19 09:01: Sodium 136, Potassium 4.0, Chloride 102, Carbon Dioxide 30, Anion Gap 8 L, BUN 23, Creatinine 0.50 L, Estimated GFR (MDRD) Greater than 90 , Glucose 122 H, Calcium 8.3, Magnesium 2.0 03/30/19 18:09: POC Glucose 121 H 03/28/19 11:31: Blood Type B POSITIVE, Antibody Screen NEGATIVE, Crossmatch See Detail A/P - Problem (1) Malignant ascites Current Visit: Yes Code(s): R18.0 - MALIGNANT ASCITES Status: Acute (2) Adenocarcinoma of small bowel Current Visit: Yes Code(s): C17.9 - MALIGNANT NEOPLASM OF SMALL INTESTINE, UNSPECIFIED Status: Chronic (3) Anemia Current Visit: Yes Code(s): D64.9 - ANEMIA, UNSPECIFIED Status: Acute Qualifiers: Anemia type: other cause - Plan Plan: Increase morphine to q2 hours as it is not lasting 4 hours. Likely increase Fentanyl patch tomorrow. Dr. Bryant to see patient in am. We briefly discussed hospice.
[2019-03-31] MEDS ORDERED: Morphine 2 MG/ML SYRINGE IVP SCH (16:00)
--- NOTE | 2019-03-31 17:04 | EKG ---
Test Reason : STAT Blood Pressure : / mmHG Vent. Rate : 108 BPM Atrial Rate : 108 BPM P-R Int : 000 ms QRS Dur : 084 ms QT Int : 328 ms P-R-T Axes : 023 -06 005 degrees QTc Int : 439 ms Sinus tachycardia Possible Anterior infarct (cited on or before 11-MAR-2019) Abnormal ECG When compared with ECG of 11-MAR-2019 17:07, Premature atrial complexes are no longer Present Questionable change in initial forces of Lateral leads ST now depressed in Lateral leads Confirmed by SANDEEP WRIGHT, DR. Lynne ([id number]) on 03/31/2019 5:04:20 PM Referred By: GLADIS Confirmed By:DR. Guera HOPKINS MD
[2019-03-31] MEDS: Morphine 2 MG/ML SYRINGE SLOW IVP PRN ×2 (18:21→21:45)
[2019-03-31 21:39] LABS: Hemoglobin 8.8 g/dL (14.0-18.0); Platelet Count 344 thou/uL (130-400)
[2019-03-31] MEDS: Atorvastatin Calcium 20 MG TAB PO SCH (21:45)
[2019-03-31] MEDS: Tamsulosin HCl 0.4 MG CAP PO SCH (21:45)
[2019-03-31] MEDS: Enoxaparin Sodium 40 MG/0.4 ML SYRINGE SC SCH (21:46)
[2019-03-31] MEDS: Doxazosin Mesylate 4 MG TAB PO SCH (21:46)
[2019-03-31] MEDS: POTASSIUM CHLORIDE IV SCH (23:00)
[2019-03-31] MEDS: POTASSIUM PHOSPHATE IV SCH (23:00)
[2019-03-31] MEDS: SODIUM CHLORIDE IV SCH (23:00)
[2019-03-31] MEDS: [UNRECOGNIZED DRUG - OTHER] IV SCH (23:00)
[2019-04-01] MEDS: Lorazepam 2 MG/ML VIAL SLOW IVP PRN ×5 (00:16→22:56)
[2019-04-01] MEDS: Morphine 2 MG/ML SYRINGE SLOW IVP PRN ×6 (06:24→21:02)
[2019-04-01 06:33] LABS: #Eosinphils 0.2 thou/uL (0.0-0.7); #Lymphocytes 1.5 thou/uL (1.20-3.40); #Monocytes 1.5 thou/uL (0.11-0.59); #Neutrophils 9.8 thou/uL (1.40-6.50); %Basophils 0.1 % (0.0-1.0); %Eosinophils 1.4 % (0.0-10.0); %Lymphocytes 11.4 % (21.0-51.0); %Monocytes 11.4 % (0.0-10.0); %Neutrophils 75.6 % (42.0-75.0); Hemoglobin 7.9 g/dL (14.0-18.0); Mean Corpuscular HGB CONC 32.7 g/dL (32.0-36.0); Mean Corpuscular Hemoglobin 30.4 pg (27.0-31.0); Mean Corpuscular Volume 92.9 fL (78.0-98.0); Mean Platelet Volume 7.2 fL (7.4-10.4); Platelet Count 318 thou/uL (130-400); RBC Distribution Width 16.9 % (11.5-14.5); Red Blood Cell (RBC) Count 2.59 mill/uL (4.70-6.10); White Blood Cell (WBC) Count 12.9 thou/uL (4.8-10.8)
--- NOTE | 2019-04-01 07:40 | PDOC.FM ---
- Subjective Subjective: Patient states his SOB is somewhat improved this AM. Reports he has not been able to eat much. GLENNO. - Objective Vital Signs & Weight: Vital Signs (12 hours) Temp Pulse Resp BP Pulse Ox 04/01/19 06:31 72 16 97 03/31/19 23:24 97 03/31/19 20:00 97 03/31/19 19:45 97.8 F 102 H 18 135/78 97 Weight Admit Weight 72.575 kg Weight 81.783 kg Most Recent Monitor Data NIBP 126/68 I&O: 03/31/19 04/01/19 04/02/19 06:59 06:59 06:59 Intake Total 1054 3586 Output Total 575 2055 Balance 479 1531 Result Diagrams: 04/01/19 06:10 04/01/19 07:42 Phys Exam - Physical Examination Constitutional: NAD Diminished lung sounds at bases, crackles bilat upper lobes Cardiovascular: RRR 2/6 systolic murmur Gastrointestinal: positive bowel sounds distended, nontender Musculoskeletal: no edema, pulses present Neurological: non-focal, moves all 4 limbs Skin: normal turgor, cap refill <2 seconds Dx/Plan (1) Elevated LFTs Code(s): R94.5 - ABNORMAL RESULTS OF LIVER FUNCTION STUDIES Status: Acute (2) Constipation Code(s): K59.00 - CONSTIPATION, UNSPECIFIED Status: Acute (3) BPH (benign prostatic hyperplasia) Code(s): N40.0 - BENIGN PROSTATIC HYPERPLASIA WITHOUT LOWER URINRY TRACT SYMP Status: Chronic (4) (HFpEF) heart failure with preserved ejection fraction Code(s): I50.30 - UNSPECIFIED DIASTOLIC (CONGESTIVE) HEART FAILURE Status: Chronic (5) Anemia Code(s): D64.9 - ANEMIA, UNSPECIFIED Status: Acute Qualifiers: Anemia type: other cause (6) Failure to thrive Code(s): [id number] - Status: Acute (7) Malignant ascites Code(s): R18.0 - MALIGNANT ASCITES Status: Acute (8) Protein calorie malnutrition Code(s): E46 - UNSPECIFIED PROTEIN-CALORIE MALNUTRITION Status: Acute (9) Adenocarcinoma of small bowel Code(s): C17.9 - MALIGNANT NEOPLASM OF SMALL INTESTINE, UNSPECIFIED Status: Chronic (10) HTN (hypertension) Code(s): I10 - ESSENTIAL (PRIMARY) HYPERTENSION Status: Chronic - Plan Plan: 73 yo M with PMH small bowel adenocarcinoma s/p resection is hospitalized with protein calorie malnutrition and on TPN. Failure to thrive, protein calorie malnutrition -Prealbumin 5->7->8->6 -> 7, on TPN. Nutrition status does not seem to be improving. -Continue bentyl. H2 fela, maalox for reflux symptoms. Pt on PPI IV daily. -Encourage PO intake HFpEF -Patient reports SOB. Crackles worsened on exam today. Will give extra dose 40 mg IV lasix today. -Continue Lasix daily PO dose 40mg BID. Continue to monitor I/Os. Patient encouraged to ambulate, use IS, sit in chair frequently. Metastatic colon cancer -Recurrence on 01/2019, finished chemo on same date -Dr. Bryant consulted, pending results for possible chemo -[facility] testing, results expected this week -PT/OT/Palliative/spiritual on board Malignant Ascites - CT 03/19 showing pleural effusion and ascites. s/p 2.5L paracentesis 03/25. Patient could be nearing need for another tap. GI consulted and managing this. Mixed iron def./anemia of chronic disease/chemo induced anemia -s/p IV iron, continue to monitor -s/p 2 u prbc 03/28 and 03/31, Hgb 7.9 04/01 Elevated LFTs, resolved -CT abd with 0.7mm liver lesion, possible cirrhosis Constipation, improving -Colace, Magnesium hydroxide PRN Hypokalemia, resolved Hypomagnesemia, improved Hypophosphatemia, improved -Will continue to check labs as needed and trend. HTN -stable BPH -continue home med Addendum - Attending - Attending Attestation Date/Time: 04/01/19 1040 I personally evaluated the patient and discussed the management with Dr. Cota. I agree with the History, Examination, Assessment and Plan documented above with any addition or exceptions noted below. The patient's hemoglobin is improved after transfusion. Crackles heard on lung exam. Will give extra IV lasix. Pt has seen Dr. Bryant this morning and per report, all curative options have been exhausted. Pt is considering hospice and has signed a choice letter. Onc will talk with GI regarding another paracentesis.
[2019-04-01] MEDS ORDERED: Furosemide 40 MG/4 ML VIAL SLOW IVP SCH (08:00)
[2019-04-01 08:31] LABS: Anion Gap 9 mmol/L (10-20); BUN (Urea Nitrogen) 23 mg/dL (8.4-25.7); Calc. Creatinine Clearance 161 mL/min (70-130); Calcium 8.6 mg/dL (7.8-10.44); Carbon Dioxide 31 mmol/L (23-31); Chloride 100 mmol/L (98-107); Estimated GFR-MDRD Greater than 90; Glucose 102 mg/dL (83-110); Potassium 3.7 mmol/L (3.5-5.1); Sodium 136 mmol/L (136-145)
[2019-04-01] MEDS: Pantoprazole 40 MG VIAL IVP SCH (09:10)
[2019-04-01] MEDS: Metoprolol Tartrate 25 MG TAB PO SCH ×2 (09:10→21:07)
[2019-04-01] MEDS: Ferrous Sulfate 325 MG TAB PO SCH ×2 (09:10→16:37)
[2019-04-01] MEDS: Furosemide 20 MG TAB PO SCH ×2 (09:11→13:38)
[2019-04-01] MEDS: Dicyclomine 10 MG CAP PO SCH ×3 (09:11→21:09)
[2019-04-01] MEDS: Docusate 100 MG CAP PO SCH ×2 (09:11→21:07)
[2019-04-01] MEDS: Bacitracin 1 PK TOP SCH ×2 (09:11→14:46)
[2019-04-01] MEDS: Polyethylene Glycol 3350 17 GM Packet PO SCH (09:13)
--- NOTE | 2019-04-01 16:55 | PDOC.GSPN ---
Surgery Progress Note: Subj - Subjective Narrative: Breathing more labored. No appetite. Ascites returned. Hospice consulted Surgery Progress Note: Obj - Vital signs Vital signs: Vital Signs - Most Recent Temp Pulse Resp BP Pulse Ox 98.5 F 91 20 120/69 94 L 04/01/19 07:50 04/01/19 07:50 04/01/19 07:50 04/01/19 07:50 04/01/19 09:10 - Physical Exam General: moderate distress, no distress Respiratory: coarse breath sounds Abdomen: distended Surgery Progress Note: Results - Labs Result Diagrams: 04/01/19 06:10 04/01/19 07:42 Lab results: Laboratory Results - last 24 hr 04/01/19 04/01/19 04/01/19 06:10 07:42 13:12 WBC 12.9 H RBC 2.59 L Hgb 7.9 L Hct 24.1 L MCV 92.9 MCH 30.4 MCHC 32.7 RDW 16.9 H Plt Count 318 MPV 7.2 L Neutrophils % 75.6 H Lymphocytes % 11.4 L Monocytes % 11.4 H Eosinophils % 1.4 Basophils % 0.1 Neutrophils # 9.8 H Lymphocytes # 1.5 Monocytes # 1.5 H Eosinophils # 0.2 Basophils # 0.0 Sodium 136 Potassium 3.7 Chloride 100 Carbon Dioxide 31 Anion Gap 9 L BUN 23 Creatinine 0.48 L Estimated GFR (MDRD) Greater than 90 Glucose 102 POC Glucose 123 H Calcium 8.6 Surgery Progress Note: A/P - Problem (1) Adenocarcinoma of small bowel Current Visit: Yes Code(s): C17.9 - MALIGNANT NEOPLASM OF SMALL INTESTINE, UNSPECIFIED Status: Chronic - Plan Plan: Hospice consult -Patient and asking about peritoneal catheter. I am hesitant to try given morbidity of even the procedure itself. Any injury during placement would be immediately life threatening and any bowel injury would not be amenable to repair -I would recommend stopping tpn before leaving hospital. It is not helping and his nutrition not improving anyway.
[2019-04-01] MEDS: Atorvastatin Calcium 20 MG TAB PO SCH (21:07)
[2019-04-01] MEDS: Tamsulosin HCl 0.4 MG CAP PO SCH (21:07)
[2019-04-01] MEDS: Doxazosin Mesylate 4 MG TAB PO SCH (21:09)
[2019-04-01] MEDS: Enoxaparin Sodium 40 MG/0.4 ML SYRINGE SC SCH (21:09)
[2019-04-01] MEDS: SODIUM CHLORIDE IV SCH (22:57)
[2019-04-01] MEDS: POTASSIUM PHOSPHATE IV SCH (22:57)
[2019-04-01] MEDS: POTASSIUM CHLORIDE IV SCH (22:57)
[2019-04-01] MEDS: [UNRECOGNIZED DRUG - OTHER] IV SCH (22:57)
[2019-04-01] MEDS: Ondansetron PF 4 MG/2 ML Vial SLOW IVP PRN (23:04)
[2019-04-02 00:31] LABS: Hemoglobin 9.1 g/dL (14.0-18.0)
[2019-04-02] MEDS: Morphine 2 MG/ML SYRINGE SLOW IVP PRN ×7 (00:32→20:33)
[2019-04-02] MEDS: Bacitracin 1 PK TOP SCH ×4 (00:37→20:34)
[2019-04-02] MEDS ORDERED: Sodium Chloride 0.9% 500 ML IVPB SCH (00:45)
[2019-04-02] MEDS: Lorazepam 2 MG/ML VIAL SLOW IVP PRN ×2 (06:03→19:22)
[2019-04-02 06:19] LABS: #Eosinphils 0.1 thou/uL (0.0-0.7); #Lymphocytes 1.2 thou/uL (1.20-3.40); #Monocytes 1.2 thou/uL (0.11-0.59); #Neutrophils 10.9 thou/uL (1.40-6.50); %Basophils 0.3 % (0.0-1.0); %Eosinophils 0.9 % (0.0-10.0); %Lymphocytes 9.1 % (21.0-51.0); %Monocytes 8.9 % (0.0-10.0); %Neutrophils 80.9 % (42.0-75.0); Hemoglobin 8.8 g/dL (14.0-18.0); Mean Corpuscular HGB CONC 32.3 g/dL (32.0-36.0); Mean Corpuscular Volume 92.9 fL (78.0-98.0); Mean Platelet Volume 7.1 fL (7.4-10.4); Platelet Count 293 thou/uL (130-400); RBC Distribution Width 16.8 % (11.5-14.5); Red Blood Cell (RBC) Count 2.94 mill/uL (4.70-6.10); White Blood Cell (WBC) Count 13.4 thou/uL (4.8-10.8)
--- NOTE | 2019-04-02 07:42 | PDOC.GSPN ---
Surgery Progress Note: Subj - Subjective Narrative: Mr. Melgar is a 73 year old male with a history of bowel resection due to adenocarcinoma of the small bowel. Patient is very weak this morning. He states that he feels dizzy, very anxious, and "unsure of where I am." He has not had breakfast this morning and reports decreased appetite. He also reports dyspnea that has become worse than yesterday. He denies chest pain, reflux, fevers, and chills. Surgery Progress Note: Obj - Vital signs Vital signs: Vital Signs - Most Recent Temp Pulse Resp BP Pulse Ox 98.1 F 97 16 101/65 98 04/02/19 03:34 04/02/19 06:46 04/02/19 06:46 04/02/19 03:34 04/02/19 06:49 - Physical Exam General: moderate distress, chronically ill Neck: no lymphadectomy, no masses Cardiovascular: regular rate and rhythm, no murmur Respiratory: breath sounds present, other (Crackles are heard at lung bases. Air movement is good, however expansion is reduced. Patient is currently on 2L oxygen per nasal cannula.) Abdomen: decreased bowel sounds, distended, other (Abdomen is protuberant and tense to palpation. No bruits auscultated.) Psychiatric: oriented to time, other (Patient appears slightly confused and extremely exhausted. He states being anxious.) Surgery Progress Note: Results - Labs Result Diagrams: 04/02/19 06:05 04/01/19 07:42 Lab results: Laboratory Results - last 24 hr 04/01/19 04/02/19 04/02/19 23:58 00:24 05:34 WBC RBC Hgb 9.1 L Hct 27.8 L MCV MCH MCHC RDW Plt Count MPV Neutrophils % Lymphocytes % Monocytes % Eosinophils % Basophils % Neutrophils # Lymphocytes # Monocytes # Eosinophils # Basophils # POC Glucose 133 H 111 H 04/02/19 06:05 WBC 13.4 H RBC 2.94 L Hgb 8.8 L Hct 27.3 L MCV 92.9 MCH 30.0 MCHC 32.3 RDW 16.8 H Plt Count 293 MPV 7.1 L Neutrophils % 80.9 H Lymphocytes % 9.1 L Monocytes % 8.9 Eosinophils % 0.9 Basophils % 0.3 Neutrophils # 10.9 H Lymphocytes # 1.2 Monocytes # 1.2 H Eosinophils # 0.1 Basophils # 0.0 POC Glucose Surgery Progress Note: A/P - Plan Plan: Mr. Melgar is a 73 year old male with a history of bowel resection due to adenocarcinoma of the small bowel. --Patient appears very weak with increased dyspnea and fatigue. -Hospice visit planned with patient and today. -Continue TPN and promote oral nutrition as tolerated.
--- NOTE | 2019-04-02 08:04 | PDOC.MOPN ---
Interval History: This note is for encounter dated 04/01/2019: Pt c/o continued abdominal pain and poor appetite, eating less and less. He is getting weaker by the day and hasn't been able to walk but has been able to sit in a chair. - Vital Signs Vital Signs: Vital Signs (12 hours) Temp Pulse Resp BP BP Pulse Ox 04/02/19 07:37 98.3 F 95 20 105/65 96 04/02/19 06:49 98 04/02/19 06:46 97 16 98 04/02/19 03:34 98.1 F 110 H 16 101/65 98 04/01/19 23:59 98.5 F 99 16 103/60 95 Weight Admit Weight 160 lb Weight 170 lb 9.6 oz Most Recent Monitor Data NIBP 126/68 - Physical Exam General: Alert, Oriented x3 Lungs: Clear to auscultation Cardiovascular: Regular rate Abdomen: Other (distended and tender abdomen, ascites+) Extremities: Other (edema) Skin: No rashes Neurological: Cranial nerves 3-12 NL Psych/Mental Status: Mental status NL, Other (depressed) - Labs Result Diagrams: 04/02/19 06:05 04/01/19 07:42 Lab results: Laboratory Results - last 24 hr 04/02/19 06:05: WBC 13.4 H, RBC 2.94 L, Hgb 8.8 L, Hct 27.3 L, MCV 92.9, MCH 30.0, MCHC 32.3, RDW 16.8 H, Plt Count 293, MPV 7.1 L, Neutrophils % 80.9 H, Lymphocytes % 9.1 L, Monocytes % 8.9, Eosinophils % 0.9, Basophils % 0.3, Neutrophils # 10.9 H, Lymphocytes # 1.2, Monocytes # 1.2 H, Eosinophils # 0.1, Basophils # 0.0 04/02/19 05:34: POC Glucose 111 H 04/02/19 00:24: Hgb 9.1 L, Hct 27.8 L 04/01/19 23:58: POC Glucose 133 H 04/01/19 18:15: POC Glucose 117 H 04/01/19 13:12: POC Glucose 123 H 04/01/19 07:42: Sodium 136, Potassium 3.7, Chloride 100, Carbon Dioxide 31, Anion Gap 9 L, BUN 23, Creatinine 0.48 L, Estimated GFR (MDRD) Greater than 90 , Glucose 102, Calcium 8.6 A/P - Problem (1) Adenocarcinoma of small bowel Current Visit: Yes Code(s): C17.9 - MALIGNANT NEOPLASM OF SMALL INTESTINE, UNSPECIFIED Status: Chronic - Plan Plan: Metastatic adenocarcinoma of small bowel, rapidly progressive through adjuvant chemotherapy. PA has dramatically declined and has not improved with supportive care, including TPN. [facility] negative for any actionable mutations. At this point I do not believe Mr. Melgar could tolerate any chemotherapy and no current available treatments would likely shrink his disease or prolong his life but would likely shorten it and worsen his already poor quality of life. I spoke to him and his about hospice and they have agreed to speak with them. I have let palliative care know and they will come speak with him. Would d/c TPN at this time given it has not helped and not really even maintained his nutritional status. Hospice c/s Morphine and fentanyl for pain
--- NOTE | 2019-04-02 08:55 | PDOC.FM ---
- Subjective Subjective: Patient is eating less and less. Still SOB this morning. Family pursuing hospice. - Objective Vital Signs & Weight: Vital Signs (12 hours) Temp Pulse Resp BP BP Pulse Ox 04/02/19 07:37 98.3 F 95 20 105/65 96 04/02/19 06:49 98 04/02/19 06:46 97 16 98 04/02/19 03:34 98.1 F 110 H 16 101/65 98 04/01/19 23:59 98.5 F 99 16 103/60 95 Weight Admit Weight 72.575 kg Weight 77.383 kg Most Recent Monitor Data NIBP 126/68 I&O: 04/01/19 04/02/19 04/03/19 06:59 06:59 06:59 Intake Total 3586 2110 Output Total 2055 800 Balance 1531 1310 Result Diagrams: 04/02/19 06:05 04/01/19 07:42 Phys Exam - Physical Examination Some labored breathing this AM. Patient appears tired and lethargic. Diffuse crackles and wheezing. Cardiovascular: RRR, no significant murmur distended Musculoskeletal: no edema, pulses present Patient appears tired and somewhat lethargic Skin: no rash, normal turgor Dx/Plan (1) Elevated LFTs Code(s): R94.5 - ABNORMAL RESULTS OF LIVER FUNCTION STUDIES Status: Acute (2) Constipation Code(s): K59.00 - CONSTIPATION, UNSPECIFIED Status: Acute (3) BPH (benign prostatic hyperplasia) Code(s): N40.0 - BENIGN PROSTATIC HYPERPLASIA WITHOUT LOWER URINRY TRACT SYMP Status: Chronic (4) (HFpEF) heart failure with preserved ejection fraction Code(s): I50.30 - UNSPECIFIED DIASTOLIC (CONGESTIVE) HEART FAILURE Status: Chronic (5) Anemia Code(s): D64.9 - ANEMIA, UNSPECIFIED Status: Acute Qualifiers: Anemia type: other cause (6) Failure to thrive Code(s): QOC0842 - Status: Acute (7) Malignant ascites Code(s): R18.0 - MALIGNANT ASCITES Status: Acute (8) Protein calorie malnutrition Code(s): E46 - UNSPECIFIED PROTEIN-CALORIE MALNUTRITION Status: Acute (9) Adenocarcinoma of small bowel Code(s): C17.9 - MALIGNANT NEOPLASM OF SMALL INTESTINE, UNSPECIFIED Status: Chronic (10) HTN (hypertension) Code(s): I10 - ESSENTIAL (PRIMARY) HYPERTENSION Status: Chronic - Plan Plan: 73 yo M with PMH small bowel adenocarcinoma s/p resection is hospitalized with protein calorie malnutrition and on TPN. Failure to thrive, protein calorie malnutrition -Nutrition status does not seem to be improving. GI has recommended discontinuing TPN. -Continue bentyl. H2 fela, maalox for reflux symptoms. -Encourage PO intake GI Bleed -passed large clot of blood overnight in stool -likely 2/2 metastatic cancer -Hgb 8.8 this AM HFpEF -Patient remains SOB. Crackles on lung exam. -Continue Lasix daily PO dose 40mg BID. Continue to monitor I/Os. Patient encouraged to ambulate, use IS, sit in chair frequently. 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 Bryant consulted, no further options for chemotherapy/life prolonging treatment at this time -PT/OT/Palliative/spiritual on board -Patient now DNR/DNI, case management helping to pursue hospice Malignant Ascites - CT 03/19 showing pleural effusion and ascites. s/p 2.5L paracentesis 03/25. Patient could be nearing need for another tap. - GI consulted and managing this. States patient is not a good candidate for a peritoneal catheter Mixed iron def./anemia of chronic disease/chemo induced anemia/Lower GI bleed -s/p IV iron, continue to monitor -s/p 2 u prbc 03/28 and 03/31, Hgb 7.9 04/01 -Hgb 8.8 this AM Elevated LFTs, resolved -CT abd with 0.7mm liver lesion, possible cirrhosis Dispo: plan to discharge to hospice. CM is helping with this. Continue only palliative medications at that time. Addendum - Attending - Attending Attestation Date/Time: 04/02/19 1050 I personally evaluated the patient and discussed the management with Dr. Cota. I agree with the History, Examination, Assessment and Plan documented above with any addition or exceptions noted below. Pt will likely have a therapeutic paracentesis today. Pt is pursuing hospice. Dr. Cota and I prayed for the patient at bedside.
[2019-04-02] MEDS: Furosemide 20 MG TAB PO SCH ×2 (09:26→13:00)
[2019-04-02] MEDS: Docusate 100 MG CAP PO SCH ×2 (09:26→20:33)
[2019-04-02] MEDS: Dicyclomine 10 MG CAP PO SCH ×3 (09:26→20:32)
[2019-04-02] MEDS: Metoprolol Tartrate 25 MG TAB PO SCH ×2 (09:26→20:32)
[2019-04-02] MEDS: Ferrous Sulfate 325 MG TAB PO SCH ×2 (09:26→16:56)
[2019-04-02] MEDS: Polyethylene Glycol 3350 17 GM Packet PO SCH ×2 (09:27→09:29)
[2019-04-02] MEDS: Pantoprazole 40 MG VIAL IVP SCH (09:27)
[2019-04-02] MEDS: fentaNYL 50 mcg/hour Patch TD SCH (12:58)
--- NOTE | 2019-04-02 14:15 | ULT ---
EXAM: US Abdomen Limited CLINICAL HISTORY: Evaluate for ascites.. COMPARISON: None. FINDINGS: Limited sonographic imaging does not demonstrate a significant amount of ascites to warrant a ultraso und-guided paracentesis at this time. IMPRESSION: Minimal ascites. The amount of free fluid in the abdomen does not warrant ultrasound-guided paracente sis at this time
--- NOTE | 2019-04-02 14:25 | PDOC.GSPN ---
Surgery Progress Note: Subj - Subjective Narrative: Not doing well today. More respiratory distress. Difficulty talking Surgery Progress Note: Obj - Vital signs Vital signs: Vital Signs - Most Recent Temp Pulse Resp BP Pulse Ox 98.4 F 90 16 114/73 100 04/02/19 11:16 04/02/19 12:51 04/02/19 12:51 04/02/19 11:16 04/02/19 12:51 - Physical Exam General: moderate distress Respiratory: coarse breath sounds Abdomen: soft, distended Surgery Progress Note: Results - Labs Result Diagrams: 04/02/19 06:05 04/01/19 07:42 Lab results: Laboratory Results - last 24 hr 04/02/19 04/02/19 04/02/19 05:34 06:05 12:55 WBC 13.4 H RBC 2.94 L Hgb 8.8 L Hct 27.3 L MCV 92.9 MCH 30.0 MCHC 32.3 RDW 16.8 H Plt Count 293 MPV 7.1 L Neutrophils % 80.9 H Lymphocytes % 9.1 L Monocytes % 8.9 Eosinophils % 0.9 Basophils % 0.3 Neutrophils # 10.9 H Lymphocytes # 1.2 Monocytes # 1.2 H Eosinophils # 0.1 Basophils # 0.0 POC Glucose 111 H 138 H Surgery Progress Note: A/P - Problem (1) Adenocarcinoma of small bowel Current Visit: Yes Code(s): C17.9 - MALIGNANT NEOPLASM OF SMALL INTESTINE, UNSPECIFIED Status: Chronic - Plan Plan: Weaning tpn. He is going to go home on hospice. -will attempt paracentesis for palliation
[2019-04-02] MEDS: Ondansetron PF 4 MG/2 ML Vial SLOW IVP PRN (18:11)
[2019-04-02] MEDS: Tamsulosin HCl 0.4 MG CAP PO SCH (20:32)
[2019-04-02] MEDS: Doxazosin Mesylate 4 MG TAB PO SCH (20:32)
[2019-04-02] MEDS: Atorvastatin Calcium 20 MG TAB PO SCH (20:33)
[2019-04-02] MEDS: Enoxaparin Sodium 40 MG/0.4 ML SYRINGE SC SCH (20:34)
[2019-04-02] MEDS: [UNRECOGNIZED DRUG - OTHER] IV SCH (23:25)
[2019-04-02] MEDS: SODIUM CHLORIDE IV SCH (23:25)
[2019-04-02] MEDS: POTASSIUM CHLORIDE IV SCH (23:25)
[2019-04-02] MEDS: POTASSIUM PHOSPHATE IV SCH (23:25)
[2019-04-03] MEDS: Morphine 2 MG/ML SYRINGE SLOW IVP PRN ×6 (00:03→23:16)
[2019-04-03] MEDS: Ondansetron PF 4 MG/2 ML Vial SLOW IVP PRN (00:08)
[2019-04-03] MEDS: Lorazepam 2 MG/ML VIAL SLOW IVP PRN ×2 (01:41→15:52)
[2019-04-03 06:38] LABS: Band 20 % (5-11); Hemoglobin 7.9 g/dL (14.0-18.0); Lymphocytes 2 % (21-51); MDiff Complete? YES; Mean Corpuscular HGB CONC 31.9 g/dL (32.0-36.0); Mean Corpuscular Hemoglobin 29.6 pg (27.0-31.0); Mean Corpuscular Volume 92.6 fL (78.0-98.0); Mean Platelet Volume 7.2 fL (7.4-10.4); Monocytes 7 % (0-10); Neutrophil 70 % (42-75); Platelet Count 413 thou/uL (130-400); Platelet Morphology Comment Appears Increased; Polychromasia SLIGHT = 2-3 cells (100X) (0-2/hpf); RBC Distribution Width 16.5 % (11.5-14.5); Reactive Lymphocytes 1 % (0-10); Red Blood Cell (RBC) Count 2.67 mill/uL (4.70-6.10); White Blood Cell (WBC) Count 30.2 thou/uL (4.8-10.8)
--- NOTE | 2019-04-03 08:45 | PDOC.FM ---
- Subjective Subjective: Patient appears SOB and tired this AM. Nods yes/no to questions. Denies any pain. - Objective Vital Signs & Weight: Vital Signs (12 hours) Temp Pulse Resp BP Pulse Ox 04/03/19 07:32 100.2 F H 133 H 16 96/60 95 Weight Admit Weight 72.575 kg Weight 75.387 kg Most Recent Monitor Data NIBP 126/68 I&O: 04/02/19 04/03/19 04/04/19 06:59 06:59 06:59 Intake Total 2110 980 Output Total 800 925 Balance 1310 55 Result Diagrams: 04/03/19 05:59 04/01/19 07:42 Phys Exam - Physical Examination Patient is SOB, nods yes or no to questions. Crackles heard diffusely on lung exam. tachycardic, cap refill <2 seconds. distended, soft. Positive BS. Musculoskeletal: no edema, pulses present appears tired, lying in bed. Skin: no rash, cap refill <2 seconds Dx/Plan (1) Elevated LFTs Code(s): R94.5 - ABNORMAL RESULTS OF LIVER FUNCTION STUDIES Status: Acute (2) Constipation Code(s): K59.00 - CONSTIPATION, UNSPECIFIED Status: Acute (3) BPH (benign prostatic hyperplasia) Code(s): N40.0 - BENIGN PROSTATIC HYPERPLASIA WITHOUT LOWER URINRY TRACT SYMP Status: Chronic (4) (HFpEF) heart failure with preserved ejection fraction Code(s): I50.30 - UNSPECIFIED DIASTOLIC (CONGESTIVE) HEART FAILURE Status: Chronic (5) Anemia Code(s): D64.9 - ANEMIA, UNSPECIFIED Status: Acute Qualifiers: Anemia type: other cause (6) Failure to thrive Code(s): FGC0806 - Status: Acute (7) Malignant ascites Code(s): R18.0 - MALIGNANT ASCITES Status: Acute (8) Protein calorie malnutrition Code(s): E46 - UNSPECIFIED PROTEIN-CALORIE MALNUTRITION Status: Acute (9) Adenocarcinoma of small bowel Code(s): C17.9 - MALIGNANT NEOPLASM OF SMALL INTESTINE, UNSPECIFIED Status: Chronic (10) HTN (hypertension) Code(s): I10 - ESSENTIAL (PRIMARY) HYPERTENSION Status: Chronic - Plan Plan: 73 yo M with [facility] small bowel adenocarcinoma transitioning to hospice 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 Bryant consulted, no further options for chemotherapy/life prolonging treatment at this time -PT/OT/Palliative/spiritual on board -Patient now DNR/DNI, case management helping to pursue hospice care Failure to thrive, protein calorie malnutrition -Nutrition status does not seem to be improving. TPN is being weaned. -Continue bentyl. H2 fela, maalox for reflux symptoms. -Encourage PO intake GI Bleed -passed large clot of blood 04/02 in stool -likely 2/2 metastatic cancer -Hgb 7.9 this AM HFpEF -Patient remains SOB. Crackles on lung exam. Lasix 40 mg IV now dose. -Continue Lasix daily PO dose 40mg BID. Malignant Ascites - CT 03/19 showing pleural effusion and ascites. s/p 2.5L paracentesis 03/25. - Dr Erickson consulted. States patient is not a good candidate for a peritoneal catheter - US yesterday showed minimal ascites, therapeutic paracentesis not pursued yesterday. Mixed iron def./anemia of chronic disease/chemo induced anemia/Lower GI bleed -s/p IV iron, continue to monitor -s/p 2 u prbc 03/28 and 03/31, -Hgb 7.9 04/03 Elevated LFTs -CT abd with 0.7mm liver lesion, possible cirrhosis Dispo: plan to discharge to hospice. CM is helping with this. Addendum - Attending - Attending Attestation Date/Time: 04/03/19 7902 I personally evaluated the patient and discussed the management with Dr. Cota. I agree with the History, Examination, Assessment and Plan documented above with any addition or exceptions noted below. I signed the pt's OOH-DNR. He is being set up for hospice at home through [facility]. Plan for likely d/c this afternoon.
[2019-04-03] MEDS ORDERED: Furosemide 40 MG/4 ML VIAL SLOW IVP SCH (09:00)
[2019-04-03] MEDS: Pantoprazole 40 MG VIAL IVP SCH (09:02)
[2019-04-03] MEDS: Dicyclomine 10 MG CAP PO SCH ×3 (09:03→21:34)
[2019-04-03] MEDS: Metoprolol Tartrate 25 MG TAB PO SCH ×2 (09:03→21:34)
[2019-04-03] MEDS: Furosemide 20 MG TAB PO SCH ×2 (09:03→14:13)
[2019-04-03] MEDS: Docusate 100 MG CAP PO SCH ×2 (09:03→21:34)
[2019-04-03] MEDS: Bacitracin 1 PK TOP SCH ×2 (09:03→14:13)
[2019-04-03] MEDS: Ferrous Sulfate 325 MG TAB PO SCH ×2 (09:03→17:18)
[2019-04-03] MEDS: Polyethylene Glycol 3350 17 GM Packet PO SCH (09:04)
[2019-04-03] MEDS: Acetaminophen 500 MG TAB PO PRN (09:07)
[2019-04-03] MEDS: Enoxaparin Sodium 40 MG/0.4 ML SYRINGE SC SCH (21:15)
[2019-04-03] MEDS ORDERED: Lactated Ringer's 500 ML IV SCH ×2 (21:30→23:30)
[2019-04-03] MEDS: Atorvastatin Calcium 20 MG TAB PO SCH (21:33)
[2019-04-03] MEDS: Doxazosin Mesylate 4 MG TAB PO SCH (21:34)
[2019-04-03] MEDS: Tamsulosin HCl 0.4 MG CAP PO SCH (21:35)
[2019-04-03] MEDS: Bacitracin Zinc Ointment 30 gm TUBE TOP SCH (21:37)
[2019-04-04] MEDS: Lorazepam 2 MG/ML VIAL SLOW IVP PRN (00:11)
[2019-04-04] MEDS: Morphine 2 MG/ML SYRINGE SLOW IVP PRN (03:54)
[2019-04-04 07:32] VITALS: BMI 23.9
[2019-04-04 07:53] VITALS: BP 81/55; TEMP 99.7
--- NOTE | 2019-04-04 07:54 | PDOC.GSPN ---
Surgery Progress Note: Subj - Subjective Narrative: He is having more respiratory difficulty. BP labile overnight. Tejada placed Surgery Progress Note: Obj - Vital signs Vital signs: Vital Signs - Most Recent Temp Pulse Resp BP Pulse Ox 99.7 F H 138 H 20 81/55 L 93 L 04/04/19 07:46 04/04/19 07:46 04/04/19 07:46 04/04/19 07:46 04/04/19 07:46 - Physical Exam General: moderate distress Abdomen: soft, distended Surgery Progress Note: Results - Labs Result Diagrams: 04/03/19 05:59 04/01/19 07:42 Surgery Progress Note: A/P - Problem (1) Adenocarcinoma of small bowel Current Visit: Yes Code(s): C17.9 - MALIGNANT NEOPLASM OF SMALL INTESTINE, UNSPECIFIED Status: Chronic - Plan Plan: TPN offHe is going to go home on hospice. -Comfort measures. Will make sure palliative pain medicine taken care of before his DC
[2019-04-04] MEDS: Ferrous Sulfate 325 MG TAB PO SCH (08:19)
[2019-04-04] MEDS: Docusate 100 MG CAP PO SCH (08:20)
[2019-04-04] MEDS: Dicyclomine 10 MG CAP PO SCH (08:20)
[2019-04-04] MEDS: Furosemide 20 MG TAB PO SCH (08:21)
[2019-04-04] MEDS: Polyethylene Glycol 3350 17 GM Packet PO SCH (08:21)
[2019-04-04] MEDS: Metoprolol Tartrate 25 MG TAB PO SCH (08:21)
--- NOTE | 2019-04-04 08:47 | PDOC.FM ---
- Subjective Subjective: Patient had abdominal pain and tachycardia overnight, was given morphine which improved the tachycardia. Reports his mouth is dry this morning. - Objective Vital Signs & Weight: Vital Signs (12 hours) Temp Pulse Resp BP BP Pulse Ox 04/04/19 07:46 99.7 F H 138 H 20 81/55 L 93 L 04/04/19 07:40 94 L 04/04/19 03:54 98.5 F 128 H 20 120/73 95 04/04/19 00:40 96 04/04/19 00:39 96 04/04/19 00:00 97.8 F 115 H 20 95/60 95 04/03/19 23:16 102/51 L 04/03/19 23:15 102/51 L 04/03/19 23:10 120 H 04/03/19 23:05 120 H 04/03/19 22:00 117 H Weight Admit Weight 72.575 kg Weight 73.391 kg Most Recent Monitor Data NIBP 126/68 I&O: 04/03/19 04/04/19 04/05/19 06:59 06:59 06:59 Intake Total 980 120 Output Total 925 475 Balance 55 -355 Result Diagrams: 04/03/19 05:59 04/01/19 07:42 Phys Exam - Physical Examination Diffuse weakness, patient has difficulty speaking due to SOB Respiratory: no wheezing, clear to auscultation bilateral tachycardic distended, mildly tender Musculoskeletal: no edema, pulses present Dx/Plan (1) Elevated LFTs Code(s): R94.5 - ABNORMAL RESULTS OF LIVER FUNCTION STUDIES Status: Acute (2) Constipation Code(s): K59.00 - CONSTIPATION, UNSPECIFIED Status: Acute (3) BPH (benign prostatic hyperplasia) Code(s): N40.0 - BENIGN PROSTATIC HYPERPLASIA WITHOUT LOWER URINRY TRACT SYMP Status: Chronic (4) (HFpEF) heart failure with preserved ejection fraction Code(s): I50.30 - UNSPECIFIED DIASTOLIC (CONGESTIVE) HEART FAILURE Status: Chronic (5) Anemia Code(s): D64.9 - ANEMIA, UNSPECIFIED Status: Acute Qualifiers: Anemia type: other cause (6) Failure to thrive Code(s): [id number] - Status: Acute (7) Malignant ascites Code(s): R18.0 - MALIGNANT ASCITES Status: Acute (8) Protein calorie malnutrition Code(s): E46 - UNSPECIFIED PROTEIN-CALORIE MALNUTRITION Status: Acute (9) Adenocarcinoma of small bowel Code(s): C17.9 - MALIGNANT NEOPLASM OF SMALL INTESTINE, UNSPECIFIED Status: Chronic (10) HTN (hypertension) Code(s): I10 - ESSENTIAL (PRIMARY) HYPERTENSION Status: Chronic - Plan Plan: 73 yo M with PMH small bowel adenocarcinoma transitioning to hospice Metastatic small bowel adenocarcinoma -Dr. Bryant consulted, no further options for chemotherapy/life prolonging treatment at this time -Patient now DNR/DNI, case management helping to pursue hospice care -Morphine for pain control Failure to thrive, protein calorie malnutrition TPN is being weaned. -Pursue comfort measures with hospice -Encourage PO intake GI Bleed -passed large clot of blood 04/02 in stool -likely 2/2 metastatic cancer HFpEF -Continue Lasix daily PO dose 40mg BID. Malignant Ascites - CT 03/19 showing pleural effusion and ascites. s/p 2.5L paracentesis 03/25. - Dr Erickson consulted. States patient is not a good candidate for a peritoneal catheter - US 04/02 showed minimal ascites, therapeutic paracentesis not pursued Mixed iron def./anemia of chronic disease/chemo induced anemia/Lower GI bleed -s/p IV iron, continue to monitor -s/p 2 u prbc 03/28 and 03/31, -Hgb 7.9 04/03 Elevated LFTs -CT abd with 0.7mm liver lesion, possible cirrhosis Leukocytosis -Possibly 2/2 stress response -Lungs sound clear on exam this AM, however pt requiring O2 and continues to feel SOB -CXR before discharge Dispo: plan to discharge to hospice. CM is helping with this. Addendum - Attending - Attending Attestation Date/Time: 04/04/19 7877 I personally evaluated the patient and discussed the management with Dr. Cota. I agree with the History, Examination, Assessment and Plan documented above with any addition or exceptions noted below. Will d/c at 10 a.m. home on hospice.
[2019-04-04] MEDS: Pantoprazole 40 MG VIAL IVP SCH (09:37)
[2019-04-04] MEDS: Bacitracin Zinc Ointment 30 gm TUBE TOP SCH (09:38)
== END 2019-04-04 10:10 | disposition hospice, home (50) | DRG 641 ==
LOC: SURG A 16:33
PROVIDERS: ADMIT Surgery; ATTEND Surgery
PROC: 02HV33Z Insertion of Infusion Device into Superior Vena Cava, Percutaneous Approach (ICD-10-PCS; principal; 2019-03-13)
PROC: B548ZZA Ultrasonography of Superior Vena Cava, Guidance (ICD-10-PCS; 2019-03-13)
PROC: 3E0436Z Introduction of Nutritional Substance into Central Vein, Percutaneous Approach (ICD-10-PCS; 2019-03-13)
PROC: 0W9G3ZZ Drainage of Peritoneal Cavity, Percutaneous Approach (ICD-10-PCS; 2019-03-14)
PROC: BW40ZZZ Ultrasonography of Abdomen (ICD-10-PCS; 2019-03-14)
PROC: 0W9G3ZZ Drainage of Peritoneal Cavity, Percutaneous Approach (ICD-10-PCS; 2019-03-25)
PROC: BW40ZZZ Ultrasonography of Abdomen (ICD-10-PCS; 2019-03-25)
PROC: 30233N1 Transfusion of Nonautologous Red Blood Cells into Peripheral Vein, Percutaneous Approach (ICD-10-PCS; 2019-03-28)
DX: E44.0 Moderate protein-calorie malnutrition (principal); C17.1 Malignant neoplasm of jejunum; R64 Cachexia; I50.32 Chronic diastolic (congestive) heart failure; K56.0 Paralytic ileus; R18.0 Malignant ascites; C78.6 Secondary malignant neoplasm of retroperitoneum and peritoneum; J90 Pleural effusion, not elsewhere classified; K92.2 Gastrointestinal hemorrhage, unspecified; Z66 Do not resuscitate; Z51.5 Encounter for palliative care; I11.0 Hypertensive heart disease with heart failure; D64.81 Anemia due to antineoplastic chemotherapy; D63.8 Anemia in other chronic diseases classified elsewhere; E83.39 Other disorders of phosphorus metabolism; E87.70 Fluid overload, unspecified; I48.91 Unspecified atrial fibrillation; R62.7 Adult failure to thrive; N40.0 Benign prostatic hyperplasia without lower urinary tract symptoms; I25.10 Atherosclerotic heart disease of native coronary artery without angina pectoris; E87.6 Hypokalemia; E78.5 Hyperlipidemia, unspecified; K59.00 Constipation, unspecified; K21.9 Gastro-esophageal reflux disease without esophagitis; R53.81 Other malaise; G89.3 Neoplasm related pain (acute) (chronic); T45.1X5A Adverse effect of antineoplastic and immunosuppressive drugs, initial encounter; E83.42 Hypomagnesemia; D50.9 Iron deficiency anemia, unspecified; Z79.01 Long term (current) use of anticoagulants; Z95.5 Presence of coronary angioplasty implant and graft; Z68.24 Body mass index [BMI] 24.0-24.9, adult
CPT/HCPCS: 36415; 36416; 36430; 36569; 49083; 71045; 71046; 71260; 74018; 74177; 76705; 80048; 80053; 80076; 81001; 81003; 82274; 82553; 82728; 83540; 83550; 83735; 84100; 84134; 84275; 84484; 85025; 85060; 85610; 85730; 86850; 86900; 86901; 87070; 87086; 87205; 88112; 88305; 89051; 93005; 93010; 94640; 94799; A4217; C1751; C9113; J0131; J1644; J1650; J1885; J1940; J2060; J2270; J2405; J2916; J3010; J3475; J3480; J3490; J7050; J7620; P9016; P9047; Q0162; Q0167; Q9966; Q9967